=== PATIENT | male | born 1950 | race Two or more races ===

== ENCOUNTER → 2021-07-14 13:46 | Outpatient (BNVA) | payer OTHER, SELFPAY | PROVIDERS: PCP Internal Medicine; Visit Provider Nurse Practitioner Family | DX: R25.1 Tremor, unspecified (principal); R26.9 Unspecified abnormalities of gait and mobility | CPT/HCPCS: 99212 ==

== ENCOUNTER 2021-08-17 10:01 | Outpatient (REF) | payer OTHER, SELFPAY ==
--- NOTE | ~2021-08-17 | MR_ITS ---
EXAMINATION: MR HEAD/BRAIN WITHOUT CONTRAST CLINICAL INFORMATION: 71-year-old with abnormality of gait and mobility. COMPARISON: None TECHNIQUE: Multiplanar multisequence MR imaging of the brain was done without IV contrast. FINDINGS: BRAIN VOLUME: Mild generalized diffuse brain parenchymal volume loss. STRUCTURAL: No malformations. BRAIN AND MENINGES: Numerous scattered subcentimeter foci of FLAIR/T2 signal hyperintensity within the subcortical and deeper white matter of both cerebral hemispheres are noted which are nonspecific findings but likely reflect chronic ischemic microangiopathy. These are associated with periventricular leukoaraiosis. Gradient refocused imaging demonstrates no pathologic susceptibility-weighted signal loss. Specifically, there is no evidence for hemorrhage, hemosiderin staining or abnormal mineral deposition. No extra-axial fluid collections, space-occupying process or mass effect is identified. The ganglionic structures and brainstem appear within normal limits. VENTRICLES AND SUBARACHNOID SPACES: The ventricular system and subarachnoid spaces are consistent with mild volume loss. There is no hydrocephalus. ORBITAL STRUCTURES: The visualized orbital structures are grossly unremarkable within the limitations of the study. VASCULAR: Signal voids are noted in the visualized major intracranial vessels. SINUSES AND OSSEOUS STRUCTURES: There is mild mucosal thickening in the ethmoid complex with nasal septal deviation to the left with some mucosal thickening in the maxillary sinuses and a small retention cyst in the left maxillary sinus. Osseous marrow signal intensity appears grossly unremarkable. MR/MR head/brain wo con IMPRESSION: 1. 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 2. No acute intracranial process. No evidence for hemorrhage, extra-axial fluid collection, space-occupying process, mass effect or hydrocephalus. 3. Paranasal sinus mucosal inflammatory changes.
== END 2021-08-17 10:02 | disposition home or self-care (01) ==
LOC: HO.MRI 10:01
PROVIDERS: Visit Provider Nurse Practitioner Family
DX: R26.9 Unspecified abnormalities of gait and mobility (principal); R25.1 Tremor, unspecified
CPT/HCPCS: 70551

== ENCOUNTER → 2021-09-15 11:04 | Outpatient (BNVA) | payer OTHER, SELFPAY | PROVIDERS: PCP Internal Medicine; Visit Provider Nurse Practitioner Family | DX: G20 Parkinson's disease (principal); R06.81 Apnea, not elsewhere classified; R06.83 Snoring | CPT/HCPCS: 99212 ==

== ENCOUNTER → 2022-01-19 19:23 | Outpatient (REF) | payer OTHER, SELFPAY | LOC: HO.SL 19:23 | PROVIDERS: Visit Provider Nurse Practitioner Family | DX: R06.83 Snoring (principal) | CPT/HCPCS: 95810 ==

== ENCOUNTER → 2022-04-21 08:30 | Outpatient (BNVA) | payer OTHER, SELFPAY | PROVIDERS: PCP Internal Medicine; Visit Provider Nurse Practitioner Family | DX: G20 Parkinson's disease (principal); R06.83 Snoring; K59.00 Constipation, unspecified | CPT/HCPCS: 99212 ==

== ENCOUNTER → 2022-10-06 09:25 | Outpatient (BNVA) | payer OTHER, SELFPAY | PROVIDERS: Visit Provider Nurse Practitioner Family | DX: G20 Parkinson's disease (principal); K59.00 Constipation, unspecified | CPT/HCPCS: 99212 ==

== ENCOUNTER 2023-02-07 11:01 | Outpatient (AMB) | payer OTHER, SELFPAY ==
[2023-02-07 11:06] VITALS: BP 140/80; PULSE 66; O2SAT 97; BMI 28.5
--- NOTE | 2023-02-07 11:06 | MHC.OFFVIS ---
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 pts renewable energy engineer states pt is getting worse with the shaking. Pt states he is still drooling all the time. Excellence Consultant Required: No Allergies No Known Allergies Allergy (Verified 02/07/23 11:10) Medication List - Last Reconciled 02/10/23 by YURI Dos Santos atorvastatin 20 mg PO DAILY carbidopa-levodopa 25-100 mg (Sinemet) 1.5 tabs PO TID 30 days escitalopram oxalate 20 mg PO DAILY gabapentin 300 mg PO DAILY lisinopril 5 mg PO DAILY metformin ER 500 mg PO DAILY ld-eos-fasrf-S1-dwerjgw-ujrkct 816-01-891-300 mcg (Centrum Silver Men) 1 tab PO DAILY polyethylene glycol 3350 (Miralax) 17 grams PO DAILY PRN 30 days risperidone PO DAILY HPI HPI Comments History of Present Illness Details 72-yr-old male presents for f/u visit, accomapnied by family. Pt denies any significant interval medical history changes. Pt's current PD medication regimen: 1.5 tabs qam, 1 tab q afternoon, 1.5 tabs q evening. ADL's: Ind Swallowing: none Drooling: He is having more drooling Orthostatic lightheadedness: May briefly feel unbalanced Constipation: Some- but not great at taking the miralax Freezing: at times when he stands Stiffness: in the hands Tremor: increased some Falls: none Hallucinations: none Memory: he may lose his train of thought or forget why he is going into a room Sleep: sleeps well Exercise: none- he states he walks from the couch to the kitchen. [facility] Surgical History History of back surgery Family History Mother Cancer Social History (Updated 02/07/23 @ 11:11 by Ania Dupree CMA) Household Members: Spouse Alcohol intake: current Alcohol intake frequency: holidays/special occasions only Patient Tobacco Use Status: Never used Tobacco Current occupational status: retired Review of Systems Const All systems reviewed & are unremarkable except as noted in HPI and below Physical Exam Vital Signs: Last Vital Signs Pulse 66 02/07/23 11:06 BP 140/80 H 02/07/23 11:06 Pulse Ox 97 02/07/23 11:06 Oxygen Delivery Method Room Air 02/07/23 11:06 BMI result Body Mass Index 28.5 Const General: cooperative and no acute distress HEENT Head: Yes normocephalic Resp Effort & Inspection: normal respiratory effort and able to speak in complete sentences Neuro Other: Expression: Mild decreased expression Voice: Soft voice Tremor: Mild RUE postural tremor Tone: Mild BUE tone Dyskinesia: None FFM: Mild bradykinesia Foot taps: Mild bradykinesia Gait: Slow to stand, short steps, steady gait Psych: pleasant affect Cognition (Neuro): normal cognition Psych Appearance: grossly normal Mental Status: mental status grossly normal Attitude: cooperative Assessment & Plan Assessment & Plan (1) Parkinson disease: Code(s): G20 - Parkinson's disease (2) Tremor: Comment: Chin and RUE rest/action tremor, BUE rigidity, bradykinesia, hallucinations, drooling. Code(s): R25.1 - Tremor, unspecified (3) Constipation: Code(s): K59.00 - Constipation, unspecified Plan Increase Sinemet 25/100 mg to 1.5 tabs qam, 1.5 tabs q afternoon, 1.5 tabs q evening. Resume fiber tabs and Miralax prn constipation. Increase physical activity. f/u in 4-5 months or sooner prn. Medications: Changed From carbidopa-levodopa 25-100 mg (Sinemet) 1.5 tab qam, 1 tab q afternoon, 1.5 tabs q evening orally 3 times a day; 30 days 120 tabs 6RF To carbidopa-levodopa 25-100 mg (Sinemet) 1.5 tabs PO TID 30 days 135 tabs 6RF Coding Level of Care Code Est Pt Level 4 (40001) Diagnoses Parkinson disease G20 Tremor R25.1 Constipation K59.00
== END 2023-02-07 11:52 | disposition home or self-care (01) ==
PROVIDERS: Visit Provider Nurse Practitioner Family
DX: G20 Parkinson's disease (principal); K59.00 Constipation, unspecified
CPT/HCPCS: 99214

== ENCOUNTER → 2023-02-07 11:01 | Outpatient (BNVA) | payer OTHER, SELFPAY | PROVIDERS: Visit Provider Nurse Practitioner Family | DX: G20 Parkinson's disease (principal); K59.00 Constipation, unspecified | CPT/HCPCS: 99212 ==

== ENCOUNTER 2023-06-15 09:24 | Outpatient (AMB) | payer OTHER, SELFPAY ==
--- NOTE | 2023-06-15 09:29 | MHC.OFFVIS ---
Intake Vital Signs 06/15/23 09:32 Height 5 ft 9 in Weight 197 lb BMI 29.1 BP 138/70 Blood Pressure Location Rt brachial Position Sitting Pulse 72 Pulse Source Pulse Oximeter Pulse Oximetry (%) 96 Oxygen Delivery Method Room Air Intake Visit Reasons: 4 mo f/u -Snoring - LVM Intake Note: Patient presents for 4 month follow up snoring and tremors. 'his shakes are getting worst. Allergies No Known Allergies Allergy (Verified 06/15/23 09:33) Medication List - Last Reconciled 06/15/23 by YURI Dos Santos atorvastatin 20 mg PO DAILY carbidopa-levodopa 25-100 mg (Sinemet) 1.5 tabs PO TID 30 days escitalopram oxalate 20 mg PO DAILY gabapentin 300 mg PO DAILY lisinopril 5 mg PO DAILY metformin ER 500 mg PO DAILY cp-yne-xqleg-H6-moifizj-cwsjoh 251-37-757-300 mcg (Centrum Silver Men) 1 tab PO DAILY polyethylene glycol 3350 (Miralax) 17 grams PO DAILY PRN 30 days risperidone PO DAILY HPI HPI Comments History of Present Illness Details 73-yr-old male presents for f/u visit, accomapnied by his dtr. Pt denies any significant interval medical history changes. Pt's current PD medication regimen: 1.5 tabs qam, 1.5 tab q afternoon, 1.5 tabs q evening. ADL's: Ind Swallowing: none Drooling: Some mild drooling Orthostatic lightheadedness: May briefly feel unbalanced Constipation: Some- using the miralax prn which helps Freezing: at times when he stands, his right hip has been bothering him- seeing his PCP next week Stiffness: in the muscles- generalized Tremor: increased Falls: none Hallucinations: none Memory: some more forgetfulness Mood- more stress- his masakm-ao-ljb is now on hospice Sleep: sleeps well Exercise: none Other- numbness and tingling in bilateral hands- wakes him up at night [facility] Surgical History History of back surgery Family History Mother Cancer Social History Household Members: Spouse Alcohol intake: current Alcohol intake frequency: holidays/special occasions only Patient Tobacco Use Status: Never used Tobacco Current occupational status: retired Review of Systems Const All systems reviewed & are unremarkable except as noted in HPI and below Physical Exam Vital Signs: Last Vital Signs Pulse 72 06/15/23 09:32 BP 138/70 06/15/23 09:32 Pulse Ox 96 06/15/23 09:32 Oxygen Delivery Method Room Air 06/15/23 09:32 BMI result Body Mass Index 29.1 Const General: cooperative and no acute distress Resp Effort & Inspection: normal respiratory effort and able to speak in complete sentences Neuro Other: General: A&O Expression: Mild decreased expression Voice: Soft voice Tremor: Mild intermittent chin tremor. Mild RUE postural tremor Tone: Mild BUE tone Dyskinesia: None FFM: Mild bradykinesia Foot taps: Mild bradykinesia Gait: Slow to stand, short steps, steady gait Psych: pleasant affect BUE- negative Tinnel, Phalen, Medial compression test Assessment & Plan Assessment & Plan (1) Parkinson's disease without dyskinesia: Code(s): G20.A1 - Parkinson's disease without dyskinesia, without mention of fluctuations (2) Tremor: Comment: Chin and RUE rest/action tremor, BUE rigidity, bradykinesia, hallucinations, drooling. Code(s): R25.1 - Tremor, unspecified (3) Constipation: Code(s): K59.00 - Constipation, unspecified (4) Numbness and tingling in both hands: Code(s): R20.0 - Anesthesia of skin; R20.2 - Paresthesia of skin Plan Increase Sinemet 25/100 mg from 1.5 tabs TID to 2 tabs TID. Continue fiber tabs and Miralax prn constipation. Advised to increase physical activity. Trial OTC fang carpal tunnel splints qhs ? f/u in 4 months or sooner prn. Medications: Changed From carbidopa-levodopa 25-100 mg (Sinemet) 1.5 tabs PO TID 30 days 135 tabs 6RF To carbidopa-levodopa 25-100 mg (Sinemet) 2 tabs PO TID 30 days 180 tabs 6RF Coding Level of Care Code Est Pt Level 4 (63169) Diagnoses Parkinson's disease without dyskinesia G20.A1 Tremor R25.1 Constipation K59.00 Numbness and tingling in both hands R20.0; R20.2
[2023-06-15 09:32] VITALS: BP 138/70; PULSE 72; O2SAT 96; BMI 29.1
== END 2023-06-15 10:18 | disposition home or self-care (01) ==
PROVIDERS: Visit Provider Nurse Practitioner Family
DX: G20.A1 Parkinson's disease without dyskinesia, without mention of fluctuations (principal); K59.00 Constipation, unspecified; R20.0 Anesthesia of skin; R20.2 Paresthesia of skin
CPT/HCPCS: 99214

== ENCOUNTER → 2023-06-15 09:24 | Outpatient (BNVA) | payer OTHER, SELFPAY | PROVIDERS: Visit Provider Nurse Practitioner Family | DX: G20.A1 Parkinson's disease without dyskinesia, without mention of fluctuations (principal); K59.00 Constipation, unspecified; R20.0 Anesthesia of skin; R20.2 Paresthesia of skin | CPT/HCPCS: 99212 ==

== ENCOUNTER 2023-09-20 09:25 | Outpatient (AMB) | payer OTHER, SELFPAY ==
[2023-09-20 09:40] VITALS: BP 124/84; PULSE 87; O2SAT 98; BMI 28.6
--- NOTE | 2023-09-20 09:40 | MHC.OFFVIS ---
Intake Vital Signs 09/20/23 09:40 Height 5 ft 9 in Weight 194 lb BMI 28.6 BP 124/84 Blood Pressure Location Rt brachial Position Sitting Pulse 87 Pulse Source Pulse Oximeter Pulse Oximetry (%) 98 Oxygen Delivery Method Room Air Intake Visit Reasons: 3 mo f/u - Snoring-CONF Intake Note: Patient here for follow up. parkinson's is progressing Allergies No Known Allergies Allergy (Verified 09/20/23 09:42) Medication List - Last Reconciled 09/20/23 by YURI Dos Santos atorvastatin 20 mg PO DAILY [Bilateral carpal tunnel neoprene wrist plint As directed] bupropion HCl takes 300mg carbidopa-levodopa 25-100 mg (Sinemet) 2 tabs PO TID 30 days escitalopram oxalate 20 mg PO DAILY gabapentin 300 mg PO DAILY lisinopril 5 mg PO DAILY metformin ER 500 mg PO DAILY on-lrq-tumtk-Z3-ysjucue-pmrohd 173-78-088-300 mcg (Centrum Silver Men) 1 tab PO DAILY polyethylene glycol 3350 (Miralax) 17 grams PO DAILY PRN 30 days risperidone PO DAILY HPI HPI Comments History of Present Illness Details 73-yr-old right-hand male presents for f/u visit, accompanied by his dtr. Pt denies any significant interval medical history changes. Pt is noticing some PD s/s progression. Pt's current PD medication regimen: CD-LD 25-100mg 2 tabs TID (9am, 3pm, 10pm). ADL's: Ind Swallowing: none Drooling: Some mild drooling Orthostatic lightheadedness: May briefly feel unbalanced Constipation: Denies- as he is using the miralax prn which helps Freezing: Denies. Stiffness: Yes- in the muscles- generalized. The right hip pain comes nad goes. Tremor: increased. Now more noticable in his chin- he states does not bother him- notices when he sees himself in the mirror. Notices more as his next dose is due, and more so in the afternoon. Falls: Once- tripped over one of his small dogs. Hallucinations: May see something move beside him but nothing there. Memory: Can be forgetful- some days better than others Mood- has depression and anxiety- feels controlled on his medications- and sees his therapist every 2 weeks. His ruavnl-uh-cxe is now on hospice. Sleep: Sleeps well Exercise: Yesterday walked- 30 minutes to and from [employer]. Other- numbness and tingling in bilateral hands- more left /- happens al day, but at night the whole left hand goes numb. He forgot about trying the wrist splints. REPLACED BY [facility] Medical History (Updated 09/20/23 @ 10:25 by YURI Dos Santos) Parkinson disease Surgical History History of back surgery Family History Mother Cancer Social History Household Members: Spouse Alcohol intake: current Alcohol intake frequency: holidays/special occasions only Patient Tobacco Use Status: Never used Tobacco Current occupational status: retired Review of Systems Const All systems reviewed & are unremarkable except as noted in HPI and below Physical Exam Vital Signs: Last Vital Signs Pulse 87 09/20/23 09:40 BP 124/84 09/20/23 09:40 Pulse Ox 98 09/20/23 09:40 Oxygen Delivery Method Room Air 09/20/23 09:40 BMI result Body Mass Index 28.6 Const General: cooperative and no acute distress Resp Effort & Inspection: normal respiratory effort and able to speak in complete sentences Neuro Other: General: A&O Expression: Mild decreased expression Voice: Soft voice Tremor: Mild intermittent chin tremor. Mild RUE postural tremor Tone: Mild BUE tone Dyskinesia: None FFM: Mild bradykinesia Foot taps: Mild bradykinesia Gait: Slow to stand, short steps, steady gait Psych: pleasant affect Assessment & Plan Assessment & Plan (1) Parkinson's disease without dyskinesia: Code(s): G20.A1 - Parkinson's disease without dyskinesia, without mention of fluctuations (2) Numbness and tingling in both hands: Code(s): R20.0 - Anesthesia of skin; R20.2 - Paresthesia of skin (3) Gait difficulty: Code(s): R26.9 - Unspecified abnormalities of gait and mobility Plan Increase Sinemet 25/100 mg 2 tabs TID to 2 tabs QID (at least 30 minutes before B-L-D and at bedtime)- in hopes this reduses rigidity. Reviewed s/e's to monitor for- OH, hallucinations, GI s/s, dyskinesias. Continue fiber tabs and Miralax prn constipation. Advised again to increase physical activity. May try watching PD exercise videos in Marshallese- many options on youtibe. Again trial fang carpal tunnel splints qhs- order written, will fax to [employer] [facility]. ? f/u in 4-5 months or sooner prn. Medications: New [Bilateral carpal tunnel neoprene wrist plint] As directed 2 ea 0RF R20.0 - Anesthesia of skin, R20.2 - Paresthesia of skin Changed From carbidopa-levodopa 25-100 mg (Sinemet) 2 tabs PO TID 30 days 180 tabs 6RF To carbidopa-levodopa 25-100 mg (Sinemet) 2 tabs PO QID 720 tabs 1RF 90 days Coding Level of Care Code Est Pt Level 4 (94067) Diagnoses Parkinson's disease without dyskinesia G20.A1 Numbness and tingling in both hands R20.0; R20.2 Gait difficulty R26.9
== END 2023-09-20 10:33 | disposition home or self-care (01) ==
PROVIDERS: Visit Provider Nurse Practitioner Family
DX: G20.A1 Parkinson's disease without dyskinesia, without mention of fluctuations (principal); R20.0 Anesthesia of skin; R20.2 Paresthesia of skin; R26.9 Unspecified abnormalities of gait and mobility
CPT/HCPCS: 99214

== ENCOUNTER → 2023-09-20 09:25 | Outpatient (BNVA) | payer OTHER, SELFPAY | PROVIDERS: Visit Provider Nurse Practitioner Family | DX: G20.A1 Parkinson's disease without dyskinesia, without mention of fluctuations (principal); R20.0 Anesthesia of skin; R20.2 Paresthesia of skin; R26.9 Unspecified abnormalities of gait and mobility; Z79.899 Other long term (current) drug therapy | CPT/HCPCS: 99212 ==

== ENCOUNTER 2024-02-15 09:00 | Outpatient (AMB) | payer OTHER, SELFPAY ==
--- NOTE | 2024-02-15 09:05 | A.OFFVIS_ITS ---
Vital Signs 02/15/24 09:06 Height 5 ft 9 in Weight 199 lb BMI 29.4 BP 124/70 Blood Pressure Location Rt brachial Position Sitting Pulse 78 Pulse Source Pulse Oximeter Pulse Oximetry (%) 98 Oxygen Delivery Method Room Air Intake Visit Reasons: follow up Snoring-LVM Intake Note: Patient presents for follow up snoring. Allergies No Known Allergies Allergy (Verified 02/15/24 09:08) Medication List - Last Reconciled 02/15/24 by YURI Dos Santos atorvastatin 20 mg PO DAILY [Bilateral carpal tunnel neoprene wrist plint As directed] bupropion HCl takes 300mg carbidopa-levodopa 25-100 mg (Sinemet) 2 tabs PO QID 90 days escitalopram oxalate 20 mg PO DAILY gabapentin 300 mg PO DAILY lisinopril 5 mg PO DAILY metformin ER 500 mg PO DAILY om-qnp-jrfer-X6-wczmxxl-jodbvq 302-41-024-300 mcg (Centrum Silver Men) 1 tab PO DAILY polyethylene glycol 3350 (Miralax) 17 grams PO DAILY PRN 30 days risperidone PO DAILY HPI Comments Details: 73-yr-old male presents for f/u visit for Parkinson's. Pt denies any significant interval medical history changes. Pt's current PD medication regimen: CD-LD 25-100mg 2 tabs TID (9am, 3pm, 10pm). He did not increase to QID. ADL's: Ind Swallowing: none Drooling: Some mild drooling Orthostatic lightheadedness: May briefly feel unbalanced/dizzy Constipation: Denies- as he is using the miralax prn which helps Freezing: At times, his legs may be stuck, say while getting up form an airplane seat. Stiffness: States he is ok. Rashid shave right hip arthritis. Tremor: States stable- not overly bothersome. Falls: Has lost his balance after standing up. Hallucinations: May see something move beside him but nothing there or something moving on the ground. Not bothersome Memory: Can be forgetful- some days better than others Mood- Has depression and anxiety- feels controlled on his medications- and sees his therapist every 2 weeks. His lgcate-qu-zco is now on hospice. Sleep: Sleeps well Exercise: Yesterday walked- 30 minutes to and from [employer]. Other- The [place] hand numbness and tingling is better w/ trying fang wrist splints. [facility] Medical History (Updated 09/20/23 @ 10:25 by YURI Dos Santos) Parkinson disease Surgical History History of back surgery Family History Mother Cancer Social History Household Members: Spouse Alcohol intake: current Alcohol intake frequency: holidays/special occasions only Patient Tobacco Use Status: Never used Tobacco Current occupational status: retired Review of Systems Const All systems reviewed & are unremarkable except as noted in HPI and below Physical Exam Vital Signs: Last Vital Signs Pulse 78 02/15/24 09:06 BP 124/70 02/15/24 09:06 Pulse Ox 98 02/15/24 09:06 Oxygen Delivery Method Room Air 02/15/24 09:06 BMI result Body Mass Index 29.4 Const General: cooperative and no acute distress Resp Effort & Inspection: normal respiratory effort and able to speak in complete sentences Neuro Other: General: A&O Expression: Mild decreased expression Voice: Soft voice Tremor: Mild intermittent chin tremor. Mild RUE postural tremor Tone: Mild BUE R > L tone Dyskinesia: None FFM: Mild bradykinesia Foot taps: Mild bradykinesia Gait: Slow to stand, decreased arm swing, short steps, steady gait Psych: pleasant affect Assessment & Plan Assessment & Plan (1) Parkinson's disease without dyskinesia: Code(s): G20.A1 - Parkinson's disease without dyskinesia, without mention of fluctuations Category: Medical (2) Numbness and tingling in both hands: Code(s): R20.0 - Anesthesia of skin; R20.2 - Paresthesia of skin Category: Medical (3) Gait difficulty: Code(s): R26.9 - Unspecified abnormalities of gait and mobility Category: Medical (4) Tremor: Comment: Chin and RUE rest/action tremor, BUE rigidity, bradykinesia, hallucinations, drooling. Code(s): R25.1 - Tremor, unspecified Category: Medical Plan Again increase Sinemet 25/100 mg 2 tabs TID to 2 tabs QID (at least 30 minutes before B-L-D and at bedtime)- in hopes this reduces rigidity and freezing episodes. Reviewed s/e's to monitor for- OH, hallucinations, GI s/s, dysk inesias. Also reviewed techniques to break freezing episodes- pause, take a breathe, step in place or tap leg with hand. Continue fiber tabs and Miralax prn constipation. Continue increased physical activity. Continue fang carpal tunnel splints qhs prn, as this has been helpful. ? f/u in 4-5 months or sooner prn. Medications: Refilled carbidopa-levodopa 25-100 mg (Sinemet) 2 tabs PO QID 720 tabs 1RF 90 days Coding Level of Care Code Est Pt Level 4 (24479) Diagnoses Parkinson's disease without dyskinesia G20.A1 Numbness and tingling in both hands R20.0; R20.2 Gait difficulty R26.9 Tremor R25.1
[2024-02-15 09:06] VITALS: BP 124/70; PULSE 78; O2SAT 98; BMI 29.4
== END 2024-02-15 10:11 | disposition home or self-care (01) ==
PROVIDERS: Visit Provider Nurse Practitioner Family
DX: G20.A1 Parkinson's disease without dyskinesia, without mention of fluctuations (principal); R20.0 Anesthesia of skin; R20.2 Paresthesia of skin; R26.9 Unspecified abnormalities of gait and mobility
CPT/HCPCS: 99214

== ENCOUNTER → 2024-02-15 09:00 | Outpatient (BNVA) | payer OTHER, SELFPAY | PROVIDERS: Visit Provider Nurse Practitioner Family | DX: G20.A1 Parkinson's disease without dyskinesia, without mention of fluctuations (principal); R20.0 Anesthesia of skin; R20.2 Paresthesia of skin; R26.9 Unspecified abnormalities of gait and mobility; R25.1 Tremor, unspecified | CPT/HCPCS: 99212 ==

== ENCOUNTER 2024-08-29 10:13 | Outpatient (AMB) | payer OTHER, SELFPAY ==
--- NOTE | 2024-08-29 10:44 | MHC.OFFVIS ---
Vital Signs 08/29/24 10:45 Height 5 ft 9 in Weight 194 lb BMI 28.6 BP 140/70 H Blood Pressure Location Rt brachial Position Sitting Pulse 85 Pulse Source Pulse Oximeter Pulse Oximetry (%) 97 Oxygen Delivery Method Room Air Intake Visit Reasons: 6mo f/u Feather Duster Winder Required: No Allergies No Known Allergies Allergy (Verified 08/29/24 10:53) Medication List - Last Reconciled 08/29/24 by YURI Dos Santos atorvastatin 20 mg PO DAILY [Bilateral carpal tunnel neoprene wrist plint As directed] bupropion HCl takes 300mg carbidopa-levodopa 25-100 mg (Sinemet) 2 tabs PO QID 90 days escitalopram oxalate 20 mg PO DAILY gabapentin 300 mg PO DAILY lisinopril 5 mg PO DAILY metformin ER 500 mg PO DAILY [id number] mcg (Centrum Silver Men) 1 tab PO DAILY polyethylene glycol 3350 (Miralax) 17 grams PO DAILY PRN 30 days risperidone PO DAILY HPI Comments Details: 74-yr-old male presents for f/u visit for Parkinson's. Patient is accompanied by family/CHEF'S ASSISTANT. Pt denies any significant interval medical history changes. Patient states request previous he had a routine colonoscopy, were 5 polyps were removed. Plans for follow-up colonoscopy in 3 years. Patient's primary concern today is an increase in falls. He finds that he falls forward after standing up-sometimes to his knees. He identifies triggers of freezing gait, festinating gait and bilateral feet paresthesia. He notes that when he stands up, his feet sometimes start to move quickly and he can not break this on his own. Also on and off throughout the day he can have symmetric bilateral foot numbness and tingling- like they have fallen asleep, and when he stands up it is difficult to feel the ground underneath his feet. 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 His last hemoglobin A1c in July was 7%. July labs were also notable for anemia. Pt's current PD medication regimen: CD-LD 25-100mg 2 tabs TID (9am, 3pm, 10pm). He again did not increase to QID. ADL's: Overall independent, but needing a bit more assist. Does have a shower chair Swallowing: Denies any issues Drooling: Some mild drooling from the side of mouth Orthostatic lightheadedness: Denies Constipation: Denies- as he is using the miralax prn which helps some Freezing: At times, his legs may be stuck, say while getting up after sitting for awhile. We then Stiffness: Endorses some generalized stiffness. Rashid shave right hip arthritis. Tremor: Mildly increased, used to be able to hold his coffee cup with 1 hand now needs to use 2 hands to hold it. His coffee cup is covered. Falls: As above Hallucinations: May see something move beside him but nothing there or something moving on the ground. Not bothersome Memory: Can be forgetful, may lose his train of thought- some days better than others. He does play games on his phone. Mood- Has h/o depression and anxiety- feels controlled on his medications- and sees his therapist every 2 weeks. Sleep: Sleeps well Exercise: States not much exercise at this time, as the weather is not conducive to walking outside. Other- The Tony hand numbness and tingling is stable. Uses tony wrist splints p.r.n. with good effect. [facility] Medical History (Updated 08/29/24 @ 11:39 by YURI Dos Santos) Parkinson disease Surgical History History of back surgery Family History Mother Cancer Social History Household Members: Spouse Alcohol intake: current Alcohol intake frequency: holidays/special occasions only Patient Tobacco Use Status: Never used Tobacco Current occupational status: retired Physical Exam Vital Signs: Last Vital Signs Pulse 85 08/29/24 10:45 BP 140/70 H 08/29/24 10:45 Pulse Ox 97 08/29/24 10:45 Oxygen Delivery Method Room Air 08/29/24 10:45 BMI result Body Mass Index 28.6 Const General: cooperative and no acute distress Resp Effort & Inspection: normal respiratory effort and able to speak in complete sentences Neuro Other: General: A&O Expression: Mild decreased expression Voice: Soft voice Tremor: Mild intermittent chin tremor. No visible RUE postural tremor Tone: Slight increased BUE rigidity Dyskinesia: None FFM: Mild bradykinesia Foot taps: Mild bradykinesia Gait: Slow to stand, decreased arm swing, short steps, steady gait Psych: pleasant affect Assessment & Plan Assessment & Plan (1) Parkinson's disease without dyskinesia: Code(s): G20.A1 - Parkinson's disease without dyskinesia, without mention of fluctuations Category: Medical (2) Numbness and tingling of both feet: Code(s): R20.0 - Anesthesia of skin; R20.2 - Paresthesia of skin Category: Medical (3) Anemia: Code(s): D64.9 - Anemia, unspecified Category: Medical (4) Numbness and tingling in both hands: Code(s): R20.0 - Anesthesia of skin; R20.2 - Paresthesia of skin Category: Medical (5) Gait difficulty: Code(s): R26.9 - Unspecified abnormalities of gait and mobility Category: Medical (6) Tremor: Comment: Chin and RUE rest/action tremor, BUE rigidity, bradykinesia, hallucinations, drooling. Code(s): R25.1 - Tremor, unspecified Category: Medical Plan Discussion Notes I discussed the likelihood of tremor management improvement with increased medication frequency for Parkinson's Disease. Physical therapy was suggested to support gait improvement if needed. Risks and benefits of medication adjustment were addressed, stressing the importance of adherence. I recommended laboratory testing to check for vitamin deficits and anemia causes that might affect neuropathy. The patient was informed we would request previous nerve testing for updates. We reviewed importance for patient to work with PCP on diabetes control. The patient voiced understanding and agreed to return for review in six months, with immediate contact advised if substantial symptom fluctuates. Again increase Sinemet 25/100 mg from 2 tabs TID to 2 tabs QID (at least 30 minutes before B-L-D and at bedtime)- in hopes this reduces rigidity and freezing episodes. Reviewed s/e's to monitor for- [place], hallucinations, GI s/s, dyskinesias. Patient encouraged to do foot movements/exercises prior to standing up to reduce risk for freezing episodes and minimize BLE paresthesia symptoms. Explained that his risk for falls will be increased if he is experiencing freezing episodes and paresthesia at the same time. Reviewed techniques to break freezing episodes- pause, take a breathe, step in place or tap leg with hand. Encouraged patient to use his cane, if symptoms worsen his walker- both of which he has at home. Offered PT, however patient declines at this time. Continue fiber tabs and Miralax prn constipation. Stress importance of maintaining increased physical activity. Continue tony carpal tunnel splints qhs prn, as this has been helpful. We will check fasting labs for common etiologies of paresthesias in setting of anemia- patient will come back next week to do labs. We will request recent podiatry notes and EMG/NCS studies. Patient was informed and verbally consented to the use of an ambient scribe for clinic note documentation during this visit. ? f/u in 6 months or sooner prn. Orders: Orders Ferritin 09/03/24 R20.0 - Anesthesia of skin, R20.2 - Paresthesia of skin, D64.9 - Anemia, unspecified, E11.9 - Type 2 diabetes mellitus without complications Vitamin B6 09/03/24 R20.0 - Anesthesia of skin, R20.2 - Paresthesia of skin, D64.9 - Anemia, unspecified, E11.9 - Type 2 diabetes mellitus without complications Erythrocyte Sedimentation Rate 09/03/24 R20.0 - Anesthesia of skin, R20.2 - Paresthesia of skin, D64.9 - Anemia, unspecified, E11.9 - Type 2 diabetes mellitus without complications Methylmalonic Acid 09/03/24 R20.0 - Anesthesia of skin, R20.2 - Paresthesia of skin, D64.9 - Anemia, unspecified, E11.9 - Type 2 diabetes mellitus without complications Complete Blood Count Auto Diff 09/03/24 R20.0 - Anesthesia of skin, R20.2 - Paresthesia of skin, D64.9 - Anemia, unspecified, E11.9 - Type 2 diabetes mellitus without complications Comprehensive Met. Panel 09/03/24 R20.0 - Anesthesia of skin, R20.2 - Paresthesia of skin, D64.9 - Anemia, unspecified, E11.9 - Type 2 diabetes mellitus without complications Homocysteine 08/29/24 R20.0 - Anesthesia of skin, R20.2 - Paresthesia of skin, D64.9 - Anemia, unspecified, E11.9 - Type 2 diabetes mellitus without complications Lyme IgG/IgM w/reflex to WB 09/03/24 R20.0 - Anesthesia of skin, R20.2 - Paresthesia of skin, D64.9 - Anemia, unspecified, E11.9 - Type 2 diabetes mellitus without complications Vitamin B12 and Folate 09/03/24 R20.0 - Anesthesia of skin, R20.2 - Paresthesia of skin, D64.9 - Anemia, unspecified, E11.9 - Type 2 diabetes mellitus without complications Vitamin B1 09/03/24 R20.0 - Anesthesia of skin, R20.2 - Paresthesia of skin, D64.9 - Anemia, unspecified, E11.9 - Type 2 diabetes mellitus without complications IRON PROFILE 09/03/24 R20.0 - Anesthesia of skin, R20.2 - Paresthesia of skin, D64.9 - Anemia, unspecified, E11.9 - Type 2 diabetes mellitus without complications Medications: Changed From carbidopa-levodopa 25-100 mg 2 tabs PO QID 90 days 720 tabs 1RF To carbidopa-levodopa 25-100 mg (Sinemet) 2 tabs PO QID 720 tabs 1RF 90 days Coding Level of Care Code Est Pt Level 4 (46202) Complex EM visit Add On G2211 Diagnoses Parkinson's disease without dyskinesia G20.A1 Numbness and tingling of both feet R20.0; R20.2 Anemia D64.9 Numbness and tingling in both hands R20.0; R20.2 Gait difficulty R26.9 Tremor R25.1
[2024-08-29 10:45] VITALS: BP 140/70; PULSE 85; O2SAT 97; BMI 28.6
--- OUTSIDE RECORDS SUMMARY | 2024-08-29 11:26 | XMS_ITS ---
Author Organization [facility] Address [address] [place] [address] Care Team Providers Care Pattern Filer Name Role Phone ALETHA RUFFIN Unavailable [phone] ALLERGIES No Known Allergies REASON FOR VISIT Pt seen in office for f/u visit MEDICATIONS Medication SIG (Take, Route, Frequency, Duration) Notes Start Date End Date Status Alcohol Wipes 70 % as directed External ly DAILY for 90 days 04/24/2024 Active Lisinopril 10 MG 1 tablet Orally Once a day for 90 days Active Lisinopril 10 MG Take 1 tablet by andreas th once daily for 90 days for 90 Active Cialis 20 MG 1 tablet Orally 1 hr before sex for 30 day(s) Active Lisinopril 5 MG Take 1 tablet by andreas th once daily for 90 days for 90 Not-Taking FreeStyle Lite Test Strips as directed as directed in vitro dxe11.8 once daily for 30 days 07/28/2019 Active FreeStyle Lite - as directed in vitro dxe11.8 once daily for 30 days 07/28/2019 Active Atorvastatin Calcium 20 MG TAKE 1 TABLET BY MOUTH EVERY DAY for 90 Active hydrOXYzine HCl 25 MG TAKE 1 TABLET BY M OUTH EVERY 8 HOURS NEEDED FOR 90 DAYS for 90 Active FreeStyle Lancets - as directed in vitro dx e11.8 once daily for 30 days 07/28/2019 Active Diclofenac Sodium 75 MG 1 tablet Orally Twice a day for 30 day(s) 12/05/2019 Active Gabapentin 300 MG 1 capsule Orally Onc e a day for 30 day(s) 12/05/2019 Active metFORMIN HCl ER 500 MG TAKE 1 TABLET BY MOUTH TWICE DAILY WITH EVENING MEAL FOR 90 DAYS Orally Once a day for 90 days Active Carbidopa-Levodopa 25-100 MG Oral for 30 Days Active buPROPion HCl 75 MG Oral for 90 Days Active Escitalopram Oxalate 20 MG 1 tablet Orally Once a day for 30 day(s) Active SOCIAL HISTORY Tobacco Use: Social History Observation Description Date Details (start date - stop date) Never Smoker NA - NA Sex Assigned At : Social History Observation Description Sex Assigned At Unknown Tobacco Use/Smoking Question Answer Notes Are you a nonsmoker Section Notes: does not smoke or abuse alco hol VITAL SIGNS Blood pressure systolic 128 mm Hg 07/23/19 25 Blood pressure diastolic 70 mm Hg 025 Heart Rate 82 /min 07/23/2024 Height 66 in 07/23/2024 Weight 194 lbs 07/23/2024 BMI 31.31 kg/m2 07/23/2024 Oximetry 97 % 07/23/2024 Encounters Encounter Location Date Provider Diagnosis [place] [address] [address] 07/23/2024 ALETHA LALY Type 2 diabetes danish itus with unspecified complications E11.8 ; Essential (primary) hypertension I10 ; Hyperlipidemia, unspecified E78.5 ; Other chronic pain G89.29 ; Parkinson disease, symptomatic G20.A1 and Acute pain of left knee M25.562 ASSESSMENTS Encounter Date Diagnosis Assessment Notes Treatment Notes Treatment Clinical Notes Section Notes 07/23/2024 Type 2 diabetes mellitus with unspecified complications (ICD-10 - E11.8) Acute Concerns/Problem List: 07/23/2024 Glycemic index is stable and age-appropriate at 7.0 His chronic conditions are stable and he is doing well from a functional standpoint Discussed seeing orthopedics for possible injections on left knee Of note, some information is being carried forward from prior records for informational purposes only and is being cited so that efficiency, safety and quality of the patient's care is not compromised This note was prepared using voice recognition software and direct typing Please excuse inadvertent linecasting machine keyboard operator or typing errors, or uncorrected word substitutions Although every attempt has been made by the provider to proofread this document, occasional misspellings and typographical errors may still be present Due to the previous pandemic, and the use of personal protective equipment (PPE) This may decrease voice recognition accuracy Inadvertent linecasting machine keyboard operator errors may occur 07/23/2024 Essential (primary) hypertension (ICD-10 - I10) Acute Concerns/Problem List: 07/23/2024 Glycemic index is stable and age-appropriate at 7.0 His chronic conditions are stable and he is doing well from a functional standpoint Discussed seeing orthopedics for possible injections on left knee Of note, some information is being carried forward from prior records for informational purposes only and is being cited so that efficiency, safety and quality of the patient's care is not compromised This note was prepared using voice recognition software and direct typing Please excuse inadvertent linecasting machine keyboard operator or typing errors, or uncorrected word substitutions Although every attempt has been made by the provider to proofread this document, occasional misspellings and typographical errors may still be present Due to the previous pandemic, and the use of personal protective equipment (PPE) This may decrease voice recognition accuracy Inadvertent linecasting machine keyboard operator errors may occur 07/23/2024 Hyperlipidemia, unspecified (ICD-10 - E78.5) Acute Concerns/Problem List: 07/23/2024 Glycemic index is stable and age-appropriate at 7.0 His chronic conditions are stable and he is doing well from a functional standpoint Discussed seeing orthopedics for possible injections on left knee Of note, some information is being carried forward from prior records for informational purposes only and is being cited so that efficiency, safety and quality of the patient's care is not compromised This note was prepared using voice recognition software and direct typing Please excuse inadvertent linecasting machine keyboard operator or typing errors, or uncorrected word substitutions Although every attempt has been made by the provider to proofread this document, occasional misspellings and typographical errors may still be present Due to the previous pandemic, and the use of personal protective equipment (PPE) This may decrease voice recognition accuracy Inadvertent linecasting machine keyboard operator errors may occur 07/23/2024 Other chronic pain (ICD-10 - G89.29) Acute Concerns/Problem List: 07/23/2024 Glycemic index is stable and age-appropriate at 7.0 His chronic conditions are stable and he is doing well from a functional standpoint Discussed seeing orthopedics for possible injections on left knee Of note, some information is being carried forward from prior records for informational purposes only and is being cited so that efficiency, safety and quality of the patient's care is not compromised This note was prepared using voice recognition software and direct typing Please excuse inadvertent linecasting machine keyboard operator or typing errors, or uncorrected word substitutions Although every attempt has been made by the provider to proofread this document, occasional misspellings and typographical errors may still be present Due to the previous pandemic, and the use of personal protective equipment (PPE) This may decrease voice recognition accuracy Inadvertent linecasting machine keyboard operator errors may occur 07/23/2024 Parkinson disease, symptomatic (ICD-10 - G20.A1) Acute Concerns/Problem List: 07/23/2024 Glycemic index is stable and age-appropriate at 7.0 His chronic conditions are stable and he is doing well from a functional standpoint Discussed seeing orthopedics for possible injections on left knee Of note, some information is being carried forward from prior records for informational purposes only and is being cited so that efficiency, safety and quality of the patient's care is not compromised This note was prepared using voice recognition software and direct typing Please excuse inadvertent linecasting machine keyboard operator or typing errors, or uncorrected word substitutions Although every attempt has been made by the provider to proofread this document, occasional misspellings and typographical errors may still be present Due to the previous pandemic, and the use of personal protective equipment (PPE) This may decrease voice recognition accuracy Inadvertent linecasting machine keyboard operator errors may occur 07/23/2024 Acute pain of left knee (ICD-10 - M25.562) Acute Concerns/Problem List: 07/23/2024 Glycemic index is stable and age-appropriate at 7.0 His chronic conditions are stable and he is doing well from a functional standpoint Discussed seeing orthopedics for possible injections on left knee Of note, some information is being carried forward from prior records for informational purposes only and is being cited so that efficiency, safety and quality of the patient's care is not compromised This note was prepared using voice recognition software and direct typing Please excuse inadvertent linecasting machine keyboard operator or typing errors, or uncorrected word substitutions Although every attempt has been made by the provider to proofread this document, occasional misspellings and typographical errors may still be present Due to the previous pandemic, and the use of personal protective equipment (PPE) This may decrease voice recognition accuracy Inadvertent linecasting machine keyboard operator errors may occur PLAN OF TREATMENT Medication Medication Name Sig Start Date Stop Date Notes Lisinopril 10 MG 1 tablet Orally Once a day for 90 days Cialis 20 MG 1 tablet Orally 1 hr before sex for 30 day(s) Next Appt Details Provider Name:ALETHA RUFFIN, 10/16/2024 10:00:00 AM, [address] [facility], [facility] [address], [place], [address], Progress Notes * ARIELLE MELGAROB:1950 (74 yo M)Acc No.[id number]:07/23/2024 Progress Notes Patient:??LICHA MELGAR Provider:??ALETHA RUFFIN NP :1950?Age:74 Y?Sex:Ma le Date:07/23/2024 Address:[address], [place], [id number] Subjective: * Chief Complaints: * ?1. Pt seen in office f or f/u visit. * HPI: ?Constitutional:? Patient is here for Chronic Disease Management follow-up visit ?Patient seen and examined. ? Full past medical history, social history, family history, ?allergies and current medications were reviewed and updated. 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 Viviana is a healthcare proxy on file ?He is overall doing well, Overwhelming concern is ?complains of chronic pain mostly in his hands in his knees ?disc Xray of left knee, He is against getting intra-articular cortisone injections ?I discussed this may give him significant relief in pain and that he should consider it ?ortho @ [facility] ?Has chronic degenerative and osteoarthritic changes ?underwent sleep study in November 2022 for [facility] and was negative ?Parkinsons disease, on carv/levo, sees Heather/J Lius, will request office notes ?uses cane, no falls ?Patient asking for erectile dysfunction medication-Using as needed tadalafil ?Patient is not taking any nitrates ?Blood pressure stable on lisinopril., Does check at home ?Currently on for 500 Metformin ER BID, A1c has Holding steady and age-appropriate ?Wants diabetic supplies prescribed ?bilateral hearing loss, sensineural, now has bilat hearing aids ?A1c is 7 today on labs ?Comprehensive labs July 2024 ?CBC mostly stable ?Hemoglobin 12.4, hematocrit 38.1 ?Total cholesterol 158, LDL 87, HDL 46, triglycerides 123 ?Vitamin D 46 ?TSH 2.17 ?Renal function electrolytes LFTs are stable ?Hemoglobin A1c of 7 which is age-appropriate ?UA was unremarkable ?Health maintenance ?Hearing eval- ENT 03/13/2022, now has right hearing aids ?Colonoscopy screening, rescheduled to [facility] 2024 ?COVID MRNA Vax x4 ?Diabetic eye exam on 01/2024 ?Fire Prevention Chief Appointment- 02/27/2022 ?Flu 04/2024 ?COVID 04/2024 ?RSV 06/2023 ?[facility]/HCP is proxy. * ROS:?All Other Systems:?Review of Systems (ROS)??All others negative except those mentioned in HPI.? * Medical History:??Hyperlipid emia, Hypertension, vitamin D deficiency, Diabetes mellitus. * Surgical History:??low back . * Hospitalization/Major Diagno stic Procedure:??Denies Past Hospitalization. * Family History:??Mother: jere gnosed with Other malignant neoplasm of unspecified site.??1 brother(s) , 2 sister(s) . 1 son(s) , 3 daughter(s) . .?? mother liver cancer. * Social History:?Tobacco Use:??Tobacco Use/Smoking??Are you a??nonsmoker.?does not smoke or abuse alcohol. * Medications:??Taking Cialis 20 MG Tablet 1 tablet Orally 1 hr before sex , Taking Escitalopram Oxalate 20 MG Tablet 1 tablet Orally Once a day , Taking Diclofenac Sodium 75 MG Tablet Delayed Release 1 tablet Orally Twice a day , Taking Gabapentin 300 MG Capsule 1 capsule Orally Once a day , Taking metFORMIN HCl ER 500 MG Tablet Extended Release 24 Hour TAKE 1 TABLET BY MOUTH TWICE DAILY WITH EVENING MEAL FOR 90 DAYS Orally Once a day , Taking Carbidopa-Levodopa 25-100 MG Tablet Oral , Taking buPROPion HCl 75 MG Tablet Oral , Taking Atorvastatin Calcium 20 MG Tablet TAKE 1 TABLET BY MOUTH EVERY DAY , Taking hydrOXYzine HCl 25 MG Tablet TAKE 1 TABLET BY MOUTH EVERY 8 HOURS NEEDED FOR 90 DAYS , Taking FreeStyle Lancets - Miscellaneous as directed in vitro dx e11.8 once daily , Taking FreeStyle Lite Test Strips as directed as directed in vitro dxe11.8 once daily , Taking FreeStyle Lite - Device as directed in vitro dxe11.8 once daily , Taking Alcohol Wipes 70 % Miscellaneous as directed Externally DAILY , Taking Lisinopril 10 MG Tablet Take 1 tablet by mouth once daily for 90 days , Not-Taking Lisinopril 5 MG Tablet Take 1 tablet by mouth once daily for 90 days , Medication List reviewed and reconciled with the patient * Allergies:??N.K.D.A. Objective: * Vitals:??HR: 82 /min, BP: 12 8/70 mm Hg, Wt: 194 lbs, BMI: 31.31 Index, Ht: 66 in, Oxygen sat %: 97 %. * Examination: ?General Examination: ?GENERAL APPEARANCE:??in no acute distress, well developed, well nourished.??HEAD:??normocephalic, atraumatic.??EYES:??pupils equal, round, reactive to light and accommodation.??EARS:??normal.??ORAL CAVITY:??mucosa moist.??THROAT:??clear.??NECK/THYROID:??neck supple, full range of motion, no cervical lymphadenopathy.??SKIN:??no suspicious lesions, warm and dry.??HEART:??no murmurs, regular rate and rhythm, S1, S2 normal.??LUNGS:??clear to auscultation bilaterally.??ABDOMEN:??normal, bowel sounds present, soft, nontender, nondistended.??MUSCULOSKELETAL:??Left knee swollen compared to right knee ?Painful during knee extension at patellar region.??EXTREMITIES:??no clubbing, cyanosis, or edema.??NEUROLOGIC:??nonfocal, motor strength normal upper and lower extremities, sensory exam intact.? Assessment: * Assessment: 1.??Type 2 diabetes mellitus with unspecified complications - E11.8??2.??Essential (primary) hypertension - I10??3.??Hyperlipidemia, unspecified - E78.5??4.??Other chronic pain - G89.29??5.??Parkinson disease, symptomatic - G20.A1??6.??Acute pain of left knee - M25.562?? Acute Concerns/Problem List: 07/23/2024 Glycemic index is stable and age-appropriate at 7.0 His chronic conditions are stable and he is doing well from a functional standpoint Discussed seeing orthopedics for possible injections on left knee Of note, some information is being carried forward from prior records for informational purposes only and is being cited so that efficiency, safety and quality of the patient's care is not compromised This note was prepared using voice recognition software and direct typing Please excuse inadvertent linecasting machine keyboard operator or typing errors, or uncorrected word substitutions Although every attempt has been made by the provider to proofread this document, occasional misspellings and typographical errors may still be present Due to the previous pandemic, and the use of personal protective equipment (PPE) This may decrease voice recognition accuracy Inadvertent linecasting machine keyboard operator errors may occur. Plan: * Treatment: * Images: Billing Information: * Visit Code:?? 35399 Office Visit, Est Pt., Level 4. * Procedure Codes:?? Care Plan Details* * Sign off status: Completed true * Provider:??ALETHA RUFFIN NP Date:??07/03 History and Physical Notes * HPI (History of Present Illness) Category Sub-Category Detail Notes Category Not es Constitutional Patient is here for Chronic Disease Management follow-up visit Patient seen and examined. Full past medical history, social history, family history, allergies and current medications were reviewed and updated. 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 Ada is a healthcare proxy on file He is overall doing well, Overwhelming concern is complains of chronic pain mostly in his hands in his knees disc Xray of left knee, He is against getting intra-articular cortisone injections I discussed this may give him significant relief in pain and that he should consider it ortho @ [facility] Has chronic degenerative and osteoarthritic changes underwent sleep study in November 2022 for [facility] and was negative Parkinsons disease, on carv/levo, sees Heather/J Luis, will request office notes uses cane, no falls Patient asking for erectile dysfunction medication-Using as needed tadalafil Patient is not taking any nitrates Blood pressure stable on lisinopril., Does check at home Currently on for 500 Metformin ER BID, A1c has Holding steady and age-appropriate Wants diabetic supplies prescribed bilateral hearing loss, sensineural, now has bilat hearing aids A1c is 7 today on labs Comprehensive labs July 2024 CBC mostly stable Hemoglobin 12.4, hematocrit 38.1 Total cholesterol 158, LDL 87, HDL 46, triglycerides 123 Vitamin D 46 TSH 2.17 Renal function electrolytes LFTs are stable Hemoglobin A1c of 7 which is age-appropriate UA was unremarkable Health maintenance Hearing eval- ENT 03/13/2022, now has right hearing aids Colonoscopy screening, rescheduled to Feburary 2024 COVID MRNA Vax x4 Diabetic eye exam on 01/2024 Fire Prevention Chief Appointment- 02/27/2022 Flu 04/2024 COVID 04/2024 RSV 06/2023 [facility]/HCP is proxy Examination Category Sub-Category Detail Notes Category Not es General Examination GENERAL APPEARANCE: in no ac [place] and [place] distress, well developed, well nourished HEAD: normocephalic, atrau matic EYES: pupils equal, round, reactive to light and accommodation EARS: normal THROAT: clear NECK/THYROID: neck supple, full ra nge of motion, no cervical lymphadenopathy HEART: no murmurs, regular rate and rhythm, S1, S2 normal LUNGS: clear to auscultatio n bilaterally ABDOMEN: normal, bowel sounds present, soft, nontender, nondistended NEUROLOGIC: nonfocal, motor stre ngth normal upper and lower extremities, sensory exam intact SKIN: no suspicious lesion s, warm and dry EXTREMITIES: no clubbing, cyanosi s, or edema MUSCULOSKELETAL: Left knee swollen co mpared to right knee Painful during knee extension at patellar region ORAL CAVITY: mucosa moist
--- OUTSIDE RECORDS SUMMARY | 2024-08-29 11:26 | XMS_ITS ---
Author Organization [facility] Address [address] [place] [address] Care Team Providers Care Watch Band Assembler Name Role Phone CARLOSALETHA PHOENIX Unavailable [phone] REASON FOR REFERRAL Reason [facility] Diagnosis 1 Acute pain of left k nee (M25.562) Referral Organization [place] [address] Referring Provider First Name ALETHA Referring Provider Last Name LALY Referring Provider Speciality Internal M edicine Referred Provider Specialty Orthopedic S urgery General Notes Rubi Carrillo 04/24/2024 04:03:44 PM > Referral with form and attachment faxed, pt given info to call and schedule visit. [facility] p: [phone] f: [phone] Clinical Notes Sarah Ragland 02:18:04 PM > Scheduled for 06/03 at 10:30. Pt aware Referral Priority Routine REASON FOR VISIT labs and referral Encounters Encounter Location Date Provider Diagnosis [place] [address] [address] 04/24/2024 ALETHA RUFFIN Encounter for annual health examination Z00.00 ; Vitamin D deficiency, unspecified E55.9 ; Encounter for screening for depression Z13.31 ; Encounter for screening for lipoid disorders Z13.220 ; Abnormal metabolic state due to diabetes mellitus E11.9 and Encounter for screening for endocrine disorder Z13.29 ASSESSMENTS Encounter Date Diagnosis Assessment Notes Treatment Notes Treatment Clinical Notes Section Notes 04/24/2024 Encounter for annual health examination (ICD-10 - Z00.00) 04/24/2024 Vitamin D deficiency, unspecified (ICD-10 - E55.9) 04/24/2024 Encounter for screening for depression (ICD-10 - Z13.31) 04/24/2024 Encounter for screening for lipoid disorders (ICD-10 - Z13.220) 04/24/2024 Abnormal metabolic state due to diabetes mellitus (ICD-10 - E11.9) 04/24/2024 Encounter for screening for endocrine disorder (ICD-10 - Z13.29) PLAN OF TREATMENT Pending Test Test Name Order Date LIPID PANEL, STANDARD 04/24/2024 COMPREHENSIVE METABOLIC PANEL 04/24/2024 CBC (INCLUDES DIFF/PLT) 04/24/2024 URINALYSIS, COMPLETE 04/24/2024 HEMOGLOBIN A1c 04/24/2024 TSH 04/24/2024 VITAMIN D,25-OH,TOTAL,IA 04/24/2024 Referrals Referral Date Details [facility] Next Appt Details Provider Name:ALETHA RUFFIN, 10/16/2024 10:00:00 AM, [address] [place] [address], [facility] [address], [place], [address], Progress Notes * LIZ MELGARINDOB:1950 (74 yo M)Acc No.[id number]:04/24/2024 Patient:??LICHA MELGAR :1950?Age:74 Y?Sex:Jose casiano Address: [address], [place] [address] Subjective: * Chief Complaints: * ?Labs and referral * Medical History:?? * Surgical History:?? * Hospitalization/Major Diagno stic Procedure:?? * Medications:?? Objective: Assessment: * Assessment: 1.??Encounter for annual [facility] examination - Z00.00??2.??Vitamin D deficiency, unspecified - E55.9??3.??Encounter for screening for depression - Z13.31??4.??Encounter for screening for lipoid disorders - Z13.220??5.??Abnormal metabolic state due to diabetes mellitus - E11.9??6.??Encounter for screening for endocrine disorder - Z13.29?? Plan: * Treatment: 2.??Vitamin D deficiency, un specified?LAB: VITAMIN D,25-OH,TOTAL,IA 3.??Encounter for screening for lipoid disorders?LAB: LIPID PANEL, STANDARD 4.??Abnormal metabolic state due to diabetes mellitus?LAB: HEMOGLOBIN A1c 5.??Encounter for screening for endocrine disorder?LAB: TSH 6.??Others? Referral To:Orthopedic Surgery ?Reason:[facility] * Procedure Codes:?? * true * Date:?? Consultation Request Notes Referral Date Referring Provider Referred Provider Not agnes 04/24/2024 ALETHA RUFFIN [facility]
--- OUTSIDE RECORDS SUMMARY | 2024-08-29 11:26 | XMS_ITS | Clinical Summary ---
Author Organization [facility] [place] [address] Phone Care Team Providers Care Business Development Recruiter Name Role Phone Juliano Pelletier MD Primary Care Provider [phone] Allergies No known active allergies Medications atorvastatin (LIPITOR) 20 mg tablet Take 1 tablet (20 mg total) by mouth 1 (one) time each day. Active buPROPion (WELLBUTRIN) 100 mg tablet 07/30/19 25 Active carbidopa-levo dopa (SINEMET) 25-100 mg per tablet Take 2 tablets by mouth 4 (four) times a day. 03/16/20 24 Active DULoxetine (CYMBALTA) [address] capsule 07/30/19 25 Active gabapentin (NEURONTIN) 300 mg capsule Take 1 capsule (300 mg total) by mouth. at bedtime 02/27/20 24 Active hydrOXYzine HCL (ATARAX) 25 mg tablet Take 1 tablet (25 mg total) by mouth every 8 (eight) hours if needed. 03/26/20 24 Active lisinopriL (PRINIVIL,ZEST RIL) 10 mg tablet Take 1 tablet (10 mg total) by mouth 1 (one) time each day. 06/23/20 24 Active metFORMIN (GLUCOPHAGE) 500 mg tablet Take 1 tablet (500 mg total) by mouth. Active risperiDONE (RisperDAL) 0.25 mg tablet Take 1 tablet (0.25 mg total) by mouth. Active polyethylene glycol (Golytely) 236-22.74-6.74 -5.86 gram solution Take 4L by mouth once for one dose. May substitue any PEG. Starting at 6PM the night before your procedure drink 1 8oz glasses at your own pace until you complete half of the gallon. Finish 2nd half of the gallon 5 hours before your procedure. 4000 mL 07/18/19 25 025 Discontinued bisacodyL (DULCOLAX) 5 mg EC tablet Take 2 tablets by mouth right before beginning bowel prep. See instructions provided by the office 2 tablet 07/18/19 025 Discontinued gabapentin (NEURONTIN) 100 mg capsule Take 1 capsule (100 mg total) by mouth. 025 Discontinued Encounters Date Type Department Care Team Description 07/31/2024 10:38 AM EST Anesthesia Event [facility] [address] [place] [address] Paul Whipple MD Millay, Julia, CRNA 07/31/2024 9:53 AM EST - 07/31/2024 11:59 PM EST Hospital Encounter [facility] [address] [place] [address] Lucien Villa MD Millay, Julia, CRNA Spencer, Mark A, MD History of colon polyps Discharge Disposition: Home or Self Care 07/16/2024 Telephone Gastroenterology - [place] [address] [facility] [address] [facility] [address] [place] [address] Jun Hardy MD special procedure from Last 3 Months Surgical History Surgery Date Site/Laterality Comments LUMBAR DISC SURGERY COLONOSCOPY Medical History Medical History Date Comments Hyperlipidemia Hypertension Neuropathy of both feet Diabetes mellitus ([facility]/HCC) Parkinson's disease ([facility]) Forgetfulness Anxiety Depression Social History Tobacco Use Types Packs/Day Years Used Date Smoking Tobacco: Former Cigarettes Tobacco Cessation:Counseling Given: Not Answered Alcohol Use Standard Drinks/Week Comments Yes 0 [...] Orientation Straight 07/22/2024 9: 34 AM EST Obstetrics History Last Filed Vital Signs Vital Sign Reading Time Taken Comments Blood Pressure 131/69 07/31/2024 11:22 AM EST Pulse 67 07/31/2024 11:22 AM EST Temperature 36.2 ??C (97.1 ??F) 07/31/2024 10:[address] Respiratory Rate 16 07/31/2024 11:22 AM EST Oxygen Saturation 99% 07/31/2024 10:34 AM EST Inhaled Oxygen Concentration - - Weight 83.9 kg (185 lb) 07/31/2024 10:34 AM EST Height 175.3 cm (5' 9 ) 07/31/2024 10:34 AM EST Body Mass Index 27.32 07/31/2024 10:34 AM EST Plan of Treatment Health Maintenance Due Date Last Done Comments Diabetes: Annual Foot Exam 1960 Diabetes: Annual Retina Eye Exam 1960 Pneumococcal Vaccine: 50+ Years (2 of 2 - PPSV23) 01/16/2019 11/21/2018 Zoster Vaccines (2 of 2) 05/22/2019 03/27/2019 Depression Screening 06/15/2022 Hepatitis C Screening 06/15/2022 Social Influencers of Health Screening 06/15/2022 RSV Immunization Patients 60+ Years Old (1 - 1-dose 75+ series) 2023 Diabetes: Annual Urine Albumin-Creatinine Ratio (uACR) 07/16/2024 Diabetes: Blood Sugar Control Test (HGBA1C) 01/13/2025 07/16/2024 Diabetes: Annual GFR (Glomerular Filtration Rate) 07/16/2025 07/16/2024 Falls Risk Assessment 07/31/2025 07/31/2024 Colorectal Cancer Screening: Colonoscopy 07/31/2027 07/31/2024 Cholesterol Screening (Lipid Panel) 07/16/2029 07/16/2024 DTaP,Tdap,and Td Vaccines (2 - Td or Tdap) 02/14/2032 02/13/2022 COVID-19 Vaccine Completed 04/22/2024, , 04/19/2022, Additional history exists Influenza Vaccine Completed 04/22/2024, , 03/22/2022, Additional history exists HIB Vaccines Aged Out No longer eligi ble based on patient's age to complete this topic HPV Vaccines Aged Out No longer eligi ble based on patient's age to complete this topic Hepatitis A Vaccines Aged Out No long er eligible based on patient's age to complete this topic Hepatitis B Vaccines Aged Out No long er eligible based on patient's age to complete this topic IPV Vaccines Aged Out No longer eligi ble based on patient's age to complete this topic MMR Vaccines Aged Out No longer eligi ble based on patient's age to complete this topic Meningococcal ACWY Vaccine Aged Out N o longer eligible based on patient's age to complete this topic Meningococcal B Vacine Aged Out No lo nger eligible based on patient's age to complete this topic RSV Immunization Patients Under 20 months Aged Out No longer eligible based on patient's age to complete this topic Varicella Vaccines Aged Out No longer eligible based on patient's age to complete this topic Procedures Procedure Name Priority Date/Time Associated Diagnosis Comments COLONOSCOPY Routine 07/31/2024 11:01 AM EST History of colon polyps TISSUE EXAM Routine 07/31/2024 10:46 AM EST History of colon polyps URINALYSIS WITH REFLEX MICROSCOPIC Routine 07/16/2024 10:08 AM EST Routine general medical examination at a health care facility Screening for lipoid disorders Diabetes mellitus (CMS/HCC) Avitaminosis D Screening for thyroid disorder CBC WITH AUTO DIFFERENTIAL Routine 07/16/2024 10:08 AM EST Routine general medical examination at a health care facility Screening for lipoid disorders Diabetes mellitus (CMS/HCC) Avitaminosis D Screening for thyroid disorder THYROID STIMULATING HORMONE Routine 07/16/2024 10:08 AM EST Routine general medical examination at a health care facility Screening for lipoid disorders Diabetes mellitus (CMS/HCC) Avitaminosis D Screening for thyroid disorder VITAMIN D 25 HYDROXY Routine 07/16/2024 10:08 AM EST Routine general medical examination at a health care facility Screening for lipoid disorders Diabetes mellitus (CMS/HCC) Avitaminosis D Screening for thyroid disorder HEMOGLOBIN A1C Routine 07/16/2024 10:08 AM EST Routine general medical examination at a health care facility Screening for lipoid disorders Diabetes mellitus (CMS/HCC) Avitaminosis D Screening for thyroid disorder LIPID PANEL WITH REFLEX TO DIRECT LDL Routine 07/16/2024 10:08 AM EST Routine general medical examination at a [facility] facility Screening for lipoid disorders Diabetes mellitus (CMS/HCC) Avitaminosis D Screening for thyroid disorder URINALYSIS WITH REFLEX MICROSCOPIC Routine 07/16/2024 10:08 AM EST Routine general medical examination at a [facility] care facility Screening for lipoid disorders Diabetes mellitus (CMS/HCC) Avitaminosis D Screening for thyroid disorder COMPREHENSIVE METABOLIC PANEL Routine 07/16/2024 10:08 AM EST Routine general medical examination at a [facility] facility Screening for lipoid disorders Diabetes mellitus (CMS/HCC) Avitaminosis D Screening for thyroid disorder CBC AND DIFFERENTIAL Routine 07/16/2024 10:08 AM EST Routine general medical examination at a [facility] Screening for lipoid disorders Diabetes mellitus (CMS/HCC) Avitaminosis D Screening for thyroid disorder from Last 3 Months Results * COLONOSCOPY Anesthesia - MAC; [facility] ENDOSCOPY (07/31/2024 11:01 AM EST) Anatomical Region Laterality Modality Other 07/31/2024 10:4 0 AM EST Impressions 07/31/2024 11:02 AM EST - Five 3 to 7 mm polyps in the transverse colon and in ? the ascending colon, removed with a cold snare. ? Resected and retrieved. ? - Diverticulosis in the left colon. ? - The examination was otherwise normal on direct and ? retroflexion views. Recommendation: ?- Patient has a contact number available for ? emergencies. The signs and symptoms of potential ? delayed complications were discussed with the patient. ? Return to normal activities tomorrow. Written ? discharge instructions were provided to the patient. ? - Resume previous diet. ? - Continue present medications. ? - Await pathology results. ? - Repeat colonoscopy in 3 years for surveillance. Narrative 07/31/2024 11:02 AM EST [facility] GI Patient Name: Giorgio Garcia Procedure Date: 07/31/2024 10:40 AM Date of : 1950 Age: 74 Gender: Male Note Status: Finalized Attending MD: Lucien Villa MD, Procedure Date No Time: 07/31/2024 Procedure: ? Colonoscopy Indications: ? High risk colon cancer surveillance: Personal history ? of colonic polyps Providers: ? Lucien Villa MD Referring MD: ?Lucien Villa MD Medicines: ? Monitored Anesthesia Care Complications: ? No immediate complications. Estimated Blood Loss: ? Estimated blood loss was minimal. Procedure: ? After I obtained informed consent, the scope was ? passed under direct vision. Throughout the procedure, ? the patient's blood pressure, pulse, and oxygen ? saturations were monitored continuously. The ? Colonoscope was introduced through the anus and ? advanced to the cecum, identified by appendiceal ? orifice and ileocecal valve. The colonoscopy was ? performed without difficulty. The patient tolerated ? the procedure well. The quality of the bowel ? preparation was adequate. Findings: ?Five sessile polyps were found in the transverse colon ? and ascending colon. The polyps were 3 to 7 mm in ? size. These polyps were removed with a cold snare. ? Resection and retrieval were complete. ? Many small and large-mouthed diverticula were found in ? the left colon. ? The exam was otherwise without abnormality on direct ? and retroflexion views. Procedure Code(s): ? --- Professional --- ? 43362, Colonoscopy, flexible; with removal of ? tumor(s), polyp(s), or other lesion(s) by snare ? technique Diagnosis Code(s): ? --- Professional --- ? Z86.010, Personal history of colonic polyps ? D12.3, Benign neoplasm of transverse colon (hepatic ? flexure or splenic flexure) ? D12.2, Benign neoplasm of ascending colon ? K57.30, Diverticulosis of large intestine without ? perforation or abscess without bleeding CPT copyright 2020 [employer]. All rights reserved. The codes documented in this report are preliminary and upon pipe fitter review may be revised to meet current compliance requirements. MD Lucien Davidson MD 07/31/2024 11:02:38 AM This report has been signed electronically.Lucien Villa MD Number of Addenda: 0 Note Initiated On: 07/31/2024 10:40 AM Scope In: Scope Out: ? Endoscopy Department at [facility] - [address] [place] [address], ? [place] [address] Procedure Note Lucien Villa MD - 07/31/2024 [facility] GI Patient Name: Giorgio Garcia Procedure Date: 07/31/2024 10:40 AM Date of : 1950 Age: 74 Gender: Male Note Status: Finalized Attending MD: Lucien Villa MD, Procedure Date No Time: 07/31/2024 Procedure: Colonoscopy Indications: High risk colon cancer surveillance: Personalhistory of colonic polyps Providers: Lucien Villa MD Referring MD: Lucien Villa MD Medicines: Monitored Anesthesia Care Complications: No immediate complications. Estimated Blood Loss: Estimated blood loss was minimal. Procedure: After I obtained informed consent, the scope was passed under direct vision. Throughout theprocedure, the patient's blood pressure, pulse, and oxygen saturations were monitored continuously. The Colonoscope was introduced through the anus and advanced to the cecum, identified by appendiceal orifice and ileocecal valve. The colonoscopy was performed without difficulty. The patient tolerated the procedure well. The quality of the bowel preparation was adequate. Findings: Five sessile polyps were found in the transversecolon and ascending colon. The polyps were 3 to 7 mm in size. These polyps were removed with a cold snare. Resection and retrieval were complete. Many small and large-mouthed diverticula were foundin the left colon. The exam was otherwise without abnormality ondirect and retroflexion views. Procedure Code(s): --- Professional --- 97005, Colonoscopy, flexible; with removal of tumor(s), polyp(s), or other lesion(s) by snare technique Diagnosis Code(s): --- Professional --- Z86.010, Personal history of colonic polyps D12.3, Benign neoplasm of transverse colon (hepatic flexure or splenic flexure) D12.2, Benign neoplasm of ascending colon K57.30, Diverticulosis of large intestine without perforation or abscess without bleeding CPT copyright 2020 [employer]. All rights reserved. The codes documented in this report are preliminary and upon pipe fitter reviewmay be revised to meet current compliance requirements. MD Lucien Davidson MD 07/31/2024 11:02:38 AM This report has been signed electronically.Lucien Villa MD Number of Addenda: 0 Note Initiated On: 07/31/2024 10:40 AM Scope In: Scope Out: Endoscopy Department at [facility] - [address] [place] [phone] IMPRESSION: - Five 3 to 7 mm polyps in the transverse colon and in the ascending colon, removed with a cold snare. Resected and retrieved. - Diverticulosis in the left colon. - The examination was otherwise normal on directand retroflexion views. Recommendation: - Patient has a contact number available for emergencies. The signs and symptoms of potential delayed complications were discussed with thepatient. Return to normal activities tomorrow. Written discharge instructions were provided to thepatient. - Resume previous diet. - Continue present medications. - Await pathology results. - Repeat colonoscopy in 3 years for surveillance. us Lucien Villa MD GI~PROCEDURE ORDERABLES Final R esult * Tissue exam (07/31/2024 10:46 AM EST) Final Diagnosis A. Transverse Colon, polyp: Tubular adenoma. B. Ascending Colon, polyp x 4: Tubular adenomas, fragmented. 08/01/2024 10:41 AM EST [facility] ([facility] HOSPITAL LAB Gross Description A. Large Intestine, Transverse Colon, polyp: Labeled polyp transverse colon . Received in formalin a soft, pink to red, 0.5 cm in greatest diameter polypoid tissue with minimal attached fecal/food debris, which is inked black at the base, bisected, wrapped in paper and submitted in entirety in two cassettes, multiple pieces, multiple levels. B. Large Intestine, Right/Ascendi ng Colon, polyp x 4: Labeled polyp x 4 ascend colon . Received in formalin is a soft, ward-pink, 0.6 cm in greatest diameter polypoid tissue and a 1.1 x 0.8 x 0.1 cm aggregate of soft, ward-pink fragmented portions of slightly polypoid tissue. The largest tissue is inked black. The specimen is wrapped in paper and submitted in toto in one cassette, multiple pieces, multiple levels. TS 08/01/2024 10:[address] [facility] Disclaimer Unless otherwise specified, all tissue is 10% NB formalin fixed and paraffin embedded. 08/01/2024 10:[address] [facility] Tissue Transverse colon structure / Unknown 07/31/2024 10:46 AM EST 07/31/2024 11:40 AM EST Tissue specimen (specimen) Ascending colon structure / Unknown 07/31/2024 10:52 AM EST 07/31/2024 11:40 AM EST Lucien Villa MD LAB PATHOLOGY ORDERABLES Final Result [facility] [address] [place] [address], * Urinalysis with reflex microscopic (07/16/2024 10:08 AM EST) Specific [place] Urine 1.015 1.003 - 1.030 LAB URINALYSIS - AUTOMATED METHOD 07/16/2024 11:[address] [facility] pH, Urine 7.5 5.0 - 8.0 pH LAB URINALYSIS - AUTOMATED METHOD 07/16/2024 11:[address] [facility] Leukocytes, Urine Negative Negative LAB URINALYSIS - AUTOMATED METHOD 07/16/2024 11:[address] [facility] Nitrite, Urine Negative Negative LAB URINALYSIS - AUTOMATED METHOD 07/16/2024 11:[address] [facility] Protein, Urine Negative <=Trace mg/dL LAB URINALYSIS - AUTOMATED METHOD 07/16/2024 11:[address] [facility] Glucose, Urine Negative Negative mg/dL LAB URINALYSIS - AUTOMATED METHOD 07/16/2024 11:[address] [facility] Ketones, Urine Negative Negative mg/dL LAB URINALYSIS - AUTOMATED METHOD 07/16/2024 11:[address] [facility] Urobilinogen, Urine 1.0 0.2 - 1.0 mg/dL LAB URINALYSIS - AUTOMATED METHOD 07/16/2024 11:[address] [facility] Bilirubin, Urine Negative Negative LAB URINALYSIS - AUTOMATED METHOD 07/16/2024 11:[address] [facility] Blood, Urine Negative Negative LAB URINALYSIS - AUTOMATED METHOD 07/16/2024 11:[address] [facility] Urine Urine specimen obtained by clean catch procedure / Unknown Non-blood Collection / Unknown 07/16/2024 10:08 AM EST 07/16/2024 11:18 AM EST us Mamadou Lopez TAPPER SHANK LAB URINE ORDERABLES Final Re sult [facility] [address] [place] [address], [place] [phone] * Lipid panel with reflex to direct LDL (07/16/2024 10:08 AM EST) Cholesterol 158 0 - 200 mg/dL LAB CHEMISTRY METHOD 07/16/2024 12:[address] [facility] Triglycerides 123 0 - 150 mg/dL LAB CHEMISTRY METHOD 07/16/2024 12:[address] [facility] HDL 46 >=40 mg/dL LAB CHEMISTRY METHOD 07/16/2024 12:[address] [facility] LDL Calculated 87 0 - 100 mg/dL LAB CHEMISTRY METHOD 07/16/2024 12:[address] [facility] VLDL Cholesterol Bob 24.6 mg/dL LAB CHEMISTRY METHOD 07/16/2024 12:[address] [facility] Non HDL Chol. (LDL+VLDL) 112 <145 mg/dL LAB CHEMISTRY METHOD 07/16/2024 12:[address] [facility] Chol/HDL Ratio 3.4 0.0 - 4.4 LAB CHEMISTRY METHOD 07/16/2024 12:[address] [facility] Blood Venous blood specimen / Unknown Venipuncture / Unknown 07/16/2024 10:08 AM EST 07/16/2024 11:17 AM EST us Mamadou Lopez NP LAB BLOOD ORDERABLES Final Re sult [facility] [address] [place] [address], * (ABNORMAL) CBC auto differential (07/16/2024 10:08 AM EST) WBC 6.9 4.8 - 10.8 K/mcL LAB HEMETOLOGY METHOD 07/16/2024 11:[address] [facility] RBC 4.20(L) 4.50 - 5.50 M/mcL LAB HEMETOLOGY METHOD 07/16/2024 11:[address] [facility] Hemoglobin 12.4(L) 13.5 - 17.5 g/dL LAB HEMETOLOGY METHOD 07/16/2024 11:[address] [facility] Hematocrit 38.1(L) 42.0 - 54.0 % LAB HEMETOLOGY METHOD 07/16/2024 11:[address] [facility] MCV 91.4 79.0 - 98.0 FL LAB HEMETOLOGY METHOD 07/16/2024 11:[address] [facility] MCH 29.7 27.0 - 32.0 pcg LAB HEMETOLOGY METHOD 07/16/2024 11:[address] [facility] MCHC 32.5 32.0 - 37.0 g/dL LAB HEMETOLOGY METHOD 07/16/2024 11:[address] [facility] RDW 13.9 11.0 - 15.0 % LAB HEMETOLOGY METHOD 07/16/2024 11:[address] [facility] Platelets 227 130 - 400 K/mcL LAB HEMETOLOGY METHOD 07/16/2024 11:[address] [facility] MPV 10.9 7.0 - 11.0 FL LAB HEMETOLOGY METHOD 07/16/2024 11:[address] [facility] NRBC 0.0 <1.0 % LAB HEMETOLOGY METHOD 07/16/2024 11:[address] [facility] NRBC Absolute 0.00 <0.10 K/mcL LAB HEMETOLOGY METHOD 07/16/2024 11:[address] [facility] Neutrophils Relative 65.8 % LAB HEMETOLOGY METHOD 07/16/2024 11:[address] [facility] Lymphocytes Relative 22.1 % LAB HEMETOLOGY METHOD 07/16/2024 11:[address] [facility] Monocytes Relative 10.0 % LAB HEMETOLOGY METHOD 07/16/2024 11:[address] [facility] Eosinophils Relative 1.5 % LAB HEMETOLOGY METHOD 07/16/2024 11:[address] [facility] Basophils Relative 0.3 % LAB HEMETOLOGY METHOD 07/16/2024 11:[address] [facility] Immature Granulocytes Relative 0.3 % LAB HEMETOLOGY METHOD 07/16/2024 11:[address] [facility] Neutrophils Absolute 4.52 1.50 - 7.00 K/mcL LAB HEMETOLOGY METHOD 07/16/2024 11:[address] [facility] Lymphocytes Absolute 1.52 1.00 - 5.00 K/mcL LAB HEMETOLOGY METHOD 07/16/2024 11:[address] [facility] Monocytes Absolute 0.69 0.20 - 1.00 K/mcL LAB HEMETOLOGY METHOD 07/16/2024 11:[address] [facility] Eosinophils Absolute 0.10 0.00 - 0.50 K/mcL LAB HEMETOLOGY METHOD 07/16/2024 11:39 AM EST [facility] Basophils Absolute 0.02 0.00 - 0.20 K/[facility] LAB HEMETOLOGY METHOD 07/16/2024 11:39 AM EST [facility] Immature Granulocytes Absolute 0.02 0.00 - 0.03 K/[facility] LAB HEMETOLOGY METHOD 07/16/2024 11:39 AM EST [facility] Blood Venous blood specimen / Unknown Venipuncture / Unknown 07/16/2024 10:08 AM EST 07/16/2024 11:12 AM EST Mamadou Lopez [employer] LAB BLOOD ORDERABLES Final Re sult Performing Organization Address City/[facility]/ZIP Co de Phone Number [facility] [address] [place] [address], * Vitamin D 25 hydroxy (07/16/2024 10:08 AM EST) Vit D, 25-Hydroxy 46.4 30.0 - 80.0 ng/mL LAB CHEMISTRY METHOD 07/16/2024 12:[address] [facility] Blood Venous blood specimen / Unknown Venipuncture / Unknown 07/16/2024 10:08 AM EST 07/16/2024 11:17 AM EST Mamadou Lopez [employer] LAB BLOOD ORDERABLES Final Re sult [facility] [address] [place] [address], [place] [phone] * Thyroid stimulating hormone (07/16/2024 10:08 AM EST) TSH 2.17 0.40 - 4.00 mcIU/mL LAB CHEMISTRY METHOD 07/16/2024 12:[address] [facility] Blood Venous blood specimen / Unknown Venipuncture / Unknown 07/16/2024 10:08 AM EST 07/16/2024 11:17 AM EST Mamadou Lopez [employer] LAB BLOOD ORDERABLES Final Re sult Performing Organization Address [facility]/ZIP Co de Phone Number [facility] [address] [place] [address], [place] [phone] * (ABNORMAL) Hemoglobin A1c (07/16/2024 10:08 AM EST) Pathologist [facility] Hemoglobin A1C 7.0(H) <6.5 % LAB CHEMISTRY METHOD 07/16/2024 8:51 PM EST [facility] Mean Bld Glu Estim. 154 mg/dL LAB CHEMISTRY METHOD 07/16/2024 8:[address] [facility] Blood Venous blood specimen / Unknown Venipuncture / Unknown 07/16/2024 10:08 AM EST 07/16/2024 11:12 AM EST us Mamadou Lopez [employer] LAB BLOOD ORDERABLES Final Re sult Performing Organization Address City/[facility]/ZIP Co de Phone Number [facility] [address] [place] [address], [place] [phone] * (ABNORMAL) Comprehensive metabolic panel (07/16/2024 10:08 AM EST) [facility] Sodium 138 133 - 145 mmol/L LAB CHEMISTRY METHOD 07/16/2024 12:[address] [facility] Potassium 4.3 3.5 - 5.5 mmol/L LAB CHEMISTRY METHOD 07/16/2024 12:[address] [facility] Chloride 103 96 - 110 mmol/L LAB CHEMISTRY METHOD 07/16/2024 12:[address] [facility] CO2 31 21 - 32 mmol/L LAB CHEMISTRY METHOD 07/16/2024 12:[address] [facility] Anion Gap 4 3 - 11 LAB CHEMISTRY METHOD 07/16/2024 12:[address] [facility] Glucose 131(H) 70 - 100 mg/dL LAB CHEMISTRY METHOD 07/16/2024 12:[address] [facility] BUN 12 5 - 25 mg/dL LAB CHEMISTRY METHOD 07/16/2024 12:[address] [facility] Creatinine 0.83 0.70 - 1.30 mg/dL LAB CHEMISTRY METHOD 07/16/2024 12:[address] [facility] eGFR 91 >=60 mL/min/1. 73m2 LAB CHEMISTRY METHOD 07/16/2024 12:[address] [facility] Comment:Calculation based on the??Chronic Kidney Disease Epidemiology Collaboration (CKD-EPI) equation refit??without adjustment for race. BUN/Creatinine Ratio 14.5 LAB CHEMISTRY METHOD 07/16/2024 12:[address] [facility] Calcium 9.1 8.5 - 10.5 mg/dL LAB CHEMISTRY METHOD 07/16/2024 12:[address] [facility] AST (SGOT) 18 10 - 42 unit/L LAB CHEMISTRY METHOD 07/16/2024 12:[address] [facility] ALT (SGPT) 24 10 - 60 unit/L LAB CHEMISTRY METHOD 07/16/2024 12:[address] [facility] Alkaline Phosphatase 180(H) 42 - 121 unit/L LAB CHEMISTRY METHOD 07/16/2024 12:[address] [facility] [facility] Total Protein 6.7 6.0 - 8.0 g/dL LAB CHEMISTRY METHOD 07/16/2024 12:[address] [facility] Albumin 3.3 3.2 - 5.0 g/dL LAB CHEMISTRY METHOD 07/16/2024 12:[address] [facility] [facility] Total Bilirubin 0.5 0.0 - 1.4 mg/dL LAB CHEMISTRY METHOD 07/16/2024 12:[address] [facility] Blood Venous blood specimen / Unknown Venipuncture / Unknown 07/16/2024 10:08 AM EST 07/16/2024 11:17 AM EST us Mamadou Lopez TAPPER SHANK LAB BLOOD ORDERABLES Final Re sult [facility] ([facility]) [facility] [address] [place] [address], from Last 3 Months Insurance [facility] Member Subscriber Plan / Payer ( fective 2015-Present) Name:Giorgio Garcia Relation to Subscriber:Self Name:Giorgio Garcia Payer ID:[id number] Group ID:[id number] Type:Not on file Address: [address] [place] [address] MEDICA[place] - [place] Advance Directives Documents on File Type Date Recorded Patient Caregiver Assisted Living Expl anation Health Care Decision (hx) 11/08/2018 AD KING DIRECTIVE Health Care Decision (hx) 11/08/2018 AD KING DIRECTIVE Health Care Decision (hx) 11/08/2018 AD KING DIRECTIVE Health Care Decision (hx) 11/08/2018 AD KING DIRECTIVE Care Teams Business Development Recruiter Relationship Specialty Start Date End Date Juliano Pelletier MD [address] [place] [address] PCP - General Internal Medicine 09/13/18
--- OUTSIDE RECORDS SUMMARY | 2024-08-29 11:27 | XMS_ITS | Encounter Summary ---
Author Organization [facility] Address [address] [place] [address] Care Team Providers Care Wellness Consultant Name Role Phone Juliano Pelletier MD Primary Care Provider [phone] Reason for Referral * Hospital - Outpatient (Routine) - Closed Specialty Diagnoses / Procedures Referred By Lucila davila Referred To Contact Gastroenterology Diagnoses History of colon polyps Procedures COLONOSCOPY Anesthesia - MAC; [facility] ENDOSCOPY Lucien Villa MD [address] [address] Phone: tel: fax: [facility] Endoscopy [address] [place] [address] Phone: tel: Referral ID Status Reason Start Date Expiration Date Visits Re quested Visits Authorized [id number] Closed 07/18/2024 07/18/2025 1 1 Reason for Visit * Auth/Cert (Routine) Specialty Diagnoses / Procedures Referred By Lucila davila Referred To Contact Diagnoses Personal history of colon polyps, unspecified Procedures COLONOSCOPY Lucien Villa MD [address] [address] Phone: tel: fax: [facility] Endoscopy [address] [place] [address] Phone: tel: Referral ID Status Reason Start Date Expiration Date Visits Re quested Visits Authorized [id number] 1 1 Encounter Details Date Type Department Care Team (Latest Contact Info) Description 07/31/2024 9:53 AM EST - 07/31/2024 11:59 PM EST Hospital Encounter [facility] Endoscopy [address] [place] [phone] Lucien Villa MD [address] [address] Celi Ellis CRNA [address] [place] [address] Paul Whipple MD [address] [place] [address] History of colon polyps Discharge Disposition: Home or Self Care Social History Tobacco Use Types Packs/Day Years [...] AM EST documented as of this encounter Last Filed Vital Signs Vital Sign Reading [...] Mass Index 27.32 07/31/2024 10:34 AM EST documented in this encounter Discharge Instructions * Attachments The following attachments cannot be sent through Care Everywhere. * Colon Polyps ([place]) * Diverticulosis ([place]) documented in this encounter Medications at Time of Discharge atorvastatin (LIPITOR) 20 mg tablet Take 1 tablet (20 mg total) by mouth 1 (one) time each day. buPROPion (WELLBUTRIN) 100 mg tablet 07/30/2024 carbidopa-levodop a (SINEMET) 25-100 mg per tablet Take 2 tablets by mouth 4 (four) times a day. 03/16/2024 DULoxetine (CYMBALTA) [address] capsule 07/30/2024 gabapentin (NEURONTIN) 300 mg capsule Take 1 capsule (300 mg total) by mouth. at bedtime 02/27/2024 hydrOXYzine HCL (ATARAX) 25 mg tablet Take 1 tablet (25 mg total) by mouth every 8 (eight) hours if needed. 03/26/2024 lisinopriL (PRINIVIL,ZESTRIL ) 10 mg tablet Take 1 tablet (10 mg total) by mouth 1 (one) time each day. 06/23/2024 metFORMIN (GLUCOPHAGE) 500 mg tablet Take 1 tablet (500 mg total) by mouth. risperiDONE (RisperDAL) 0.25 mg tablet Take 1 tablet (0.25 mg total) by mouth. documented as of this encounter Discharge Disposition Disposition Code Departure Means Destination Home or Self Care documented in this encounter Progress Notes * China Costa RN - 07/31/2024 11:00 AM EST Problem: Cognitive:Periop Procedure - Minor Goal: Knowledge of disease or condition will improve Outcome: Progressing Problem: Sensory:Periop Procedure - Minor Goal: Demonstrates/reports adequate pain control Outcome: Progressing PT VERBALIZES UNDERSTANDING OF D/C INSTRUCTIONS CALL CASTILLO @ BEDSIDE FALL RISK REVIEWED * Jemma Guzmán RN - 07/31/2024 10:50 AM EST Abdominal pressure applied. documented in this encounter H&P Notes * Lucien Villa MD - 07/31/2024 11:00 AM EST Pre-Op Diagnosis: Anemia, History of Polyps Proposed Procedure: Colonoscopy Performing Surgeon/MD/Endoscopist: Lucien Villa MD Medical/History: No past medical history on file.No past surgical history on file. Medications/Allergies: Prior to Admission medications Medication Sig Start Date End Date Taking? Authorizing Provider bisacodyL (DULCOLAX) 5 mg EC tablet Take 2 tablets by mouth right before beginning bowel prep. See instructions provided by the office 07/18/24 TFIFANY Villasenor polyethylene glycol (Golytely) 236-22.74-6.74 -5.86 gram solution Take 4L by mouth once for one dose. May substitue any PEG. Starting at 6PM the night before your procedure drink 1 8oz glasses at your own pace until you complete half of the gallon. Finish 2nd half of the gallon 5 hours before your procedure. 07/18/24 TIFFANY Villasenor Patient Age:74 y.o. Vitals: There were no vitals filed for this visit. Physical Exam: Mental Status: Clear HEENT: WNL Heart: WNL Lungs: WNL Abdomen: WNL Extremities: WNL Neuro: WNL Labs: Imaging: Diagnosis/Plan: Colonoscopy documented in this encounter Procedure Notes * Ching Deleon RN - 07/31/2024 11:00 AM EST Assumed care of pt, Pt placed on monitor assessed continually. Pt tima po fluids, DR spoke to pt about findings. Discharge inst reviewed. Clothes given to pt to dress * Ching Deleon RN - 07/31/2024 11:00 AM EST Heel Layer here to interp results documented in this encounter Plan of Treatment Not on file documented as of this encounter Procedures Procedure Name Priority Date/Time Associated Diagnosis Comments COLONOSCOPY Routine 07/31/2024 11:01 AM EST History of colon polyps TISSUE EXAM Routine 07/31/2024 10:46 AM EST History of colon polyps documented in this encounter Results * COLONOSCOPY Anesthesia - MAC; [facility] ENDOSCOPY (07/31/2024 11:01 AM EST) Anatomical Region [...] for surveillance. Narrative 07/31/2024 11:02 AM EST [facility] Patient Name: Giorgio Gacria Procedure Date: 07/31/2024 10:40 AM Date of [...] Procedure Code(s): ? --- Professional --- ? 66183, Colonoscopy, flexible; with removal of ? tumor(s), [...] or abscess without bleeding CPT copyright 2020 [employer]. All rights reserved. The codes documented in this report are preliminary and upon medical biller coder review may be revised to meet current compliance requirements. MD Lucien Davidson MD 07/31/2024 11:02:38 AM This report has been signed electronically.Lucien Villa MD Number of Addenda: 0 Note Initiated On: 07/31/2024 10:40 AM Scope In: Scope Out: ? Endoscopy Department at [facility] - [address] [place] [address], ? [place] [address] Procedure Note Lucien Villa MD - 07/31/2024 [facility] Patient Name: Giorgio Garcia Procedure [...] retroflexion views. Procedure Code(s): --- Professional --- 75710, Colonoscopy, flexible; with removal of tumor(s), polyp(s), or other lesion(s) by snare technique Diagnosis Code(s): --- Professional --- Z86.010, Personal history of colonic polyps D12.3, Benign neoplasm of transverse colon (hepatic flexure or splenic flexure) D12.2, Benign neoplasm of ascending colon K57.30, Diverticulosis of large intestine without perforation or abscess without bleeding CPT copyright 2020 [employer]. All rights reserved. The codes documented in this report are preliminary and upon medical biller coder reviewmay be revised to meet current compliance requirements. MD Lucien Davidson MD 07/31/2024 11:02:38 AM This report has been signed electronically.Lucien Villa MD Number of Addenda: 0 Note Initiated On: 07/31/2024 10:40 AM Scope In: Scope Out: Endoscopy Department at [facility] - [address] [place] [id number] IMPRESSION: - Five 3 to 7 mm [...] Tubular adenomas, fragmented. 08/01/2024 10:41 AM EST [facility] Gross Description A. Large Intestine, [...] pieces, multiple levels. TS 08/01/2024 10:41 AM EST [facility] Disclaimer Unless otherwise specified, all tissue is 10% NB formalin fixed and paraffin embedded. 08/01/2024 10:41 AM EST [facility] Tissue Transverse colon structure / Unknown 07/31/2024 10:46 AM EST 07/31/2024 11:40 AM EST Tissue specimen (specimen) Ascending colon structure / Unknown 07/31/2024 10:52 AM EST 07/31/2024 11:40 AM EST Lucien Villa MD LAB PATHOLOGY ORDERABLES Final Result [facility] [address] [place] [address], documented in this encounter Visit Diagnoses Diagnosis History of colon polyps documented in this encounter Discontinued Medications Medication Sig Discontinue Reason Start Date End Da te bisacodyL (DULCOLAX) 5 mg EC tablet Take 2 tablets by mouth right before beginning bowel prep. See instructions provided by the office 07/18/2024 07/31/2024 gabapentin (NEURONTIN) 100 mg capsule Take 1 capsule (100 mg total) by mouth. 07/31/2024 polyethylene glycol (Golytely) 236-22.74-6.74 -5.86 gram solution Take 4L by mouth once for one dose. May substitue any PEG. Starting at 6PM the night before your procedure drink 1 8oz glasses at your own pace until you complete half of the gallon. Finish 2nd half of the gallon 5 hours before your procedure. 07/18/2024 07/31/2024 documented as of this encounter Historical Medications * This list may reflect changes made after this encounter. risperiDONE (RisperDAL) 0.25 mg tablet Take 1 tablet (0.25 mg total) by mouth. metFORMIN (GLUCOPHAGE) 500 mg tablet Take 1 tablet (500 mg total) by mouth. lisinopriL (PRINIVIL,ZESTRIL ) 10 mg tablet Take 1 tablet (10 mg total) by mouth 1 (one) time each day. 06/23/2024 hydrOXYzine HCL (ATARAX) 25 mg tablet Take 1 tablet (25 mg total) by mouth every 8 (eight) hours if needed. 03/26/2024 gabapentin (NEURONTIN) 300 mg capsule Take 1 capsule (300 mg total) by mouth. at bedtime 02/27/2024 DULoxetine (CYMBALTA) [address] capsule 07/30/2024 carbidopa-levodop a (SINEMET) 25-100 mg per tablet Take 2 tablets by mouth 4 (four) times a day. 03/16/2024 buPROPion (WELLBUTRIN) 100 mg tablet 07/30/2024 atorvastatin (LIPITOR) 20 mg tablet Take 1 tablet (20 mg total) by mouth 1 (one) time each day. gabapentin (NEURONTIN) 100 mg capsule Take 1 capsule (100 mg total) by mouth. 07/31/2024 added in this encounter Orders Discharge Count Last Ordered Date First Orde red Date DISCHARGE PATIENT 1 07/31/2024 documented in this encounter Care Teams Wellness Consultant Relationship Specialty Start Date End Date Juliano Pelletier MD [address] [place] [address] PCP - General Internal Medicine 09/13/18 documented as of this encounter
--- OUTSIDE RECORDS SUMMARY | 2024-08-29 11:27 | XMS_ITS | Encounter Summary ---
Author Organization [facility] Address [address] [place] [address] Care Team Providers Care Reworker Name Role Phone Juliano Pelletier MD Primary Care Provider Encounter Details Date Type Department Care Team (Latest Contact Info) Description 04/24/2024 11:10 AM EDT Hospital Encounter TH HISTORIC ENCOUNTERS EASTERN CONVERSION ONLY Mamadou Lopez, FERMENTER [address] [facility] [address] [place] [address] Pain in left knee Social History Tobacco [...] AM EDT Narrative 04/24/2024 3:25 PM EDT [facility] Diagnostic Imaging Department [address] [place] [id number] Patient: ??GIORGIO GARCIA ?/Age/Sex: 1950 - 74 - M Unit#: ??[id number] ? Location/Status: ??SPDIGEN/REG CLI ? Mnemonic/Ordering Site: ??[facility] Ordering Physician: ??MAMADOU LOPEZ FERMENTER CR Knee LT 4 or more View - 04/24/24 - [id number] Report Status:Signed INDICATION: Acute left knee pain [...] with infrapatellar soft tissue swelling. Dictating Physician: ??ALEX LYMAN MD Electronically Signed by: ??ALEX LYMAN MD Dic Date/Time: ??04/24/24 1524 Sign date/Time: ??04/24/24 1527 Procedure Note Alex Lyman MD - 05/03/2024 [facility] Diagnostic Imaging Department [address] [place] [address] Patient: TALIAGIORGIO /Age/Sex: 1950 - 74 - M Unit#: [id number] Location/Status: SPDIGEN/REG CLI [facility] Ordering Physician: MAMADOU LOPEZ NP CR Knee LT 4 or more View - 04/24/24 - 1142 Report Status:Signed INDICATION: Acute left knee pain [...] 04/24/24 1524 Sign date/Time: 04/24/24 1525 us Mamadou Lopez FERMENTER IMG XR PROCEDURES Final Resul t documented in this encounter Visit Diagnoses Diagnosis Pain in left knee documented in this encounter Care Teams Reworker Relationship Specialty Start Date End Date Juliano Pelletier MD [address] [place] [address] PCP - General Internal Medicine 09/13/18 documented as of this encounter
--- OUTSIDE RECORDS SUMMARY | 2024-08-29 11:27 | XMS_ITS | Encounter Summary ---
Author Organization [facility] Address [address] [place] [address] Care Team Providers Care Boat Outboard Engine Mechanic Name Role Phone Juliano Pelletier MD Primary Care Provider [phone] Reason for Visit * Auth/Cert (Routine) Specialty Diagnoses / Procedures Referred By Contmike t Referred To Contact Diagnoses Personal history of colon polyps, unspecified Procedures COLONOSCOPY Lucien Villa MD [address] [address] Phone: tel: fax: [facility] Endoscopy [address] [place] [address] Phone: tel: Referral ID Status Reason Start Date Expiration Date Visits Re quested Visits Authorized [id number] 1 1 Encounter Details Date Type Department Care Team (Late st Contact Info) Description 07/31/2024 10:38 AM EST Anesthesia Event [facility] Endoscopy [address] [place] [address] Paul Whipple MD [address] [place] [address] Celi Ellis CRNA [address] [place] [address] Anesthesia Record Procedure Summary Procedure Name Responsible Anesthesiologist Anesthesia Start Time Anesthesia Stop Time COLONOSCOPY Paul Whipple MD 07/31/24 1038 07/31/24 1106 Events Date Time Event Comment 07/31/2024 1038 1038 An Start 1038 An Start Data The patient wa s reevaluated immediately before moderate or deep sedation use and before anesthesia induction. 1039 In Room 1042 Anesthesia Ready 1101 Out of Room 1102 an stop data 1102 Transport to PACU/ICU Patien t reassessed and ready for transfer, airway stable. Patient transport to designated recovery area. {Transport to PACU/ICU:[id number]} 1106 Handoff to RN I completed my handoff to the receiving nurse during which we: 1. Identified the patient 2. Identified the responsible provider 3. Reviewed the pertinent medical history 4. Discussed the surgical course 5. Reviewed intra-op anesthesia management and issues during anesthesia 6. Set expectations for post-procedure period 7. Allowed opportunity for questions and acknowledgement of understanding. 1106 An Stop Meds Name Total propofol (DIPRIVAN) injection 10 mg/mL 6 0 mg propofol (DIPRIVAN) infusion 10 mg/mL 17 6.19 mg lidocaine PF (XYLOCAINE-MPF) local injec tion 2% 100 mg lactated Ringer's infusion 500 mL * Agents No agents on file. * Blood No blood administrations on file. Lines, Drains, and Airways Type Details Placement Removal Peripheral IV Placement Date: 07/04 ; Placement Time: 1022; Catheter Size: 20 G; Orientation: Right; Location: Hand; Site Prep: Chlorhexidine; Inserted by: IESHA NIEVES; Insertion Attempts: 1; Patient Tolerance: Tolerated well; Removal Date: 07/31/24; Removal Time: 1126 07/31/24 1022 by China Costa RN 07/31/24 1126 by Ching Deleon RN documented in this encounter Social History Tobacco Use Types Packs/Day Years [...] AM EST documented as of this encounter Progress Notes * Paul Whipple MD - 07/31/2024 1:37 PM EST Patient: Giorgio Garcia Procedure Summary Date: 07/31/24 Room / Location: [facility] Endoscopy Anesthesia Start: 1038 Anesthesia Stop: 1106 Procedure: COLONOSCOPY Diagnosis: History of colon polyps (High risk colon cancer surveillance: Personal history of colonic polyps) Scheduled Providers: Lucien Villa MD; Celi Ellis CRNA; Paul Whipple MD Responsible Provider: Paul Whipple MD Anesthesia Type: MAC ASA Status: 3 Anesthesia Plan: MAC Last Vitals: Visit Vitals BP 131/69 Pulse 67 Temp 36.2 ??C (97.1 ??F) (Tympanic) Resp 16 Ht 1.753 m (69 ) Wt 83.9 kg (185 lb) SpO2 99% BMI 27.32 kg/m?? Smoking Status Former BSA 2 m?? No data recorded Anesthesia Post Evaluation There were no known notable events for this encounter. * Paul Whipple MD - 07/31/2024 10:35 AM EST 74 y.o. male scheduled for [COLONOSCOPY [GI6]] Ht Readings from Last 1 Encounters: No data found for Ht Wt Readings from Last 1 Encounters: No data found for Wt There is no height or weight on file to calculate BMI. Past Medical History: Diagnosis Date Anxiety Depression Diabetes mellitus (CMS/HCC) Forgetfulness Hyperlipidemia Hypertension Neuropathy of both feet Parkinson's disease (CMS/HCC) Past Surgical History: Procedure Laterality Date COLONOSCOPY LUMBAR DISC SURGERY Denies anesthesia complications No Known Allergies Current Outpatient Medications on File Prior to Encounter Medication Sig Dispense Refill atorvastatin (LIPITOR) 20 mg tablet Take 1 tablet (20 mg total) by mouth 1 (one) time each day. buPROPion (WELLBUTRIN) 100 mg tablet carbidopa-levodopa (SINEMET) 25-100 mg per tablet Take 2 tablets by mouth 4 (four) times a day. DULoxetine (CYMBALTA) [address] capsule gabapentin (NEURONTIN) 300 mg capsule Take 1 capsule (300 mg total) by mouth. at bedtime hydrOXYzine HCL (ATARAX) 25 mg tablet Take 1 tablet (25 mg total) by mouth every 8 (eight) hours ifneeded. lisinopriL (PRINIVIL,ZESTRIL) 10 mg tablet Take 1 tablet (10 mg total) by mouth 1 (one) time each day. metFORMIN (GLUCOPHAGE) 500 mg tablet Take 1 tablet (500 mg total) by mouth. risperiDONE (RisperDAL) 0.25 mg tablet Take 1 tablet (0.25 mg total) by mouth. [DISCONTINUED] gabapentin (NEURONTIN) 100 mg capsule Take 1 capsule (100 mg total) by mouth. [DISCONTINUED] bisacodyL (DULCOLAX) 5 mg EC tablet Take 2 tablets by mouth right before beginning bowel prep. See instructions provided by the office 2 tablet 0 [DISCONTINUED] polyethylene glycol (Golytely) 236-22.74-6.74 -5.86 gram solution Take 4L by mouth once for one dose. May substitue any PEG. Starting at 6PM the night before your procedure drink 1 8ozglasses at your own pace until you complete half of the gallon. Finish 2nd half of the gallon 5 hours before your procedure. 4000 mL 0 No current facility-administered medications on file prior to encounter. Current In-hospital Medications Social History Tobacco Use Smoking status: Former Types: Cigarettes Substance Use Topics Alcohol use: Yes Comment: ONCE A MONTH Is the patient a current smoker (e.g. cigarette, cigar, pip, e-cigarette, or mariajuana)? Yes [] No[x] Patient previously instructed to abstain from smoking on the day of procedure? Yes [] No[] Patient smoked on the day of procedure? Yes [] No[] ASPIRE smoking VBR: [] Not interested in quitting [] Interested in quitting- referred to treatment [] Interested in quitting - treatment provided Visit Vitals Smoking Status Former Available cardiac studies reviewed: No results found. EKG No results found for this or any previous visit (from the past 4464 hour(s)). ECHO No results found for this or any previous visit. CATH No results found for this or any previous visit. LABS: Lab Results Component Value Date WBC 6.9 07/16/2024 HGB 12.4 (L) 07/16/2024 HCT 38.1 (L) 07/16/2024 MCV 91.4 07/16/2024 PLT 227 07/16/2024 Lab Results Component Value Date GLUCOSE 131 (H) 07/16/2024 CALCIUM 9.1 07/16/2024 NA 138 07/16/2024 K 4.3 07/16/2024 CO2 31 07/16/2024 CL 103 07/16/2024 BUN 12 07/16/2024 CREATININE 0.83 07/16/2024 No results found for: INR , PROTIME No results found for: PTT Denies cardiac, pulm, neuro, hepatic or renal s/sx. Patient meets ASA guidelines for NPO status. > 4 mets without anginal symptoms. Relevant labs, vitals, imaging, cardiac and pulmonary studies as well as HPI, Meds, Allergies, ROS,PMH, PSH, SH, and FH reviewed. Relevant Problems No relevant active problems Clinical information reviewed: Tobacco Allergies Meds Med Hx Surg Hx Fam Hx Soc Hx Anesthesia Plan ASA 3 Anesthesia Plan: MAC Anesthesia Considerations MAC Anesthesia Risks Discussed allergic reaction, dental injury, serious complications, pain and corneal abrasion Plan Factors Patient is not a current smoker Smoking cessation education has not been provided Induction method: intravenous Anesthetic plan and risks discussed with patient and healthcare power of traffic law attorney. Anesthesia Plan discussed with AGRICULTURAL EQUIPMENT OPERATOR. Anesthesia Evaluation Patient summary reviewed and Nursing notes reviewed Airway Mallampati: III Thyromental distance: >3 FB Neck ROM: fullnot intubatedno noted risk Dental (+) upper dentures and lower dentures Pulmonary breath sounds clear to auscultation Cardiovascular (+) hypertension Rhythm: regular Rate: normal Neuro/Psych (+) psychiatric history Mental Status: alert and oriented GI/Hepatic/Renal Endo/Other (+) diabetes mellitus Abdominal Abdomen: soft. Bowel sounds: normal. PONV RISK SCORE: 1 There were no vitals filed for this visit. SpO2 Readings from Last 1 Encounters: No data found for SpO2 WBC Date Value Ref Range Status 07/16/2024 6.9 4.8 - 10.8 K/mcL Final RBC Date Value Ref Range Status 07/16/2024 4.20 (L) 4.50 - 5.50 M/mcL Final Hemoglobin Date Value Ref Range Status 07/16/2024 12.4 (L) 13.5 - 17.5 g/dL Final Hematocrit Date Value Ref Range Status 07/16/2024 38.1 (L) 42.0 - 54.0 % Final Platelets Date Value Ref Range Status 07/16/2024 227 130 - 400 K/mcL Final MCV Date Value Ref Range Status 07/16/2024 91.4 79.0 - 98.0 FL Final No Known Allergies STOP BANG: No data recorded NPO Status: Time of Last Liquid: 2230 Time of Last Solid: 0900 documented in this encounter Plan of Treatment Not on file documented as of this encounter Visit Diagnoses Not on filedocumented in this encounter Administered Medications Inactive Administered Medications - up to 3 most recent administrations Medication Order MAR Action Action Date Dose Rate Site lactated Ringer's infusion intravenous, Continuous PRN, Starting on Yolanda 07/31/24 at 1038, Anesthesia Intraprocedure New Bag 07/31/2024 10:38 AM EST lidocaine (PF) (XYLOCAINE-MPF) 2 % injection injection, As needed, Starting on Yolanda 07/31/24 at 1042, Anesthesia Intraprocedure Given 07/31/2024 10:42 AM EST 100 mg propofoL (DIPRIVAN) infusion 10 mg/mL intravenous, Continuous PRN, Starting on Yolanda 07/31/24 at 1042, Anesthesia Intraprocedure Rate/Dose Change 07/31/2024 10:57 AM EST 100 mcg/kg/min 50.34 mL/hr New Bag 07/31/2024 10:42 AM EST 120 mcg/kg/min 60.408 m L/hr propofoL (DIPRIVAN) injection intravenous, As needed, Starting on Yolanda 07/31/24 at 1042, Anesthesia Intraprocedure Given 07/31/2024 10:42 AM EST 60 mg documented in this encounter Care Teams Boat Outboard Engine Mechanic Relationship Specialty Start Date End Date Juliano Pelletier MD [address] [place] [address] PCP - General Internal Medicine 09/13/18 documented as of this encounter
--- OUTSIDE RECORDS SUMMARY | 2024-08-29 11:27 | XMS_ITS ---
Author Organization [facility] Address [address] [place] [address] Care Team Providers Care Vp Legal Affairs Name Role Phone CARLOSALETHA PHOENIX Unavailable [phone] MEDICATIONS Medication SIG (Take, Route, Frequency, Duration) Notes Start Date End Date Status FreeStyle Lancets - as directed in vitro dx e11.8 once daily for 30 days 07/28/2019 Active FreeStyle Lite Test Strips as directed as directed in vitro dxe11.8 once daily for 30 days 07/28/2019 Active FreeStyle Lite - as directed in vitro dxe11.8 once daily for 30 days 07/28/2019 Active Alcohol Wipes 70 % as directed External ly DAILY for 90 days 04/24/2024 Active Encounters Encounter Location Date Provider Diagnosis [facility] [address] [facility] [address] [place] [address] 04/24/2024 ALETHA RUFFIN PLAN OF TREATMENT Medication Medication Name Sig Start Date Stop Date Notes FreeStyle Lancets - as directed in vitro dx e11.8 once daily for 30 days 07/28/2019 FreeStyle Lite Test Strips a s directed as directed in vitro dxe11.8 once daily for 30 days 07/28/2019 FreeStyle Lite - as directed in vitro dxe11.8 once daily for 30 days 07/28/2019 Alcohol Wipes 70 % as directed External ly DAILY for 90 days 04/24/2024 Next Appt Details Provider Name:ALETHA RUFFIN, 10/16/2024 10:00:00 AM, [address], [address], [place], [address], Progress Notes * ARIELLE MELGAROB:1950 (74 yo M)Acc No.[id number]:04/24/2024 Patient:??LICHA MELGAR :1950?Age:74 Y?Sex:Jose casiano Address: [address] [place] [facility] [place] [address] * Refills?? Refill FreeStyle Lancets Miscellaneous, -, in vitro dx e11.8, 50, as directed, once daily, 30 days, Refills=6 Refill FreeStyle Lite Test Strips, as directed, in vitro dxe11.8, 50, as directed, once daily, 30 days, Refills=6 Refill FreeStyle Lite Device, -, in vitro dxe11.8, 1, as directed, once daily, 30 days, Refills=0 Start Alcohol Wipes Miscellaneous, 70 %, Externally, 100 Unspecified, as directed, DAILY, 90 days, Refills=11 * true * Date:??
== END 2024-08-29 11:44 | disposition home or self-care (01) ==
PROVIDERS: Visit Provider Nurse Practitioner Family
DX: G20.A2 Parkinson's disease without dyskinesia, with fluctuations (principal); R29.6 Repeated falls; D64.9 Anemia, unspecified; R20.0 Anesthesia of skin; R20.2 Paresthesia of skin
CPT/HCPCS: 99214; G2211

== ENCOUNTER → 2024-08-29 10:13 | Outpatient (BNVA) | payer OTHER, SELFPAY | PROVIDERS: Visit Provider Nurse Practitioner Family | DX: G20.A1 Parkinson's disease without dyskinesia, without mention of fluctuations (principal); R20.0 Anesthesia of skin; R20.2 Paresthesia of skin; R26.9 Unspecified abnormalities of gait and mobility; D64.9 Anemia, unspecified | CPT/HCPCS: 99212 ==

== ENCOUNTER 2024-09-03 09:56 | Outpatient (REF) | payer OTHER, SELFPAY ==
--- OUTSIDE RECORDS SUMMARY | 2024-09-03 11:42 | XMS_ITS ---
Author Organization [facility] Address [address] [place] [address] Care Team Providers Care Latin Dance Instructor Name Role Phone CARLOSALETHA PHOENIX Unavailable [phone] REASON FOR REFERRAL Reason [facility] Diagnosis 1 Acute pain of left k nee (M25.562) Referral Organization [place] [address] Referring Provider First Name ALETHA Referring Provider Last Name LALY Referring Provider Speciality Internal M edicine Referred Provider Specialty Orthopedic S urgery General Notes Rubi Carrillo 04/24/2024 04:03:44 PM > Referral with form and attachment faxed, pt given info to call and schedule visit. [facility] p: [phone] f: [phone] Clinical Notes Sarah Ragland 02:18:04 PM > Scheduled for 06/03 at 10:30. Pt aware Referral Priority Routine REASON FOR VISIT labs and referral Encounters Encounter Location Date Provider Diagnosis [place] [address] [address] 04/24/2024 ALETHA RUFFIN Encounter for annual health [...] Details Provider Name:ALETHA RUFFIN, 10/16/2024 10:00:00 AM, [address] [place] [address], [facility] [address], [place], [address], Progress Notes * LIZ MELGARINDOB:1950 (74 yo M)Acc No.[id number]:04/24/2024 Patient:??LICHA MELGAR :1950?Age:74 Y?Sex:Jose casiano Address: [address], [place] [address] Subjective: * Chief Complaints: * ?Labs and referral * Medical History:?? * Surgical History:?? * Hospitalization/Major Diagno stic Procedure:?? * Medications:?? Objective: Assessment: * Assessment: 1.??Encounter for annual [facility] examination - Z00.00??2.??Vitamin D deficiency, unspecified - [...]
--- OUTSIDE RECORDS SUMMARY | 2024-09-03 11:42 | XMS_ITS ---
Author Organization [email or web address] Address [address] [place] [address] Care Team Providers Care Garment Mender Name Role Phone ALETHA RUFFIN Unavailable [phone] ALLERGIES No Known Allergies REASON FOR VISIT [...] 07/23/2024 Encounters Encounter Location Date Provider Diagnosis [place] [address] [address] 07/23/2024 ALETHA LALY Type 2 diabetes danish [...] software and direct typing Please excuse inadvertent customer service analyst or typing errors, or uncorrected word substitutions Although every attempt has been made by the provider to proofread this document, occasional misspellings and typographical errors may still be present Due to the previous pandemic, and the use of personal protective equipment (PPE) This may decrease voice recognition accuracy Inadvertent customer service analyst errors may occur 07/23/2024 Essential (primary) hypertension [...] software and direct typing Please excuse inadvertent customer service analyst or typing errors, or uncorrected word substitutions Although every attempt has been made by the provider to proofread this document, occasional misspellings and typographical errors may still be present Due to the previous pandemic, and the use of personal protective equipment (PPE) This may decrease voice recognition accuracy Inadvertent customer service analyst errors may occur 07/23/2024 Hyperlipidemia, unspecified (ICD-10 [...] software and direct typing Please excuse inadvertent customer service analyst or typing errors, or uncorrected word substitutions Although every attempt has been made by the provider to proofread this document, occasional misspellings and typographical errors may still be present Due to the previous pandemic, and the use of personal protective equipment (PPE) This may decrease voice recognition accuracy Inadvertent customer service analyst errors may occur 07/23/2024 Other chronic pain [...] software and direct typing Please excuse inadvertent customer service analyst or typing errors, or uncorrected word substitutions Although every attempt has been made by the provider to proofread this document, occasional misspellings and typographical errors may still be present Due to the previous pandemic, and the use of personal protective equipment (PPE) This may decrease voice recognition accuracy Inadvertent customer service analyst errors may occur 07/23/2024 Parkinson disease, symptomatic [...] software and direct typing Please excuse inadvertent customer service analyst or typing errors, or uncorrected word substitutions Although every attempt has been made by the provider to proofread this document, occasional misspellings and typographical errors may still be present Due to the previous pandemic, and the use of personal protective equipment (PPE) This may decrease voice recognition accuracy Inadvertent customer service analyst errors may occur 07/23/2024 Acute pain of [...] software and direct typing Please excuse inadvertent customer service analyst or typing errors, or uncorrected word substitutions Although every attempt has been made by the provider to proofread this document, occasional misspellings and typographical errors may still be present Due to the previous pandemic, and the use of personal protective equipment (PPE) This may decrease voice recognition accuracy Inadvertent customer service analyst errors may occur PLAN OF TREATMENT Medication Medication Name Sig Start Date Stop Date Notes Lisinopril 10 MG 1 tablet Orally Once a day for 90 days Cialis 20 MG 1 tablet Orally 1 hr before sex for 30 day(s) Next Appt Details Provider Name:ALETHA RUFFIN, 10/16/2024 10:00:00 AM, [address] [facility], [facility] [address], [place], [address], Progress Notes * ARIELLE MELGAROB:1950 (74 yo M)Acc No.[id number]:07/23/2024 Progress Notes Patient:??LICHA MELGAR Provider:??ALETHA RUFFIN NP :1950?Age:74 Y?Sex:Ma le Date:07/23/2024 Address:[address], [place], [id number] Subjective: * Chief Complaints: * ?1. Pt seen in office f or f/u visit. * HPI: ?Constitutional:? Patient is here for Chronic Disease Management follow-up visit ?Patient seen and examined. ? Full past medical history, social history, family history, ?allergies and current medications were reviewed and updated. ?Acute Concerns/Problem List: ?07/23/2024 ?Labs are reviewed today ?Here today with Alida his CNA INSTRUCTOR ? Viviana is a healthcare proxy on [...] negative ?Parkinsons disease, on carv/levo, sees Heather/J Luis, will request office notes ?uses cane, no [...] right hearing aids ?Colonoscopy screening, rescheduled to [facility] 2024 ?COVID MRNA Vax x4 ?Diabetic eye exam on 01/2024 ?[facility] Appointment- 02/27/2022 ?Flu 04/2024 ?COVID 04/2024 ?RSV [...] software and direct typing Please excuse inadvertent customer service analyst or typing errors, or uncorrected word substitutions Although every attempt has been made by the provider to proofread this document, occasional misspellings and typographical errors may still be present Due to the previous pandemic, and the use of personal protective equipment (PPE) This may decrease voice recognition accuracy Inadvertent customer service analyst errors may occur. Plan: * Treatment: * Images: Billing Information: * Visit Code:?? 58067 Office Visit, Est Pt., Level 4. * [...] reviewed today Here today with Alida his CNA INSTRUCTOR Ada is a healthcare proxy on file [...] Vax x4 Diabetic eye exam on 01/[address] [facility] Appointment- 02/27/2022 Flu 04/2024 COVID 04/2024 RSV 06/2023 [facility]/HCP is proxy Examination Category Sub-Category Detail Notes Category Not es General Examination GENERAL APPEARANCE: in no ac vicky distress, well developed, well nourished HEAD: normocephalic, [...]
--- OUTSIDE RECORDS SUMMARY | 2024-09-03 11:42 | XMS_ITS | Clinical Summary ---
Author Organization [facility] [place] [address] Phone Care Team Providers Care Flag Maker Name Role Phone Juliano Pelletier MD Primary Care Provider [phone] Allergies No known active allergies Medications atorvastatin (LIPITOR) 20 mg tablet Take 1 tablet (20 mg total) by mouth 1 (one) time each day. Active buPROPion (WELLBUTRIN) 100 mg tablet 07/30/2024 Activ e carbidopa-levod opa (SINEMET) 25-100 mg per tablet Take 2 tablets by mouth 4 (four) times a day. 03/16/2024 Active DULoxetine (CYMBALTA) [address] capsule 07/30/2024 Activ e gabapentin (NEURONTIN) 300 mg capsule Take 1 capsule (300 mg total) by mouth. at bedtime 02/27/2024 Active hydrOXYzine HCL (ATARAX) 25 mg tablet Take 1 tablet (25 mg total) by mouth every 8 (eight) hours if needed. 03/26/2024 Active lisinopriL (PRINIVIL,ZESTR IL) 10 mg tablet Take 1 tablet (10 mg total) by mouth 1 (one) time each day. 06/23/2024 Active metFORMIN (GLUCOPHAGE) 500 mg tablet Take 1 tablet (500 mg total) by mouth. Active risperiDONE (RisperDAL) 0.25 mg tablet Take 1 tablet (0.25 mg total) by mouth. Active Encounters Date Type Department Care Team Description 07/31/2024 10:38 AM EST Anesthesia Event [facility] Endoscopy [address] [place] [address] Paul Whipple MD Millay, Julia, CRNA 07/31/2024 9:53 AM EST - 07/31/2024 11:59 PM EST Hospital Encounter [facility]oscopy [address] [place] [address] Lucien Villa MD Millay, Julia, CRNA Spencer, Mark A, MD History of colon polyps Discharge Disposition: Home or Self Care 07/16/2024 Telephone Gastroenterology - [place] [address] [facility] [address] [facility] [address] [place] [address] Jun Hardy MD special procedure from Last 3 Months Surgical History Surgery Date Site/Laterality Comments LUMBAR DISC SURGERY COLONOSCOPY Medical History Medical History Date Comments Hyperlipidemia Hypertension Neuropathy of both feet Diabetes mellitus (CMS/HCC) Parkinson's disease (CMS/HCC) Forgetfulness Anxiety Depression Social History Tobacco Use [...] Annual GFR (Glomerular Filtration Rate) 07/16/2025 07/16/2024 Hypertension/CHF/CAD Annual BMP Blood Test 07/16/2025 07/16/2024 Falls Risk Assessment 07/31/2025 07/31/2024 [...] EST Routine general medical examination at a [facility] care facility Screening for lipoid disorders Diabetes mellitus (CMS/HCC) Avitaminosis D Screening for thyroid disorder THYROID STIMULATING HORMONE Routine 07/16/2024 10:08 AM EST Routine general medical examination at a health care facility Screening for lipoid disorders Diabetes mellitus (CMS/HCC) Avitaminosis D Screening for thyroid disorder VITAMIN D 25 HYDROXY Routine 07/16/2024 10:08 AM EST Routine general medical examination at a [facility] care facility Screening for lipoid disorders [...] Routine general medical examination at a [facility] facility Screening for lipoid disorders Diabetes mellitus (CMS/HCC) Avitaminosis D Screening for thyroid disorder from Last 3 Months Results * COLONOSCOPY Anesthesia - MAC; [facility] ENDOSCOPY (07/31/2024 11:01 AM EST) Anatomical [...] for surveillance. Narrative 07/31/2024 11:02 AM EST [facility] Patient Name: Giorgio Garcia Procedure [...] Procedure Code(s): ? --- Professional --- ? 60821, Colonoscopy, flexible; with removal of ? tumor(s), [...] or abscess without bleeding CPT copyright 2020 [employer]. All rights reserved. The codes documented in this report are preliminary and upon feed mixer helper review may be revised to meet current compliance requirements. MD Lucien Davidson MD 07/31/2024 11:02:38 AM This report has been signed electronically.Lucien Villa MD Number of Addenda: 0 Note Initiated On: 07/31/2024 10:40 AM Scope In: Scope Out: ? Endoscopy Department at [facility] - [address] [place] [address], ? [place] [address] Procedure Note Lucien Villa MD - 07/31/2024 [facility] GI Patient Name: Giorgio Garcia Procedure [...] retroflexion views. Procedure Code(s): --- Professional --- 75115, Colonoscopy, flexible; with removal of tumor(s), polyp(s), or other lesion(s) by snare technique Diagnosis Code(s): --- Professional --- Z86.010, Personal history of colonic polyps D12.3, Benign neoplasm of transverse colon (hepatic flexure or splenic flexure) D12.2, Benign neoplasm of ascending colon K57.30, Diverticulosis of large intestine without perforation or abscess without bleeding CPT copyright 202 [employer]. All rights reserved. The codes documented in this report are preliminary and upon feed mixer helper reviewmay be revised to meet current compliance requirements. MD Lucien Davidson MD 07/31/2024 11:02:38 AM This report has been signed electronically.Lucien Villa MD Number of Addenda: 0 Note Initiated On: 07/31/2024 10:40 AM Scope In: Scope Out: Endoscopy Department at [facility] - [address] [place] [id number] IMPRESSION: - Five 3 to 7 mm [...] 4: Tubular adenomas, fragmented. 08/01/2024 10:41 AM [facility] Gross Description A. Large Intestine, Transverse [...] pieces, multiple levels. TS 08/01/2024 10:41 AM [facility] Disclaimer Unless otherwise specified, all tissue is 10% NB formalin fixed and paraffin embedded. 08/01/2024 10:41 AM [facility] Tissue Transverse colon structure / Unknown 07/31/2024 10:46 AM EST 07/31/2024 11:40 AM EST Tissue specimen (specimen) Ascending colon structure / Unknown 07/31/2024 10:52 AM EST 07/31/2024 11:40 AM EST Lucien Villa MD LAB PATHOLOGY ORDERABLES Final Result [facility] [address] [place] [address], * Urinalysis with reflex microscopic (07/16/2024 10:08 AM EST) Specific [place] Urine 1.015 1.003 - 1.030 LAB URINALYSIS - AUTOMATED METHOD 07/16/2024 11:27 AM [facility] pH, Urine 7.5 5.0 - 8.0 pH LAB URINALYSIS - AUTOMATED METHOD 07/16/2024 11:27 AM [facility] Leukocytes, Urine Negative Negative LAB URINALYSIS - AUTOMATED METHOD 07/16/2024 11:27 AM [facility] Nitrite, Urine Negative Negative LAB URINALYSIS - AUTOMATED METHOD 07/16/2024 11:27 AM [facility] Protein, Urine Negative <=Trace mg/dL LAB URINALYSIS - AUTOMATED METHOD 07/16/2024 11:27 AM [facility] Glucose, Urine Negative Negative mg/dL LAB URINALYSIS - AUTOMATED METHOD 07/16/2024 11:27 AM [facility] Ketones, Urine Negative Negative mg/dL LAB URINALYSIS - AUTOMATED METHOD 07/16/2024 11:27 AM [facility] Urobilinogen, Urine 1.0 0.2 - 1.0 mg/dL LAB URINALYSIS - AUTOMATED METHOD 07/16/2024 11:27 AM [facility] Bilirubin, Urine Negative Negative LAB URINALYSIS - AUTOMATED METHOD 07/16/2024 11:27 AM [facility] Blood, Urine Negative Negative LAB URINALYSIS - AUTOMATED METHOD 07/16/2024 11:27 AM [facility] Urine Urine specimen obtained by clean catch procedure / Unknown Non-blood Collection / Unknown 07/16/2024 10:08 AM EST 07/16/2024 11:18 AM EST us Mamadou Lopez CARGO OPERATIONS AGENT LAB URINE ORDERABLES Final Re sult [facility] [address] [place] [address], [place] [phone] * Lipid panel with reflex to direct LDL (07/16/2024 10:08 AM EST) Cholesterol 158 0 - 200 mg/dL LAB CHEMISTRY METHOD 07/16/2024 12:02 PM [facility] Triglycerides 123 0 - 150 mg/dL LAB CHEMISTRY METHOD 07/16/2024 12:02 PM [facility] HDL 46 >=40 mg/dL LAB CHEMISTRY METHOD 07/16/2024 12:02 PM [facility] LDL Calculated 87 0 - 100 mg/dL LAB CHEMISTRY METHOD 07/16/2024 12:02 PM [facility] VLDL Cholesterol Bob 24.6 mg/dL LAB CHEMISTRY METHOD 07/16/2024 12:02 PM [facility] Non HDL Chol. (LDL+VLDL) 112 <145 mg/dL LAB CHEMISTRY METHOD 07/16/2024 12:02 PM [facility] Chol/HDL Ratio 3.4 0.0 - 4.4 LAB CHEMISTRY METHOD 07/16/2024 12:02 PM [facility] Blood Venous blood specimen / Unknown Venipuncture / Unknown 07/16/2024 10:08 AM EST 07/16/2024 11:17 AM EST us Mamadou Lopez CARGO OPERATIONS AGENT LAB BLOOD ORDERABLES Final Re sult Performing Organization Address City/[facility]/ZIP Co de Phone Number [facility] [address] [place] [address], [place] [phone] * (ABNORMAL) CBC auto differential (07/16/2024 10:08 AM EST) [facility] WBC 6.9 4.8 - 10.8 K/mcL LAB HEMETOLOGY METHOD 07/16/2024 11:39 AM [facility] RBC 4.20(L) 4.50 - 5.50 M/mcL LAB HEMETOLOGY METHOD 07/16/2024 11:39 AM [facility] Hemoglobin 12.4(L) 13.5 - 17.5 g/dL LAB HEMETOLOGY METHOD 07/16/2024 11:39 AM [facility] Hematocrit 38.1(L) 42.0 - 54.0 % LAB HEMETOLOGY METHOD 07/16/2024 11:39 AM [facility] MCV 91.4 79.0 - 98.0 FL LAB HEMETOLOGY METHOD 07/16/2024 11:39 AM [facility] MCH 29.7 27.0 - 32.0 pcg LAB HEMETOLOGY METHOD 07/16/2024 11:39 AM [facility] MCHC 32.5 32.0 - 37.0 g/dL LAB HEMETOLOGY METHOD 07/16/2024 11:39 AM [facility] RDW 13.9 11.0 - 15.0 % LAB HEMETOLOGY METHOD 07/16/2024 11:39 AM [facility] Platelets 227 130 - 400 K/mcL LAB HEMETOLOGY METHOD 07/16/2024 11:39 AM [facility] MPV 10.9 7.0 - 11.0 FL LAB HEMETOLOGY METHOD 07/16/2024 11:39 AM [facility] NRBC 0.0 <1.0 % LAB HEMETOLOGY METHOD 07/16/2024 11:39 AM [facility] NRBC Absolute 0.00 <0.10 K/mcL LAB HEMETOLOGY METHOD 07/16/2024 11:39 AM [facility] Neutrophils Relative 65.8 % LAB HEMETOLOGY METHOD 07/16/2024 11:39 AM [facility] Lymphocytes Relative 22.1 % LAB HEMETOLOGY METHOD 07/16/2024 11:39 AM [facility] Monocytes Relative 10.0 % LAB HEMETOLOGY METHOD 07/16/2024 11:39 AM [facility] Eosinophils Relative 1.5 % LAB HEMETOLOGY METHOD 07/16/2024 11:39 AM [facility] Basophils Relative 0.3 % LAB HEMETOLOGY METHOD 07/16/2024 11:39 AM [facility] Immature Granulocytes Relative 0.3 % LAB HEMETOLOGY METHOD 07/16/2024 11:39 AM [facility] Neutrophils Absolute 4.52 1.50 - 7.00 K/mcL LAB HEMETOLOGY METHOD 07/16/2024 11:39 AM [facility] Lymphocytes Absolute 1.52 1.00 - 5.00 K/mcL LAB HEMETOLOGY METHOD 07/16/2024 11:39 AM [facility] Monocytes Absolute 0.69 0.20 - 1.00 K/mcL LAB HEMETOLOGY METHOD 07/16/2024 11:39 AM [facility] Eosinophils Absolute 0.10 0.00 - 0.50 K/mcL LAB HEMETOLOGY METHOD 07/16/2024 11:39 AM [facility] Basophils Absolute 0.02 0.00 - 0.20 K/mcL LAB HEMETOLOGY METHOD 07/16/2024 11:39 AM [facility] Immature Granulocytes Absolute 0.02 0.00 - 0.03 K/mcL LAB HEMETOLOGY METHOD 07/16/2024 11:39 AM [facility] Blood Venous blood specimen / Unknown Venipuncture / Unknown 07/16/2024 10:08 AM EST 07/16/2024 11:12 AM EST us Mamadou Lopez CARGO OPERATIONS AGENT LAB BLOOD ORDERABLES Final Re sult Performing Organization Address City/[facility]/ZIP Co de Phone Number [facility] [address] [place] [address], [place] [phone] * Vitamin D 25 hydroxy (07/16/2024 10:08 AM EST) [facility] Vit D, 25-Hydroxy 46.4 30.0 - 80.0 ng/mL LAB CHEMISTRY METHOD 07/16/2024 12:09 PM EST [facility] Blood Venous blood specimen / Unknown Venipuncture / Unknown 07/16/2024 10:08 AM EST 07/16/2024 11:17 AM EST us Mamadou Lopez NP LAB BLOOD ORDERABLES Final Re sult Performing Organization Address City/[facility] Co de Phone Number [facility] [address] [place] [address], [place] [phone] * Thyroid stimulating hormone (07/16/2024 10:08 AM EST) [facility] TSH 2.17 0.40 - 4.00 mcIU/mL LAB CHEMISTRY METHOD 07/16/2024 12:09 PM EST [facility] Blood Venous blood specimen / Unknown Venipuncture / Unknown 07/16/2024 10:08 AM EST 07/16/2024 11:17 AM EST us Mamadou Lopez CARGO OPERATIONS AGENT LAB BLOOD ORDERABLES Final Re sult Performing Organization Address City/[facility]/ZIP Co de Phone Number [facility] [address] [place] [address], [place] [phone] * (ABNORMAL) Hemoglobin A1c (07/16/2024 10:08 AM EST) [facility] Hemoglobin A1C 7.0(H) <6.5 % LAB CHEMISTRY METHOD 07/16/2024 8:51 PM [facility] Mean Bld Glu Estim. 154 mg/dL LAB CHEMISTRY METHOD 07/16/2024 8:51 PM [facility] Blood Venous blood specimen / Unknown Venipuncture / Unknown 07/16/2024 10:08 AM EST 07/16/2024 11:12 AM EST us Mamadou Lopez NP LAB BLOOD ORDERABLES Final Re sult [facility] [address] [place] [address], [place] [phone] * (ABNORMAL) Comprehensive metabolic panel (07/16/2024 10:08 AM EST) Pathologist [facility] Sodium 138 133 - 145 mmol/L LAB CHEMISTRY METHOD 07/16/2024 12:02 PM [facility] Potassium 4.3 3.5 - 5.5 mmol/L LAB CHEMISTRY METHOD 07/16/2024 12:02 PM [facility] Chloride 103 96 - 110 mmol/L LAB CHEMISTRY METHOD 07/16/2024 12:02 PM [facility] CO2 31 21 - 32 mmol/L LAB CHEMISTRY METHOD 07/16/2024 12:02 PM [facility] Anion Gap 4 3 - 11 LAB CHEMISTRY METHOD 07/16/2024 12:02 PM [facility] Glucose 131(H) 70 - 100 mg/dL LAB CHEMISTRY METHOD 07/16/2024 12:02 PM [facility] BUN 12 5 - 25 mg/dL LAB CHEMISTRY METHOD 07/16/2024 12:02 PM [facility] Creatinine 0.83 0.70 - 1.30 mg/dL LAB CHEMISTRY METHOD 07/16/2024 12:02 PM [facility] eGFR 91 >=60 mL/min/1. 73m2 LAB CHEMISTRY METHOD 07/16/2024 12:02 PM [facility] Comment:Calculation based on the??Chronic Kidney Disease Epidemiology Collaboration (CKD-EPI) equation refit??without adjustment for race. BUN/Creatinine Ratio 14.5 LAB CHEMISTRY METHOD 07/16/2024 12:02 PM [facility] Calcium 9.1 8.5 - 10.5 mg/dL LAB CHEMISTRY METHOD 07/16/2024 12:02 PM [facility] AST (SGOT) 18 10 - 42 unit/L LAB CHEMISTRY METHOD 07/16/2024 12:02 PM [facility] ALT (SGPT) 24 10 - 60 unit/L LAB CHEMISTRY METHOD 07/16/2024 12:02 PM [facility] Alkaline Phosphatase 180(H) 42 - 121 unit/L LAB CHEMISTRY METHOD 07/16/2024 12:02 PM [facility] Total Protein 6.7 6.0 - 8.0 g/dL LAB CHEMISTRY METHOD 07/16/2024 12:02 PM [facility] Albumin 3.3 3.2 - 5.0 g/dL LAB CHEMISTRY METHOD 07/16/2024 12:02 PM [facility] Total Bilirubin 0.5 0.0 - 1.4 mg/dL LAB CHEMISTRY METHOD 07/16/2024 12:02 PM [facility] Blood Venous blood specimen / Unknown Venipuncture / Unknown 07/16/2024 10:08 AM EST 07/16/2024 11:17 AM EST us Mamadou Lopez NP LAB BLOOD ORDERABLES Final Re sult [facility] [address] [place] [address], [place] [phone] from Last 3 Months Insurance [facility] Member Subscriber Plan / Payer (Ef fective 2015-Present) Name:Giorgio Garcia Relation to Subscriber:Self Name:Giorgio Garcia Payer ID:[id number] Group ID:[id number] Type:Not on file Address: [address] [place] [address] MEDICAID - [place] Advance Directives Documents on File Type Date Recorded Patient 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
--- OUTSIDE RECORDS SUMMARY | 2024-09-03 11:43 | XMS_ITS ---
Author Organization [facility] Address [address] [place] [address] Care Team Providers Care Epoxy Fabrication Supervisor Name Role Phone CARLOSALETHA PHOENIX Unavailable [phone] REASON FOR VISIT medical advice Encounters Encounter Location Date Provider Diagnosis [facility] [address] [facility] [address] [place] [address] 09/01/2024 ALETHA RUFFIN PLAN OF TREATMENT Next Appt Details Provider Name:ALETHA RUFFIN, 10/16/2024 10:00:00 AM, [address] [facility] [address], [place], [address], Progress Notes * LIZ MELGARINDOB:1950 (74 yo M)Acc No.[id number]:09/01/2024 Patient:??LICHA MELGAR :1950?Age:74 Y?Sex:Jose oh Address:[address] [place] [address] * true * Date:??
--- OUTSIDE RECORDS SUMMARY | 2024-09-03 11:43 | XMS_ITS | Encounter Summary ---
Author Organization [facility] Address [address] [place] [address] Care Team Providers Care Technology Director Name Role Phone Juliano Pelletier MD Primary Care Provider [phone] Encounter Details Date Type Department Care Team (Latest Contact Info) Description 04/24/2024 11:10 AM EDT Hospital Encounter TH HISTORIC ENCOUNTERS EASTERN CONVERSION ONLY Mamadou Lopez, BASE FILLER [address] [facility] [address] [place] [address] Pain in left knee Social History Tobacco [...] AM EDT Narrative 04/24/2024 3:25 PM EDT [facility] Diagnostic Imaging Department [address] [place] [address] Patient: ??GIORGIO GARCIA ?/Age/Sex: 1950 - 74 - M Unit#: ??[id number] ? Location/Status: ??SPDIGEN/REG CLI ? Mnemonic/Ordering Site: ??[facility] Ordering Physician: ??MAMADOU LOPEZ BASE FILLER CR Knee LT 4 or more View - 04/24/24 - 0650 Report Status:Signed INDICATION: Acute left knee pain [...] Dic Date/Time: ??04/24/24 1524 Sign date/Time: ??04/24/24 1523 Procedure Note Alex Lyman MD - 05/03/2024 [facility] Diagnostic Imaging Department [address] [place] [address] Patient: TALIAGIORGIO /Age/Sex: 1950 - 74 - M Unit#: [id number] Location/Status: SPDIGEN/REG CLI Mnemonic[facility]ician: MAMADOU LOPEZ NP CR Knee LT 4 or more View - 04/24/24 - 1147 Report Status:Signed INDICATION: Acute left knee pain [...] Sign date/Time: 04/24/24 1525 us Mamadou Lopez BASE FILLER IMG XR PROCEDURES Final Resul t documented in this encounter Visit Diagnoses Diagnosis Pain in left knee documented in this encounter Care Teams Technology Director Relationship Specialty Start Date End Date Juliano Pelletier MD [address] [place] [address] PCP - General Internal Medicine 09/13/18 documented as of this encounter
[2024-09-03 17:55] LABS: MANUAL DIFF FLAG NO
[2024-09-03 18:23] LABS: Alanine Aminotransferase 15 U/L (0-40); Alkaline Phosphatase 124 U/L (39-117); Anion Gap 10 (12-20); Aspartate Amino Transferase 27 U/L (5-37); Bilirubin Total 0.4 mg/dL (0.0-1.0); Blood Urea Nitrogen 15 mg/dL (9-16); Carbon Dioxide 28 mmol/L (22-29); Chloride 107 mmol/L (96-108); Estimated Glomerular Filt Rate > 60; Glucose Random 119 mg/dL (60-115); Iron 62 mcg/dL (45-160); Percent Iron Saturation 25 % (15-50); Sodium 140 mmol/L (135-145); Total Iron Binding Capacity 249 mcg/dL (228-428); Total Protein 7.1 g/dL (6.5-8.0); Unsaturated Iron Binding 187 ug/dL
[2024-09-03 18:36] LABS: Ferritin 160 ng/mL (20-250)
[2024-09-03 18:42] LABS: Vitamin B12 510 pg/mL (200-900)
[2024-09-03 18:44] LABS: Basophils Percent Auto 0.4 % (0-2); Eosinophils Absolute Auto 0.1 X10*3/uL (0.0-0.4); Eosinophils Percent Auto 1.2 % (0-4); Hematocrit 37.8 % (42.0-52.0); Hemoglobin 12.4 g/dl (14.0-18.0); Imm Gran Abs Auto 0.02 X10*3/uL (0.00-0.03); Imm Gran Pct Auto 0.4 % (0.0-0.4); Lymphocytes Absolute Auto 1.4 X10*3/uL (1.2-4.9); Lymphocytes Percent Auto 27.6 % (20-40); Mean Corpuscular HGB Conc 32.8 g/dl (31.0-36.0); Mean Corpuscular Hemoglobin 29.2 pg (27.0-33.0); Mean Corpuscular Volume 88.9 fL (80.0-98.0); Mean Platelet Volume 11.3 fL (9.4-12.4); Monocytes Absolute Auto 0.4 X10*3/uL (0.1-1.2); Monocytes Percent Auto 8.5 % (2-11); Neutrophils Absolute Auto 3.1 x10*3/uL (2.0-8.3); Neutrophils Percent Auto 61.9 % (45-73); Platelet Count 198 X10*3/uL (160-400); Red Blood Count 4.25 X10*6/uL (4.60-5.80); Red Cell Distribution Width 14.6 % (11.0-16.0)
[2024-09-03 18:50] LABS: Erythrocyte Sedimentation Rate 10 MM/HR (0-15)
[2024-09-04 17:27] LABS: Lyme Abs Screen <0.90 index
[2024-09-06 16:59] LABS: Methylmalonic Acid 117 nmol/L (69-390)
[2024-09-08 16:22] LABS: Vitamin B6 14.5 ng/mL (2.1-21.7)
[2024-09-09 14:54] LABS: Vitamin B1 14 nmol/L (8-30)
== END 2024-09-03 09:57 | disposition home or self-care (01) ==
LOC: HO.HKASLDS 09:56
PROVIDERS: Visit Provider Nurse Practitioner Family
DX: R20.0 Anesthesia of skin (principal); R20.2 Paresthesia of skin; D64.9 Anemia, unspecified; E11.9 Type 2 diabetes mellitus without complications
CPT/HCPCS: 36415; 80053; 82607; 82728; 82746; 83540; 83921; 84207; 84425; 85025; 85652; 86617; 86618

== ENCOUNTER 2025-03-05 10:26 | Outpatient (AMB) | payer OTHER, SELFPAY ==
--- OUTSIDE RECORDS SUMMARY | 2024-04-24 11:10 | XMS_ITS | Encounter Summary ---
Author Organization [facility] Address [address] [place] [address] Care Team Providers Care Care Transition Coordinator Name Role Phone Juliano Pelletier MD Primary Care Provider [phone] Encounter Details Date Type Department Care Team (Latest Contact Info) Description 04/24/2024 11:10 AM EDT Hospital Encounter TH HISTORIC ENCOUNTERS EASTERN CONVERSION ONLY Mamadou Lopez, REGISTERED PHYSICAL THERAPIST [address] [address] Pain in left knee Social History Tobacco [...] as of this encounter Plan of Treatment Not on file documented as of this encounter Procedures Procedure Name Priority Date/Time Associated Diagnosis Comments CR KNEE LT 4 OR MORE VIEW Routine 04/24/2024 3:25 PM EDT Pain in left knee documented in this encounter Results * CR KNEE LT 4 OR MORE VIEW (04/24/2024 3:25 PM EDT) Anatomical Region Laterality Modality Radiographic Gianna ging 04/24/2024 11:1 5 AM EDT Narrative 04/24/2024 3:25 PM EDT [facility] Diagnostic Imaging Department [address] [place] [address] Patient: TALIAGIORGIO /Age/Sex: 1950 - 74 - M Unit#: [id number] Location/Status: [facility]/REG CLI Mnemonic[facility] Ordering Physician: MAMADOU LOPEZ REGISTERED PHYSICAL THERAPIST CR Knee LT 4 or more View - 04/24/24 - 114 Report Status:Signed INDICATION: Acute left knee pain [...] Dic Date/Time: 04/24/24 152 Sign date/Time: 04/24/24 152 Procedure Note Alex Lyman MD - 05/03/2024 [facility] Diagnostic Imaging Department [address] [place] [address] Patient: GIORGIO GARCIA /Age/Sex: 1950 - 74 - M Unit#: [id number] Location/Status: SPDIGEN/REG CLI Mnemonic[facility] Ordering Physician: MAMADOU LOPEZ REGISTERED PHYSICAL THERAPIST CR Knee LT 4 or more View - 04/24/24 - 1148 Report Status:Signed INDICATION: Acute left knee pain [...] MD Dic Date/Time: 04/24/241523 Sign date/Time: 04/24/241524 Mamadou Lopez REGISTERED PHYSICAL THERAPIST IMG XR PROCEDURES Final Resul t documented in this encounter Visit Diagnoses Diagnosis Pain in left knee documented in this encounter Care Teams Care Transition Coordinator Relationship Specialty Start Date End Date Juliano Pelletier MD [address] [place] [address] PCP - General Internal Medicine 09/13/18 documented as of this encounter
--- OUTSIDE RECORDS SUMMARY | 2025-03-03 06:00 | XMS_ITS ---
Author Organization [facility] Address [address] [place] [address] Care Team Providers Care Student Nurse Name Role Phone ALETHA RUFFIN Unavailable [phone] Allergies No Known Allergies REASON FOR VISIT pt is here for f/u with concerns regarding falling and dizziness from time to time Medications Medication SIG (Take, Route, Frequency, Duration) Notes Start Date End Date Status metFORMIN HCl ER 500 MG TAKE 1 TABLET BY MOUTH TWICE DAILY WITH EVENING MEAL; Duration: 90 Active Lisinopril 5 MG Take 1 tablet by andreas th once daily for 90 days; Duration: 90 Not-Taking Cialis 20 MG 1 tablet Orally 1 hr before sex; Duration: 30 day(s) Active hydrOXYzine HCl 25 MG TAKE 1 TABLET BY M OUT EVERY 8 HOURS NEEDED; Duration: 90 Active Lisinopril 10 MG 1 tablet Orally Once a day; Duration: 90 days Active Atorvastatin Calcium 20 MG Take 1 tablet by mouth once daily; Duration: 90 Active Alcohol Wipes 70 % as directed External ly DAILY; Duration: 90 days 04/24/2024 Active Lisinopril 10 MG Take 1 tablet by andreas th once daily for 90 days; Duration: 90 Active FreeStyle Lite Test Strips as directed as directed in vitro dxe11.8 once daily; Duration: 30 days 07/28/2019 Active FreeStyle Lite - as directed in vitro dxe11.8 once daily; Duration: 30 days 07/28/2019 Active Gabapentin 300 MG 1 capsule Orally Onc e a day; Duration: 30 day(s) 12/05/2019 Active Carbidopa-Levodopa 25-100 MG Oral; Duration: 30 Days Acti ve Diclofenac Sodium 75 MG 1 tablet Orally Twice a day; Duration: 30 day(s) 12/05/2019 Active buPROPion HCl 75 MG Oral; Duration: 90 Days Active FreeStyle Lancets - as directed in vitro dx e11.8 once daily; Duration: 30 days 07/28/2019 Active Escitalopram Oxalate 20 MG 1 tablet Orally Once a day; Duration: 30 day(s) Active Social History Tobacco Use: Social History Observation Description Date Details (start date - stop date) Never Smoker NA - NA Tobacco Use/Smoking Question Answer Notes Are you a nonsmoker Section Notes: does not smoke or abuse alco hol Problems Problem Type SNOMED Code ICD Code Onset Dates Problem Status W/U Status Risk Notes Problem Recurrent falls (586803731) Recurrent falls (R29.6) Active confirmed Vital Signs Blood pressure systolic 124 mm Hg 03/03/20 25 Blood pressure diastolic 76 mm Hg 025 Heart Rate 74 /min 03/03/2025 Height 66 in 03/03/2025 Weight 176.8 lbs 03/03/2025 BMI 28.53 kg/m2 03/03/2025 Oximetry 98 % 03/03/2025 Encounters Encounter Location Date Provider Diagnosis [facility] [address] [address] 03/03/2025 ALETHA LALY Type 2 diabetes danish itus with unspecified complications E11.8 ; Essential (primary) hypertension I10 ; Parkinson disease, symptomatic G20.A1 ; Cervical lymphadenopathy R59.0 ; Hyperlipidemia, unspecified E78.5 ; Other chronic pain G89.29 ; Dizziness R42 and Recurrent falls R29.6 Assessments Encounter Date Diagnosis (ICD Code) Assessment Notes Treatment Notes Treatment Clinical Notes Section Notes 03/03/2025 Type 2 diabetes mellitus with unspecified complications (ICD-10 - E11.8) Acute Concerns/Problem List: 03/03/2025 [facility] in 3 months Lets get a CT scan of the neck with contrast to look at this oropharyngeal abnormality and cervical adenopathy Glycemic index is stable and age-appropriate Continue Metformin monotherapy His chronic conditions are stable and he is doing well from a functional standpoint Elected to defer orthopedic treatment of knees Of note, some information is being carried forward from prior records for informational purposes only and is being cited so that efficiency, safety and quality of the patient's care is not compromised This note was prepared using voice recognition software and direct typing Please excuse inadvertent matrix inspector or typing errors, or uncorrected word substitutions Although every attempt has been made by the provider to proofread this document, occasional misspellings and typographical errors may still be present Due to the previous pandemic, and the use of personal protective equipment (PPE) This may decrease voice recognition accuracy Inadvertent matrix inspector errors may occur 03/03/2025 Essential (primary) hypertension (ICD-10 - I10) Acute Concerns/Problem List: 03/03/2025 [facility] in [address] get a [address] scan of the neck with contrast to look at this oropharyngeal abnormality and cervical adenopathy Glycemic index is stable and age-appropriate Continue Metformin monotherapy His chronic conditions are stable and he is doing well from a functional standpoint Elected to defer orthopedic treatment of knees Of note, some information is being carried forward from prior records for informational purposes only and is being cited so that efficiency, safety and quality of the patient's care is not compromised This note was prepared using voice recognition software and direct typing Please excuse inadvertent matrix inspector or typing errors, or uncorrected word substitutions Although every attempt has been made by the provider to proofread this document, occasional misspellings and typographical errors may still be present Due to the previous pandemic, and the use of personal protective equipment (PPE) This may decrease voice recognition accuracy Inadvertent matrix inspector errors may occur 03/03/2025 Parkinson disease, symptomatic (ICD-10 - G20.A1) Acute Concerns/Problem List: 03/03/2025 [facility] in 3 months Lets get a [address] scan of the neck with contrast to look at this oropharyngeal abnormality and cervical adenopathy Glycemic index is stable and age-appropriate Continue Metformin monotherapy His chronic conditions are stable and he is doing well from a functional standpoint Elected to defer orthopedic treatment of knees Of note, some information is being carried forward from prior records for informational purposes only and is being cited so that efficiency, safety and quality of the patient's care is not compromised This note was prepared using voice recognition software and direct typing Please excuse inadvertent matrix inspector or typing errors, or uncorrected word substitutions Although every attempt has been made by the provider to proofread this document, occasional misspellings and typographical errors may still be present Due to the previous pandemic, and the use of personal protective equipment (PPE) This may decrease voice recognition accuracy Inadvertent matrix inspector errors may occur 03/03/2025 Cervical lymphadenopathy (ICD-10 - R59.0) Acute Concerns/Problem List: 03/03/2025 [facility] in 3 months Lets get a CT scan of the neck with contrast to look at this oropharyngeal abnormality and cervical adenopathy Glycemic index is stable and age-appropriate Continue Metformin monotherapy His chronic conditions are stable and he is doing well from a functional standpoint Elected to defer orthopedic treatment of knees Of note, some information is being carried forward from prior records for informational purposes only and is being cited so that efficiency, safety and quality of the patient's care is not compromised This note was prepared using voice recognition software and direct typing Please excuse inadvertent matrix inspector or typing errors, or uncorrected word substitutions Although every attempt has been made by the provider to proofread this document, occasional misspellings and typographical errors may still be present Due to the previous pandemic, and the use of personal protective equipment (PPE) This may decrease voice recognition accuracy Inadvertent matrix inspector errors may occur 03/03/2025 Hyperlipidemia, unspecified (ICD-10 - E78.5) Acute Concerns/Problem List: 03/03/2025 [facility] in 3 months Lets get a CT scan of the neck with contrast to look at this oropharyngeal abnormality and cervical adenopathy Glycemic index is stable and age-appropriate Continue Metformin monotherapy His chronic conditions are stable and he is doing well from a functional standpoint Elected to defer orthopedic treatment of knees Of note, some information is being carried forward from prior records for informational purposes only and is being cited so that efficiency, safety and quality of the patient's care is not compromised This note was prepared using voice recognition software and direct typing Please excuse inadvertent matrix inspector or typing errors, or uncorrected word substitutions Although every attempt has been made by the provider to proofread this document, occasional misspellings and typographical errors may still be present Due to the previous pandemic, and the use of personal protective equipment (PPE) This may decrease voice recognition accuracy Inadvertent matrix inspector errors may occur 03/03/2025 Other chronic pain (ICD-10 - G89.29) Acute Concerns/Problem List: 03/03/2025 [facility] in 3 months Lets get a CT scan of the neck with contrast to look at this oropharyngeal abnormality and cervical adenopathy Glycemic index is stable and age-appropriate Continue Metformin monotherapy His chronic conditions are stable and he is doing well from a functional standpoint Elected to defer orthopedic treatment of knees Of note, some information is being carried forward from prior records for informational purposes only and is being cited so that efficiency, safety and quality of the patient's care is not compromised This note was prepared using voice recognition software and direct typing Please excuse inadvertent matrix inspector or typing errors, or uncorrected word substitutions Although every attempt has been made by the provider to proofread this document, occasional misspellings and typographical errors may still be present Due to the previous pandemic, and the use of personal protective equipment (PPE) This may decrease voice recognition accuracy Inadvertent matrix inspector errors may occur 03/03/2025 Dizziness (ICD-10 - R42) Acute Concerns/Problem List: 03/03/2025 [facility] in 3 months Lets get a CT scan of the neck with contrast to look at this oropharyngeal abnormality and cervical adenopathy Glycemic index is stable and age-appropriate Continue Metformin monotherapy His chronic conditions are stable and he is doing well from a functional standpoint Elected to defer orthopedic treatment of knees Of note, some information is being carried forward from prior records for informational purposes only and is being cited so that efficiency, safety and quality of the patient's care is not compromised This note was prepared using voice recognition software and direct typing Please excuse inadvertent matrix inspector or typing errors, or uncorrected word substitutions Although every attempt has been made by the provider to proofread this document, occasional misspellings and typographical errors may still be present Due to the previous pandemic, and the use of personal protective equipment (PPE) This may decrease voice recognition accuracy Inadvertent matrix inspector errors may occur 03/03/2025 Recurrent falls (ICD-10 - R29.6) Acute Concerns/Problem List: 03/03/2025 [facility] in 3 months [address]s get a CT scan of the neck with contrast to look at this oropharyngeal abnormality and cervical adenopathy Glycemic index is stable and age-appropriate Continue Metformin monotherapy His chronic conditions are stable and he is doing well from a functional standpoint Elected to defer orthopedic treatment of knees Of note, some information is being carried forward from prior records for informational purposes only and is being cited so that efficiency, safety and quality of the patient's care is not compromised This note was prepared using voice recognition software and direct typing Please excuse inadvertent matrix inspector or typing errors, or uncorrected word substitutions Although every attempt has been made by the provider to proofread this document, occasional misspellings and typographical errors may still be present Due to the previous pandemic, and the use of personal protective equipment (PPE) This may decrease voice recognition accuracy Inadvertent matrix inspector errors may occur Plan Of Treatment Medication Medication Name Sig Start Date Stop Date Notes Cialis 20 MG 1 tablet Orally 1 hr before sex; Duration: 30 day(s) Lisinopril 10 MG 1 tablet Orally Once a day; Duration: 90 days Pending Test Test Name Order Date CT Neck Soft Tissue w and w/o Contrast 0 03/03/2025 Next Appt Details Provider Name:ALETHA RUFFIN, 04/27/2025 10:30:00 AM, [address], [address], [place], [address], Progress Notes * ARIELLE MELGAROB:1950 (74 yo M)Acc No.[id number]:03/03/2025 Progress Notes Patient: BRANDON LORENZOUSTIN Provider: Harrison RUFFIN NP :1950 A ge:74 Y S ex:Male Date:03/03/2025 [id number] Subjective: * Chief Complaints: * 1 . Pt is here for f/u with concerns regarding falling and dizziness from time to time. * HPI: C onstitutional: Patient seen and examined. F ull past medical history, social history, family history, allergies and current medications were reviewed and updated. Acute Concerns/Problem List: 03/03/2025 Here today with Viviana, the healthcare proxy on file We suspected polypharmacy and we discontinued hydroxyzine and gabapentin due to dizziness a nd recurrent falls and sedation especially in the elderly CT imaging of the brain and cervical spine was fairly unremarkable However there was a abnormality found in the oropharynx on the right side with some cervical adenopathy He also had an MRI of the brain in December 2024 without contrast that was fairly unremarkable This will be explored further with CT of the neck with contrast* He was seen at [facility], they recommended cortisone injections, but he declined and will not be going back He reports he has tried injections in the past and they did not work disc Xray of left knee, He is against getting intra-articular cortisone injections I discussed this may give him significant relief in pain and that he should consider it Has chronic degenerative and osteoarthritic changes underwent sleep study in November 2022 for NESS and was negative Parkinsons disease, on carv/levo, sees NeurologynArthreyhaylee/J Luis, uses cane They are recommending him to walk more to help with his symptoms Patient asking for erectile dysfunction medication-Using as needed tadalafil Patient is not taking any nitrates Blood pressure stable on lisinopril., Does check at home Currently on for 500 Metformin ER BID, A1c has Holding steady and age- appropriate At home readings ranging around 133 - 150s at home, they brought a log with him Currently supplied with enough glucometer supplies at home bilateral hearing loss, sensineural, now has bilat hearing aids A1c age appropriate Comprehensive labs December 2024 CBC mostly stable TSH 1.31 Renal function electrolytes and LFTs are stable Hemoglobin A1c of 6.9 Vitamin B12 534 UA unremarkable Total cholesterol 158, LDL 87, HDL 46, triglycerides 123 Health maintenance Hearing eval- ENT 03/13/2022, now has right hearing aids Colonoscopy screening, completed in Fe2024 - [facility], 3 year follow up recommended due to multiple polyps COVID MRNA Vax x4 Diabetic eye exam 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 * ROS: A ll Other Systems: Review of Systems (ROS) A ll others negative except those mentioned in HPI. * Medical History: H yperlipidemia, Hypertension, vitamin D deficiency, Diabetes mellitus. * Surgical History: l ow back . * Hospitalization/Major Diagno stic Procedure: D enies Past Hospitalization. * Family History: M other: diagnosed with Cancer. 1 brother(s) , 2 sister(s) . 1 son(s) , 3 daughter(s) . .? mother liver cancer. * Social History: T obacco Use: T obacco Use/Smoking A re you a n onsmoker. d oes not smoke or abuse alcohol. * Medications: T aking Cialis 20 MG Tablet 1 tablet Orally 1 hr before sex , Taking Escitalopram Oxalate 20 MG Tablet 1 tablet Orally Once a day , Taking Diclofenac Sodium 75 MG Tablet Delayed Release 1 tablet Orally Twice a day , Taking Gabapentin 300 MG Capsule 1 capsule Orally Once a day , Taking Carbidopa-Levodopa 25-100 MG Tablet Oral , Taking buPROPion HCl 75 MG Tablet Oral , Taking FreeStyle Lancets - Miscellaneous as [...] mouth once daily for 90 days , Taking Atorvastatin Calcium 20 MG Tablet Take 1 tablet by mouth once daily , Taking hydrOXYzine HCl 25 MG Tablet TAKE 1 TABLET BY MOUTH EVERY 8 HOURS NEEDED , Taking Lisinopril 10 MG Tablet 1 tablet Orally Once a day , Taking metFORMIN HCl ER 500 MG Tablet Extended Release 24 Hour TAKE 1 TABLET BY MOUTH TWICE DAILY WITH EVENING MEAL , Not-Taking Lisinopril 5 MG Tablet Take 1 tablet by mouth once daily for 90 days , Medication List reviewed and reconciled with the patient * Allergies: N .K.D.A. Objective: * Vitals: H R: 74 /min, BP: 124/76 mm Hg, Wt: 176.8 lbs, BMI: 28.53 Index, Ht: 66 in, Oxygen sat %: 98 %. * Examination: G eneral Examination: GENERAL APPEARANCE: i n no acute distress, well developed, well nourished. H EAD: n ormocephalic, atraumatic. E YES: p upils equal, round, reactive to light and accommodation. E ARS: n ormal. O RAL CAVITY: m ucosa moist. T HROAT: c lear. N CECY/THYROID: n cecy supple, full range of motion, no cervical lymphadenopathy. S KIN: n o suspicious lesions, warm and dry. H EART: n o murmurs, regular rate and rhythm, S1, S2 normal. L UNGS: c lear to auscultation bilaterally. A BDOMEN: n ormal, bowel sounds present, soft, nontender, nondistended. E XTREMITIES: n o clubbing, cyanosis, or edema. N EUROLOGIC: n onfocal, motor strength normal upper and lower extremities, sensory exam intact. Assessment: * Assessment: 1. T ype 2 diabetes mellitus with unspecified complications - E11.8 (Primary) 2 . E ssential (primary) hypertension - I10 3 . P arkinson disease, symptomatic - G20.A1 4 . C ervical lymphadenopathy - R59.0 5 . H yperlipidemia, unspecified - E78.5 6 . O ther chronic pain - G89.29 7 . D izziness - R42 8 . R ecurrent falls - R29.6 Acute Concerns/Problem List: 03/03/2025 [facility] in 3 [address] Lets get a CT scan of the neck with contrast to look at this oropharyngeal abnormality and cervical adenopathy Glycemic index is stable and age-appropriate Continue Metformin monotherapy His chronic conditions are stable and he is doing well from a functional standpoint Elected to defer orthopedic treatment of knees Of note, some information is being carried forward from prior records for informational purposes only and is being cited so that efficiency, safety and quality of the patient's care is not compromised This note was prepared using voice recognition software and direct typing Please excuse inadvertent matrix inspector or typing errors, or uncorrected word substitutions Although every attempt has been made by the provider to proofread this document, occasional misspellings and typographical errors may still be present Due to the previous pandemic, and the use of personal protective equipment (PPE) This may decrease voice recognition accuracy Inadvertent matrix inspector errors may occur Plan: * Treatment: 2. C ervical lymphadenopathy I maging: CT Neck Soft Tissue w and w/o Contrast * Procedure Codes: 3 078F DIAST BP < 80 MM HG, 3074F SYST BP LT 130 MM HG * Images: Billing Information: * Visit Code: 41276 Office Visit, Est Pt., Level 4. Modifiers: SA * Procedure Codes: 3078F DIAST BP < 80 MM HG. 3074F SYST BP LT 130 MM HG. Care Plan Details* * Sign off status: Completed true * Provider: Harrison RUFFIN NP Date: 03/03/2025 Generated for Tracy bennett/Richie/Veronicaitting on: 03/05/2025 11:46 AM EDT History and Physical Notes * HPI (History of Present Illness) Category Sub-Category Detail Notes Category Not es Constitutional Patient seen and examined. Full past medical history, social history, family history, allergies and current medications were reviewed and updated. Acute Concerns/Problem List: 03/03/2025 Here today with Viviana, the healthcare proxy on file We suspected polypharmacy and we discontinued hydroxyzine and gabapentin due to dizziness and recurrent falls and sedation especially in the elderly CT imaging of the brain and cervical spine was fairly unremarkable However there was a abnormality found in the oropharynx on the right side with some cervical adenopathy He also had an MRI of the brain in December 2024 without contrast that was fairly unremarkable This will be explored further with CT of the neck with contrast* He was seen at [facility], they recommended cortisone injections, but he declined and will not be going back He reports he has tried injections in the past and they did not work disc Xray of left knee, He is against getting intra-articular cortisone injections I discussed this may give him significant relief in pain and that he should consider it Has chronic degenerative and osteoarthritic changes underwent sleep study in November 2022 for NESS and was negative Parkinsons disease, on carv/levo, sees NeurologynArthreya/J Luis, uses cane They are recommending him to walk more to help with his symptoms Patient asking for erectile dysfunction medication-Using as needed tadalafil Patient is not taking any nitrates Blood pressure stable on lisinopril., Does check at home Currently on for 500 Metformin ER BID, A1c has Holding steady and age-appropriate At home readings ranging around 133 - 150s at home, they brought a log with him Currently supplied with enough glucometer supplies at home bilateral hearing loss, sensineural, now has bilat hearing aids A1c age appropriate Comprehensive labs December 2024 CBC mostly stable TSH 1.31 Renal function electrolytes and LFTs are stable Hemoglobin A1c of 6.9 Vitamin B12 534 UA unremarkable Total cholesterol 158, LDL 87, HDL 46, triglycerides 123 Health maintenance Hearing eval- ENT 03/13/2022, now has right hearing aids Colonoscopy screening, completed in Febur2024 - [facility], 3 year follow up recommended due to multiple polyps COVID MRNA Vax x4 Diabetic eye exam 11/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
[2025-03-05 10:33] VITALS: BP 130/70; PULSE 77; O2SAT 97; BMI 28.1
--- NOTE | 2025-03-05 10:33 | A.OFFVIS_ITS ---
Vital Signs 03/05/25 10:33 Height 5 ft 9 in Weight 190 lb BMI 28.1 BP 130/70 Blood Pressure Location Rt brachial Position Sitting Pulse 77 Pulse Source Pulse Oximeter Pulse Oximetry (%) 97 Oxygen Delivery Method Room Air Intake Visit Reasons: 6 mo follow up Color Finisher Required: No Accompanied by: Self / Same As Patient Allergies No Known Allergies Allergy (Verified 03/05/25 10:33) Medication List - Last Reconciled 03/05/25 by YURI Dos Santos atorvastatin 20 mg PO DAILY [Bilateral carpal tunnel neoprene wrist plint As directed] bupropion HCl takes 300mg carbidopa-levodopa 25-100 mg (Sinemet) 2 tabs PO QID 90 days carbidopa-levodopa 25-100 mg ER 2 tabs PO QID 30 days escitalopram oxalate 20 mg PO DAILY lisinopril 5 mg PO DAILY metformin ER 500 mg PO DAILY [id number] mcg (Centrum Silver Men) 1 tab PO DAILY polyethylene glycol 3350 (Miralax) 17 grams PO DAILY PRN 30 days risperidone PO DAILY HPI Comments Details: 74-yr-old male presents for f/u visit for Parkinson's. Patient is accompanied by his . He reports he has had increased falls in the past few months, and now is having orthostatic lightheadedness. He states he will become lightheaded after standing and taking a few steps, and then he will just fall. He is taking 1 cup of coffee in the am, and then drinking water throughout the day. His BP is usually normotensive on low-dose lisinopril 5mg qd. He denies any recent changes in his rispirodone dose. However, his psychiatrist has asked him to hold his gabapentin due to the lightheadedness and falls. He denies room-spinning dizziness. Interval August 2024 labs were unremarkable, showed just very mild anemia with normal iron stores. He has had a few ER evaluations following these falls. ?States he has had at least 3 head CTs recently, with 02/27/[address] pain unremarkable.? However, 02/27/2025 CT cervical without contrast was notable for multilevel degenerative disc disease, and a partially imaged right-sided oropharynx lesion consistent with cervical adenopathy, for which malignancy could not be excluded.. ?Patient endorses right mastoid region discomfort; however, they deny throat pain or swallowing difficulties. ?His PCP?s office called during this visit today, with recommendations to have the patient undergo a follow-up CT of this lesion. Pt's current PD medication regimen: CD-LD 25-100mg 2 tabs QID ADL's: Overall independent, but needing a bit more assist. Does have a shower chair IADLs: geovanna spill his food or drink Swallowing: Denies any issues Drooling: Some mild drooling from the left side of mouth Orthostatic lightheadedness: as above Constipation: Denies- as he is using the miralax prn which helps some Freezing: At times, may have festinating gait Stiffness: Endorses some generalized stiffness, more so in the BUE. Rashid shave right hip arthritis. Tremor: Mildly increased. His coffee cup is covered. Falls: As above Hallucinations: Denies Memory: Is a bit more forgetful. He does play games on his phone. Mood- Increased depression and anxiety, feels worried about recent results- spending more time on the couch. Sees his therapist every 2 weeks. Sleep: Not sleeping as well, waking up more often Exercise: States not much exercise at this time, as the weather is not conducive to walking outside. Other- The Fang hand numbness and tingling is a bit more. Uses fang wrist splints p.r.n. with good effect. [facility] Medical History (Updated 03/05/25 @ 13:17 by YURI Dos Santos) Parkinson disease Surgical History History of back surgery Family History Mother Cancer Social History Household Members: Spouse Alcohol intake: current Alcohol intake frequency: holidays/special occasions only Patient Tobacco Use Status: Never used Tobacco Current occupational status: retired Physical Exam Vital Signs: Last Vital Signs Pulse 77 03/05/25 10:33 BP 130/70 03/05/25 10:33 Pulse Ox 97 03/05/25 10:33 Oxygen Delivery Method Room Air 03/05/25 10:33 BMI result Body Mass Index 28.1 Const General: cooperative and no acute distress Resp Effort & Inspection: normal respiratory effort and able to speak in complete sentences Neuro Other: Orthostatic blood pressure BP HR associated symptoms Lying down after 5 minutes 124/60 77 none Standing after 1 minute 140/62 81 none Standing after 3 minutes 150/70 81 none General: A&O Expression: Mild decreased expression Voice: Soft voice Tremor: Mild intermittent chin tremor. Mild RUE postural tremor Tone: Mild BUE rigidity Dyskinesia: None FFM: Mild bradykinesia JOVANA: RUE slow, poorly fluid. LUE decreased fluidity, worse when performing on his own, and improved when performing with the examiner Foot taps: Mild bradykinesia Gait: Stood easily, decreased arm swing, short steps, steady gait Psych: pleasant affect Assessment & Plan Assessment & Plan (1) Parkinson's disease without dyskinesia: Code(s): G20.A1 - Parkinson's disease without dyskinesia, without mention of fluctuations Category: Medical Qualifiers: Fluctuating manifestations: with fluctuating manifestations Qualified Code(s): G20.A2 - Parkinson's disease without dyskinesia, with fluctuations (2) Numbness and tingling of both feet: Code(s): R20.0 - Anesthesia of skin; R20.2 - Paresthesia of skin Category: Medical (3) Numbness and tingling in both hands: Code(s): R20.0 - Anesthesia of skin; R20.2 - Paresthesia of skin Category: Medical (4) Tremor: Comment: Chin and RUE rest/action tremor, BUE rigidity, bradykinesia, hallucinations, drooling. Code(s): R25.1 - Tremor, unspecified Category: Medical (5) Orthostatic lightheadedness: Code(s): R42 - Dizziness and giddiness Category: Medical (6) Recurrent falls: Code(s): R29.6 - Repeated falls Category: Medical Plan For Parkinson's disease with increased orthostatic lightheadedness and falls: * Today's orthostatic BP did not show orthostatic hypotension, however patient is symptoms are suggestive of OH * We will request nephrology consult for consideration of 24 hour BP monitor * Discontinue carbidopa levodopa IR 25/100 mg, 2 tabs QID order, as patient has had onset of orthostatic lightheadedness since we increased the CD-LD frequency. * Start carbidopa levodopa ER 25-100 mg, 2 tabs 4 times a day-in hopes this lessens risk for orthostatic hypotension * Patient encouraged to do foot movements/exercises prior to standing up to reduce risk for orthostatic lightheadedness. * Previously reviewed techniques to break freezing episodes- pause, take a breathe, step in place or tap leg with hand. * Encouraged patient to use his cane, if symptoms worsen his walker- both of which he has at home. * Stressed importance of maintaining increased physical activity as tolerated. * Continue fiber tabs and Miralax prn constipation. For paresthesia: * Continue fang carpal tunnel splints qhs prn, as this has been helpful. * It is likely that his hand and foot paresthesias or more noticeable due to holding gabapentin. * We were unable to access any previous EMG/NCS results * If these worsen, consider EMG/NCS For general health: * Follow-up cervical imaging for possible right-sided cervical adenopathy-per PCP ?Will follow-up upon review of above and patient to follow-up in clinic in 6 mo nths or sooner prn. Orders: Referrals Nephrology Referral E11.9 - Type 2 diabetes mellitus without complications, G20.A2 - Parkinson's disease without dyskinesia, with fluctuations, R29.6 - Repeated falls, R42 - Dizziness and giddiness Medications: New carbidopa-levodopa 25-100 mg ER 2 tabs PO QID 240 tabs 3RF 30 days Coding Level of Care Code Est Pt Level 4 (67753) Complex EM visit Add On G2211 Diagnoses Parkinson's disease without dyskinesia, with fluctuating manifestations G20.A2 Fluctuating manifestations: with fluctuating manifestations Numbness and tingling of both feet R20.0; R20.2 Numbness and tingling in both hands R20.0; R20.2 Tremor R25.1 Orthostatic lightheadedness R42 Recurrent falls R29.6
--- OUTSIDE RECORDS SUMMARY | 2025-03-05 11:46 | XMS_ITS | Patient Health Record ---
Author Organization [facility] [address] Address [address] [place] [address] Care Team Providers Care Asthma Educator Name Role Phone ALETHA RUFFIN Unavailable [phone] Allergies No Known Allergies Results Component Value Reference Range Notes TISSUE EXAM Reviewed date:09/01/2024 09:46:59 AM Interpretation: Performing Lab: Notes/Report: Final Diagnosis A. Transverse Colon, polyp: Tubular adenoma. B. Ascending Colon, polyp x 4: Tubular adenomas, fragmented. Gross Description A. Large Intestine, Transverse Colon, polyp: Labeled polyp transverse colon . Received in formalin a soft, pink to red, 0.5 cm in greatest diameter polypoid tissue with minimal attached fecal/food debris, which is inked black at the base, bisected, wrapped in paper and submitted in entirety in two cassettes, multiple pieces, multiple levels. B. Large Intestine, Right/Ascending Colon, polyp x 4: Labeled polyp x [...] one cassette, multiple pieces, multiple levels. TS Disclaimer Unless otherwise specified, all tissue is 10% NB formalin fixed and paraffin embedded. CT CERVICAL SPINE WO NADIRA [place] Reviewed date:03/03/2025 03:27:17 PM Interpretation: Performing Lab: Notes/Report: Note See Note [facility], a member of [employer] Patient Name: LICHA MELGAR Date of : 1950 Reason for Exam: CERVICAL PAIN Exam Date: 02/23/2025 [id number] EST Report Status: Final Ordering Provider: ALETHA RUFFIN PCP: REID MONROY EXAMINATION: CT HEAD and CT CERVI LINNEA SPINE WITHOUT CONTRAST CLINICAL INFORMATION: Closed head injury. Cervical pain COMPARISON: The report of brain MRI 01/05/25 includes no acute findings TECHNIQUE: Multidetector CT. Examination of the head and cervical spine. Examination of the h ead and cervical spine without IV contrast. Reformatting in the coronal and sagittal planes. DLP: 1602 mGy-cm Dose optimization wa s performed including the use of low-dose iterative reconstruction technique with automatic exposure control based on patient size. Type of contrast: None Volume of IV contras t: None Volume of contrast discarded: 0 mL FINDINGS: HEAD CT: Intracranial hemorrh age: No evidence of recent intracranial hemorrhage. Ventricles, cisterns and sulci: Within normal limits. The basilar cisterns are well visualized. Extra-axial mass or collections: No extra-axial mass or collection Intra-axial mass: No mass demonstrated Acute infarct: No ac minto territorial infarct demonstrated. White matter disease : No significant white matter disease demonstrated. Fenton-white interface : No disruption of the fenton-white interface. Paranasal sinuses: T he visualized paranasal sinuses are well pneumatized and aerated Osseous/Scalp[: No f ocal bony lesion. Deformity consistent with chronic injury involving the lamina papyracea on the left. CERVICAL CT: There is no acute fracture or subluxation. There is reversal of the expected cervical lordosis. There is disc narrowing endplate sclerosis and marginal osteophyte. There are proliferative changes with narrowing involving the facets with foraminal narrowing bilaterally. No large abnormality within the spinal canal. There is an abnormal ity on the right at the level of the oropharynx and I suspect some cervical adenopathy. This requires further evaluation. IMPRESSION: No intracranial hemorrhage or intracranial mass. No acute fracture or subluxation of the cervical spine. There is degenerativ e disc and degenerative joint disease in the cervical spine. Incompletely include d abnormality in the right side of the oropharynx with cervical adenopathy. Malignancy not excluded. Recommend physical exam and direct inspection. Departmental staff w ill fax the report and confirm receipt -------- FINAL REPOR T -------- Dictated By: Silverio Busby Dictated Date: 02/27/2025 06:43 ET Assigned Physician: Silverio Lezama Reviewed and Electronically Signed By: Silverio Lezama Signed Date: 11:56 ET Workstation ID: [id number] Transcribed By: Self Edit Transcribed Date: 02/27/2025 06:56 ET XR HIP 2-3 VIEWS LEFT Reviewed date:01/21/2025 11:23:20 AM Interpretation: Performing Lab: Notes/Report: Note See Note [facility], a member of [facility] Patient Name: LICHA MELGAR Date of : 1950 Reason for Exam: pain Exam Date: 01/21/2025 [id number] EST Report Status: Final Ordering Provider: ALETHA RUFFIN PCP: REID MONROY HISTORY: The patient is a 74-year-old male with left hip pain. No history of trauma is provided. FINDINGS: AP radiogr aph of the pelvis, along with coned-down AP and external rotation-abduction views of the left hip, are obtained. The study demonstrates no fracture, dislocation, or osteolytic or osteoblastic lesion. No arthritic change is seen in the hips. There are degenerative changes of the included portion of the lower lumbar spine. Soft tissue calcifications are present adjacent to the greater trochanters of the femurs bilaterally consistent with calcific tendinitis. Atherosclerotic arterial calcification are present. IMPRESSION: No acute findings. T here is evidence of calcific tendinitis of the hips bilaterally. Code 03168 -------- FINAL REPOR T -------- Dictated By: Presley Huggins Dictated Date: 01/21/2025 10:58 ET Assigned Physician: Presley Huggins Reviewed and Electronically Signed By: Presley Huggins Signed Date: 10:59 ET Workstation ID: [id number] Transcribed By: Self Edit Transcribed Date: 01/21/2025 10:[address] HEAD WO CONTRAST Reviewed date:02/27/2025 03:09:18 PM Interpretation: Performing Lab: Notes/Report: Note See Note [facility], a member of [facility] Patient Name: LICHA MELGAR Date of : 1950 Reason for Exam: CLOSED HEAD INJURY Exam Date: 02/23/2025 [id number] EST Report Status: Final Ordering Provider: ALETHA RUFFIN PCP: REID MONROY EXAMINATION: CT HEAD and CT CERVI LINNEA SPINE WITHOUT CONTRAST CLINICAL INFORMATION: Closed head injury. Cervical pain COMPARISON: The report of brain MRI 01/05/25 includes no acute findings TECHNIQUE: Multidetector CT. Examination of the head and cervical spine. Examination of the h ead and cervical spine without IV contrast. Reformatting in the coronal and sagittal planes. DLP: 1602 mGy-cm Dose optimization wa s performed including the use of low-dose iterative reconstruction technique with automatic exposure control based on patient size. Type of contrast: None Volume of IV contras t: None Volume of contrast discarded: 0 mL FINDINGS: HEAD CT: Intracranial hemorrh age: No evidence of recent intracranial hemorrhage. Ventricles, cisterns and sulci: Within normal limits. The basilar cisterns are well visualized. Extra-axial mass or collections: No extra-axial mass or collection Intra-axial mass: No mass demonstrated Acute infarct: No ac minto territorial infarct demonstrated. White matter disease : No significant white matter disease demonstrated. Fenton-white interface : No disruption of the fenton-white interface. Paranasal sinuses: T he visualized paranasal sinuses are well pneumatized and aerated Osseous/Scalp[: No f ocal bony lesion. Deformity consistent with chronic injury involving the lamina papyracea on the left. CERVICAL CT: There is no acute fracture or subluxation. There is reversal of the expected cervical lordosis. There is disc narrowing endplate sclerosis and marginal osteophyte. There are proliferative changes with narrowing involving the facets with foraminal narrowing bilaterally. No large abnormality within the spinal canal. There is an abnormal ity on the right at the level of the oropharynx and I suspect some cervical adenopathy. This requires further evaluation. IMPRESSION: No intracranial hemorrhage or intracranial mass. No acute fracture or subluxation of the cervical spine. There is degenerativ e disc and degenerative joint disease in the cervical spine. Incompletely include d abnormality in the right side of the oropharynx with cervical adenopathy. Malignancy not excluded. Recommend physical exam and direct inspection. Departmental staff w ill fax the report and confirm receipt -------- FINAL REPOR T -------- Dictated By: Silverio Busby Dictated Date: 02/27/2025 06:43 ET Assigned Physician: Silverio Lezama Reviewed and Electronically Signed By: Silverio Lezama Signed Date: 11:56 ET Workstation ID: [id number] Transcribed By: Self Edit Transcribed Date: 02/27/2025 06:56 ET URINALYSIS WITH REFLEX MICRO SCOPIC Reviewed date:07/16/2024 12:02:27 PM Interpretation: Performing Lab: Notes/Report: Specific [place] Urine 1.015 1.003-1.030 pH, Urine 7.5 5.0-8.0 pH Leukocytes, Urine Negative Negative Nitrite, Urine Negative Negative Protein, Urine Negative <=Trace mg/dL Glucose, Urine Negative Negative mg/dL Ketones, Urine Negative Negative mg/dL Urobilinogen, Urine 1.0 0.2-1.0 mg/dL Bilirubin, Urine Negative Negative Blood, Urine Negative Negative URINALYSIS WITH REFLEX MICRO SCOPIC Reviewed date:01/21/2025 01:11:41 PM Interpretation: Performing Lab: Notes/Report: Specific [place] Urine 1.020 1.003-1.030 pH, Urine 7.0 5.0-8.0 pH Leukocytes, Urine Negative Negative Nitrite, Urine Negative Negative Protein, Urine Negative <=Trace mg/dL Glucose, Urine Negative Negative mg/dL Ketones, Urine Trace Negative mg/dL Urobilinogen, Urine 1.0 0.2-1.0 mg/dL Bilirubin, Urine Negative Negative Blood, Urine Negative Negative VITAMIN B12 Reviewed date:01/21/2025 01:40:08 PM Interpretation: Performing Lab: Notes/Report: Vitamin B-12 534 250-900 pcg/mL HEMOGLOBIN A1C Reviewed date:01/21/2025 02:55:36 PM Interpretation: Performing Lab: Notes/Report: Hemoglobin A1C 6.9 <6.5 % Mean Bld Glu Estim. 151 HEMOGLOBIN A1C Reviewed date:07/17/2024 08:00:29 AM Interpretation: Performing Lab: Notes/Report: Hemoglobin A1C 7.0 <6.5 % Mean Bld Glu Estim. 154 COMPREHENSIVE METABOLIC PANE L Reviewed date:07/16/2024 05:01:43 PM Interpretation: Performing Lab: Notes/Report: Sodium 138 133-145 mmol/L Potassium 4.3 3.5-5.5 mmol/L Chloride 103 96-110 mmol/L CO2 31 21-32 mmol/L Anion Gap 4 3-11 Glucose 131 70-100 mg/dL BUN 12 5-25 mg/dL Creatinine 0.83 0.70-1.30 mg/dL eGFR 91 >=60 mL/min/1.73m2 Calculati on based on the?Chronic Kidney Disease Epidemiology Collaboration (CKD-EPI) equation refit?without adjustment for race. BUN/Creatinine Ratio 14.5 Calcium 9.1 8.5-10.5 mg/dL AST (SGOT) 18 10-42 unit/L ALT (SGPT) 24 10-60 unit/L Alkaline Phosphatase 180 42-121 unit/L Total Protein 6.7 6.0-8.0 g/dL Albumin 3.3 3.2-5.0 g/dL Total Bilirubin 0.5 0.0-1.4 mg/dL COMPREHENSIVE METABOLIC PANE L Reviewed date:01/21/2025 01:40:08 PM Interpretation: Performing Lab: Notes/Report: Sodium 138 133-145 mmol/L Potassium 4.6 3.5-5.5 mmol/L Chloride 102 96-110 mmol/L CO2 30 21-32 mmol/L Anion Gap 6 3-11 Glucose 81 70-100 mg/dL BUN 15 5-25 mg/dL Creatinine 0.89 0.70-1.30 mg/dL eGFR 89 >=60 mL/min/1.73m2 Calculati on based on the Chronic Kidney Disease Epidemiology Collaboration (CKD-EPI) equation refit without adjustment for race. BUN/Creatinine Ratio 16.9 Calcium 10.1 8.5-10.5 mg/dL AST (SGOT) 15 10-42 unit/L ALT (SGPT) 9 10-60 unit/L Alkaline Phosphatase 147 42-121 unit/L Total Protein 7.1 6.0-8.0 g/dL Albumin 4.1 3.2-5.0 g/dL Total Bilirubin 0.7 0.0-1.4 mg/dL THYROID STIMULATING HORMONE Reviewed date:01/21/2025 02:26:54 PM Interpretation: Performing Lab: Notes/Report: TSH 1.31 0.40-4.00 mcIU/mL THYROID STIMULATING HORMONE Reviewed date:07/16/2024 05:01:43 PM Interpretation: Performing Lab: Notes/Report: TSH 2.17 0.40-4.00 mcIU/mL VITAMIN D 25 HYDROXY Reviewed date:07/16/2024 05:01:43 PM Interpretation: Performing Lab: Notes/Report: Vit D, 25-Hydroxy 46.4 30.0-80.0 ng/mL LIPID PANEL WITH REFLEX TO D IRECT LDL Reviewed date:07/16/2024 05:01:43 PM Interpretation: Performing Lab: Notes/Report: Cholesterol 158 0-200 mg/dL Triglycerides 123 0-150 mg/dL HDL 46 >=40 mg/dL LDL Calculated 87 0-100 mg/dL VLDL Cholesterol Linnea 24.6 Non HDL Chol. (LDL+VLDL) 112 <145 mg/dL Chol/HDL Ratio 3.4 0.0-4.4 MR BRAIN WO CONTRAST Reviewed date:01/05/2025 09:30:12 AM Interpretation: Performing Lab: Notes/Report: Note See Note [facility], a member of [employer] Patient Name: LICHA MELGAR Date of : 1950 Reason for Exam: dz Exam Date: 01/05/2025 [id number] EST Report Status: Final Ordering Provider: ALETHA RUFFIN PCP: REID MONROY PROCEDURE: Noncontra st MRI of the brain. HISTORY: dz. COMPARISON: None. TECHNIQUE: Multiplan ar multisequence MRI of the brain without intravenous contrast administration. FINDINGS: BRAIN: No diffusion abnormality. No mass or extra-axial fluid collection. No hydrocephalus. The major intracranial flow voids are preserved. Age commensurate ventricles and sulci. Foci of T2 prolongation in the supratentorial white matter are nonspecific but likely sequela of mild chronic microvascular ischemic disease. ORBITS: Lens implants. SINUSES/MASTOIDS: Sm all amount of fluid in the mastoid air cells. Mild mucosal thickening in the frontal sinuses, ethmoid air cells, sphenoid, and maxillary antra. Small mucous retention cyst in the inferior left maxillary antrum. CALVARIUM: Normal. OTHER: The visualize d skull base soft tissues are normal. Partially visible degenerative changes of the cervical spine. IMPRESSION: Age commensurate MRI appearance of the brain. No acute findings. -------- FINAL REPOR T -------- Dictated By: Wilmer Miles Dictated Date: 01/05/2025 08:08 ET Assigned Physician: Wilmer Brewer Reviewed and Electronically Signed By: Wilmer Brewer Signed Date: 09:13 ET Workstation ID: [id number] Transcribed By: Self Edit Transcribed Date: 01/05/2025 09:11 ET XR LUMBAR SPINE 4+ VIEWS Reviewed date:01/21/2025 11:23:11 AM Interpretation: Performing Lab: Notes/Report: Note See Note [facility], a member of [facility] Patient Name: LICHA MELGAR Date of : 1950 Reason for Exam: pain Exam Date: 01/21/2025 [id number] EST Report Status: Final Ordering Provider: ALETHA RUFFIN PCP: REID MONROY HISTORY: The patient is a 74-year-old male with low back pain. No history of trauma is provided. FINDINGS: AP, latera l, and coned-down spot lateral views of the lumbosacral spine are obtained. The study demonstrates normal alignment of the bony structures. No fracture is seen and no osteolytic or osteoblastic lesion is demonstrated. There is narrowing of the T12-L1 and L4-5 disc spaces with adjacent osteophyte formation consistent with degenerative disc disease. The remaining disc spaces are well-maintained. Atherosclerotic kiya rial calcification is noted. IMPRESSION: No acute findings. T here is degenerative disc disease at the T12-L1 and L4-5 levels. Code 78679 -------- FINAL REPOR T -------- Dictated By: Presley Huggins Dictated Date: 01/21/2025 10:59 ET Assigned Physician: Presley Huggins Reviewed and Electronically Signed By: Presley Huggins Signed Date: 025 11:01 ET Workstation ID: [id number] Transcribed By: Self Edit Transcribed Date: 01/21/2025 10:59 ET CBC WITH AUTO DIFFERENTIAL Reviewed date:01/21/2025 01:11:29 PM Interpretation: Performing Lab: Notes/Report: WBC 6.0 4.8-10.8 K/mcL RBC 4.60 4.50-5.50 M/mcL Hemoglobin 13.6 13.5-17.5 g/dL Hematocrit 41.4 42.0-54.0 % MCV 91.0 79.0-98.0 FL MCH 29.9 27.0-32.0 pcg MCHC 32.9 32.0-37.0 g/dL RDW 14.6 11.0-15.0 % Platelets 217 130-400 K/mcL MPV 10.7 7.0-11.0 FL NRBC 0.0 <1.0 % NRBC Absolute 0.00 <0.10 K/mcL Neutrophils Relative 66.0 Lymphocytes Relative 20.9 Monocytes Relative 11.4 Eosinophils Relative 1.2 Basophils Relative 0.3 Immature Granulocytes Relative 0.2 Neutrophils Absolute 3.98 1.50-7.00 K/mcL Lymphocytes Absolute 1.26 1.00-5.00 K/mcL Monocytes Absolute 0.69 0.20-1.00 K/mcL Eosinophils Absolute 0.07 0.00-0.50 K/mcL Basophils Absolute 0.02 0.00-0.20 K/mcL Immature Granulocytes Absolute 0.01 0.00-0.03 K/mcL CBC WITH AUTO DIFFERENTIAL Reviewed date:07/16/2024 12:02:27 PM Interpretation: Performing Lab: Notes/Report: WBC 6.9 4.8-10.8 K/mcL RBC 4.20 4.50-5.50 M/mcL Hemoglobin 12.4 13.5-17.5 g/dL Hematocrit 38.1 42.0-54.0 % MCV 91.4 79.0-98.0 FL MCH 29.7 27.0-32.0 pcg MCHC 32.5 32.0-37.0 g/dL RDW 13.9 11.0-15.0 % Platelets 227 130-400 K/mcL MPV 10.9 7.0-11.0 FL NRBC 0.0 <1.0 % NRBC Absolute 0.00 <0.10 K/mcL Neutrophils Relative 65.8 Lymphocytes Relative 22.1 Monocytes Relative 10.0 Eosinophils Relative 1.5 Basophils Relative 0.3 Immature Granulocytes Relative 0.3 Neutrophils Absolute 4.52 1.50-7.00 K/mcL Lymphocytes Absolute 1.52 1.00-5.00 K/mcL Monocytes Absolute 0.69 0.20-1.00 K/mcL Eosinophils Absolute 0.10 0.00-0.50 K/mcL Basophils Absolute 0.02 0.00-0.20 K/mcL Immature Granulocytes Absolute 0.02 0.00-0.03 K/mcL CR Knee LT 4 or more View Reviewed date:04/24/2024 03:43:56 PM Interpretation: Performing Lab: Notes/Report: Original Ordering Provider: ALETHA RUFFIN DENTAL COORDINATOR [facility] Reason For Referral Reason [facility] Diagnosis 1 Acute pain of left k nee (M25.562) Referral Organization [facility] [address] Referring Provider First Name ALETHA Referring Provider Last Name LALY Referring Provider Speciality Internal M edicine Referred Provider Specialty Orthopedic S urgery General Notes Rubi Carrillo 04/24/2024 04:03:44 PM > Referral with form and attachment faxed, pt given info to call and schedule visit. [facility] p: [phone] f: [phone] Clinical Notes Sarah Ragland 02:18:04 PM > Scheduled for 06/03 at 10:30. Pt aware Referral Priority Routine Medications Medication SIG (Take, Route, Frequency, Duration) Notes Start Date End Date Status Atorvastatin Calcium 20 MG Take 1 tablet by mouth once daily; Duration: 90 Active Escitalopram Oxalate 20 MG 1 tablet Orally Once a day; Duration: 30 day(s) Active Alcohol Wipes 70 % as directed External ly DAILY; Duration: 90 days 04/24/2024 Active Lisinopril 10 MG Take 1 tablet by andreas th once daily for 90 days; Duration: 90 Active Gabapentin 300 MG 1 capsule Orally Onc e a day; Duration: 30 day(s) 12/05/2019 Active metFORMIN HCl ER 500 MG TAKE 1 TABLET BY MOUTH TWICE DAILY WITH EVENING MEAL; Duration: 90 Active Carbidopa-Levodopa 25-100 MG Oral; Duration: 30 Days Acti ve Lisinopril 5 MG Take 1 tablet by andreas th once daily for 90 days; Duration: 90 Not-Taking Cialis 20 MG 1 tablet Orally 1 hr before sex; Duration: 30 day(s) Active hydrOXYzine HCl 25 MG TAKE 1 TABLET BY M OUTH EVERY 8 HOURS NEEDED; Duration: 90 Active Lisinopril 10 MG 1 tablet Orally Once a day; Duration: 90 days Active Diclofenac Sodium 75 MG 1 tablet Orally Twice a day; Duration: 30 day(s) 12/05/2019 Active FreeStyle Lite Test Strips as directed as directed in vitro dxe11.8 once daily; Duration: 30 days 07/28/2019 Active FreeStyle Lite - as directed in vitro dxe11.8 once daily; Duration: 30 days 07/28/2019 Active buPROPion HCl 75 MG Oral; Duration: 90 Days Active FreeStyle Lancets - as directed in vitro dx e11.8 once daily; Duration: 30 days 07/28/2019 Active Immunizations Vaccine Route Administration Date Status Comme nts influenza IM Intramuscular 03/17/2021 Administered Pneumococcal polysaccharide PPV23 Unknown 07/16/2008 Administered Pneumococcal polysaccharide PPV23 Unknown 05/02/2016 Administered RSV-IGIV IM Intramuscular 06/18/2023 Administered Tdap IM Intramuscular 02/13/2022 Administered LOT# [id number] Social History Tobacco Use: Social History Observation Description Date Details (start date - stop date) Never Smoker NA - NA Tobacco Use/Smoking Question Answer Notes Are you a nonsmoker Section Notes: does not smoke or abuse alco hol does not smoke or abuse alco hol does not smoke or abuse alco hol does not smoke or abuse alco hol does not smoke or abuse alco hol does not smoke or abuse alco hol does not smoke or abuse alco hol does not smoke or abuse alco hol does not smoke or abuse alco hol does not smoke or abuse alco hol does not smoke or abuse alco hol does not smoke or abuse alco hol does not smoke or abuse alco hol does not smoke or abuse alco hol does not smoke or abuse alco hol does not smoke or abuse alco hol does not smoke or abuse alco hol does not smoke or abuse alco hol does not smoke or abuse alco hol does not smoke or abuse alco hol does not smoke or abuse alco hol Problems Problem Type SNOMED Code ICD Code Onset Dates Problem Status W/U Status Risk Notes Problem 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) Type 2 diabetes mellitus with unspecified complications (E11.8) Active confirmed Problem Vitamin D deficiency (05547414) Vitamin D deficiency, unspecified (E55.9) Active confirmed Problem Mixed hyperlipidemia (901198076) Mixed hyperlipidemia (E78.2) Active confirmed Problem Hyperlipidemia (96660463) Hyperlipidemia, unspecified (E78.5) Active confirmed Problem Major depression, single episode (25352735) Major depressive disorder, single episode, unspecified (F32.9) Active confirmed Problem Chronic pain (87397590) Other chronic pain (G89.29) Active confirmed Problem Essential hypertension (55657832) Essential (primary) hypertension (I10) Active confirmed Problem Adult health examination (684174283) Encounter for general adult medical examination without abnormal findings (Z00.00) Active confirmed Problem Lipid screening (098591233) Encounter for screening for lipoid disorders (Z13.220) Active confirmed Problem Acute pain of left knee (M25.562) Active confirmed Problem Hypothyroidism (18782386) Hypothyroidism, unspecified type (E03.9) Active confirmed Problem Depression Screening (125727026) Encounter for screening for depression (Z13.31) Active confirmed Problem Prediabetes (259397487) Pre-diabetes (R73.03) Active confirmed Problem Annual health maintenance examination (80574921) Encounter for annual health examination (Z00.00) Active confirmed Problem Ataxia (23410656) Ataxia (R27.0) Active confirm ed Problem Parkinsons disease (29107513) Parkinsons disease (G20) Active confirmed Problem Cervical pain (92882480) Cervical pain (M54.2) Active confirmed Problem Recurrent falls (997374740) Recurrent falls (R29.6) Active confirmed Problem Vitamin B>12< deficiency anaemia (69023499) Anemia due to vitamin B12 deficiency, unspecified B12 deficiency type (D51.9) Active confirmed Problem Endocrine/metabol ic screening (415590039) Encounter for screening for endocrine disorder (Z13.29) Active confirmed Problem Abnormal metabolic state due to diabetes mellitus (864469669) Abnormal metabolic state due to diabetes mellitus (E11.9) Active confirmed Problem Calcific tendinitis (46456646) Calcific tendinitis (M65.20) Active confirmed Problem Parkinson's disease (disorder) (35888162) Parkinson disease, symptomatic (G20.A1) Active confirmed Vital Signs Heart Rate 74 /min 03/03/2025 Oximetry 98 % 03/03/2025 Blood pressure diastolic 76 mm Hg 03/03/2025 Height 66 in 03/03/2025 Blood pressure systolic 124 mm Hg 03/03/2025 Weight 176.8 lbs 03/03/2025 BMI 28.53 kg/m2 03/03/2025 Encounters Encounter Location Date Provider Diagnosis [facility] [address] [place] [id number] 04/24/2024 ALETHA RUFFIN Annual physical exam Z00.00 ; Encounter for screening for other disorder Z13.89 ; Encounter for screening for depression Z13.31 ; Type 2 diabetes mellitus with unspecified complications E11.8 ; Essential (primary) hypertension I10 ; Hyperlipidemia, unspecified E78.5 ; Other chronic pain G89.29 ; Parkinson disease, symptomatic G20.A1 and Acute pain of left knee M25.562 [facility] [address] [address] 07/23/2024 ALETHA RUFFIN Type 2 diabetes danish itus with unspecified complications E11.8 ; Essential (primary) hypertension I10 ; Hyperlipidemia, unspecified E78.5 ; Other chronic pain G89.29 ; Parkinson disease, symptomatic G20.A1 and Acute pain of left knee M25.562 [facility] [address] [address] 10/16/2024 ALETHA RUFFIN Type 2 diabetes danish itus with unspecified complications E11.8 ; Essential (primary) hypertension I10 ; Hyperlipidemia, unspecified E78.5 ; Other chronic pain G89.29 ; Parkinson disease, symptomatic G20.A1 and Acute pain of left knee M25.562 [facility] [address] 12/29/2024 ALETHA RUFFIN Dizziness R42 and At axia R27.0 [facility] [address] [address] 01/21/2025 ALETHA RUFFIN Closed head injury, initial encounter S09.90XA ; Cervical pain M54.2 ; Lumbar pain M54.50 ; Left hip pain M25.552 ; Anemia due to vitamin B12 deficiency, unspecified B12 deficiency type D51.9 and Encounter for examination of blood pressure without abnormal findings Z01.30 [facility] [address] 03/03/2025 ALETHA RUFFIN Type 2 diabetes danish itus with unspecified complications E11.8 ; Essential (primary) hypertension I10 ; Parkinson disease, symptomatic G20.A1 ; Cervical lymphadenopathy R59.0 ; Hyperlipidemia, unspecified E78.5 ; Other chronic pain G89.29 ; Dizziness R42 and Recurrent falls R29.6 [facility] [address] [id number] 04/24/2024 ALETHA HARTSabas [facility] [address] [address] 04/24/2024 ALETHA LALY Encounter for annual health examination Z00.00 ; Vitamin D deficiency, unspecified E55.9 ; Encounter for screening for depression Z13.31 ; Encounter for screening for lipoid disorders Z13.220 ; Abnormal metabolic state due to diabetes mellitus E11.9 and Encounter for screening for endocrine disorder Z13.29 [facility] [address] [address] 09/01/2024 ALETHA LALY [facility] [address] [address] 10/16/2024 ALETHASHON RUFFIN [facility] [address] [place] [address] 11/28/2024 ALETHA RUFFIN Type 2 diabetes danish itus with unspecified complications E11.8 [facility] [address] [address] 12/26/2024 ALETHA LALY [facility] [address] [place] [address] 01/06/2025 ALETHA LALY [facility] [address] [place] [address] 03/04/2025 ALETHA RUFFIN Assessments Encounter Date Diagnosis (ICD Code) Assessment Notes Treatment Notes Treatment Clinical Notes Section Notes 04/24/2024 Encounter for screening for other disorder (ICD-10 - Z13.89) Acute Concerns/Problem List: 04/24/2024 _update labs on next visit including A1c His chronic conditions are stable and he is doing well from a functional standpoint His A1c is age-appropriate Has colorectal screening scheduled for July 2024 as well Xrays of L knee Ortho referral for left knee Prescribe diabetic supplies Of note, some information is being carried forward from prior records for informational purposes only and is being cited so that efficiency, safety and quality of the patient's care is not compromised This note was prepared using voice recognition software and direct typing Please excuse inadvertent gullet slitter or typing errors, or uncorrected word substitutions Although every attempt has been made by the provider to proofread this document, occasional misspellings and typographical errors may still be present Due to the previous pandemic, and the use of personal protective equipment (PPE) This may decrease voice recognition accuracy Inadvertent gullet slitter errors may occur 04/24/2024 Annual physical exam (ICD-10 - Z00.00) Acute Concerns/Problem List: 04/24/2024 _update labs on next visit including A1c His chronic conditions are stable and he is doing well from a functional standpoint His A1c is age-appropriate Has colorectal screening scheduled for July 2024 as well Xrays of L knee Ortho referral for left knee Prescribe diabetic supplies Of note, some information is being carried forward from prior records for informational purposes only and is being cited so that efficiency, safety and quality of the patient's care is not compromised This note was prepared using voice recognition software and direct typing Please excuse inadvertent gullet slitter or typing errors, or uncorrected word substitutions Although every attempt has been made by the provider to proofread this document, occasional misspellings and typographical errors may still be present Due to the previous pandemic, and the use of personal protective equipment (PPE) This may decrease voice recognition accuracy Inadvertent gullet slitter errors may occur 04/24/2024 Encounter for annual health examination (ICD-10 - Z00.00) 07/23/2024 Type 2 diabetes mellitus with unspecified [...] software and direct typing Please excuse inadvertent gullet slitter or typing errors, or uncorrected word substitutions Although every attempt has been made by the provider to proofread this document, occasional misspellings and typographical errors may still be present Due to the previous pandemic, and the use of personal protective equipment (PPE) This may decrease voice recognition accuracy Inadvertent gullet slitter errors may occur 10/16/2024 Type 2 diabetes mellitus with unspecified complications (ICD-10 - E11.8) Acute Concerns/Problem List: 10/16/2024 Glycemic index is stable and age-appropriate Continue Metformin monotherapy His chronic conditions are stable and he is doing well from a functional standpoint Follow-up in fall for [facility] Elected to defer orthopedic treatment of knees Of note, some information is being carried forward from prior records for informational purposes only and is being cited so that efficiency, safety and quality of the patient's care is not compromised This note was prepared using voice recognition software and direct typing Please excuse inadvertent gullet slitter or typing errors, or uncorrected word substitutions Although every attempt has been made by the provider to proofread this document, occasional misspellings and typographical errors may still be present Due to the previous pandemic, and the use of personal protective equipment (PPE) This may decrease voice recognition accuracy Inadvertent gullet slitter errors may occur 11/28/2024 Type 2 diabetes mellitus with unspecified complications (ICD-10 - E11.8) 12/29/2024 Dizziness (ICD-10 - R42) Will rule out central etiology and posterior CVA cerebellar stroke Will get an MRI of the brain without Other differentials include hypoglycemia which is unlikely given his A1c and his recent blood sugar readings Arrhythmia also however he is regular rate and rhythm on exam today and does not endorse any palpitations or chest discomfort Unlikely orthostasis because his dizziness is constant in nature Do not believe it is peripheral etiology like his BPV Other consideration could be polypharmacy seeing that he is on gabapentin as well as hydroxyzine Of note, some information is being carried forward from prior records for informational purposes only and is being cited so that efficiency, safety and quality of the patient's care is not compromised This note was prepared using voice recognition software and direct typing Please excuse inadvertent gullet slitter or typing errors, or uncorrected word substitutions Although every attempt has been made by the provider to proofread this document, occasional misspellings and typographical errors may still be present Due to the previous pandemic, and the use of personal protective equipment (PPE) This may decrease voice recognition accuracy Inadvertent gullet slitter errors may occur 03/03/2025 Type 2 diabetes mellitus with unspecified [...] software and direct typing Please excuse inadvertent gullet slitter or typing errors, or uncorrected word substitutions Although every attempt has been made by the provider to proofread this document, occasional misspellings and typographical errors may still be present Due to the previous pandemic, and the use of personal protective equipment (PPE) This may decrease voice recognition accuracy Inadvertent gullet slitter errors may occur 03/03/2025 Essential (primary) hypertension [...] software and direct typing Please excuse inadvertent gullet slitter or typing errors, or uncorrected word substitutions Although every attempt has been made by the provider to proofread this document, occasional misspellings and typographical errors may still be present Due to the previous pandemic, and the use of personal protective equipment (PPE) This may decrease voice recognition accuracy Inadvertent gullet slitter errors may occur 01/21/2025 Cervical pain (ICD-10 - M54.2) 01/21/2205 Patient recently fell down a flight of stairs due to continuous dizziness. Plan to do CT without contrast of brain and cervical spine. Ordered Xray of lumbar spine and L-hip. Ordered labs including CBC with diff, CMP, A1C, TSH, UA, and B12. We suspect polypharmacy Plan to d/c hydrozyzine and gabapentin due to effects of dizziness and sedation, especially in the elderly. Patient is following-up with neurology in March. Of note, some information is being carried forward from prior records for informational purposes only and is being cited so that efficiency, safety and quality of the patient's care is not compromised This note was prepared using voice recognition software and direct typing Please excuse inadvertent gullet slitter or typing errors, or uncorrected word substitutions Although every attempt has been made by the provider to proofread this document, occasional misspellings and typographical errors may still be present Due to the previous pandemic, and the use of personal protective equipment (PPE) This may decrease voice recognition accuracy Inadvertent gullet slitter errors may occur 01/21/2025 Closed head injury, initial encounter (ICD-10 - S09.90XA) 01/21/2205 Patient recently fell down a flight of stairs due to continuous dizziness. Plan to do CT without contrast of brain and cervical spine. Ordered Xray of lumbar spine and L-hip. Ordered labs including CBC with diff, CMP, A1C, TSH, UA, and B12. We suspect polypharmacy Plan to d/c hydrozyzine and gabapentin due to effects of dizziness and sedation, especially in the elderly. Patient is following-up with neurology in March. Of note, some information is being carried forward from prior records for informational purposes only and is being cited so that efficiency, safety and quality of the patient's care is not compromised This note was prepared using voice recognition software and direct typing Please excuse inadvertent gullet slitter or typing errors, or uncorrected word substitutions Although every attempt has been made by the provider to proofread this document, occasional misspellings and typographical errors may still be present Due to the previous pandemic, and the use of personal protective equipment (PPE) This may decrease voice recognition accuracy Inadvertent gullet slitter errors may occur 01/21/2025 Lumbar pain (ICD-10 - M54.50) 01/21/2205 Patient recently fell down a flight of stairs due to continuous dizziness. Plan to do CT without contrast of brain and cervical spine. Ordered Xray of lumbar spine and L-hip. Ordered labs including CBC with diff, CMP, A1C, TSH, UA, and B12. We suspect polypharmacy Plan to d/c hydrozyzine and gabapentin due to effects of dizziness and sedation, especially in the elderly. Patient is following-up with neurology in March. Of note, some information is being carried forward from prior records for informational purposes only and is being cited so that efficiency, safety and quality of the patient's care is not compromised This note was prepared using voice recognition software and direct typing Please excuse inadvertent gullet slitter or typing errors, or uncorrected word substitutions Although every attempt has been made by the provider to proofread this document, occasional misspellings and typographical errors may still be present Due to the previous pandemic, and the use of personal protective equipment (PPE) This may decrease voice recognition accuracy Inadvertent gullet slitter errors may occur 03/03/2025 Parkinson disease, symptomatic [...] software and direct typing Please excuse inadvertent gullet slitter or typing errors, or uncorrected word substitutions Although every attempt has been made by the provider to proofread this document, occasional misspellings and typographical errors may still be present Due to the previous pandemic, and the use of personal protective equipment (PPE) This may decrease voice recognition accuracy Inadvertent gullet slitter errors may occur 12/29/2024 Ataxia (ICD-10 - R27.0) Will rule out central etiology and posterior CVA cerebellar stroke Will get an MRI of the brain without Other differentials include hypoglycemia which is unlikely given his A1c and his recent blood sugar readings Arrhythmia also however he is regular rate and rhythm on exam today and does not endorse any palpitations or chest discomfort Unlikely orthostasis because his dizziness is constant in nature Do not believe it is peripheral etiology like his BPV Other consideration could be polypharmacy seeing that he is on gabapentin as well as hydroxyzine Of note, some information is being carried forward from prior records for informational purposes only and is being cited so that efficiency, safety and quality of the patient's care is not compromised This note was prepared using voice recognition software and direct typing Please excuse inadvertent gullet slitter or typing errors, or uncorrected word substitutions Although every attempt has been made by the provider to proofread this document, occasional misspellings and typographical errors may still be present Due to the previous pandemic, and the use of personal protective equipment (PPE) This may decrease voice recognition accuracy Inadvertent gullet slitter errors may occur 10/16/2024 Essential (primary) hypertension (ICD-10 - I10) Acute Concerns/Problem List: 10/16/2024 Glycemic index is stable and age-appropriate Continue Metformin monotherapy His chronic conditions are stable and he is doing well from a functional standpoint Follow-up in fall for [facility] Elected to defer orthopedic treatment of knees Of note, some information is being carried forward from prior records for informational purposes only and is being cited so that efficiency, safety and quality of the patient's care is not compromised This note was prepared using voice recognition software and direct typing Please excuse inadvertent gullet slitter or typing errors, or uncorrected word substitutions Although every attempt has been made by the provider to proofread this document, occasional misspellings and typographical errors may still be present Due to the previous pandemic, and the use of personal protective equipment (PPE) This may decrease voice recognition accuracy Inadvertent gullet slitter errors may occur 07/23/2024 Essential (primary) hypertension [...] software and direct typing Please excuse inadvertent gullet slitter or typing errors, or uncorrected word substitutions Although every attempt has been made by the provider to proofread this document, occasional misspellings and typographical errors may still be present Due to the previous pandemic, and the use of personal protective equipment (PPE) This may decrease voice recognition accuracy Inadvertent gullet slitter errors may occur 04/24/2024 Vitamin D deficiency, unspecified (ICD-10 - E55.9) 04/24/2024 Encounter for screening for depression (ICD-10 - Z13.31) Acute Concerns/Problem List: 04/24/2024 _update labs on next visit including A1c His chronic conditions are stable and he is doing well from a functional standpoint His A1c is age-appropriate Has colorectal screening scheduled for July 2024 as well Xrays of L knee Ortho referral for left knee Prescribe diabetic supplies Of note, some information is being carried forward from prior records for informational purposes only and is being cited so that efficiency, safety and quality of the patient's care is not compromised This note was prepared using voice recognition software and direct typing Please excuse inadvertent gullet slitter or typing errors, or uncorrected word substitutions Although every attempt has been made by the provider to proofread this document, occasional misspellings and typographical errors may still be present Due to the previous pandemic, and the use of personal protective equipment (PPE) This may decrease voice recognition accuracy Inadvertent gullet slitter errors may occur 04/24/2024 Type 2 diabetes mellitus with unspecified complications (ICD-10 - E11.8) Acute Concerns/Problem List: 04/24/2024 _update labs on next visit including A1c His chronic conditions are stable and he is doing well from a functional standpoint His A1c is age-appropriate Has colorectal screening scheduled for July 2024 as well Xrays of L knee Ortho referral for left knee Prescribe diabetic supplies Of note, some information is being carried forward from prior records for informational purposes only and is being cited so that efficiency, safety and quality of the patient's care is not compromised This note was prepared using voice recognition software and direct typing Please excuse inadvertent gullet slitter or typing errors, or uncorrected word substitutions Although every attempt has been made by the provider to proofread this document, occasional misspellings and typographical errors may still be present Due to the previous pandemic, and the use of personal protective equipment (PPE) This may decrease voice recognition accuracy Inadvertent gullet slitter errors may occur 07/23/2024 Hyperlipidemia, unspecified (ICD-10 [...] software and direct typing Please excuse inadvertent gullet slitter or typing errors, or uncorrected word substitutions Although every attempt has been made by the provider to proofread this document, occasional misspellings and typographical errors may still be present Due to the previous pandemic, and the use of personal protective equipment (PPE) This may decrease voice recognition accuracy Inadvertent gullet slitter errors may occur 04/24/2024 Encounter for screening for depression (ICD-10 - Z13.31) 10/16/2024 Hyperlipidemia, unspecified (ICD-10 - E78.5) Acute Concerns/Problem List: 10/16/2024 Glycemic index is stable and age-appropriate Continue Metformin monotherapy His chronic conditions are stable and he is doing well from a functional standpoint Follow-up in fall for [facility] Elected to defer orthopedic treatment of knees Of note, some information is being carried forward from prior records for informational purposes only and is being cited so that efficiency, safety and quality of the patient's care is not compromised This note was prepared using voice recognition software and direct typing Please excuse inadvertent gullet slitter or typing errors, or uncorrected word substitutions Although every attempt has been made by the provider to proofread this document, occasional misspellings and typographical errors may still be present Due to the previous pandemic, and the use of personal protective equipment (PPE) This may decrease voice recognition accuracy Inadvertent gullet slitter errors may occur 03/03/2025 Cervical lymphadenopathy (ICD-10 [...] software and direct typing Please excuse inadvertent gullet slitter or typing errors, or uncorrected word substitutions Although every attempt has been made by the provider to proofread this document, occasional misspellings and typographical errors may still be present Due to the previous pandemic, and the use of personal protective equipment (PPE) This may decrease voice recognition accuracy Inadvertent gullet slitter errors may occur 01/21/2025 Left hip pain (ICD-10 - M25.552) 01/21/2205 Patient recently fell down a flight of stairs due to continuous dizziness. Plan to do CT without contrast of brain and cervical spine. Ordered Xray of lumbar spine and L-hip. Ordered labs including CBC with diff, CMP, A1C, TSH, UA, and B12. We suspect polypharmacy Plan to d/c hydrozyzine and gabapentin due to effects of dizziness and sedation, especially in the elderly. Patient is following-up with neurology in March. Of note, some information is being carried forward from prior records for informational purposes only and is being cited so that efficiency, safety and quality of the patient's care is not compromised This note was prepared using voice recognition software and direct typing Please excuse inadvertent gullet slitter or typing errors, or uncorrected word substitutions Although every attempt has been made by the provider to proofread this document, occasional misspellings and typographical errors may still be present Due to the previous pandemic, and the use of personal protective equipment (PPE) This may decrease voice recognition accuracy Inadvertent gullet slitter errors may occur 01/21/2025 Anemia due to vitamin B12 deficiency, unspecified B12 deficiency type (ICD-10 - D51.9) 01/21/2205 Patient recently fell down a flight of stairs due to continuous dizziness. Plan to do CT without contrast of brain and cervical spine. Ordered Xray of lumbar spine and L-hip. Ordered labs including CBC with diff, CMP, A1C, TSH, UA, and B12. We suspect polypharmacy Plan to d/c hydrozyzine and gabapentin due to effects of dizziness and sedation, especially in the elderly. Patient is following-up with neurology in March. Of note, some information is being carried forward from prior records for informational purposes only and is being cited so that efficiency, safety and quality of the patient's care is not compromised This note was prepared using voice recognition software and direct typing Please excuse inadvertent gullet slitter or typing errors, or uncorrected word substitutions Although every attempt has been made by the provider to proofread this document, occasional misspellings and typographical errors may still be present Due to the previous pandemic, and the use of personal protective equipment (PPE) This may decrease voice recognition accuracy Inadvertent gullet slitter errors may occur 03/03/2025 Hyperlipidemia, unspecified (ICD-10 [...] software and direct typing Please excuse inadvertent gullet slitter or typing errors, or uncorrected word substitutions Although every attempt has been made by the provider to proofread this document, occasional misspellings and typographical errors may still be present Due to the previous pandemic, and the use of personal protective equipment (PPE) This may decrease voice recognition accuracy Inadvertent gullet slitter errors may occur 10/16/2024 Other chronic pain (ICD-10 - G89.29) Acute Concerns/Problem List: 10/16/2024 Glycemic index is stable and age-appropriate Continue Metformin monotherapy His chronic conditions are stable and he is doing well from a functional standpoint Follow-up in fall for [facility] Elected to defer orthopedic treatment of knees Of note, some information is being carried forward from prior records for informational purposes only and is being cited so that efficiency, safety and quality of the patient's care is not compromised This note was prepared using voice recognition software and direct typing Please excuse inadvertent gullet slitter or typing errors, or uncorrected word substitutions Although every attempt has been made by the provider to proofread this document, occasional misspellings and typographical errors may still be present Due to the previous pandemic, and the use of personal protective equipment (PPE) This may decrease voice recognition accuracy Inadvertent gullet slitter errors may occur 07/23/2024 Other chronic pain [...] software and direct typing Please excuse inadvertent gullet slitter or typing errors, or uncorrected word substitutions Although every attempt has been made by the provider to proofread this document, occasional misspellings and typographical errors may still be present Due to the previous pandemic, and the use of personal protective equipment (PPE) This may decrease voice recognition accuracy Inadvertent gullet slitter errors may occur 04/24/2024 Essential (primary) hypertension (ICD-10 - I10) Acute Concerns/Problem List: 04/24/2024 _update labs on next visit including A1c His chronic conditions are stable and he is doing well from a functional standpoint His A1c is age-appropriate Has colorectal screening scheduled for July 2024 as well Xrays of L knee Ortho referral for left knee Prescribe diabetic supplies Of note, some information is being carried forward from prior records for informational purposes only and is being cited so that efficiency, safety and quality of the patient's care is not compromised This note was prepared using voice recognition software and direct typing Please excuse inadvertent gullet slitter or typing errors, or uncorrected word substitutions Although every attempt has been made by the provider to proofread this document, occasional misspellings and typographical errors may still be present Due to the previous pandemic, and the use of personal protective equipment (PPE) This may decrease voice recognition accuracy Inadvertent gullet slitter errors may occur 04/24/2024 Encounter for screening for lipoid disorders (ICD-10 - Z13.220) 04/24/2024 Hyperlipidemia, unspecified (ICD-10 - E78.5) Acute Concerns/Problem List: 04/24/2024 _update labs on next visit including A1c His chronic conditions are stable and he is doing well from a functional standpoint His A1c is age-appropriate Has colorectal screening scheduled for July 2024 as well Xrays of L knee Ortho referral for left knee Prescribe diabetic supplies Of note, some information is being carried forward from prior records for informational purposes only and is being cited so that efficiency, safety and quality of the patient's care is not compromised This note was prepared using voice recognition software and direct typing Please excuse inadvertent gullet slitter or typing errors, or uncorrected word substitutions Although every attempt has been made by the provider to proofread this document, occasional misspellings and typographical errors may still be present Due to the previous pandemic, and the use of personal protective equipment (PPE) This may decrease voice recognition accuracy Inadvertent gullet slitter errors may occur 04/24/2024 Abnormal metabolic state due to diabetes mellitus (ICD-10 - E11.9) 07/23/2024 Parkinson disease, symptomatic (ICD-10 - G20.A1) [...] software and direct typing Please excuse inadvertent gullet slitter or typing errors, or uncorrected word substitutions Although every attempt has been made by the provider to proofread this document, occasional misspellings and typographical errors may still be present Due to the previous pandemic, and the use of personal protective equipment (PPE) This may decrease voice recognition accuracy Inadvertent gullet slitter errors may occur 10/16/2024 Parkinson disease, symptomatic (ICD-10 - G20.A1) Acute Concerns/Problem List: 10/16/2024 Glycemic index is stable and age-appropriate Continue Metformin monotherapy His chronic conditions are stable and he is doing well from a functional standpoint Follow-up in fall for [facility] Elected to defer orthopedic treatment of knees Of note, some information is being carried forward from prior records for informational purposes only and is being cited so that efficiency, safety and quality of the patient's care is not compromised This note was prepared using voice recognition software and direct typing Please excuse inadvertent gullet slitter or typing errors, or uncorrected word substitutions Although every attempt has been made by the provider to proofread this document, occasional misspellings and typographical errors may still be present Due to the previous pandemic, and the use of personal protective equipment (PPE) This may decrease voice recognition accuracy Inadvertent gullet slitter errors may occur 03/03/2025 Other chronic pain [...] software and direct typing Please excuse inadvertent gullet slitter or typing errors, or uncorrected word substitutions Although every attempt has been made by the provider to proofread this document, occasional misspellings and typographical errors may still be present Due to the previous pandemic, and the use of personal protective equipment (PPE) This may decrease voice recognition accuracy Inadvertent gullet slitter errors may occur 01/21/2025 Encounter for examination of blood pressure without abnormal findings (ICD-10 - Z01.30) 01/21/2205 Patient recently fell down a flight of stairs due to continuous dizziness. Plan to do CT without contrast of brain and cervical spine. Ordered Xray of lumbar spine and L-hip. Ordered labs including CBC with diff, CMP, A1C, TSH, UA, and B12. We suspect polypharmacy Plan to d/c hydrozyzine and gabapentin due to effects of dizziness and sedation, especially in the elderly. Patient is following-up with neurology in March. Of note, some information is being carried forward from prior records for informational purposes only and is being cited so that efficiency, safety and quality of the patient's care is not compromised This note was prepared using voice recognition software and direct typing Please excuse inadvertent gullet slitter or typing errors, or uncorrected word substitutions Although every attempt has been made by the provider to proofread this document, occasional misspellings and typographical errors may still be present Due to the previous pandemic, and the use of personal protective equipment (PPE) This may decrease voice recognition accuracy Inadvertent gullet slitter errors may occur 03/03/2025 Dizziness (ICD-10 - [...] software and direct typing Please excuse inadvertent gullet slitter or typing errors, or uncorrected word substitutions Although every attempt has been made by the provider to proofread this document, occasional misspellings and typographical errors may still be present Due to the previous pandemic, and the use of personal protective equipment (PPE) This may decrease voice recognition accuracy Inadvertent gullet slitter errors may occur 10/16/2024 Acute pain of left knee (ICD-10 - M25.562) Acute Concerns/Problem List: 10/16/2024 Glycemic index is stable and age-appropriate Continue Metformin monotherapy His chronic conditions are stable and he is doing well from a functional standpoint Follow-up in fall for [facility] Elected to defer orthopedic treatment of knees Of note, some information is being carried forward from prior records for informational purposes only and is being cited so that efficiency, safety and quality of the patient's care is not compromised This note was prepared using voice recognition software and direct typing Please excuse inadvertent gullet slitter or typing errors, or uncorrected word substitutions Although every attempt has been made by the provider to proofread this document, occasional misspellings and typographical errors may still be present Due to the previous pandemic, and the use of personal protective equipment (PPE) This may decrease voice recognition accuracy Inadvertent gullet slitter errors may occur 04/24/2024 Encounter for screening for endocrine disorder (ICD-10 - Z13.29) 07/23/2024 Acute pain of left knee (ICD-10 [...] software and direct typing Please excuse inadvertent gullet slitter or typing errors, or uncorrected word substitutions Although every attempt has been made by the provider to proofread this document, occasional misspellings and typographical errors may still be present Due to the previous pandemic, and the use of personal protective equipment (PPE) This may decrease voice recognition accuracy Inadvertent gullet slitter errors may occur 04/24/2024 Other chronic pain (ICD-10 - G89.29) Acute Concerns/Problem List: 04/24/2024 _update labs on next visit including A1c His chronic conditions are stable and he is doing well from a functional standpoint His A1c is age-appropriate Has colorectal screening scheduled for July 2024 as well Xrays of L knee Ortho referral for left knee Prescribe diabetic supplies Of note, some information is being carried forward from prior records for informational purposes only and is being cited so that efficiency, safety and quality of the patient's care is not compromised This note was prepared using voice recognition software and direct typing Please excuse inadvertent gullet slitter or typing errors, or uncorrected word substitutions Although every attempt has been made by the provider to proofread this document, occasional misspellings and typographical errors may still be present Due to the previous pandemic, and the use of personal protective equipment (PPE) This may decrease voice recognition accuracy Inadvertent gullet slitter errors may occur 04/24/2024 Parkinson disease, symptomatic (ICD-10 - G20.A1) Acute Concerns/Problem List: 04/24/2024 _update labs on next visit including A1c His chronic conditions are stable and he is doing well from a functional standpoint His A1c is age-appropriate Has colorectal screening scheduled for July 2024 as well Xrays of L knee Ortho referral for left knee Prescribe diabetic supplies Of note, some information is being carried forward from prior records for informational purposes only and is being cited so that efficiency, safety and quality of the patient's care is not compromised This note was prepared using voice recognition software and direct typing Please excuse inadvertent gullet slitter or typing errors, or uncorrected word substitutions Although every attempt has been made by the provider to proofread this document, occasional misspellings and typographical errors may still be present Due to the previous pandemic, and the use of personal protective equipment (PPE) This may decrease voice recognition accuracy Inadvertent gullet slitter errors may occur 03/03/2025 Recurrent falls (ICD-10 [...] software and direct typing Please excuse inadvertent gullet slitter or typing errors, or uncorrected word substitutions Although every attempt has been made by the provider to proofread this document, occasional misspellings and typographical errors may still be present Due to the previous pandemic, and the use of personal protective equipment (PPE) This may decrease voice recognition accuracy Inadvertent gullet slitter errors may occur 04/24/2024 Acute pain of left knee (ICD-10 - M25.562) Acute Concerns/Problem List: 04/24/2024 _update labs on next visit including A1c His chronic conditions are stable and he is doing well from a functional standpoint His A1c is age-appropriate Has colorectal screening scheduled for July 2024 as well Xrays of L knee Ortho referral for left knee Prescribe diabetic supplies Of note, some information is being carried forward from prior records for informational purposes only and is being cited so that efficiency, safety and quality of the patient's care is not compromised This note was prepared using voice recognition software and direct typing Please excuse inadvertent gullet slitter or typing errors, or uncorrected word substitutions Although every attempt has been made by the provider to proofread this document, occasional misspellings and typographical errors may still be present Due to the previous pandemic, and the use of personal protective equipment (PPE) This may decrease voice recognition accuracy Inadvertent gullet slitter errors may occur Plan Of Treatment Pending Test Test Name Order Date X ray : Knee, left 04/24/2024 X ray : Hip, left 01/21/2025 X ray : Spines, lumbar 2 views 5 Hemoglobin A1c 05/19/2019 Hemoglobin A1c 03/12/2020 Hemoglobin A1c 01/15/2019 Lipid Panel 01/15/2019 Lipid Panel 03/12/2020 Lipid Panel 05/19/2019 Comp. Metabolic Panel (14) 05/19/2019 Comp. Metabolic Panel (14) 01/15/2019 Comp. Metabolic Panel (14) 03/12/2020 CBC 03/12/2020 CBC 01/15/2019 CBC 05/19/2019 Urinalysis 03/12/2020 MRI : Brain without Contrast 12/29/2024 25OH VITAMIN D 10/12/2022 CBC (COMPLETE BLOOD COUNT) 10/12/2022 CBC (COMPLETE BLOOD COUNT) 05/13/2018 COMPREHENSIVE METABOLIC PANEL 05/13/2018 COMPREHENSIVE METABOLIC PANEL 10/12/2022 HEMOGLOBIN A1C 10/12/2022 HEMOGLOBIN A1C 02/13/2022 HEMOGLOBIN A1C 05/13/2018 HEMOGLOBIN A1C 10/17/2021 HEMOGLOBIN A1C 06/14/2022 HEMOGLOBIN A1C 01/09/2018 LIPID PANEL 01/09/2018 LIPID PANEL 05/13/2018 LIPID PANEL 09/11/2018 LIPID PANEL 10/12/2022 MICROALBUMIN, URINE 10/12/2022 TB CELLULAR BLOOD TEST (TSPOT) 9 TSH 10/12/2022 URINALYSIS, COMPLETE 05/13/2018 CT Neck Soft Tissue w and w/o Contrast 0 03/03/2025 UC XR L-Spine 2-3 Views 11/01/2020 XR Hip 2+ Views RT 06/18/2023 VITAMIN B12 01/21/2025 LIPID PANEL, STANDARD 04/24/2024 COMPREHENSIVE METABOLIC PANEL 04/24/2024 COMPREHENSIVE METABOLIC PANEL 01/21/2025 CBC (INCLUDES DIFF/PLT) 01/21/2025 CBC (INCLUDES DIFF/PLT) 04/24/2024 URINALYSIS, COMPLETE 04/24/2024 URINALYSIS, COMPLETE 01/21/2025 HEMOGLOBIN A1c 04/24/2024 HEMOGLOBIN A1c 01/21/2025 TSH 01/21/2025 TSH 04/24/2024 VITAMIN D,25-OH,TOTAL,IA 04/24/2024 COMPLETE URINALYSIS 10/12/2022 CT Brain WO 01/21/2025 CT Cervical Spine WO 01/21/2025 Future Test Test Name Order Date CBC (COMPLETE BLOOD COUNT) 10/30/2020 COMPREHENSIVE METABOLIC PANEL 10/30/2020 HEMOGLOBIN A1C 10/30/2020 LIPID PANEL 10/30/2020 COMPLETE URINALYSIS 10/30/2020 25OH VITAMIN D 10/17/2021 CBC (COMPLETE BLOOD COUNT) 10/17/2021 COMPREHENSIVE METABOLIC PANEL 10/17/2021 HEMOGLOBIN A1C 10/17/2021 LIPID PANEL 10/17/2021 PSA, SCREEN 10/17/2021 TSH 10/17/2021 COMPLETE URINALYSIS 10/17/2021 Next Appt Details Provider Name:ALETHA RUFFIN, 04/27/2025 10:30:00 AM, [address] [facility], [facility] [address], [place], [address], Insurance Providers Payer Name Payer Address Payer Phone Subscriber Number Group Number Insured Name Patient Relationship to Insured Coverage Start Date Coverage End Date [employer] or Options [address] [place] [address] [id number] LICHA MELGAR Self - patient is the insured Medical (General) History Medical History History ICD Code hyperlipidemia hypertension vitamin D deficiency diabetes mellitus Surgical History Surgery Date(Month/Year) low back
--- OUTSIDE RECORDS SUMMARY | 2025-03-05 11:46 | XMS_ITS | Clinical Summary ---
Author Organization [facility] [place] [address] Phone Care Team Providers [employer] Name Role Phone Juliano Pelletier MD Primary Care Provider [phone] Allergies No known active allergies Medications atorvastatin [...] Encounters Date Type Department Care Team Description 02/23/2025 7:48 AM EDT - 02/23/2025 11:59 PM EDT Hospital Encounter [facility] CT Scan [address] [place] [address] Unspecified injury of head, initial encounter Discharge Disposition: Home or Self Care 02/23/2025 7:45 AM EDT - 02/23/2025 11:59 PM EDT Hospital Encounter [facility] CT Scan [address] [place] [address] Cervicalgia Discharge Disposition: Home or Self Care 01/21/2025 10:39 AM EDT - 01/21/2025 11:59 PM EDT Hospital Encounter [facility] Xray [address] [place] [address] Low back pain, unspecified; Pain in left hip Discharge Disposition: Home or Self Care 01/05/2025 7:15 AM EDT - 01/05/2025 11:59 PM EDT Hospital Encounter [facility] MRI [address] [place] [address] Dizziness and giddiness; Ataxia, unspecified Discharge Disposition: Home or Self Care from Last 3 Months Surgical History Surgery Date Site/Laterality Comments LUMBAR DISC SURGERY COLONOSCOPY Medical History Medical History Date Comments Hyperlipidemia Hypertension Neuropathy of both feet Diabetes mellitus ([facility] V24, [facility] V28) Parkinson's disease ([facility] V24, [facility] V28) Forgetfulness Anxiety Depression Social History Tobacco Use [...] 67 07/31/2024 11:22 AM EST Temperature 36.2 C (97.1 F) 07/31/2024 10:34 AM EST Respiratory Rate 16 07/31/2024 11:22 AM EST [...] 1960 Diabetes: Annual Retina Eye Exam 1960 Zoster Vaccines (2 of 2) 05/22/2019 03/27/2019 Hepatitis C Screening 06/15/2022 Medicare Annual Wellness Visit 06/15/2022 Social Influencers of Health Screening 06/15/2022 RSV Immunization Adult Patients (1 - 1-dose 75+ series) 2023 Depression Screening 07/02/2024 Diabetes: Annual Urine Albumin-Creatinine Ratio (uACR) 07/16/2024 COVID-19 Vaccine ( season) 2025 04/22/2024, 04/30/2023, 04/19/2022, Additional history exists Influenza Vaccine (#1) 2025 , 03/15/2023, 03/22/2022, Additional history exists Diabetes: Blood Sugar Control Test (HGBA1C) 07/24/2025 01/21/2025, 07/16/2024 Falls Risk Assessment 07/31/2025 07/31/2024 Diabetes: Annual GFR (Glomerular Filtration Rate) 01/21/2026 01/21/2025, 07/16/2024 Hypertension/CHF/CAD Annual BMP Blood Test 01/21/2026 01/21/2025, 07/16/2024 Colorectal Cancer Screening: Colonoscopy 07/31/2027 07/31/2024 Cholesterol Screening (Lipid Panel) 07/16/2029 07/16/2024 DTaP,Tdap,and Td Vaccines (2 - Td or Tdap) 02/14/2032 02/13/2022 Pneumococcal Vaccine: 50+ Years Completed 11/21/2018, 05/02/2016, 07/16/2008 HIB Vaccines Aged Out No longer eligi [...] age to complete this topic Meningococcal B Vaccine Aged Out No l onger eligible based on patient's age to complete this topic RSV Immunization Patients Under 20 months Aged Out No longer eligible based on patient's age to complete this topic Varicella Vaccines Aged Out No longer eligible based on patient's age to complete this topic Procedures Procedure Name Priority Date/Time Associated Diagnosis Comments CT HEAD WO CONTRAST Routine 02/23/2025 7 :56 AM EDT Unspecified injury of head, initial encounter CT CERVICAL SPINE WO CONTRAST Routine 02/23/2025 7:55 AM EDT Cervicalgia URINALYSIS WITH REFLEX MICROSCOPIC Routine 01/21/2025 11:15 AM EDT Routine general medical examination at a health care facility Screening for diabetes mellitus Screening for thyroid disorder Vitamin B12 deficiency anemia URINALYSIS WITH REFLEX MICROSCOPIC Routine 01/21/2025 11:15 AM EDT Routine general medical examination at a health care facility Screening for diabetes mellitus Screening for thyroid disorder Vitamin B12 deficiency anemia CBC WITH AUTO DIFFERENTIAL Routine 01/21/2025 11:07 AM EDT Routine general medical examination at a health care facility Screening for diabetes mellitus Screening for thyroid disorder Vitamin B12 deficiency anemia VITAMIN B12 Routine 01/21/2025 11:07 AM EDT Routine general medical examination at a health care facility Screening for diabetes mellitus Screening for thyroid disorder Vitamin B12 deficiency anemia THYROID STIMULATING HORMONE Routine 01/21/2025 11:07 AM EDT Routine general medical examination at a health care facility Screening for diabetes mellitus Screening for thyroid disorder Vitamin B12 deficiency anemia HEMOGLOBIN A1C Routine 01/21/2025 11:07 AM EDT Routine general medical examination at a health care facility Screening for diabetes mellitus Screening for thyroid disorder Vitamin B12 deficiency anemia COMPREHENSIVE METABOLIC PANEL Routine 01/21/2025 11:07 AM EDT Routine general medical examination at a health care facility Screening for diabetes mellitus Screening for thyroid disorder Vitamin B12 deficiency anemia CBC AND DIFFERENTIAL Routine 01/21/2025 11:07 AM EDT Routine general medical examination at a health care facility Screening for diabetes mellitus Screening for thyroid disorder Vitamin B12 deficiency anemia XR LUMBAR SPINE 4+ VIEWS Routine 01/21/2025 10:53 AM EDT Low back pain, unspecified Pain in left hip XR HIP 2-3 VIEWS LEFT Routine 01/21/2025 10:53 AM EDT Low back pain, unspecified Pain in left hip MR BRAIN WO CONTRAST Routine 01/05/2025 8:03 AM EDT Dizziness and giddiness Ataxia, unspecified COLONOSCOPY Routine 07/31/2024 11:01 AM EST History of colon polyps LIPID PANEL WITH REFLEX TO DIRECT LDL Routine 07/16/2024 10:08 AM EST Routine general medical examination at a health care facility Screening for lipoid disorders Diabetes mellitus (CMS/HCC V24, CMS/HCC V28) Avitaminosis D Screening for thyroid disorder from Last 3 Months or Most Recently Relevant to Health Maintenance Results * CT Head wo Contrast (02/23/2025 7:56 AM EDT) Anatomical Region Laterality Modality Head and Neck Computed Tomogra phy 02/27/2025 6:43 AM EDT Impressions 02/27/2025 11:56 AM EDT No intracranial hemorrhage or intracranial mass. No acute fracture or subluxation of the cervical spine. There is degenerative disc and degenerative joint disease in the cervical spine. Incompletely included abnormality in the right side of the oropharynx with cervical adenopathy. Malignancy not excluded. Recommend physical exam and direct inspection. Departmental staff will fax the report and confirm receipt -------- FINAL REPORT -------- Dictated By: Silverio Lezama Dictated Date: 02/27/2025 06:43 ET Assigned Physician: Silverio Lezama Reviewed and Electronically Signed By: Silverio Lezama Signed Date: 02/27/2025 11:56 ET Workstation ID: [id number] Transcribed By: Self Edit Transcribed Date: 02/27/2025 06:56 ET Narrative 02/27/2025 11:56 AM EDT EXAMINATION: CT HEAD and CT CERVICAL SPINE WITHOUT CONTRAST CLINICAL INFORMATION: Closed head injury. Cervical pain COMPARISON: The report of brain MRI 01/05/25 includes no acute findings TECHNIQUE: Multidetector CT. Examination of the head and cervical spine. Examination of the head and cervical spine without IV contrast. Reformatting in the coronal and sagittal planes. DLP: 1602 mGy-cm Dose optimization was performed including the use of low-dose iterative reconstruction technique with automatic exposure control based on patient size. Type of contrast: None Volume of IV contrast: None Volume of contrast discarded: 0 mL FINDINGS: HEAD CT: Intracranial hemorrhage: No evidence of recent intracranial hemorrhage. Ventricles, cisterns and sulci: Within normal limits. The basilar cisterns are well visualized. Extra-axial mass or collections: No extra-axial mass or collection Intra-axial mass: No mass demonstrated Acute infarct: No acute territorial infarct demonstrated. White matter disease: No significant white matter disease demonstrated. Fenton-white interface: No disruption of the fenton-white interface. Paranasal sinuses: The visualized paranasal sinuses are well pneumatized and aerated Osseous/Scalp[: No focal bony lesion. Deformity consistent with chronic injury involving the lamina papyracea on the left. CERVICAL CT: There is no acute fracture or subluxation. There is reversal of the expected cervical lordosis. There is disc narrowing endplate sclerosis and marginal osteophyte. There are proliferative changes with narrowing involving the facets with foraminal narrowing bilaterally. No large abnormality within the spinal canal. There is an abnormality on the right at the level of the oropharynx and I suspect some cervical adenopathy. This requires further evaluation. Procedure Note Silverio Lezama MD - 02/27/2025 EXAMINATION: CT HEAD and CT CERVICAL SPINE WITHOUT CONTRAST CLINICAL INFORMATION: Closed head injury. Cervical pain COMPARISON: The report of brain MRI 01/05/25 includes no acute findings TECHNIQUE: Multidetector CT. Examination of the head and cervical spine. Examination of the head and cervical spine without IV contrast. Reformatting in the coronal and sagittal planes. DLP: 1602 mGy-cm Dose optimization was performed including the use of low-dose iterativereconstruction technique with automatic exposure control based on patientsize. Type of contrast: None Volume of IV contrast: None Volume of contrast discarded: 0 mL FINDINGS: HEAD CT: Intracranial hemorrhage: No evidence of recent intracranial hemorrhage. Ventricles, cisterns and sulci: Within normal limits. The basilarcisterns are well visualized. Extra-axial mass or collections: No extra-axial mass or collection Intra-axial mass: No mass demonstrated Acute infarct: No acute territorial infarct demonstrated. White matter disease: No significant white matter disease demonstrated. Fenton-white interface: No disruption of the fenton-white interface. Paranasal sinuses: The visualized paranasal sinuses are well pneumatizedand aerated Osseous/Scalp[: No focal bony lesion. Deformity consistent with chronicinjury involving the lamina papyracea on the left. CERVICAL CT: There is no acute fracture or subluxation. There is reversal of the expected cervical lordosis. There is discnarrowing endplate sclerosis and marginal osteophyte. There areproliferative changes with narrowing involving the facets with foraminalnarrowing bilaterally. No large abnormality within the spinal canal. There is an abnormality on the right at the level of the oropharynx and Isuspect some cervical adenopathy. This requires further evaluation. IMPRESSION: No intracranial hemorrhage or intracranial mass. No acute fracture or subluxation of the cervical spine. There is degenerative disc and degenerative joint disease in the cervicalspine. Incompletely included abnormality in the right side of the oropharynx withcervical adenopathy. Malignancy not excluded. Recommend physical exam anddirect inspection. Departmental staff will fax the report and confirm receipt -------- FINAL REPORT -------- Dictated By: Silverio Lezama Dictated Date: 02/27/2025 06:43 ET Assigned Physician: Silverio Lezama Reviewed and Electronically Signed By: Silverio Lezama Signed Date: 02/27/2025 11:56 ET Workstation ID: [id number] Transcribed By: Self Edit Transcribed Date: 02/27/2025 06:56 ET us Mamadou Lopez NP IMG CT PROCEDURES Final Resul t * CT Cervical Spine wo Contrast (02/23/2025 7:55 AM EDT) Anatomical Region Laterality Modality Spine, C-spine Computed Tomogra phy 02/27/2025 6:43 AM EDT Impressions 02/27/2025 11:56 AM EDT No intracranial hemorrhage or intracranial mass. No acute fracture or subluxation of the cervical spine. There is degenerative disc and degenerative joint disease in the cervical spine. Incompletely included abnormality in the right side of the oropharynx with cervical adenopathy. Malignancy not excluded. Recommend physical exam and direct inspection. Departmental staff will fax the report and confirm receipt -------- FINAL REPORT -------- Dictated By: Silverio Lezama Dictated Date: 02/27/2025 06:43 ET Assigned Physician: Silverio Lezama Reviewed and Electronically Signed By: Silverio Lezama Signed Date: 02/27/2025 11:56 ET Workstation ID: [id number] Transcribed By: Self Edit Transcribed Date: 02/27/2025 06:56 ET Narrative 02/27/2025 11:56 AM EDT EXAMINATION: CT HEAD and CT CERVICAL SPINE WITHOUT CONTRAST CLINICAL INFORMATION: Closed head injury. Cervical pain COMPARISON: The report of brain MRI 01/05/25 includes no acute findings TECHNIQUE: Multidetector CT. Examination of the head and cervical spine. Examination of the head and cervical spine without IV contrast. Reformatting in the coronal and sagittal planes. DLP: 1602 mGy-cm Dose optimization was performed including the use of low-dose iterative reconstruction technique with automatic exposure control based on patient size. Type of contrast: None Volume of IV contrast: None Volume of contrast discarded: 0 mL FINDINGS: HEAD CT: Intracranial hemorrhage: No evidence of recent intracranial hemorrhage. Ventricles, cisterns and sulci: Within normal limits. The basilar cisterns are well visualized. Extra-axial mass or collections: No extra-axial mass or collection Intra-axial mass: No mass demonstrated Acute infarct: No acute territorial infarct demonstrated. White matter disease: No significant white matter disease demonstrated. Fenton-white interface: No disruption of the fenton-white interface. Paranasal sinuses: The visualized paranasal sinuses are well pneumatized and aerated Osseous/Scalp[: No focal bony lesion. Deformity consistent with chronic injury involving the lamina papyracea on the left. CERVICAL CT: There is no acute fracture or subluxation. There is reversal of the expected cervical lordosis. There is disc narrowing endplate sclerosis and marginal osteophyte. There are proliferative changes with narrowing involving the facets with foraminal narrowing bilaterally. No large abnormality within the spinal canal. There is an abnormality on the right at the level of the oropharynx and I suspect some cervical adenopathy. This requires further evaluation. Procedure Note Silverio Lezama MD - 02/27/2025 EXAMINATION: CT HEAD and CT CERVICAL SPINE WITHOUT CONTRAST CLINICAL INFORMATION: Closed head injury. Cervical pain COMPARISON: The report of brain MRI 01/05/25 includes no acute findings TECHNIQUE: Multidetector CT. Examination of the head and cervical spine. Examination of the head and cervical spine without IV contrast. Reformatting in the coronal and sagittal planes. DLP: 1602 mGy-cm Dose optimization was performed including the use of low-dose iterativereconstruction technique with automatic exposure control based on patientsize. Type of contrast: None Volume of IV contrast: None Volume of contrast discarded: 0 mL FINDINGS: HEAD CT: Intracranial hemorrhage: No evidence of recent intracranial hemorrhage. Ventricles, cisterns and sulci: Within normal limits. The basilarcisterns are well visualized. Extra-axial mass or collections: No extra-axial mass or collection Intra-axial mass: No mass demonstrated Acute infarct: No acute territorial infarct demonstrated. White matter disease: No significant white matter disease demonstrated. Fenton-white interface: No disruption of the fenton-white interface. Paranasal sinuses: The visualized paranasal sinuses are well pneumatizedand aerated Osseous/Scalp[: No focal bony lesion. Deformity consistent with chronicinjury involving the lamina papyracea on the left. CERVICAL CT: There is no acute fracture or subluxation. There is reversal of the expected cervical lordosis. There is discnarrowing endplate sclerosis and marginal osteophyte. There areproliferative changes with narrowing involving the facets with foraminalnarrowing bilaterally. No large abnormality within the spinal canal. There is an abnormality on the right at the level of the oropharynx and Isuspect some cervical adenopathy. This requires further evaluation. IMPRESSION: No intracranial hemorrhage or intracranial mass. No acute fracture or subluxation of the cervical spine. There is degenerative disc and degenerative joint disease in the cervicalspine. Incompletely included abnormality in the right side of the oropharynx withcervical adenopathy. Malignancy not excluded. Recommend physical exam anddirect inspection. Departmental staff will fax the report and confirm receipt -------- FINAL REPORT -------- Dictated By: Silverio Lezama Dictated Date: 02/27/2025 06:43 ET Assigned Physician: Silverio Lezama Reviewed and Electronically Signed By: Silverio Lezama Signed Date: 02/27/2025 11:56 ET Workstation ID: [id number] Transcribed By: Self Edit Transcribed Date: 02/27/2025 06:56 ET us Mamadou Lopez NP IMG CT PROCEDURES Final Resul t * (ABNORMAL) Urinalysis with reflex microscopic (01/21/2025 11:15 AM EDT) Specific [place] Urine 1.020 1.003 - 1.030 LAB URINALYSIS - AUTOMATED METHOD 01/21/2025 11:53 AM [facility] pH, Urine 7.0 5.0 - 8.0 pH LAB URINALYSIS - AUTOMATED METHOD 01/21/2025 11:53 AM [facility] Leukocytes, Urine Negative Negative LAB URINALYSIS - AUTOMATED METHOD 01/21/2025 11:53 AM [facility] Nitrite, Urine Negative Negative LAB URINALYSIS - AUTOMATED METHOD 01/21/2025 11:53 AM [facility] Protein, Urine Negative <=Trace mg/dL LAB URINALYSIS - AUTOMATED METHOD 01/21/2025 11:53 AM EDT [facility] Glucose, Urine Negative Negative mg/dL LAB URINALYSIS - AUTOMATED METHOD 01/21/2025 11:53 AM EDT [facility] Ketones, Urine Trace(A) Negative mg/dL LAB URINALYSIS - AUTOMATED METHOD 01/21/2025 11:53 AM EDT [facility] Urobilinogen, Urine 1.0 0.2 - 1.0 mg/dL LAB URINALYSIS - AUTOMATED METHOD 01/21/2025 11:53 AM EDT [facility] Bilirubin, Urine Negative Negative LAB URINALYSIS - AUTOMATED METHOD 01/21/2025 11:53 AM EDT [facility] Blood, Urine Negative Negative LAB URINALYSIS - AUTOMATED METHOD 01/21/2025 11:53 AM T [facility] Urine Urine specimen obtained by clean catch procedure / Unknown Non-blood Collection / Unknown 01/21/2025 11:15 AM EDT 01/21/2025 11:44 AM EDT us Mamadou Lopez [employer] LAB URINE ORDERABLES Final Re sult [facility] [address] [place] [address], * (ABNORMAL) CBC auto differential (01/21/2025 11:07 AM EDT) WBC 6.0 4.8 - 10.8 K/[facility] LAB HEMETOLOGY METHOD 01/21/2025 12:10 PM EDT [facility] RBC 4.60 4.50 - 5.50 M/[facility] LAB HEMETOLOGY METHOD 01/21/2025 12:10 PM EDT [facility] Hemoglobin 13.6 13.5 - 17.5 g/dL LAB HEMETOLOGY METHOD 01/21/2025 12:10 PM [facility] Hematocrit 41.4(L) 42.0 - 54.0 % LAB [facility] MCV 91.0 79.0 - 98.0 FL LAB HEMETOLOGY METHOD 01/21/2025 12:10 PM [facility] MCH 29.9 27.0 - 32.0 pcg LAB HEMETOLOGY METHOD 01/21/2025 12:10 PM EDT [facility] MCHC 32.9 32.0 - 37.0 g/dL LAB HEMETOLOGY METHOD 01/21/2025 12:10 PM [facility] RDW 14.6 11.0 - 15.0 % LAB HEMETOLOGY METHOD 01/21/2025 12:10 PM [facility] Platelets 217 130 - 400 K/mcL LAB HEMETOLOGY METHOD 01/21/2025 12:10 PM [facility] MPV 10.7 7.0 - 11.0 FL LAB HEMETOLOGY METHOD 01/21/2025 12:10 PM [facility] NRBC 0.0 <1.0 % LAB HEMETOLOGY METHOD 01/21/2025 12:10 PM [facility] NRBC Absolute 0.00 <0.10 K/mcL LAB HEMETOLOGY METHOD 01/21/2025 12:10 PM [facility] Neutrophils Relative 66.0 % LAB [facility]EMETOLOGY METHOD [facility] Lymphocytes Relative 20.9 % LAB HEMETOLOGY METHOD 01/21/2025 12:10 PM [facility] Monocytes Relative 11.4 % LAB HEMETOLOGY METHOD 01/21/2025 12:10 PM [facility] Eosinophils Relative 1.2 % LAB HEMETOLOGY METHOD 01/21/2025 12:10 PM EDT [facility] Basophils Relative 0.3 % LAB HEMETOLOGY METHOD 01/21/2025 12:10 PM EDT [facility] Immature Granulocytes Relative 0.2 % LAB HEMETOLOGY METHOD 01/21/2025 12:10 PM EDT [facility] Neutrophils Absolute 3.98 1.50 - 7.00 K/mcL LAB HEMETOLOGY METHOD 01/21/2025 12:10 PM EDT [facility] Lymphocytes Absolute 1.26 1.00 - 5.00 K/mcL LAB HEMETOLOGY METHOD 01/21/2025 12:10 PM EDT [facility] Monocytes Absolute 0.69 0.20 - 1.00 K/mcL LAB HEMETOLOGY METHOD 01/21/2025 12:10 PM EDT [facility] Eosinophils Absolute 0.07 0.00 - 0.50 K/mcL LAB HEMETOLOGY METHOD 01/21/2025 12:10 PM EDT [facility] Basophils Absolute 0.02 0.00 - 0.20 K/mcL LAB HEMETOLOGY METHOD 01/21/2025 12:10 PM EDT [facility] Immature Granulocytes Absolute 0.01 0.00 - 0.03 K/mcL LAB HEMETOLOGY METHOD 01/21/2025 12:10 PM EDT [facility] Blood Venous blood specimen / Unknown Venipuncture / Unknown 01/21/2025 11:07 AM EDT 01/21/2025 11:38 AM EDT us Mamadou Lopez NP LAB BLOOD ORDERABLES Final Re sult [facility] [address] [place] [address], * Thyroid stimulating hormone (01/21/2025 11:07 AM EDT) Pathologist [facility] TSH 1.31 0.40 - 4.00 mcIU/mL LAB CHEMISTRY METHOD 01/21/2025 2:21 PM EDT [facility] Blood Venous blood specimen / Unknown Venipuncture / Unknown 01/21/2025 11:07 AM EDT 01/21/2025 11:43 AM EDT Mamadou Lopez [employer] LAB BLOOD ORDERABLES Final Re sult Performing Organization Address [facility] de Phone Number [facility] [address] [place] [address], [place] [phone] * (ABNORMAL) Hemoglobin A1c (01/21/2025 11:07 AM EDT) [facility] Hemoglobin A1C 6.9(H) <6.5 % LAB CHEMISTRY METHOD 01/21/2025 2:25 PM EDT [facility] Mean Bld Glu Estim. 151 mg/dL LAB CHEMISTRY METHOD 01/21/2025 2:25 PM EDT [facility] Blood Venous blood specimen / Unknown Venipuncture / Unknown 01/21/2025 11:07 AM EDT 01/21/2025 11:38 AM EDT Mamadou Lopez [employer] LAB BLOOD ORDERABLES Final Re sult [facility] [address] [place] [address], [place] [phone] * Vitamin B12 (01/21/2025 11:07 AM EDT) [facility] Vitamin B-12 534 250 - 900 pcg/mL LAB CHEMISTRY METHOD 01/21/2025 1:28 PM EDT [facility] Blood Venous blood specimen / Unknown Venipuncture / Unknown 01/21/2025 11:07 AM EDT 01/21/2025 11:43 AM EDT us Mamadou Lopez [employer] LAB BLOOD ORDERABLES Final Re sult [facility] [address] [place] [address], [place] [phone] * (ABNORMAL) Comprehensive metabolic panel (01/21/2025 11:07 AM EDT) Sodium 138 133 - 145 mmol/L LAB CHEMISTRY METHOD 01/21/2025 1:28 PM [facility] Potassium 4.6 3.5 - 5.5 mmol/L LAB CHEMISTRY METHOD 01/21/2025 1:28 PM [facility] Chloride 102 96 - 110 mmol/L LAB CHEMISTRY METHOD 01/21/2025 1:28 PM [facility] CO2 30 21 - 32 mmol/L LAB CHEMISTRY METHOD 01/21/2025 1:28 PM [facility] Anion Gap 6 3 - 11 LAB CHEMISTRY METHOD 01/21/2025 1:28 PM [facility] Glucose 81 70 - 100 mg/dL LAB CHEMISTRY METHOD 01/21/2025 1:28 PM [facility] BUN 15 5 - 25 mg/dL LAB CHEMISTRY METHOD 01/21/2025 1:28 PM [facility] Creatinine 0.89 0.70 - 1.30 mg/dL LAB CHEMISTRY METHOD 01/21/2025 1:28 PM [facility] eGFR 89 >=60 mL/min/1. 73m2 LAB CHEMISTRY METHOD 01/21/2025 1:28 PM [facility] Comment:Calculation based on the Chronic Kidney Disease Epidemiology Collaboration (CKD-EPI) equation refit without adjustment for race. BUN/Creatinine Ratio 16.9 LAB CHEMISTRY METHOD 01/21/2025 1:28 PM [facility] Calcium 10.1 8.5 - 10.5 mg/dL LAB CHEMISTRY METHOD 01/21/2025 1:28 PM EDT [facility] AST (SGOT) 15 10 - 42 unit/L LAB CHEMISTRY METHOD 01/21/2025 1:28 PM EDT [facility] ALT (SGPT) 9(L) 10 - 60 unit/L LAB CHEMISTRY METHOD 01/21/2025 1:28 PM EDT [facility] Alkaline Phosphatase 147(H) 42 - 121 unit/L LAB CHEMISTRY METHOD 01/21/2025 1:28 PM EDT [facility] Total Protein 7.1 6.0 - 8.0 g/dL LAB CHEMISTRY METHOD 01/21/2025 1:28 PM EDT [facility] Albumin 4.1 3.2 - 5.0 g/dL LAB CHEMISTRY METHOD 01/21/2025 1:28 PM EDT [facility] Total Bilirubin 0.7 0.0 - 1.4 mg/dL LAB CHEMISTRY METHOD 01/21/2025 1:28 PM EDT [facility] Blood Venous blood specimen / Unknown Venipuncture / Unknown 01/21/2025 11:07 AM EDT 01/21/2025 11:43 AM EDT us Mamadou Lopez PATTERN RULER LAB BLOOD ORDERABLES Final Re sult [facility] [address] [place] [address], * XR Hip 2-3 Views Left (01/21/2025 10:53 AM EDT) Anatomical Region Laterality Modality Lower Extremities, Hip Left Radiograp hic Imaging 01/21/2025 10:5 8 AM EDT Impressions 01/21/2025 10:59 AM EDT No acute findings. There is evidence of calcific tendinitis of the hips bilaterally. Code 30358 -------- FINAL REPORT -------- Dictated By: Presley Huggins Dictated Date: 01/21/2025 10:58 ET Assigned Physician: Presley Huggins Reviewed and Electronically Signed By: Presley Huggins Signed Date: 01/21/2025 10:59 ET Workstation ID: [id number] Transcribed By: Self Edit Transcribed Date: 01/21/2025 10:58 ET Narrative 01/21/2025 10:59 AM EDT HISTORY: The patient is a 74-year-old male with left hip pain. No history of trauma is provided. FINDINGS: AP radiograph of the pelvis, along with coned-down AP [...] calcific tendinitis. Atherosclerotic arterial calcification are present. Procedure Note Presley Huggins MD - 01/21/2025 HISTORY: The patient is a 74-year-old male with left hip pain. No historyof trauma is provided. FINDINGS: AP radiograph of the pelvis, along with coned-down AP andexternal rotation-abduction views of the left hip, are obtained. The studydemonstrates no fracture, dislocation, or osteolytic or osteoblasticlesion. No arthritic change is seen in the hips. There are degenerativechanges of the included portion of the lower lumbar spine. Soft tissuecalcifications are present adjacent to the greater trochanters of thefemurs bilaterally consistent with calcific tendinitis. Atheroscleroticarterial calcification are present. IMPRESSION: No acute findings. There is evidence of calcific tendinitis of the hipsbilaterally. Code 03723 -------- FINAL REPORT -------- Dictated By: Presley Huggins Dictated Date: 01/21/2025 10:58 ET Assigned Physician: Presley Huggins Reviewed and Electronically Signed By: Presley Huggins Signed Date: 01/21/2025 10:59 ET Workstation ID: [id number] Transcribed By: Self Edit Transcribed Date: 01/21/2025 10:58 ET us Mamadou Sandra Jessica PATTERN RULER IMG XR PROCEDURES Final Resul t * XR Lumbar Spine 4+ Views (01/21/2025 10:53 AM EDT) Anatomical Region Laterality Modality Spine, L-spine Radiographic Gianna ging 01/21/2025 10:5 9 AM EDT Impressions 01/21/2025 11:01 AM EDT No acute findings. There is degenerative disc disease at the T12-L1 and L4-5 levels. Code 77828 -------- FINAL REPORT -------- Dictated By: Presley Huggins Dictated Date: 01/21/2025 10:59 ET Assigned Physician: Presley Huggins Reviewed and Electronically Signed By: Presley Huggins Signed Date: 01/21/2025 11:01 ET Workstation ID: [id number] Transcribed By: Self Edit Transcribed Date: 01/21/2025 10:59 ET Narrative 01/21/2025 11:01 AM EDT HISTORY: The patient is a 74-year-old male with low back pain. No history of trauma is provided. FINDINGS: AP, lateral, and coned-down spot lateral views of the lumbosacral spine are obtained. The study demonstrates normal alignment of the bony structures. No fracture is seen and no osteolytic or osteoblastic lesion is demonstrated. There is narrowing of the T12-L1 and L4-5 disc spaces with adjacent osteophyte formation consistent with degenerative disc disease. The remaining disc spaces are well-maintained. Atherosclerotic arterial calcification is noted. Procedure Note Presley Huggins MD - 01/21/2025 HISTORY: The patient is a 74-year-old male with low back pain. No historyof trauma is provided. FINDINGS: AP, lateral, and coned-down spot lateral views of thelumbosacral spine are obtained. The study demonstrates normal alignment ofthe bony structures. No fracture is seen and no osteolytic or osteoblasticlesion is demonstrated. There is narrowing of the T12-L1 and L4-5 discspaces with adjacent osteophyte formation consistent with degenerativedisc disease. The remaining disc spaces are well-maintained. Atherosclerotic arterial calcification is noted. IMPRESSION: No acute findings. There is degenerative disc disease at the T12-L1 andL4-5 levels. Code 83911 -------- FINAL REPORT -------- Dictated By: Presley Huggins Dictated Date: 01/21/2025 10:59 ET Assigned Physician: Presley Huggins Reviewed and Electronically Signed By: Presley Huggins Signed Date: 01/21/2025 11:01 ET Workstation ID: [id number] Transcribed By: Self Edit Transcribed Date: 01/21/2025 10:59 ET us Mamadou Lopez PATTERN RULER IMG XR PROCEDURES Final Resul t * MR Brain wo Contrast (01/05/2025 8:03 AM EDT) Anatomical Region Laterality Modality Head and Neck Magnetic Resonan ce 01/05/2025 8:08 AM EDT Impressions 01/05/2025 9:13 AM EDT Age commensurate MRI appearance of the brain. No acute findings. -------- FINAL REPORT -------- Dictated By: Wilmer Brewer Dictated Date: 01/05/2025 08:08 ET Assigned Physician: Wilmer Brewer Reviewed and Electronically Signed By: Wilmer Brewer Signed Date: 01/05/2025 09:13 ET Workstation ID: [id number] Transcribed By: Self Edit Transcribed Date: 01/05/2025 09:11 ET Narrative 01/05/2025 9:13 AM EDT PROCEDURE: Noncontrast MRI of the brain. HISTORY: dz. COMPARISON: None. TECHNIQUE: Multiplanar multisequence MRI of the brain without intravenous contrast administration. FINDINGS: BRAIN: No diffusion abnormality. No mass or extra-axial fluid collection. No hydrocephalus. The major intracranial flow voids are preserved. Age commensurate ventricles and sulci. Foci of T2 prolongation in the supratentorial white matter are nonspecific but likely sequela of mild chronic microvascular ischemic disease. ORBITS: Lens implants. SINUSES/MASTOIDS: Small amount of fluid in the mastoid air cells. Mild mucosal thickening in the frontal sinuses, ethmoid air cells, sphenoid, and maxillary antra. Small mucous retention cyst in the inferior left maxillary antrum. CALVARIUM: Normal. OTHER: The visualized skull base soft tissues are normal. Partially visible degenerative changes of the cervical spine. Procedure Note Wilmer Brewer MD - 01/05/2025 PROCEDURE: Noncontrast MRI of the brain. HISTORY: dz. COMPARISON: None. TECHNIQUE: Multiplanar multisequence MRI of the brain without intravenouscontrast administration. FINDINGS: BRAIN: No diffusion abnormality. No mass or extra-axial fluid collection.No hydrocephalus. The major intracranial flow voids are preserved. Agecommensurate ventricles and sulci. Foci of T2 prolongation in thesupratentorial white matter are nonspecific but likely sequela of mildchronic microvascular ischemic disease. ORBITS: Lens implants. SINUSES/MASTOIDS: Small amount of fluid in the mastoid air cells. Mildmucosal thickening in the frontal sinuses, ethmoid air cells, sphenoid,and maxillary antra. Small mucous retention cyst in the inferior leftmaxillary antrum. CALVARIUM: Normal. OTHER: The visualized skull base soft tissues are normal. Partiallyvisible degenerative changes of the cervical spine. IMPRESSION: Age commensurate MRI appearance of the brain. No acute findings. -------- FINAL REPORT -------- Dictated By: Wilmer Brewer Dictated Date: 01/05/2025 08:08 ET Assigned Physician: Wilmer Brewer Reviewed and Electronically Signed By: Wilmer Brewer Signed Date: 01/05/2025 09:13 ET Workstation ID: [id number] Transcribed By: Self Edit Transcribed Date: 01/05/2025 09:11 ET us Mamadou Lopez NP IMG MRI PROCEDURES Final Resu lt * COLONOSCOPY Anesthesia - MAC; [facility]COPY (07/31/2024 11:01 AM EST) Anatomical Region Laterality Modality Other 07/31/2024 10:4 0 AM EST Impressions 07/31/2024 11:02 AM EST - Five 3 to 7 mm polyps in the transverse colon and in the ascending colon, removed with a cold snare. Resected and retrieved. - Diverticulosis in the left colon. - The examination was otherwise normal on direct and retroflexion views. Recommendation: - Patient has a contact number available for emergencies. The signs and symptoms of potential delayed complications were discussed with the patient. Return to normal activities tomorrow. Written discharge instructions were provided to the patient. - Resume previous diet. - Continue present medications. - Await pathology results. - Repeat colonoscopy in 3 years for surveillance. Narrative 07/31/2024 11:[address] [facility] Patient Name: Giorgio Garcia Procedure Date: 07/31/2024 10:40 AM Date of : 1950 Age: 74 Gender: Male Note Status: Finalized Attending MD: Lucien Villa MD, Procedure Date No Time: 07/31/2024 Procedure: Colonoscopy Indications: High risk colon cancer surveillance: Personal history of colonic polyps Providers: Lucien Villa MD Referring MD: Lucien Villa MD Medicines: Monitored Anesthesia Care Complications: No immediate complications. Estimated Blood Loss: Estimated blood loss was minimal. Procedure: After I obtained informed consent, the scope was passed under direct vision. Throughout the procedure, the patient's blood pressure, pulse, and oxygen saturations were monitored continuously. The Colonoscope was introduced through the anus and advanced to the cecum, identified by appendiceal orifice and ileocecal valve. The colonoscopy was performed without difficulty. The patient tolerated the procedure well. The quality of the bowel preparation was adequate. Findings: Five sessile polyps were found in the transverse colon and ascending colon. The polyps were 3 to 7 mm in size. These polyps were removed with a cold snare. Resection and retrieval were complete. Many small and large-mouthed diverticula were found in the left colon. The exam was otherwise without abnormality on direct and retroflexion views. Procedure Code(s): --- Professional --- 16282, Colonoscopy, flexible; with removal of tumor(s), polyp(s), or other lesion(s) by snare technique Diagnosis Code(s): --- Professional --- Z86.010, Personal history of colonic polyps D12.3, Benign neoplasm of transverse colon (hepatic flexure or splenic flexure) D12.2, Benign neoplasm of ascending colon K57.30, Diverticulosis of large intestine without perforation or abscess without bleeding CPT copyright 2020 [employer]. All rights reserved. The codes documented in this report are preliminary and upon auditing coder review may be revised to meet current compliance requirements. MD Lucine Davidson MD 07/31/2024 11:02:38 AM This report has been signed electronically.Lucien Villa MD Number of Addenda: 0 Note Initiated On: 07/31/2024 10:40 AM Scope In: Scope Out: Endoscopy Department at [facility] - [address] [place] [id number] Procedure Note Lucien Villa MD - 07/31/2024 [facility] Patient Name: Giorgio Garcia Procedure Date: [...] retroflexion views. Procedure Code(s): --- Professional --- 34157, Colonoscopy, flexible; with removal of tumor(s), polyp(s), or other lesion(s) by snare technique Diagnosis Code(s): --- Professional --- Z86.010, Personal history of colonic polyps D12.3, Benign neoplasm of transverse colon (hepatic flexure or splenic flexure) D12.2, Benign neoplasm of ascending colon K57.30, Diverticulosis of large intestine without perforation or abscess without bleeding CPT copyright 2020 [employer]. All rights reserved. The codes documented in this report are preliminary and upon auditing coder reviewmay be revised to meet current compliance requirements. MD Lucien Davidson MD 07/31/2024 11:02:38 AM This report has been signed electronically.Lucien Villa MD Number of Addenda: 0 Note Initiated On: 07/31/2024 10:40 AM Scope In: Scope Out: Endoscopy Department at [facility] - [address] [place] [phone] IMPRESSION: - Five 3 to 7 mm [...] Repeat colonoscopy in 3 years for surveillance. Lucien Villa MD GI~PROCEDURE ORDERABLES Final R esult * Lipid panel with reflex to direct LDL (07/16/2024 10:08 AM EST) Cholesterol 158 0 - 200 mg/dL LAB CHEMISTRY METHOD 07/16/2024 12:02 PM EST [facility] Triglycerides 123 0 - 150 mg/dL LAB CHEMISTRY METHOD 07/16/2024 12:02 PM EST [facility] HDL 46 >=40 mg/dL LAB CHEMISTRY METHOD 07/16/2024 12:02 PM EST [facility] LDL Calculated 87 0 - 100 mg/dL LAB CHEMISTRY METHOD 07/16/2024 12:02 PM EST [facility] VLDL Cholesterol Bob 24.6 mg/dL LAB CHEMISTRY METHOD 07/16/2024 12:02 PM EST [facility] Non HDL Chol. (LDL+VLDL) 112 <145 mg/dL LAB CHEMISTRY METHOD 07/16/2024 12:02 PM [facility] Chol/HDL Ratio 3.4 0.0 - 4.4 LAB CHEMISTRY METHOD 07/16/2024 12:02 PM EST [facility] Blood Venous blood specimen / Unknown Venipuncture / Unknown 07/16/2024 10:08 AM EST 07/16/2024 11:17 AM EST us Mamadou Lopez PATTERN RULER LAB BLOOD ORDERABLES Final Re sult [facility] [address] [place] [address], from Last 3 Months or Most Recently Relevant to Health Maintenance Insurance [facility]IC[facility] Member Subscriber Plan / Payer (Ef fective 2015-Present) Name:Giorgio Ennis Relation to Subscriber:Self Name:Giorgio Garcia Payer ID:[id number] Group ID:[id number] Type:Not on file Address: [address] [facility] [place] [id number] Advance Directives Documents on File Type Date Recorded 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
== END 2025-03-05 12:06 | disposition home or self-care (01) ==
LOC: HO.HSMS 10:27
PROVIDERS: Visit Provider Nurse Practitioner Family
DX: G20.A2 Parkinson's disease without dyskinesia, with fluctuations (principal); R20.0 Anesthesia of skin; R20.2 Paresthesia of skin; R25.1 Tremor, unspecified; R42 Dizziness and giddiness; R29.6 Repeated falls
CPT/HCPCS: 99214; G2211

== ENCOUNTER → 2025-03-05 10:26 | Outpatient (BNVA) | payer OTHER, SELFPAY | PROVIDERS: Visit Provider Nurse Practitioner Family | DX: G20.A2 Parkinson's disease without dyskinesia, with fluctuations (principal); R42 Dizziness and giddiness; R29.6 Repeated falls; R20.0 Anesthesia of skin; R20.2 Paresthesia of skin; E11.9 Type 2 diabetes mellitus without complications | CPT/HCPCS: 99212 ==

== ENCOUNTER 2025-03-25 08:35 | Outpatient (AMB) | payer OTHER, SELFPAY ==
--- OUTSIDE RECORDS SUMMARY | 2024-04-24 11:10 | XMS_ITS | Encounter Summary ---
Author Organization [facility] Address [address] [place] [address] Care Team Providers Care Design Maintenance Engineer Name Role Phone Juliano Pelletier MD Primary Care Provider [phone] Encounter Details Date Type Department Care Team (Latest Contact Info) Description 04/24/2024 11:10 AM EDT Hospital Encounter TH HISTORIC ENCOUNTERS EASTERN CONVERSION ONLY Mamadou Lopez, SSDS MK 2 ADVANCED OPERATOR [address] [address] Pain in left knee Social History Tobacco Use Types Packs/Day Years Used Date Smoking Tobacco: Former Cigarettes Alcohol Use Standard Drinks/Week Comments Yes 0 (1 standard drink = 0.6 oz pur e alcohol) ONCE A MONTH Interpersonal Safety Answer Date Record ed Physical Abuse 07/31/2024 Verbal Abuse 07/31/2024 Sex and Gender Information Value Date Recorded Sex Assigned at Male 07/22/2024 9:34 AM EST Legal Sex Male 9:07 AM EST Gender Identity Male 07/22/2024 9:34 AM EST Sexual Orientation Straight 07/22/2024 9: 34 AM EST documented as of this encounter Plan of Treatment Upcoming Encounters Date Type Department Care Team (Late st Contact Info) Description 04/07/2025 8:30 AM EDT Appointment [facility] CT Scan [address] [place] [phone] documented as of this encounter Procedures Procedure Name Priority Date/Time Associated Diagnosis Comments CR KNEE LT 4 OR MORE VIEW Routine 04/24/2024 3:25 PM EDT Pain in left knee documented in this encounter Results * CR KNEE LT 4 OR MORE VIEW (04/24/2024 3:25 PM EDT) Anatomical Region Laterality Modality Radiographic Gianna ging 04/24/2024 11:1 5 AM EDT Narrative 04/24/2024 3:25 PM EDT [facility] Diagnostic Imaging Department [address] [place] [address] Patient: GIORGIO GARCIA /Age/Sex: 1950 - 74 - M Unit#: [id number] Location/Status: [facility]/REG CLI Mnemonic[facility] Ordering Physician: MAMADOU LOPEZ SSDS MK 2 ADVANCED OPERATOR CR Knee LT 4 or more View - 04/24/24 - 1582 Report Status:Signed INDICATION: Acute left knee pain [...] Signed by: ALEX LYMAN MD Dic Date/Time: 04/24/241523 Sign date/Time: 04/24/241524 Procedure Note Alex Lyman MD - 05/03/2024 [facility] Diagnostic Imaging Department [address] [place] [address] Patient: GARCIAGIORGIO /Age/Sex: 1950 - 74 - M Unit#: [id number] Location/Status: SPDIGEN/REG CLI [facility] Ordering Physician: MAMADOU LOPEZ NP CR Knee LT 4 or more View - 04/24/24 1146 Report Status:Signed INDICATION: Acute left knee pain [...] Dic Date/Time: 04/24/24 1524 Sign date/Time: 04/24/24 152 us Mamadou Lopez SSDS MK 2 ADVANCED OPERATOR IMG XR PROCEDURES Final Resul t documented in this encounter Visit Diagnoses Diagnosis Pain in left knee documented in this encounter Care Teams Design Maintenance Engineer Relationship Specialty Start Date End Date Juliano Pelletier MD [address] [place] [address] [phone] (Work) PCP - General Internal Medicine 09/13/18 documented as of this encounter
[2025-03-25 09:13] VITALS: BP 130/62; PULSE 77; O2SAT 96; BMI 26.3
--- NOTE | 2025-03-25 09:13 | HO.NEPHOV_ITS ---
Vital Signs 03/25/25 09:13 Height 5 ft 9 in Weight 178 lb BMI 26.3 BP 130/62 Blood Pressure Location Lt brachial Position Sitting Pulse 77 Pulse Source Pulse Oximeter Pulse Oximetry (%) 96 Oxygen Delivery Method Room Air Intake Visit Reasons: INP: Hypotension-Conf Registered Nurse Behavioral Health Required: No Accompanied by: Spouse Allergies No Known Allergies Allergy (Verified 03/25/25 09:16) Medication List - Last Reconciled 03/25/25 by Heladio Carlos MD atorvastatin 20 mg PO DAILY [Bilateral carpal tunnel neoprene wrist plint As directed] bupropion HCl SR 200 mg PO QAM carbidopa-levodopa 25-100 mg ER 2 tabs PO QID 30 days duloxetine 60 mg PO DAILY gabapentin mg PO DAILY lisinopril 10 mg PO DAILY metformin ER (Glucophage XR) 500 mg PO DAILY [id number] mcg (Centrum Silver Men) 1 tab PO DAILY polyethylene glycol 3350 (Miralax) 17 grams PO DAILY PRN 30 days risperidone PO DAILY HPI Comments Details: History of Present Illness - The patient is a 75-year-old male referred for hypotension. History of longstanding diabetes mellitus. - Parkinson's disease is controlled with medication adjustments. - Experiences dizziness when standing. He is currently on lisinopril 10 mg in the morning. And No history of syncopal episodes. He has a history of falling. No sweating. No palpitations. No urinary symptoms. No leg edema. [facility] Medical History (Updated 03/25/25 @ 09:35 by Heladio Carlos MD) Parkinson disease Surgical History History of back surgery Family History Mother Cancer Social History Household Members: Spouse Alcohol intake: current Alcohol intake frequency: holidays/special occasions only Patient Tobacco Use Status: Never used Tobacco Current occupational status: retired Review of Systems Const Denies fever(s) and Denies weight loss Card Denies chest pain Resp Denies cough and Denies hemoptysis GI Denies abdominal pain, Denies diarrhea and Denies nausea Musc Denies back pain Neuro Denies focal weakness Physical Exam Vital Signs: Last Vital Signs Pulse 77 03/25/25 09:13 BP 130/62 03/25/25 09:13 Pulse Ox 96 03/25/25 09:13 Oxygen Delivery Method Room Air 03/25/25 09:13 BMI result Body Mass Index 26.3 Blood pressure 130/70 mm Hg supine Sitting blood pressure 120/60. Asymptomatic Standing blood pressure 120/60. Asymptomatic. Blood pressure is symmetric on both upper extremities. Comfortable Neck supple no JVD. Lungs entry equal no rales. Heart S1-S2 heard no gallop or rub. Abdomen soft nontender. Neuro alert awake oriented. No asterixis. Extremities no edema. Results Reviewed Nephrology Results: Hgb, (14.0-18.0) 12.4 g/dl L 09/03/24 WBC, (4.8-10.8) 5.0 X10*3/uL 09/03/24 Plt Count, (160-400) 198 X10*3/uL 09/03/24 Sodium, (135-145) 140 mmol/L 09/03/24 Potassium, (3.3-5.1) 5.0 mmol/L 09/03/24 Chloride, (96-108) 107 mmol/L 09/03/24 Carbon Dioxide, (22-29) 28 mmol/L 09/03/24 BUN, (9-16) 15 mg/dL 09/03/24 Creatinine, (0.5-1.4) 0.79 mg/dL 09/03/24 Calcium, (8.4-10.2) 9.0 mg/dL 09/03/24 Assessment & Plan Assessment & Plan (1) HTN (hypertension): Code(s): I10 - Essential (primary) hypertension Category: Medical Plan Elderly man with Parkinson disease and longstanding diabetes mellitus with history of hypertension. In the office today blood pressure was well-controlled. No significant orthostatic changes. However by history has had episodes of falling which could be secondary to orthostatic blood pressure change. Workup ordered including serum cortisol levels. For now I will keep lisinopril 10 mg. I have asked him to take it in the evening rather than in the morning. Continue to monitor blood pressure closely and if needed we can cut down on lisinopril from 10 mg down to 5 mg. Discussed all orthostatic precautions including had an elevation is 30 degrees and KRISTEN stockings. Gradual change in position 2. Parkinson's Disease - Continue current medication regimen. Renal function is normal at baseline. Orders: Orders Cortisol, Free 4 Months E11.9 - Type 2 diabetes mellitus without complications, R42 - Dizziness and giddiness Blood Urea Nitrogen 4 Months E11.9 - Type 2 diabetes mellitus without complications, N18.4 - Chronic kidney disease, stage 4 (severe), R42 - Dizziness and giddiness Coding Level of Care Code New Pt Level 4 (99040) Diagnoses HTN (hypertension) I10
--- OUTSIDE RECORDS SUMMARY | 2025-03-25 09:38 | XMS_ITS | Clinical Summary ---
Author Organization [facility] [place] [address] Phone Care Team Providers Care Parachute Rigger Name Role Phone Juliano Pelletier MD Primary Care Provider [phone] Allergies No known active allergies Medications atorvastatin [...] - 02/23/2025 11:59 PM EDT Hospital Encounter [facility] CT Scan [address] [place] [address] Unspecified injury of head, initial encounter Discharge Disposition: Home or Self Care 02/23/2025 7:45 AM EDT - 02/23/2025 11:59 PM EDT Hospital Encounter [facility] CT Scan [address] [place] [address] Cervicalgia Discharge Disposition: Home or Self Care 01/21/2025 10:39 AM EDT - 01/21/2025 11:59 PM EDT Hospital Encounter [facility] Xray [address] [place] [address] Low back pain, unspecified; Pain in left hip Discharge Disposition: Home or Self Care 01/05/2025 7:15 AM EDT - 01/05/2025 11:59 PM EDT Hospital Encounter [facility] MRI [address] [place] [address] Dizziness and giddiness; Ataxia, unspecified Discharge Disposition: Home or Self Care from Last 3 Months Surgical History Surgery Date Site/Laterality Comments LUMBAR DISC SURGERY COLONOSCOPY Medical History Medical History Date Comments Hyperlipidemia Hypertension Neuropathy of both feet Diabetes mellitus ([facility] V24, [facility] V28) Parkinson's disease ([facility] V24, [facility] V28) Forgetfulness Anxiety Depression Social History Tobacco [...] 07/31/2024 10:34 AM EST Plan of Treatment Upcoming Encounters Date Type Department Care Team (Late st Contact Info) Description 04/07/2025 8:30 AM EDT Appointment [facility] CT Scan [address] [place] [address] Health Maintenance Due Date Last Done Comments [...] EDT Routine general medical examination at a [facility] facility Screening for diabetes mellitus Screening for [...] Signed Date: 02/27/2025 11:56 ET Workstation ID: [id number] Transcribed By: Self Edit Transcribed Date: 02/27/2025 [...] Signed Date: 02/27/2025 11:56 ET Workstation ID: [id number] Transcribed By: Self Edit Transcribed Date: 02/27/2025 [...] Signed Date: 02/27/2025 11:56 ET Workstation ID: [id number] Transcribed By: Self Edit Transcribed Date: 02/27/2025 [...] -------- FINAL REPORT -------- Dictated By: Silverio Lezaam Dictated Date: 02/27/2025 06:43 ET Assigned Physician: Silverio Lezama Reviewed and Electronically Signed By: Silverio Lezama Signed Date: 02/27/2025 11:56 ET Workstation ID: [id number] Transcribed By: Self Edit Transcribed Date: 02/27/2025 06:56 ET us Mamadou Lopez FPGA DESIGN ENGINEER IMG CT PROCEDURES Final Resul t * (ABNORMAL) Urinalysis with reflex microscopic (01/21/2025 11:15 AM EDT) Specific [place] Urine 1.020 1.003 - 1.030 LAB URINALYSIS - AUTOMATED METHOD 01/21/2025 11:53 AM EDT [facility] pH, Urine 7.0 5.0 - 8.0 pH LAB URINALYSIS - AUTOMATED METHOD 01/21/2025 11:53 AM EDT [facility] Leukocytes, Urine Negative Negative LAB URINALYSIS - AUTOMATED METHOD 01/21/2025 11:53 AM EDT [facility] Nitrite, Urine Negative Negative LAB URINALYSIS - AUTOMATED METHOD 01/21/2025 11:53 AM EDT [facility] Protein, Urine Negative <=Trace mg/dL LAB URINALYSIS - AUTOMATED METHOD 01/21/2025 11:53 AM EDT [facility] Glucose, Urine Negative Negative mg/dL LAB URINALYSIS - AUTOMATED METHOD 01/21/2025 11:53 AM EDT [facility] Ketones, Urine Trace(A) Negative mg/dL LAB URINALYSIS - AUTOMATED METHOD 01/21/2025 11:53 AM EDT [facility] Urobilinogen, Urine 1.0 0.2 - 1.0 mg/dL LAB URINALYSIS - AUTOMATED METHOD 01/21/2025 11:53 AM [facility] Bilirubin, Urine Negative Negative LAB URINALYSIS - AUTOMATED METHOD [facility] Blood, Urine Negative Negative LAB URINALYSIS - AUTOMATED METHOD 01/21/2025 11:53 AM [facility] Urine Urine specimen obtained by clean catch procedure / Unknown Non-blood Collection / Unknown 01/21/2025 11:15 AM EDT 01/21/2025 11:44 AM EDT us Mamadou Lopez FPGA DESIGN ENGINEER LAB URINE ORDERABLES Final Re sult [facility] [address] [place] [address], * (ABNORMAL) CBC auto differential (01/21/2025 11:07 AM EDT) WBC 6.0 4.8 - 10.8 K/[facility] LAB HEMETOLOGY METHOD 01/21/2025 12:10 PM EDT [facility] RBC 4.60 4.50 - 5.50 M/[facility] LAB HEMETOLOGY METHOD 01/21/2025 12:10 PM EDT [facility] Hemoglobin 13.6 13.5 - 17.5 g/dL LAB HEMETOLOGY METHOD 01/21/2025 12:[facility] Hematocrit 41.4(L) 42.0 - 54.0 % LAB HEMETOLOGY METHOD 01/21/2025 12:[facility] MCV 91.0 79.0 - 98.0 FL LAB HEMETOLOGY METHOD 01/21/2025 12:10 PM EDT [facility] MCH 29.9 27.0 - 32.0 pcg LAB HEMETOLOGY METHOD 01/21/2025 12:10 PM [facility] MCHC 32.9 32.0 - 37.0 g/dL LAB HEMETOLOGY METHOD 01/21/2025 12:10 PM [facility] RDW 14.6 11.0 - 15.0 % LAB HEMETOLOGY METHOD 01/21/2025 12:10 PM [facility] Platelets 217 130 - 400 K/mcL LAB HEMETOLOGY METHOD 01/21/2025 12:10 PM [facility] MPV 10.7 7.0 - 11.0 FL LAB HEMETOLOGY METHOD 01/21/2025 12:10 PM [facility] NRBC 0.0 <1.0 % LAB HEMETOLOGY METHOD 01/21/2025 12:10 PM [facility] NRBC Absolute 0.00 <0.10 K/mcL LAB HEMETOLOGY METHOD 01/21/2025 12:10 PM [facility] Neutrophils Relative 66.0 % LAB HEMETOLOGY METHOD 01/21/2025 12:10 PM [facility] Lymphocytes Relative 20.9 % LAB HEMETOLOGY METHOD 01/21/2025 12:10 PM EDT [facility] Monocytes Relative 11.4 % LAB HEMETOLOGY METHOD 01/21/2025 12:10 PM EDT [facility] Eosinophils Relative 1.2 % LAB HEMETOLOGY METHOD 01/21/2025 12:10 PM EDT [facility] Basophils Relative 0.3 % LAB HEMETOLOGY METHOD 01/21/2025 12:10 PM EDT [facility] Immature Granulocytes Relative 0.2 % LAB HEMETOLOGY METHOD 01/21/2025 12:10 PM EDT [facility] Neutrophils Absolute 3.98 1.50 - 7.00 K/mcL LAB HEMETOLOGY METHOD 01/21/2025 12:10 PM EDT [facility] Lymphocytes Absolute 1.26 1.00 - 5.00 K/mcL LAB HEMETOLOGY METHOD 01/21/2025 12:10 PM EDT [facility] Monocytes Absolute 0.69 0.20 - 1.00 K/mcL LAB HEMETOLOGY METHOD 01/21/2025 12:10 PM EDT [facility] Eosinophils Absolute 0.07 0.00 - 0.50 K/mcL LAB HEMETOLOGY METHOD 01/21/2025 12:10 PM EDT [facility] Basophils Absolute 0.02 0.00 - 0.20 K/mcL LAB HEMETOLOGY METHOD 01/21/2025 12:10 PM EDT [facility] Immature Granulocytes Absolute 0.01 0.00 - 0.03 K/mcL LAB HEMETOLOGY METHOD 01/21/2025 12:10 PM EDT [facility] Blood Venous blood specimen / Unknown Venipuncture / Unknown 01/21/2025 11:07 AM EDT 01/21/2025 11:38 AM EDT us Mamadou Lopez NP LAB BLOOD ORDERABLES Final Re sult [facility] [address] [place] [address], [place] [phone] * Thyroid stimulating hormone (01/21/2025 11:07 AM EDT) [facility] TSH 1.31 0.40 - 4.00 mcIU/mL LAB CHEMISTRY METHOD 01/21/2025 2:21 PM EDT [facility] Blood Venous blood specimen / Unknown Venipuncture / Unknown 01/21/2025 11:07 AM EDT 01/21/2025 11:43 AM EDT us Mamadou Lopez NP LAB BLOOD ORDERABLES Final Re sult Performing Organization Address [facility]/ZIP Co de Phone Number [facility] [address] [place] [address], [place] [phone] * (ABNORMAL) Hemoglobin A1c (01/21/2025 11:07 AM EDT) [facility] Hemoglobin A1C 6.9(H) <6.5 % LAB CHEMISTRY METHOD 01/21/2025 2:25 PM EDT [facility] Mean Bld Glu Estim. 151 mg/dL LAB CHEMISTRY METHOD 01/21/2025 2:25 PM EDT [facility] Blood Venous blood specimen / Unknown Venipuncture / Unknown 01/21/2025 11:07 AM EDT 01/21/2025 11:38 AM EDT us Mamadou Lopez FPGA DESIGN ENGINEER LAB BLOOD ORDERABLES Final Re sult [facility] [address] [place] [address], [place] [phone] * Vitamin B12 (01/21/2025 11:07 AM EDT) [facility] Vitamin B-12 534 250 - 900 pcg/mL LAB CHEMISTRY METHOD 01/21/2025 1:28 PM EDT [facility] Blood Venous blood specimen / Unknown Venipuncture / Unknown 01/21/2025 11:07 AM EDT 01/21/2025 11:43 AM EDT us Mamadou Lopez FPGA DESIGN ENGINEER LAB BLOOD ORDERABLES Final Re sult [facility] [address] [place] [address], [place] [phone] * (ABNORMAL) Comprehensive metabolic panel (01/21/2025 11:07 AM EDT) Sodium 138 133 - 145 mmol/L LAB CHEMISTRY METHOD 01/21/2025 1:28 PM [facility] Potassium 4.6 3.5 - 5.5 mmol/L LAB CHEMISTRY METHOD 01/21/2025 1:28 PM [facility] Chloride 102 96 - 110 mmol/L LAB CHEMISTRY METHOD 01/21/2025 1:28 PM [facility] CO2 30 21 - 32 mmol/L LAB CHEMISTRY METHOD 01/21/2025 1:28 PM [facility] Anion Gap 6 3 - 11 LAB CHEMISTRY METHOD 01/21/2025 1:28 PM [facility] Glucose 81 70 - 100 mg/dL LAB CHEMISTRY METHOD 01/21/2025 1:28 PM [facility] BUN 15 5 - 25 mg/dL LAB CHEMISTRY METHOD 01/21/2025 1:28 PM [facility] Creatinine 0.89 0.70 - 1.30 mg/dL LAB CHEMISTRY METHOD 01/21/2025 1:28 PM [facility] eGFR 89 >=60 mL/min/1. 73m2 LAB CHEMISTRY METHOD 01/21/2025 1:28 PM [facility] Comment:Calculation based on the Chronic Kidney Disease Epidemiology Collaboration (CKD-EPI) equation refit without adjustment for race. BUN/Creatinine Ratio 16.9 LAB CHEMISTRY METHOD 01/21/2025 1:28 PM EDT [facility] Calcium 10.1 8.5 - 10.5 mg/dL LAB CHEMISTRY METHOD 01/21/2025 1:28 PM EDT [facility] AST (SGOT) 15 10 - 42 unit/L LAB CHEMISTRY METHOD 01/21/2025 1:28 PM EDT [facility] ALT (SGPT) 9(L) 10 - 60 unit/L LAB CHEMISTRY METHOD 01/21/2025 1:28 PM EDT [facility] Alkaline Phosphatase 147(H) 42 - 121 unit/L LAB CHEMISTRY METHOD 01/21/2025 1:28 PM EDT [facility] Total Protein 7.1 6.0 - 8.0 g/dL LAB CHEMISTRY METHOD 01/21/2025 1:28 PM EDT [facility] Albumin 4.1 3.2 - 5.0 g/dL LAB CHEMISTRY METHOD 01/21/2025 1:28 PM T [facility] Total Bilirubin 0.7 0.0 - 1.4 mg/dL LAB CHEMISTRY METHOD 01/21/2025 1:28 PM EDT [facility] Blood Venous blood specimen / Unknown Venipuncture / Unknown 01/21/2025 11:07 AM EDT 01/21/2025 11:43 AM EDT us Mamadou Lopez FPGA DESIGN ENGINEER LAB BLOOD ORDERABLES Final Re sult [facility] [address] [place] [address], * XR Hip 2-3 Views Left (01/21/2025 10:53 AM EDT) Anatomical Region Laterality Modality Lower Extremities, Hip Left Radiograp hic Imaging 01/21/2025 10:5 8 AM EDT Impressions 01/21/2025 10:59 AM EDT No acute findings. There is evidence of calcific tendinitis of the hips bilaterally. Code 92912 -------- FINAL REPORT -------- Dictated By: Presley Huggins Dictated Date: 01/21/2025 10:58 ET Assigned Physician: Presley Huggins Reviewed and Electronically Signed By: Presley Huggins Signed Date: 01/21/2025 10:59 ET Workstation ID: [id number] Transcribed By: Self Edit Transcribed Date: 01/21/2025 [...] of calcific tendinitis of the hipsbilaterally. Code 43816 -------- FINAL REPORT -------- Dictated By: Presley Huggins Dictated Date: 01/21/2025 10:58 ET Assigned Physician: Presley Huggins Reviewed and Electronically Signed By: Presley Huggins Signed Date: 01/21/2025 10:59 ET Workstation ID: [id number] Transcribed By: Self Edit Transcribed Date: 01/21/2025 10:58 ET us Mamadou Lopez FPGA DESIGN ENGINEER IMG XR PROCEDURES Final Resul t * XR Lumbar Spine 4+ Views (01/21/2025 10:53 AM EDT) Anatomical Region Laterality Modality Spine, L-spine Radiographic Gianna ging 01/21/2025 10:5 9 AM EDT Impressions 01/21/2025 11:01 AM EDT No acute findings. There is degenerative disc disease at the T12-L1 and L4-5 levels. Code 70788 -------- FINAL REPORT -------- Dictated By: Presley Huggins Dictated Date: 01/21/2025 10:59 ET Assigned Physician: Presley Huggins Reviewed and Electronically Signed By: Presley Huggins Signed Date: 01/21/2025 11:01 ET Workstation ID: [id number] Transcribed By: Self Edit Transcribed Date: 01/21/2025 [...] disease at the T12-L1 andL4-5 levels. Code 85536 -------- FINAL REPORT -------- Dictated By: Presley Huggins Dictated Date: 01/21/2025 10:59 ET Assigned Physician: Presley Huggins Reviewed and Electronically Signed By: Presley Huggins Signed Date: 01/21/2025 11:01 ET Workstation ID: [id number] Transcribed By: Self Edit Transcribed Date: 01/21/2025 10:59 ET us Mamadou Lopez FPGA DESIGN ENGINEER IMG XR PROCEDURES Final Resul t * [...] Signed Date: 01/05/2025 09:13 ET Workstation ID: [id number] Transcribed By: Self Edit Transcribed Date: 01/05/2025 [...] Signed Date: 01/05/2025 09:13 ET Workstation ID: [id number] Transcribed By: Self Edit Transcribed Date: 01/05/2025 09:11 ET Mamadou Lopez NP IMG MRI PROCEDURES Final Resu lt * COLONOSCOPY Anesthesia - MAC; SP ENDOSCOPY (07/31/2024 11:01 AM EST) Anatomical Region [...] for surveillance. Narrative 07/31/2024 11:02 AM EST [facility] GI Patient Name: Giorgio Garcia Procedure [...] retroflexion views. Procedure Code(s): --- Professional --- 33580, Colonoscopy, flexible; with removal of tumor(s), polyp(s), or other lesion(s) by snare technique Diagnosis Code(s): --- Professional --- Z86.010, Personal history of colonic polyps D12.3, Benign neoplasm of transverse colon (hepatic flexure or splenic flexure) D12.2, Benign neoplasm of ascending colon K57.30, Diverticulosis of large intestine without perforation or abscess without bleeding CPT copyright 2020 [employer]. All rights reserved. The codes documented in this report are preliminary and upon suspender cutter review may be revised to meet current compliance requirements. MD Lucien Davidson MD 07/31/2024 11:02:38 AM This report has been signed electronically.Lucien Villa MD Number of Addenda: 0 Note Initiated On: 07/31/2024 10:40 AM Scope In: Scope Out: Endoscopy Department at [facility] - [address] [place] [phone] Procedure Note Lucien Villa MD - 07/31/2024 [facility] GI Patient Name: Giorgio Garcia Procedure [...] retroflexion views. Procedure Code(s): --- Professional --- 15065, Colonoscopy, flexible; with removal of tumor(s), polyp(s), or other lesion(s) by snare technique Diagnosis Code(s): --- Professional --- Z86.010, Personal history of colonic polyps D12.3, Benign neoplasm of transverse colon (hepatic flexure or splenic flexure) D12.2, Benign neoplasm of ascending colon K57.30, Diverticulosis of large intestine without perforation or abscess without bleeding CPT copyright 2020 [employer]. All rights reserved. The codes documented in this report are preliminary and upon suspender cutter reviewmay be revised to meet current compliance requirements. MD Lucien Davidson MD 07/31/2024 11:02:38 AM This report has been signed electronically.Lucien Villa MD Number of Addenda: 0 Note Initiated On: 07/31/2024 10:40 AM Scope In: Scope Out: Endoscopy Department at [facility] - [address] [place] [phone] IMPRESSION: - Five 3 to 7 mm [...] LAB CHEMISTRY METHOD 07/16/2024 12:02 PM EST [facility] Triglycerides 123 0 - 150 mg/dL LAB CHEMISTRY METHOD 07/16/2024 12:02 PM [facility] HDL 46 >=40 mg/dL LAB CHEMISTRY METHOD 07/16/2024 12:02 PM [facility] LDL Calculated 87 0 - 100 mg/dL LAB CHEMISTRY METHOD 07/16/2024 12:02 PM [facility] VLDL Cholesterol Bob 24.6 mg/dL LAB CHEMISTRY METHOD 07/16/2024 12:02 PM [facility] Non HDL Chol. (LDL+VLDL) 112 <145 mg/dL LAB CHEMISTRY METHOD 07/16/2024 12:02 PM [facility] Chol/HDL Ratio 3.4 0.0 - 4.4 LAB CHEMISTRY METHOD 07/16/2024 12:02 PM [facility] Blood Venous blood specimen / Unknown Venipuncture / Unknown 07/16/2024 10:08 AM EST 07/16/2024 11:17 AM EST us Mamadou Lopez FPGA DESIGN ENGINEER LAB BLOOD ORDERABLES Final Re sult [facility] [address] [place] [address], from Last 3 Months or Most Recently Relevant to Health Maintenance Insurance [facility] MEDICARE Member Subscriber Plan / Payer (Ef fective 2015-Present) Name:Giorgio Ennis Relation to Subscriber:Self Name:Giorgio Garcia Payer ID:[id number] Group ID:[id number] Type:Not on file Address: [address] [facility] [place] [id number] Advance Directives Documents on File Type Date Recorded Patient Accounts Receivable Specialist Expl anation Health Care Decision (hx) 11/08/2018 AD KING DIRECTIVE Health Care Decision (hx) 11/08/2018 AD KING DIRECTIVE Health Care Decision (hx) 11/08/2018 AD KING DIRECTIVE Health Care Decision (hx) 11/08/2018 AD KING DIRECTIVE Care Teams Parachute Rigger Relationship Specialty Start Date End Date Juliano Pelletier MD [address] [place] [address] PCP - General Internal Medicine 09/13/18
--- OUTSIDE RECORDS SUMMARY | 2025-03-25 09:38 | XMS_ITS | Patient Health Record ---
Author Organization [facility] [address] Address [address] [place] [address] Care Team Providers Care Home Decorator Name Role Phone ALETHA RUFFIN Unavailable [phone] Allergies No Known Allergies Results Component Value Reference Range Notes XR HIP 2-3 VIEWS LEFT Reviewed date:01/21/2025 11:23:20 AM Interpretation: Performing Lab: Notes/Report: Note See Note [facility], a member of [employer] Patient Name: LICHA MELGAR Date of : 1950 Reason for Exam: pain Exam Date: 01/21/2025 [id number] EST Report Status: Final Ordering Provider: ALETHA [...] calcific tendinitis of the hips bilaterally. Code 66970 -------- FINAL REPOR T -------- Dictated By: Presley Huggins Dictated Date: 01/21/2025 10:58 ET Assigned Physician: Presley Huggins Reviewed and Electronically Signed By: Presley Huggins Signed Date: 10:59 ET Workstation ID: [id number] Transcribed By: Self Edit Transcribed Date: 01/21/2025 10:58 ET URINALYSIS WITH REFLEX MICRO SCOPIC Reviewed date:01/21/2025 01:11:41 PM Interpretation: Performing Lab: Notes/Report: Specific Bath Urine 1.020 1.003-1.030 pH, Urine 7.0 5.0-8.0 pH Leukocytes, Urine Negative Negative Nitrite, Urine Negative Negative Protein, Urine Negative <=Trace mg/dL Glucose, Urine Negative Negative mg/dL Ketones, Urine Trace Negative mg/dL Urobilinogen, Urine 1.0 0.2-1.0 mg/dL Bilirubin, Urine Negative Negative Blood, Urine Negative Negative VITAMIN B12 Reviewed date:01/21/2025 01:40:08 PM Interpretation: Performing Lab: Notes/Report: Vitamin B-12 534 250-900 pcg/mL COMPREHENSIVE METABOLIC PANE L Reviewed date:01/21/2025 01:40:08 [...] 3.2-5.0 g/dL Total Bilirubin 0.7 0.0-1.4 mg/dL XR LUMBAR SPINE 4+ VIEWS Reviewed date:01/21/2025 11:23:11 AM Interpretation: Performing Lab: Notes/Report: Note See Note [facility], a member of [employer] Patient Name: LICHA MELGAR Date of : 1950 Reason for Exam: pain Exam Date: 01/21/2025 [id number] EST Report Status: Final Ordering Provider: ALETHA [...] at the T12-L1 and L4-5 levels. Code 23587 -------- FINAL REPOR T -------- Dictated By: Presley Huggins Dictated Date: 01/21/2025 10:59 ET Assigned Physician: Presley Huggins Reviewed and Electronically Signed By: Presley Huggins Signed Date: 025 11:01 ET Workstation ID: [id number] Transcribed By: Self Edit Transcribed Date: 01/21/2025 [...] K/mcL Immature Granulocytes Absolute 0.01 0.00-0.03 K/mcL CT CERVICAL SPINE WO CONTRAS T Reviewed date:03/03/2025 03:27:17 PM Interpretation: Performing Lab: Notes/Report: Note See Note [facility], a member of [employer] Patient Name: LICHA MELGAR Date of : 1950 Reason for Exam: CERVICAL PAIN Exam Date: 02/23/2025 [id number] EST Report Status: Final Ordering Provider: ALETHA [...] No mass demonstrated Acute infarct: No ac [place] infarct demonstrated. White matter disease : [...] Electronically Signed By: Silverio Lezama Signed Date: 025 11:56 ET Workstation ID: [id number] Transcribed By: Self Edit Transcribed Date: 02/27/2025 06:[address] HEAD WO CONTRAST Reviewed date:02/27/2025 03:09:18 PM Interpretation: Performing Lab: Notes/Report: Note See Note [facility], a member of [employer] Patient Name: LICHA MELGAR Date of : 1950 Reason for Exam: CLOSED HEAD INJURY Exam Date: 02/23/2025 [id number] EST Report Status: Final Ordering Provider: ALETHA [...] No mass demonstrated Acute infarct: No ac [place] infarct demonstrated. White matter disease : [...] Silverio Lezama Reviewed and Electronically Signed By: Silveiro Lezama Signed Date: 025 11:56 ET Workstation ID: [id number] Transcribed By: Self Edit Transcribed Date: 02/27/2025 06:56 ET MR BRAIN WO CONTRAST Reviewed date:01/05/2025 09:30:12 AM Interpretation: Performing Lab: Notes/Report: Note See Note [facility], a member of [employer] Patient Name: LICHA MELGAR Date of : 1950 Reason for Exam: dz Exam Date: 01/05/2025 [id number] EST Report Status: Final Ordering Provider: ALETHA [...] Electronically Signed By: Wilmer Brewer Signed Date: 025 09:13 ET Workstation ID: [id number] Transcribed By: Self Edit Transcribed Date: 01/05/2025 09:11 ET TISSUE EXAM Reviewed date:09/01/2024 09:46:59 AM Interpretation: [...] 10% NB formalin fixed and paraffin embedded. CR Knee LT 4 or more View Reviewed date:04/24/2024 03:43:56 PM Interpretation: Performing Lab: Notes/Report: Original Ordering Provider: ALETHA RUFFIN NP [facility] HEMOGLOBIN A1C Reviewed date:01/21/2025 02:55:36 PM Interpretation: Performing Lab: Notes/Report: Hemoglobin A1C 6.9 <6.5 % Mean Bld Glu Estim. 151 THYROID STIMULATING HORMONE Reviewed date:01/21/2025 02:26:54 PM Interpretation: Performing Lab: Notes/Report: TSH 1.31 0.40-4.00 mcIU/mL URINALYSIS WITH REFLEX MICRO SCOPIC Reviewed date:07/16/2024 12:02:27 PM Interpretation: Performing Lab: Notes/Report: Specific Bath Urine 1.015 1.003-1.030 pH, Urine 7.5 5.0-8.0 pH Leukocytes, Urine Negative Negative Nitrite, Urine Negative Negative Protein, Urine Negative <=Trace mg/dL Glucose, Urine Negative Negative mg/dL Ketones, Urine Negative Negative mg/dL Urobilinogen, Urine 1.0 0.2-1.0 mg/dL Bilirubin, Urine Negative Negative Blood, Urine Negative Negative HEMOGLOBIN A1C Reviewed date:07/17/2024 08:00:29 AM Interpretation: [...] 3.2-5.0 g/dL Total Bilirubin 0.5 0.0-1.4 mg/dL THYROID STIMULATING HORMONE Reviewed date:07/16/2024 05:01:43 PM [...] 112 <145 mg/dL Chol/HDL Ratio 3.4 0.0-4.4 CBC WITH AUTO DIFFERENTIAL Reviewed date:07/16/2024 12:02:27 [...] K/mcL Immature Granulocytes Absolute 0.02 0.00-0.03 K/mcL Reason For Referral Reason [facility] Diagnosis 1 Acute pain of left k nee (M25.562) Referral Organization [facility] [address] Referring Provider First Name ALETHA Referring Provider Last Name CARLOSALBAN Referring Provider Speciality Internal M edicine Referred Provider Specialty Orthopedic S urgery General Notes Rubi Carrillo 04/24/2024 04:03:44 PM > Referral with form and attachment faxed, pt given info to call and schedule visit. 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) Type 2 diabetes mellitus with unspecified complications (E11.8) Active confirmed Problem Vitamin D deficiency (19067377) Vitamin D deficiency, unspecified (E55.9) Active confirmed Problem Mixed hyperlipidemia (922588966) Mixed hyperlipidemia (E78.2) Active confirmed Problem Hyperlipidemia (32928006) Hyperlipidemia, unspecified (E78.5) Active confirmed Problem Major depression, single episode (78525285) Major depressive disorder, single episode, unspecified (F32.9) Active confirmed Problem Chronic pain (81641843) Other chronic pain (G89.29) Active confirmed Problem Essential hypertension (87015012) Essential (primary) hypertension (I10) Active confirmed Problem Adult health examination (935761956) Encounter for general adult medical examination without abnormal findings (Z00.00) Active confirmed Problem Lipid screening (715332394) Encounter for screening for lipoid disorders (Z13.220) Active confirmed Problem Acute pain of left knee (M25.562) Active confirmed Problem Hypothyroidism (88116290) Hypothyroidism, unspecified type (E03.9) Active confirmed Problem Depression Screening (340377908) Encounter for screening for depression (Z13.31) Active confirmed Problem Prediabetes (925212394) Pre-diabetes (R73.03) Active confirmed Problem Annual health maintenance examination (91116101) Encounter for annual health examination (Z00.00) Active confirmed Problem Ataxia (61678903) Ataxia (R27.0) Active confirm ed Problem Parkinsons disease (36723349) Parkinsons disease (G20) Active confirmed Problem Cervical pain (08331758) Cervical pain (M54.2) Active confirmed Problem Recurrent falls (968252974) Recurrent falls (R29.6) Active confirmed Problem Vitamin B>12< deficiency anaemia (89697232) Anemia due to vitamin B12 deficiency, unspecified B12 deficiency type (D51.9) Active confirmed Problem Endocrine/metabol ic screening (460019259) Encounter for screening for endocrine disorder (Z13.29) Active confirmed Problem Abnormal metabolic state due to diabetes mellitus (099398712) Abnormal metabolic state due to diabetes mellitus (E11.9) Active confirmed Problem Calcific tendinitis (06023245) Calcific tendinitis (M65.20) Active confirmed Problem Parkinson's disease (disorder) (20786945) Parkinson disease, symptomatic (G20.A1) Active confirmed Vital Signs Heart Rate 74 /min 03/03/2025 Oximetry 98 % 03/03/2025 Blood pressure diastolic 76 mm Hg 03/03/2025 Height 66 in 03/03/2025 Blood pressure systolic 124 mm Hg 03/03/2025 Weight 176.8 lbs 03/03/2025 BMI 28.53 kg/m2 03/03/2025 Encounters Encounter Location Date Provider Diagnosis [facility] [address] [place] [address] 04/24/2024 ALETHA RUFFIN Annual physical exam Z00.00 ; Encounter for screening for other disorder Z13.89 ; Encounter for screening for depression Z13.31 ; Type 2 diabetes mellitus with unspecified complications E11.8 ; Essential (primary) hypertension I10 ; Hyperlipidemia, unspecified E78.5 ; Other chronic pain G89.29 ; Parkinson disease, symptomatic G20.A1 and Acute pain of left knee M25.562 [facility] [address] [address] 07/23/2024 ALETHA RUFFIN Type 2 diabetes danish itus with unspecified complications E11.8 ; Essential (primary) hypertension I10 ; Hyperlipidemia, unspecified E78.5 ; Other chronic pain G89.29 ; Parkinson disease, symptomatic G20.A1 and Acute pain of left knee M25.562 [facility] [address] [address] 10/16/2024 ALETHA RUFFIN Type 2 diabetes danish itus with unspecified complications E11.8 ; Essential (primary) hypertension I10 ; Hyperlipidemia, unspecified E78.5 ; Other chronic pain G89.29 ; Parkinson disease, symptomatic G20.A1 and Acute pain of left knee M25.562 [facility] [address] 12/29/2024 ALETHA RUFFIN Dizziness R42 and At axia R27.0 [facility] [address] [address] 01/21/2025 ALETHA RUFFIN Closed head injury, initial encounter S09.90XA ; Cervical pain M54.2 ; Lumbar pain M54.50 ; Left hip pain M25.552 ; Anemia due to vitamin B12 deficiency, unspecified B12 deficiency type D51.9 and Encounter for examination of blood pressure without abnormal findings Z01.30 [facility] [address] 03/03/2025 ALETHA RUFFIN Type 2 diabetes danish itus with unspecified complications E11.8 ; Essential (primary) hypertension I10 ; Parkinson disease, symptomatic G20.A1 ; Cervical lymphadenopathy R59.0 ; Hyperlipidemia, unspecified E78.5 ; Other chronic pain G89.29 ; Dizziness R42 and Recurrent falls R29.6 [facility] [address] [address] 04/24/2024 ALETHA RUFFIN [facility] [address] [address] 04/24/2024 ALETHA RUFFIN Encounter for annual health examination Z00.00 ; Vitamin D deficiency, unspecified E55.9 ; Encounter for screening for depression Z13.31 ; Encounter for screening for lipoid disorders Z13.220 ; Abnormal metabolic state due to diabetes mellitus E11.9 and Encounter for screening for endocrine disorder Z13.29 [facility] [address] [address] 09/01/2024 ALETHA RUFFIN [facility] [address] [address] 10/16/2024 ALETHA RUFFIN [facility] [address] [place] [address] 11/28/2024 ALETHA RUFFIN Type 2 diabetes danish itus with unspecified complications E11.8 [facility] [address] [address] 12/26/2024 ALETHA RUFFIN [facility] [address] [place] [address] 01/06/2025 ALETHA RUFFIN [facility] [address] [place] [address] 03/04/2025 ALETHA RUFFIN [facility] [address] [place] [address] 03/09/2025 ALETHA RUFFIN Assessments Encounter Date Diagnosis (ICD [...] software and direct typing Please excuse inadvertent blood bank order control clerk or typing errors, or uncorrected word substitutions Although every attempt has been made by the provider to proofread this document, occasional misspellings and typographical errors may still be present Due to the previous pandemic, and the use of personal protective equipment (PPE) This may decrease voice recognition accuracy Inadvertent blood bank order control clerk errors may occur 04/24/2024 Annual physical exam [...] software and direct typing Please excuse inadvertent blood bank order control clerk or typing errors, or uncorrected word substitutions Although every attempt has been made by the provider to proofread this document, occasional misspellings and typographical errors may still be present Due to the previous pandemic, and the use of personal protective equipment (PPE) This may decrease voice recognition accuracy Inadvertent blood bank order control clerk errors may occur 04/24/2024 Encounter for annual [...] software and direct typing Please excuse inadvertent blood bank order control clerk or typing errors, or uncorrected word substitutions Although every attempt has been made by the provider to proofread this document, occasional misspellings and typographical errors may still be present Due to the previous pandemic, and the use of personal protective equipment (PPE) This may decrease voice recognition accuracy Inadvertent blood bank order control clerk errors may occur 10/16/2024 Type 2 diabetes [...] software and direct typing Please excuse inadvertent blood bank order control clerk or typing errors, or uncorrected word substitutions Although every attempt has been made by the provider to proofread this document, occasional misspellings and typographical errors may still be present Due to the previous pandemic, and the use of personal protective equipment (PPE) This may decrease voice recognition accuracy Inadvertent blood bank order control clerk errors may occur 11/28/2024 Type 2 diabetes [...] software and direct typing Please excuse inadvertent blood bank order control clerk or typing errors, or uncorrected word substitutions Although every attempt has been made by the provider to proofread this document, occasional misspellings and typographical errors may still be present Due to the previous pandemic, and the use of personal protective equipment (PPE) This may decrease voice recognition accuracy Inadvertent blood bank order control clerk errors may occur 01/21/2025 Cervical pain (ICD-10 [...] software and direct typing Please excuse inadvertent blood bank order control clerk or typing errors, or uncorrected word substitutions Although every attempt has been made by the provider to proofread this document, occasional misspellings and typographical errors may still be present Due to the previous pandemic, and the use of personal protective equipment (PPE) This may decrease voice recognition accuracy Inadvertent blood bank order control clerk errors may occur 01/21/2025 Closed head injury, [...] software and direct typing Please excuse inadvertent blood bank order control clerk or typing errors, or uncorrected word substitutions Although every attempt has been made by the provider to proofread this document, occasional misspellings and typographical errors may still be present Due to the previous pandemic, and the use of personal protective equipment (PPE) This may decrease voice recognition accuracy Inadvertent blood bank order control clerk errors may occur 03/03/2025 Type 2 diabetes [...] software and direct typing Please excuse inadvertent blood bank order control clerk or typing errors, or uncorrected word substitutions Although every attempt has been made by the provider to proofread this document, occasional misspellings and typographical errors may still be present Due to the previous pandemic, and the use of personal protective equipment (PPE) This may decrease voice recognition accuracy Inadvertent blood bank order control clerk errors may occur 03/03/2025 Essential (primary) hypertension [...] software and direct typing Please excuse inadvertent blood bank order control clerk or typing errors, or uncorrected word substitutions Although every attempt has been made by the provider to proofread this document, occasional misspellings and typographical errors may still be present Due to the previous pandemic, and the use of personal protective equipment (PPE) This may decrease voice recognition accuracy Inadvertent blood bank order control clerk errors may occur 03/03/2025 Parkinson disease, symptomatic [...] software and direct typing Please excuse inadvertent blood bank order control clerk or typing errors, or uncorrected word substitutions Although every attempt has been made by the provider to proofread this document, occasional misspellings and typographical errors may still be present Due to the previous pandemic, and the use of personal protective equipment (PPE) This may decrease voice recognition accuracy Inadvertent blood bank order control clerk errors may occur 01/21/2025 Lumbar pain (ICD-10 [...] software and direct typing Please excuse inadvertent blood bank order control clerk or typing errors, or uncorrected word substitutions Although every attempt has been made by the provider to proofread this document, occasional misspellings and typographical errors may still be present Due to the previous pandemic, and the use of personal protective equipment (PPE) This may decrease voice recognition accuracy Inadvertent blood bank order control clerk errors may occur 12/29/2024 Ataxia (ICD-10 - [...] software and direct typing Please excuse inadvertent blood bank order control clerk or typing errors, or uncorrected word substitutions Although every attempt has been made by the provider to proofread this document, occasional misspellings and typographical errors may still be present Due to the previous pandemic, and the use of personal protective equipment (PPE) This may decrease voice recognition accuracy Inadvertent blood bank order control clerk errors may occur 10/16/2024 Essential (primary) hypertension [...] software and direct typing Please excuse inadvertent blood bank order control clerk or typing errors, or uncorrected word substitutions Although every attempt has been made by the provider to proofread this document, occasional misspellings and typographical errors may still be present Due to the previous pandemic, and the use of personal protective equipment (PPE) This may decrease voice recognition accuracy Inadvertent blood bank order control clerk errors may occur 07/23/2024 Essential (primary) hypertension [...] software and direct typing Please excuse inadvertent blood bank order control clerk or typing errors, or uncorrected word substitutions Although every attempt has been made by the provider to proofread this document, occasional misspellings and typographical errors may still be present Due to the previous pandemic, and the use of personal protective equipment (PPE) This may decrease voice recognition accuracy Inadvertent blood bank order control clerk errors may occur 04/24/2024 Vitamin D deficiency, [...] software and direct typing Please excuse inadvertent blood bank order control clerk or typing errors, or uncorrected word substitutions Although every attempt has been made by the provider to proofread this document, occasional misspellings and typographical errors may still be present Due to the previous pandemic, and the use of personal protective equipment (PPE) This may decrease voice recognition accuracy Inadvertent blood bank order control clerk errors may occur 04/24/2024 Type 2 diabetes [...] software and direct typing Please excuse inadvertent blood bank order control clerk or typing errors, or uncorrected word substitutions Although every attempt has been made by the provider to proofread this document, occasional misspellings and typographical errors may still be present Due to the previous pandemic, and the use of personal protective equipment (PPE) This may decrease voice recognition accuracy Inadvertent blood bank order control clerk errors may occur 07/23/2024 Hyperlipidemia, unspecified (ICD-10 [...] software and direct typing Please excuse inadvertent blood bank order control clerk or typing errors, or uncorrected word substitutions Although every attempt has been made by the provider to proofread this document, occasional misspellings and typographical errors may still be present Due to the previous pandemic, and the use of personal protective equipment (PPE) This may decrease voice recognition accuracy Inadvertent blood bank order control clerk errors may occur 04/24/2024 Encounter for screening [...] software and direct typing Please excuse inadvertent blood bank order control clerk or typing errors, or uncorrected word substitutions Although every attempt has been made by the provider to proofread this document, occasional misspellings and typographical errors may still be present Due to the previous pandemic, and the use of personal protective equipment (PPE) This may decrease voice recognition accuracy Inadvertent blood bank order control clerk errors may occur 03/03/2025 Cervical lymphadenopathy (ICD-10 [...] software and direct typing Please excuse inadvertent blood bank order control clerk or typing errors, or uncorrected word substitutions Although every attempt has been made by the provider to proofread this document, occasional misspellings and typographical errors may still be present Due to the previous pandemic, and the use of personal protective equipment (PPE) This may decrease voice recognition accuracy Inadvertent blood bank order control clerk errors may occur 01/21/2025 Left hip pain [...] software and direct typing Please excuse inadvertent blood bank order control clerk or typing errors, or uncorrected word substitutions Although every attempt has been made by the provider to proofread this document, occasional misspellings and typographical errors may still be present Due to the previous pandemic, and the use of personal protective equipment (PPE) This may decrease voice recognition accuracy Inadvertent blood bank order control clerk errors may occur 10/16/2024 Other chronic pain [...] software and direct typing Please excuse inadvertent blood bank order control clerk or typing errors, or uncorrected word substitutions Although every attempt has been made by the provider to proofread this document, occasional misspellings and typographical errors may still be present Due to the previous pandemic, and the use of personal protective equipment (PPE) This may decrease voice recognition accuracy Inadvertent blood bank order control clerk errors may occur 03/03/2025 Hyperlipidemia, unspecified (ICD-10 [...] software and direct typing Please excuse inadvertent blood bank order control clerk or typing errors, or uncorrected word substitutions Although every attempt has been made by the provider to proofread this document, occasional misspellings and typographical errors may still be present Due to the previous pandemic, and the use of personal protective equipment (PPE) This may decrease voice recognition accuracy Inadvertent blood bank order control clerk errors may occur 01/21/2025 Anemia due to [...] software and direct typing Please excuse inadvertent blood bank order control clerk or typing errors, or uncorrected word substitutions Although every attempt has been made by the provider to proofread this document, occasional misspellings and typographical errors may still be present Due to the previous pandemic, and the use of personal protective equipment (PPE) This may decrease voice recognition accuracy Inadvertent blood bank order control clerk errors may occur 07/23/2024 Other chronic pain [...] software and direct typing Please excuse inadvertent blood bank order control clerk or typing errors, or uncorrected word substitutions Although every attempt has been made by the provider to proofread this document, occasional misspellings and typographical errors may still be present Due to the previous pandemic, and the use of personal protective equipment (PPE) This may decrease voice recognition accuracy Inadvertent blood bank order control clerk errors may occur 04/24/2024 Essential (primary) hypertension [...] software and direct typing Please excuse inadvertent blood bank order control clerk or typing errors, or uncorrected word substitutions Although every attempt has been made by the provider to proofread this document, occasional misspellings and typographical errors may still be present Due to the previous pandemic, and the use of personal protective equipment (PPE) This may decrease voice recognition accuracy Inadvertent blood bank order control clerk errors may occur 04/24/2024 Encounter for screening [...] software and direct typing Please excuse inadvertent blood bank order control clerk or typing errors, or uncorrected word substitutions Although every attempt has been made by the provider to proofread this document, occasional misspellings and typographical errors may still be present Due to the previous pandemic, and the use of personal protective equipment (PPE) This may decrease voice recognition accuracy Inadvertent blood bank order control clerk errors may occur 04/24/2024 Abnormal metabolic state [...] software and direct typing Please excuse inadvertent blood bank order control clerk or typing errors, or uncorrected word substitutions Although every attempt has been made by the provider to proofread this document, occasional misspellings and typographical errors may still be present Due to the previous pandemic, and the use of personal protective equipment (PPE) This may decrease voice recognition accuracy Inadvertent blood bank order control clerk errors may occur 10/16/2024 Parkinson disease, symptomatic [...] software and direct typing Please excuse inadvertent blood bank order control clerk or typing errors, or uncorrected word substitutions Although every attempt has been made by the provider to proofread this document, occasional misspellings and typographical errors may still be present Due to the previous pandemic, and the use of personal protective equipment (PPE) This may decrease voice recognition accuracy Inadvertent blood bank order control clerk errors may occur 03/03/2025 Other chronic pain [...] software and direct typing Please excuse inadvertent blood bank order control clerk or typing errors, or uncorrected word substitutions Although every attempt has been made by the provider to proofread this document, occasional misspellings and typographical errors may still be present Due to the previous pandemic, and the use of personal protective equipment (PPE) This may decrease voice recognition accuracy Inadvertent blood bank order control clerk errors may occur 01/21/2025 Encounter for examination [...] software and direct typing Please excuse inadvertent blood bank order control clerk or typing errors, or uncorrected word substitutions Although every attempt has been made by the provider to proofread this document, occasional misspellings and typographical errors may still be present Due to the previous pandemic, and the use of personal protective equipment (PPE) This may decrease voice recognition accuracy Inadvertent blood bank order control clerk errors may occur 10/16/2024 Acute pain of [...] software and direct typing Please excuse inadvertent blood bank order control clerk or typing errors, or uncorrected word substitutions Although every attempt has been made by the provider to proofread this document, occasional misspellings and typographical errors may still be present Due to the previous pandemic, and the use of personal protective equipment (PPE) This may decrease voice recognition accuracy Inadvertent blood bank order control clerk errors may occur 04/24/2024 Encounter for screening [...] software and direct typing Please excuse inadvertent blood bank order control clerk or typing errors, or uncorrected word substitutions Although every attempt has been made by the provider to proofread this document, occasional misspellings and typographical errors may still be present Due to the previous pandemic, and the use of personal protective equipment (PPE) This may decrease voice recognition accuracy Inadvertent blood bank order control clerk errors may occur 04/24/2024 Other chronic pain [...] software and direct typing Please excuse inadvertent blood bank order control clerk or typing errors, or uncorrected word substitutions Although every attempt has been made by the provider to proofread this document, occasional misspellings and typographical errors may still be present Due to the previous pandemic, and the use of personal protective equipment (PPE) This may decrease voice recognition accuracy Inadvertent blood bank order control clerk errors may occur 03/03/2025 Dizziness (ICD-10 - [...] software and direct typing Please excuse inadvertent blood bank order control clerk or typing errors, or uncorrected word substitutions Although every attempt has been made by the provider to proofread this document, occasional misspellings and typographical errors may still be present Due to the previous pandemic, and the use of personal protective equipment (PPE) This may decrease voice recognition accuracy Inadvertent blood bank order control clerk errors may occur 03/03/2025 Recurrent falls (ICD-10 [...] software and direct typing Please excuse inadvertent blood bank order control clerk or typing errors, or uncorrected word substitutions Although every attempt has been made by the provider to proofread this document, occasional misspellings and typographical errors may still be present Due to the previous pandemic, and the use of personal protective equipment (PPE) This may decrease voice recognition accuracy Inadvertent blood bank order control clerk errors may occur 04/24/2024 Parkinson disease, symptomatic [...] software and direct typing Please excuse inadvertent blood bank order control clerk or typing errors, or uncorrected word substitutions Although every attempt has been made by the provider to proofread this document, occasional misspellings and typographical errors may still be present Due to the previous pandemic, and the use of personal protective equipment (PPE) This may decrease voice recognition accuracy Inadvertent blood bank order control clerk errors may occur 04/24/2024 Acute pain of [...] software and direct typing Please excuse inadvertent blood bank order control clerk or typing errors, or uncorrected word substitutions Although every attempt has been made by the provider to proofread this document, occasional misspellings and typographical errors may still be present Due to the previous pandemic, and the use of personal protective equipment (PPE) This may decrease voice recognition accuracy Inadvertent blood bank order control clerk errors may occur Plan Of Treatment Pending Test Test Name Order Date X ray : Knee, left 04/24/2024 X ray : Hip, left 01/21/2025 X ray : Spines, lumbar 2 views Hemoglobin A1c 01/15/2019 Hemoglobin A1c 05/19/2019 Hemoglobin A1c 03/12/2020 Lipid Panel 03/12/2020 Lipid Panel 05/19/2019 Lipid Panel 01/15/2019 Comp. Metabolic Panel (14) 01/15/2019 Comp. Metabolic Panel (14) 05/19/2019 Comp. Metabolic Panel (14) 03/12/2020 CBC 03/12/2020 CBC 05/19/2019 CBC 01/15/2019 Urinalysis 03/12/2020 MRI : Brain without Contrast 12/29/2024 25OH VITAMIN D 10/12/2022 CBC (COMPLETE BLOOD COUNT) 10/12/2022 CBC (COMPLETE BLOOD COUNT) 05/13/2018 COMPREHENSIVE METABOLIC PANEL 05/13/2018 COMPREHENSIVE METABOLIC PANEL 10/12/2022 HEMOGLOBIN A1C 10/17/2021 HEMOGLOBIN A1C 02/13/2022 HEMOGLOBIN A1C 06/14/2022 HEMOGLOBIN A1C 10/12/2022 HEMOGLOBIN A1C 05/13/2018 HEMOGLOBIN A1C 01/09/2018 LIPID PANEL 05/13/2018 LIPID PANEL 09/11/2018 LIPID PANEL 10/12/2022 LIPID PANEL 01/09/2018 MICROALBUMIN, URINE 10/12/2022 TB CELLULAR BLOOD TEST (TSPOT) 9 TSH 10/12/2022 URINALYSIS, COMPLETE 05/13/2018 CT Neck Soft Tissue w and w/o Contrast 0 03/03/2025 UC XR L-Spine 2-3 Views 11/01/2020 XR Hip 2+ Views RT 06/18/2023 VITAMIN B12 01/21/2025 LIPID PANEL, STANDARD 04/24/2024 COMPREHENSIVE METABOLIC PANEL 01/21/2025 COMPREHENSIVE METABOLIC PANEL 04/24/2024 CBC (INCLUDES DIFF/PLT) 04/24/2024 CBC (INCLUDES DIFF/PLT) 01/21/2025 URINALYSIS, COMPLETE 01/21/2025 URINALYSIS, COMPLETE 04/24/2024 HEMOGLOBIN A1c 04/24/2024 HEMOGLOBIN A1c 01/21/2025 TSH [...] URINALYSIS 10/17/2021 Next Appt Details Provider Name:ALETHA HARTSabas, 04/27/2025 10:30:00 AM, [address] [facility], [facility] [address], [place], [address], Insurance Providers Payer Name Payer Address Payer Phone Subscriber Number Group Number Insured Name Patient Relationship to Insured Coverage Start Date Coverage End Date [employer]rid[employer] or Options [address] TIFFANY SHETH [facility] [id number] LICHA MELGAR Self - patient is the insured Medical (General) History Medical History History ICD Code hyperlipidemia hypertension vitamin D deficiency diabetes mellitus Surgical History Surgery Date(Month/Year) low back
== END 2025-03-25 09:35 | disposition home or self-care (01) ==
LOC: HO.HKAS 08:35
PROVIDERS: Referring Provider Nurse Practitioner Family; Visit Provider Internal Medicine Hypertension Specialist
DX: I10 Essential (primary) hypertension (principal)
CPT/HCPCS: 99204

== ENCOUNTER → 2025-03-25 08:35 | Outpatient (BNVA) | payer OTHER, SELFPAY | PROVIDERS: Referring Provider Nurse Practitioner Family; Visit Provider Internal Medicine Hypertension Specialist | DX: I10 Essential (primary) hypertension (principal); E11.9 Type 2 diabetes mellitus without complications; N18.4 Chronic kidney disease, stage 4 (severe); R42 Dizziness and giddiness; G20.A1 Parkinson's disease without dyskinesia, without mention of fluctuations | CPT/HCPCS: 99202 ==

== ENCOUNTER 2025-05-12 10:41 | Outpatient (AMB) | payer OTHER, SELFPAY ==
--- OUTSIDE RECORDS SUMMARY | 2024-04-24 10:10 | XMS_ITS | Encounter Summary ---
Author Organization [facility] Address [address] [place] [address] Care Team Providers Care Solutions Executive Security Name Role Phone Juliano Pelletier MD Primary Care Provider [phone] Encounter Details Date Type Department Care Team (Latest Contact Info) Description 04/24/2024 11:10 AM EDT Hospital Encounter TH HISTORIC ENCOUNTERS EASTERN CONVERSION ONLY Aletha Lopez, PRIVATE BRANCH EXCHANGE INSTALLER [address] [address] Pain in left knee Social History Tobacco Use Types Packs/Day Years Used Date Smoking Tobacco: Former Cigarettes 1 45 1 - 2019 Passive Smoke Exposure: Past Smokeless Tobacco: Never Alcohol Use Standard Drinks/Week Comments Yes 1 (1 standard drink = 0.6 oz pur e alcohol) ONCE A MONTH Food Risk Answer Date Recorded Within the past 12 months we worried whether our food would run out before we got money to buy more. Not asked 04/24/2025 Within the past 12 months th e food we bought just didn't last and we didn't have money to get more. Not asked 04/24/2025 Interpersonal Safety Answer Date Record ed Physical Abuse Unrecognized value 04/23/2025 Verbal Abuse Unrecognized value 04/23/2025 Sex and Gender Information Value Date Recorded Sex Assigned at Male 07/22/2024 9:34 AM EST Legal Sex Male 9:07 AM EST Gender Identity Male 07/22/2024 9:34 AM EST Sexual Orientation Choose not to disclose 2024 3:35 AM EDT documented as of this encounter Functional Status * Calculated C-SSRS Risk Score (Lifetime/Recent) Answer Date of Assessment Author No Risk Indicated 04/23/2025 3:43 AM EDT Shireen Rosenberg RN * [place] Suicide Severity Rating Scale (Screener/Recent Self-Report) Question Answer Date of Assessment Author 1. Wish to be (Past 1 Month) No 025 3:43 AM EDT Shireen Rosenberg RN 2. Non-Specific Active Suici jose Thoughts (Past 1 Month) No 04/23/2025 3:43 AM EDT Hannah Rosenberg RN 6. Suicidal Behavior (Lifetime) No 3:43 AM EDT Shireen Rosenberg RN documented as of this encounter Plan of Treatment Upcoming Encounters Date Type Department Care Team (Late st Contact Info) Description 05/26/2025 1:45 PM EST Office Visit [facility] Hematology Oncology [address] [place] [phone] Jace Martini MD [address] [place] [phone] 05/26/2025 2:00 PM EST Appointment [facility] Radiation Oncology [address] [place] [phone] 05/26/2025 2:30 PM EST Appointment [facility] Radiation Oncology [address] [place] [phone] Yvan Umana MD [address] [place] [phone] documented as of this encounter Procedures Procedure Name Priority Date/Time Associated Diagnosis Comments CR KNEE LT 4 OR MORE VIEW Routine 04/24/2024 3:25 PM EDT Pain in left knee documented in this encounter Results * CR KNEE LT 4 OR MORE VIEW (04/24/2024 3:25 PM EDT) Anatomical Region Laterality Modality Radiographic Gianna ging 04/24/2024 11:1 5 AM EDT Narrative 04/24/2024 3:[address] [facility] Diagnostic Imaging Department [address] [place] [address] Patient: TALIAGIORGIO /Age/Sex: 1950 - 74 - M Unit#: [id number] Location/Status: SPDIGEN/REG CLI Mnemonic/Ordering Site: [facility] Ordering Physician: ALETHA LOPEZ PRIVATE BRANCH EXCHANGE INSTALLER CR Knee LT 4 or more View - 04/24/24 - 1144 Report Status:Signed INDICATION: Acute left knee pain FINDINGS: 4 views of the left knee were obtained. No prior studies available for comparison. Bones: No fracture or dislocation. Degenerative changes noted with chondrocalcinosis as well as mild osteophytosis. Soft tissues: Infrapatellar soft tissue swelling. Possible small joint effusion. No foreign body or soft tissue gas. IMPRESSION: Degenerative changes with infrapatellar soft tissue swelling. Dictating Physician: ALEX LYMAN MD Electronically Signed by: ALEX LYMAN MD Dic Date/Time: 04/24/24 152 Sign date/Time: 04/24/24 1523 Procedure Note Alex Lyman MD - 05/03/2024 [facility] Diagnostic Imaging Department [address] [place] [address] Patient: GIORGIO GARCIA /Age/Sex: 1950 - 74 - M Unit#: [id number] Location/Status: SPDIGEN/REG CLI Mnemonic[facility] Ordering Physician: ALETHA LOPEZ NP CR Knee LT 4 or more View - 04/24/24 - 1141 Report Status:Signed INDICATION: Acute left knee pain FINDINGS: 4 views of the left knee were obtained. No prior studiesavailable for comparison. Bones: No fracture or dislocation. Degenerative changes noted with chondrocalcinosis as well as mild osteophytosis. Soft tissues: Infrapatellar soft tissue swelling. Possible small joint effusion. No foreign body or soft tissue gas. IMPRESSION: Degenerative changes with infrapatellar soft tissue swelling. Dictating Physician: ALEX LYMAN MD Electronically Signed by: ALEX LYMAN MD Dic Date/Time: 04/24/24 1524 Sign date/Time: 04/24/24 1525 us Aletha Lopez PRIVATE BRANCH EXCHANGE INSTALLER IMG XR PROCEDURES Final Resul t documented in this encounter Visit Diagnoses Diagnosis Pain in left knee documented in this encounter Care Teams Solutions Executive Security Relationship Specialty Start Date End Date Juliano Pelletier MD [address] [place] [phone] PCP - General Internal Medicine 09/13/18 04/21/25 documented as of this encounter
[2025-05-12 11:41] VITALS: BP 120/70; PULSE 77; O2SAT 97; BMI 25.8
--- NOTE | 2025-05-12 11:41 | A.OFFVIS_ITS ---
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 Required: No Accompanied by: Spouse Allergies No Known Allergies Allergy (Verified 05/12/25 11:45) Medication List - Last Reconciled 05/12/25 by YURI Dos Santos aspirin PO atorvastatin 20 mg PO DAILY [Bilateral carpal tunnel neoprene wrist plint As directed] bupropion HCl SR 200 mg PO QAM carbidopa-levodopa 25-100 mg ER 2 tabs PO QID 30 days duloxetine 60 mg PO DAILY gabapentin mg PO DAILY lisinopril 10 mg PO DAILY metformin ER (Glucophage XR) 500 mg PO DAILY [id number]-[id number]-[id number]-[id number] [id number] mcg (Centrum Silver Men) 1 tab PO DAILY polyethylene glycol 3350 (Miralax) 17 grams PO DAILY PRN 30 days risperidone PO DAILY HPI Comments Details: 75-yr-old male presents for f/u visit for Parkinson's. Patient is accompanied by his . Pt reports that he was recently diagnosed with cancer following work-up of previously identified right darrius-pharynx lesion. 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 He reports that he is now being f/b ENT and is scheduled to establish care with [facility] oncology, Dr Martini. He reports he has continued to experience falls, however now the followings typically are triggered by intense right facial pain, which triggers lightheadedness, pallor, and just falls to the floor. He has had several recent [facility] ER evaluations. He states the right-sided lower cheek pain, is strong pain, sometimes when he stands the pain takes his whole head. 04/22/2025, brain MRI with and without contrast, which was unremarkable, including non-specific white matter changes. He did see nephrology, Dr Carlos at [facility]- who advised to check a cortisol level, and to stand slowly, fluids. Cortisol level not completed yet. He is again taking Gabapentin per psychiatry. Pt's current PD medication regimen: CD-LD ER 25-100mg 2 tabs QID ADL's: Overall independent, but needing a bit more assist. Does have a shower chair IADLs: may spill his food or drink Swallowing: Denies any issues, but now needing to eat slowly. Drooling: Some mild drooling from the left side of mouth Orthostatic lightheadedness: as above Constipation: Denies- as he is using the miralax prn which helps some Freezing: At times, may have festinating gait Stiffness: Endorses some generalized stiffness, more so in the BUE. Rashid shave right hip arthritis. Tremor: Stable. His coffee cup is covered. Falls: As above Hallucinations: Denies Memory: Is a bit forgetful. He does play games on his phone. Mood: Some depression and anxiety, florencia r/t recent [place] dx.. Sees his therapist regularly. Sleep: Not sleeping as well, prone to waking up Exercise: States not much exercise at this time. Other- The Fang hand numbness and tingling is stable. Uses fang wrist splints p.r.n. with good effect. [facility] Medical History (Updated 04/12/25 @ 21:36 by YURI Dos Santos) Parkinson disease Surgical History History of back surgery Family History Mother Cancer Social History Household Members: Spouse Alcohol intake: current Alcohol intake frequency: holidays/special occasions only Patient Tobacco Use Status: Never used Tobacco Current occupational status: retired Physical Exam Vital Signs: Last Vital Signs Pulse 77 05/12/25 11:41 BP 120/70 05/12/25 11:41 Pulse Ox 97 05/12/25 11:41 Oxygen Delivery Method Room Air 05/12/25 11:41 BMI result Body Mass Index 25.8 Const General: cooperative and no acute distress Resp Effort & Inspection: normal respiratory effort and able to speak in complete sentences Neuro Other: General: A&O Expression: Mild decreased expression Voice: Soft voice Tremor: Mild intermittent chin tremor. Mild RUE postural tremor Tone: Mild BUE rigidity Dyskinesia: None FFM: Mild bradykinesia Foot taps: Mild bradykinesia Gait: Stood easily, decreased arm swing, short steps, steady gait Psych: pleasant affect Assessment & Plan Assessment & Plan (1) Parkinson's disease without dyskinesia: Code(s): G20.A1 - Parkinson's disease without dyskinesia, without mention of fluctuations Category: Medical (2) Tremor: Comment: Chin and RUE rest/action tremor, BUE rigidity, bradykinesia, hallucinations, drooling. Code(s): R25.1 - Tremor, unspecified Category: Medical (3) Orthostatic lightheadedness: Code(s): R42 - Dizziness and giddiness Category: Medical (4) Numbness and tingling of both feet: Code(s): R20.0 - Anesthesia of skin; R20.2 - Paresthesia of skin Category: Medical (5) Numbness and tingling in both hands: Code(s): R20.0 - Anesthesia of skin; R20.2 - Paresthesia of skin Category: Medical (6) Recurrent falls: Code(s): R29.6 - Repeated falls Category: Medical Plan For Parkinson's disease with increased orthostatic lightheadedness and falls: * Reviewed nephrology consult note, patient is encouraged to complete cortisol level as ordered by nephrology. * Continue carbidopa levodopa ER 25-100 mg, 2 tabs 4 times a day * Continue to take 60 forward 80 oz of fluid per day * Patient encouraged to do foot movements/exercises prior to standing up to reduce risk for orthostatic lightheadedness. * Previously reviewed techniques to break freezing episodes- pause, take a breathe, step in place or tap leg with hand. * Encouraged patient to use his cane, if symptoms worsen his walker- both of which he has at home. * Stressed importance of maintaining increased physical activity as tolerated. * Continue fiber tabs and Miralax prn constipation. For paresthesia: * Continue fang carpal tunnel splints qhs prn, as this has been helpful. * Continue gabapentin per Psychiatry * We were previously unable to access any previous EMG/NCS results * If these worsen, consider EMG/NCS For general health: * Follow-up with Dr. Martini at [place] oncology as scheduled. * Continue as-needed Tylenol for right facial pain, at this time it is helpful. * Right facial pain worsens, could consider short course of scheduled analgesics ?Will follow-up upon review of above and patient to follow-up in clinic in 6 months or sooner prn. Coding Level of Care Code Est Pt Level 4 (90237) Diagnoses Parkinson's disease without dyskinesia G20.A1 Tremor R25.1 Orthostatic lightheadedness R42 Numbness and tingling of both feet R20.0; R20.2 Numbness and tingling in both hands R20.0; R20.2 Recurrent falls R29.6
--- OUTSIDE RECORDS SUMMARY | 2025-05-12 12:20 | XMS_ITS | Encounter Summary ---
Author Organization [facility] Address [address] [place] [address] Care Team Providers Care Data Entry Email Processor Name Role Phone Mamadou Lopez REAL ESTATE ANALYST Primary Care Provider [phone] Encounter Details Date Type Department Care Team (Late st Contact Info) Description 05/08/2025 Telephone [facility] Radiation Oncology [address] [place] [address] Sasha Sun MA Social History Tobacco Use Types Packs/Day Years [...] as of this encounter Functional Status * Are you deaf or do you have serious difficulty hearing? Answer Date of Assessment Author Yes 04/22/2025 8:05 PM EDT Aidan Soto RN * Are you blind or do you have serious difficulty seeing, even when wearing glasses? Answer Date of Assessment Author Yes 04/22/2025 8:05 PM EDT Aidan Soto RN * Do you have serious difficulty walking or climbing stairs? Answer Date of Assessment Author Yes 04/22/2025 8:05 PM EDT Aidan Soto RN * Do you have serious difficulty dressing or bathing? Answer Date of Assessment Author Yes 04/22/2025 8:05 PM EDT Aidan Soto RN * Because of a physical, mental, or emotional condition, do you have serious difficulty doing errandsalone such as visiting the doctor? Answer Date of Assessment Author Yes 04/22/2025 8:05 PM EDT Aidan Soto RN documented as of this encounter Mental Status * Because of a physical, mental, or emotional condition, do you have serious difficulty concentrating, remembering, or making decisions? (5 years old or older) Answer Entry Date Author Yes 04/22/2025 8:05 PM EDT Aidan Soto RN documented in this encounter Progress Notes * Sasha Sun MA - 05/08/2025 11:41 AM EST Incoming call from pts (belarusian speaking spoke with (Marielena) aware of date/time for consult appt. documented in this encounter Plan of Treatment Upcoming Encounters Date Type Department Care Team (Late st Contact Info) Description 05/26/2025 1:45 PM EST Office Visit [facility] Hematology Oncology [address] [place] [phone] Jace Martini MD [address] [place] [address] 05/26/2025 2:00 PM EST Appointment [facility] Radiation Oncology [address] [place] [phone] 05/26/2025 2:30 PM EST Appointment [facility] Radiation Oncology [address] [place] [address] Yvan Umana MD [address] [place] [address] documented as of this encounter Visit Diagnoses Not on filedocumented in this encounter Care Teams Data Entry Email Processor Relationship Specialty Start Date End Date Mamadou Lopez NP [address] [address] PCP - General Nurse Practitioner 04/22/25 documented as of this encounter
--- OUTSIDE RECORDS SUMMARY | 2025-05-12 12:21 | XMS_ITS | Clinical Summary ---
Author Organization [facility] [place] [address] Phone Care Team Providers Care Media Reporter Name Role Phone Mamadou Lopez [address] [employer] Primary Care Provider [phone] Allergies No known active allergies Medications atorvastatin (LIPITOR) 20 mg tablet Take 1 tablet (20 mg total) by mouth 1 (one) time each day. Active buPROPion SR (WELLBUTRIN SR) 200 mg 12 hr tablet Take 1 tablet (200 mg total) by mouth 1 (one) time each day. 5 Active carbidopa-levo dopa (SINEMET) 25-100 mg per tablet Take 2 tablets by mouth 4 (four) times a day. 4 Active DULoxetine (CYMBALTA) [address] capsule 5 Active gabapentin (NEURONTIN) 600 mg tablet Take 1 tablet (600 mg total) by mouth. at bedtime 4 Active lisinopriL (PRINIVIL,ZEST RIL) 10 mg tablet Take 1 tablet (10 mg total) by mouth 1 (one) time each day. 4 Active metFORMIN (GLUCOPHAGE) 500 mg tablet Take 1 tablet (500 mg total) by mouth. Active risperiDONE (RisperDAL) 0.5 mg tablet Take 1 tablet (0.5 mg total) by mouth at bedtime. Active gabapentin (NEURONTIN) 100 mg capsule Active aspirin 81 mg EC tablet Take 1 tablet (81 mg total) by mouth 1 (one) time each day. 90 each 5 026 Active hydrOXYzine HCL (ATARAX) 25 mg tablet Take 1 tablet (25 mg total) by mouth every 8 (eight) hours if needed. 4 025 Discontinu ed(Stop Taking at Discharge) acetaminophen (TYLENOL) 325 mg tablet Take 2 tablets (650 mg total) by mouth every 4 (four) hours if needed for mild pain, headaches or fever - temperature GREATER than 38 C (100.4 F) for up to 10 days. 30 tablet 5 025 Active Problems Problem Noted Date Diagnosed Date TIA (transient ischemic attack) 04/22/2025 Encounters Date Type Department Care Team Description 05/08/2025 Telephone [facility] Radiation Oncology [address] [place] [phone] Sasha Sun [place] 05/08/2025 Telephone [facility] Radiation Oncology [address] [place] [phone] Sasha Sun MA 05/05/2025 2:20 PM EST Lab Draw Station - [address] [place] [phone] Hypomagnesemia (Primary Dx) 05/02/2025 7:20 PM EDT - 05/02/2025 11:04 PM EDT Emergency [facility] Emergency [address] [place] [phone] Bryant Vallejo MD Weakness (Primary Dx); Hypomagnesemia Discharge Disposition: Home or Self Care 05/01/2025 2:30 PM EDT Office Visit [facility] Hematology Oncology [address] [place] [phone] Jace Martini MD Oropharyngeal cancer (CMS/HCC V24, CMS/HCC V28) (Primary Dx) 04/22/2025 6:13 PM EDT - 04/24/2025 6:31 PM EDT Hospital Encounter [facility] Intermediate Care Unit [address] [place] [phone] Devante Dumont MD Jones, Christopher, MD Santoyo-Pacheco, Omar D, MD Stroke-like symptoms (Primary Dx); TIA (transient ischemic attack); Hypomagnesemia; Pneumonia of right lung due to infectious organism, unspecified part of lung Discharge Disposition: Home-Health Care Svc 04/07/2025 8:08 AM EDT - 04/07/2025 11:59 PM EDT Hospital Encounter [facility] CT Scan [address] [place] [phone] Localized enlarged lymph nodes Discharge Disposition: Home or Self Care 04/06/2025 5:21 PM EDT - 04/06/2025 11:40 PM EDT Emergency [facility] Emergency [address] [place] [phone] Steven Ching MD Transient alteration of awareness (Primary Dx) Discharge Disposition: Home or Self Care 02/23/2025 7:48 AM EDT - 02/23/2025 11:59 PM EDT Hospital Encounter [facility] CT Scan [address] [place] [phone] Unspecified injury of head, initial encounter Discharge Disposition: Home or Self Care 02/23/2025 7:45 AM EDT - 02/23/2025 11:59 PM EDT Hospital Encounter [facility] CT Scan [address] [place] [phone] Cervicalgia Discharge Disposition: Home or Self Care from Last 3 Months Surgical History Surgery Date Site/Laterality Comments LUMBAR DISC SURGERY COLONOSCOPY Medical History Medical History Date Comments Hyperlipidemia Hypertension Neuropathy of both feet Diabetes mellitus ([facility] V24, [facility] V28) Parkinson's disease (CMS/HCC V24, [facility] V28) Forgetfulness Anxiety Depression Social History Tobacco Use Types Packs/Day Years Used Date Smoking Tobacco: Former Cigarettes 1 45 1 - 2019 Passive Smoke Exposure: Past Smokeless Tobacco: Never Tobacco Cessation:Counseling Given: Not Answered Alcohol Use Standard Drinks/Week Comments Yes 1 [...] not to disclose 2024 3:35 AM EDT Obstetrics History Last Filed Vital Signs Vital Sign Reading Time Taken Comments Blood Pressure 110/57 05/02/2025 8:29 PM EDT Pulse 72 05/02/2025 8:29 PM EDT Temperature 36.6 C (97.9 F) 05/02/2025 7:22 PM EDT Respiratory Rate 18 05/02/2025 7:22 PM EDT Oxygen Saturation 97% 05/02/2025 7:58 PM EDT Inhaled Oxygen Concentration - - Weight 81.2 kg (179 lb) 05/02/2025 8:02 PM EDT Height 175.3 cm (5' 9 ) 05/02/2025 8:02 PM EDT Body Mass Index 26.43 05/02/2025 8:02 PM EDT Plan of Treatment Upcoming Encounters Date Type Department Care Team (Late st Contact Info) Description 05/26/2025 1:45 PM EST Office Visit [facility] Hematology Oncology [address] [place] [phone] Jace Martini MD [address] [place] [phone] 05/26/2025 2:00 PM EST Appointment [facility] Radiation Oncology [address] [place] [phone] 05/26/2025 2:30 PM EST Appointment [facility] Radiation Oncology [address] [place] [phone] Yvan Umana MD [address] [place] [phone] Health Maintenance Due Date Last Done Comments Diabetes: Annual Foot Exam 1960 Diabetes: Annual Retina Eye Exam 1960 Zoster Vaccines (2 of 2) 05/22/2019 03/27/2019 Hepatitis C Screening 06/15/2022 Lung Cancer Screening (Low Dose CT) 06/15/2022 Medicare Annual Wellness Visit 06/15/2022 RSV Immunization Adult Patients (1 - 1-dose 75+ series) 2023 Depression Screening 07/02/2024 Diabetes: Annual Urine Albumin-Creatinine Ratio (uACR) 07/16/2024 COVID-19 Vaccine ( season) 2025 04/22/2024, 04/30/2023, 04/19/2022, Additional history exists Diabetes: Blood Sugar Control Test (HGBA1C) 10/22/2025 04/23/2025, 04/22/2025, 01/21/2025, Additional history exists Falls Risk Assessment 04/24/2026 04/24/2025 Social Influencers of Health Screening 04/24/2026 04/24/2025 Diabetes: Annual GFR (Glomerular Filtration Rate) 05/05/2026 05/05/2025, 05/02/2025, 04/24/2025, Additional history exists Hypertension/CHF/CAD Annual BMP Blood Test 05/05/2026 05/05/2025, 05/02/2025, 04/24/2025, Additional history exists Colorectal Cancer Screening: Colonoscopy 07/31/2027 07/31/2024 Cholesterol Screening (Lipid Panel) 04/24/2030 04/24/2025, 07/16/2024 DTaP,Tdap,and Td Vaccines (2 - Td or Tdap) 02/14/2032 02/13/2022 Pneumococcal Vaccine: 50+ Years Completed 11/21/2018, 05/02/2016, 07/16/2008 Influenza Vaccine Completed 03/10/2025, , 03/15/2023, Additional history exists HIB Vaccines Aged Out [...] Procedure Name Priority Date/Time Associated Diagnosis Comments BASIC METABOLIC PANEL Routine 05/05/2025 2:20 PM EST Hypomagnesemia MAGNESIUM Routine 05/05/2025 2:20 PM EST Hypomagnesemia ECG ANNOTATED 05/05/2025 CT CHEST WO CONTRAST STAT 05/02/2025 8:37 PM EDT ECG 12-LEAD STAT 05/02/2025 7:56 PM EDT CBC WITH AUTO DIFFERENTIAL STAT 05/02/2025 7:51 PM EDT MAGNESIUM STAT 05/02/2025 7:51 PM EDT BASIC METABOLIC PANEL STAT 05/02/2025 7:51 PM EDT CBC AND DIFFERENTIAL STAT 05/02/2025 7:51 PM EDT POCT GLUCOSE BLOOD Routine 04/24/2025 4: 16 PM EDT MR BRAIN WO AND W CONTRAST Routine 04/24/2025 3:41 PM EDT POCT GLUCOSE BLOOD Routine 04/24/2025 12 :19 PM EDT US BX NDL LYMPH NODE SUPERFICIAL RIGHT Routine 04/24/2025 11:28 AM EDT FINE NEEDLE ASPIRATION Routine 9:40 AM EDT Stroke-like symptoms TIA (transient ischemic attack) Hypomagnesemia Pneumonia of right lung due to infectious organism, unspecified part of lung TISSUE EXAM Routine 04/24/2025 9:40 AM EDT Stroke-like symptoms TIA (transient ischemic attack) Hypomagnesemia Pneumonia of right lung due to infectious organism, unspecified part of lung POCT GLUCOSE BLOOD Routine 04/24/2025 7: 26 AM EDT LIPID PANEL WITH REFLEX TO DIRECT LDL Add-On 04/24/2025 5:27 AM EDT CBC WITH AUTO DIFFERENTIAL Routine 04/24/2025 5:27 AM EDT PHOSPHORUS Routine 04/24/2025 5:27 AM EDT MAGNESIUM Routine 04/24/2025 5:27 AM EDT CBC AND DIFFERENTIAL Routine 04/24/2025 5:27 AM EDT BASIC METABOLIC PANEL Routine 04/24/2025 5:27 AM EDT POCT GLUCOSE BLOOD Routine 04/23/2025 9: 02 PM EDT POCT GLUCOSE BLOOD Routine 04/23/2025 4: 18 PM EDT POCT GLUCOSE BLOOD Routine 04/23/2025 11 :11 AM EDT POCT GLUCOSE BLOOD Routine 04/23/2025 9: 40 AM EDT ROUTINE EEG STAT 04/23/2025 8:15 AM EDT Stroke-like symptoms TIA (transient ischemic attack) OXYGEN THERAPY, ADULT Routine 04/23/2025 8:01 AM EDT CBC WITH AUTO DIFFERENTIAL Routine 04/23/2025 4:55 AM EDT HEMOGLOBIN A1C Routine 04/23/2025 4:55 AM EDT CBC AND DIFFERENTIAL Routine 04/23/2025 4:55 AM EDT BASIC METABOLIC PANEL Routine 04/23/2025 4:55 AM EDT ECG ANNOTATED 04/23/2025 POCT GLUCOSE BLOOD Routine 04/22/2025 11 :04 PM EDT OXYGEN THERAPY, ADULT Routine 04/22/2025 9:57 PM EDT OXYGEN THERAPY, ADULT Routine 04/22/2025 9:57 PM EDT OXYGEN THERAPY, ADULT Routine 04/22/2025 9:[address] ANGIO HEAD/NECK WO AND/OR W CONTRAST STAT 04/22/2025 8:50 PM EDT URINALYSIS WITH REFLEX MICROSCOPIC STAT 04/22/2025 7:50 PM EDT URINALYSIS WITH REFLEX MICROSCOPIC STAT 04/22/2025 7:50 PM EDT XR CHEST 1 VIEW STAT 04/22/2025 7:50 PM EDT HEMOGLOBIN A1C Add-On 04/22/2025 6:55 PM EDT CBC WITH AUTO DIFFERENTIAL STAT 04/22/2025 6:55 PM EDT ACTIVATED PARTIAL THROMBOPLASTIN TIME STAT 04/22/2025 6:55 PM EDT PROTHROMBIN TIME WITH INR STAT 04/22/2025 6:55 PM EDT CBC AND DIFFERENTIAL STAT 04/22/2025 6:55 PM EDT TROPONIN I HIGH SENSITIVITY STAT 04/22/2025 6:55 PM EDT MAGNESIUM STAT 04/22/2025 6:55 PM EDT B-TYPE NATRIURETIC PEPTIDE STAT 04/22/2025 6:55 PM EDT COMPREHENSIVE METABOLIC PANEL STAT 04/22/2025 6:55 PM EDT ECG 12-LEAD STAT 04/22/2025 6:53 PM EDT POCT GLUCOSE BLOOD Routine 04/22/2025 6: [address] NECK SOFT TISSUE W CONTRAST Routine 04/07/2025 8:20 AM EDT Localized enlarged lymph nodes XR SHOULDER 2+ VIEWS RIGHT STAT 04/06/2025 6:46 PM EDT XR CHEST 2 VIEWS STAT 04/06/2025 6:46 PM EDT F[place]ON URINE CULTURE TUBE STAT 04/06/2025 6:42 PM EDT URINALYSIS WITH REFLEX MICROSCOPIC AND CULTURE STAT 04/06/2025 6:42 PM EDT URINALYSIS WITH REFLEX MICROSCOPIC AND CULTURE STAT 04/06/2025 6:[address] HEAD WO CONTRAST STAT 04/06/2025 6 :[address] CERVICAL SPINE WO CONTRAST STAT 04/06/2025 6:09 PM EDT CBC WITH AUTO DIFFERENTIAL STAT 04/06/2025 5:44 PM EDT AMMONIA STAT 04/06/2025 5:44 PM EDT COMPREHENSIVE METABOLIC PANEL STAT 04/06/2025 5:44 PM EDT CBC AND DIFFERENTIAL STAT 04/06/2025 5:[address] HEAD WO CONTRAST Routine 02/23/2025 7 :56 AM EDT Unspecified injury of head, initial encounter CT CERVICAL SPINE WO CONTRAST Routine 02/23/2025 7:55 AM EDT Cervicalgia COLONOSCOPY Routine 07/31/2024 11:01 AM EST History of colon polyps from Last 3 Months or Most Recently Relevant to Health Maintenance Results * (ABNORMAL) Magnesium (05/05/2025 2:20 PM EST) Only the most recent of4 resultswithin the time period is included. Pathologist [facility] Magnesium 1.8(L) 1.9 - 2.6 mg/dL LAB CHEMISTRY METHOD 05/05/2025 3:57 PM EST [facility] Blood Venous blood specimen / Unknown Venipuncture / Unknown 05/05/2025 2:20 PM EST 05/05/2025 2:59 PM EST [address] Lopez [address] [employer] LAB BLOOD ORDERABLES Final Re sult [facility] [address] [place] [address], [place] [phone] * Basic metabolic panel (05/05/2025 2:20 PM EST) Only the most recent of4 resultswithin the time period is included. Pathologist [facility] Sodium 139 133 - 145 mmol/L LAB CHEMISTRY METHOD 05/05/2025 3:57 PM EST [facility] Potassium 4.8 3.5 - 5.5 mmol/L LAB CHEMISTRY METHOD 05/05/2025 3:57 PM EST [facility] Chloride 105 96 - 110 mmol/L LAB CHEMISTRY METHOD 05/05/2025 3:57 PM EST [facility] CO2 28 21 - 32 mmol/L LAB CHEMISTRY METHOD 05/05/2025 3:57 PM [facility] Anion Gap 6 3 - 11 LAB CHEMISTRY METHOD 05/05/2025 3:57 PM [facility] Glucose 71 70 - 100 mg/dL LAB CHEMISTRY METHOD 05/05/2025 3:57 PM [facility] BUN 17 5 - 25 mg/dL LAB CHEMISTRY METHOD 05/05/2025 3:57 PM [facility] Creatinine 0.93 0.70 - 1.30 mg/dL LAB CHEMISTRY METHOD 05/05/2025 3:57 PM [facility] eGFR 85 >=60 mL/min/1. 73m2 LAB CHEMISTRY METHOD 05/05/2025 3:57 PM [facility] Comment:Calculation based on the Chronic Kidney Disease Epidemiology Collaboration (CKD-EPI) equation refit without adjustment for race. BUN/Creatinine Ratio 18.3 LAB CHEMISTRY METHOD 05/05/2025 3:57 PM [facility] Calcium 9.6 8.5 - 10.5 mg/dL LAB CHEMISTRY METHOD 05/05/2025 3:57 PM [facility] Blood Venous blood specimen / Unknown Venipuncture / Unknown 05/05/2025 2:20 PM EST 05/05/2025 2:59 PM EST us Mamadou Lopez NP LAB BLOOD ORDERABLES Final Re sult [facility] [address] [place] [address], [place] [phone] * ECG-Annotated (05/05/2025) Only the most recent of2 resultswithin the time period is included. us Provider Onbase MD ECG ORDERABLES Final Result * CT Chest wo Contrast (05/02/2025 8:37 PM EDT) Anatomical Region Laterality Modality Body Computed Tomogra phy 05/02/2025 9:14 PM EDT Impressions 05/02/2025 9:14 PM EDT Evaluation for small pulmonary nodules limited by respiratory motion. 0.9 cm nodule in the inferior segment of the right upper lobe. No pulmonary masses. Follow-up per imaging protocol. No focal consolidation, pleural effusion, or pneumothorax. This document has been electronically signed by: Shaun Love MD on 05/02/2025 21:14:21 Narrative 05/02/2025 9:14 PM EDT INDICATION: lung mass? CT chest without contrast Comparison: CR/SR - XR CHEST 1 - 04/22/25 19:44 EDT Findings: Evaluation limited by respiratory motion. The heart is enlarged. No pericardial effusion. Thoracoabdominal aorta is atherosclerotic. Pulmonary arteries are grossly unremarkable. The visualized thyroid and mediastinum are unremarkable. No pathologically enlarged hilar or axillary lymph nodes. 0.9 cm nodule in the inferior segment of the right upper lobe (series 4, image 110). Respiratory motion limits evaluation of subtle pulmonary nodules. No pulmonary masses. No focal consolidation, pleural effusion, or pneumothorax. Diffuse subpleural tree-in-bud nodularity, nonspecific. Cholelithiasis. Small hiatal hernia. Colonic diverticulosis. No acute fractures. Degenerative change of both shoulders. Procedure Note Shaun Love MD - 05/02/2025 INDICATION: lung mass? CT chest without contrast Comparison: CR/SR - XR CHEST 1 - 04/22/25 19:44 EDT Findings: Evaluation limited by respiratory motion. The heart is enlarged. No pericardial effusion. Thoracoabdominal aorta is atherosclerotic. Pulmonary arteries are grossly unremarkable. The visualized thyroid and mediastinum are unremarkable. Nopathologically enlarged hilar or axillary lymph nodes. 0.9 cm nodule in the inferior segment of the right upper lobe (series 4, image 110). Respiratory motion limits evaluation of subtle pulmonary nodules. No pulmonary masses. No focal consolidation, pleural effusion,or pneumothorax. Diffuse subpleural tree-in-bud nodularity, nonspecific. Cholelithiasis. Small hiatal hernia. Colonic diverticulosis. No acute fractures. Degenerative change of both shoulders. IMPRESSION: Evaluation for small pulmonary nodules limited by respiratory motion. 0.9 cm nodule in the inferior segment of the right upper lobe. No pulmonary masses. Follow-up per imaging protocol. No focal consolidation, pleural effusion, or pneumothorax. This document has been electronically signed by: Shaun Love MD on 05/02/2025 21:14:21 Bryant Vallejo MD IMG CT PROCEDURES Final R esult * ECG 12 lead (05/02/2025 7:56 PM EDT) Only the most recent of2 resultswithin the time period is included. Pathologist [facility] Ventricular Rate ECG 70 BPM GEMUSE Atrial Rate 70 BPM GEMUSE P-R Interval 128 ms GEMUSE QRS Duration 86 ms GEMUSE Q-T Interval 384 ms GEMUSE QTc 414 ms GEMUSE P Wave Nichols 68 degrees GEMUSE R Nichols -28 degrees GEMUSE T Nichols 68 degrees GEMUSE ECG Interpretation Normal sinus rhythm Normal ECG When compared with ECG of 22-APR-2025 18:53, Premature atrial complexes are no longer Present Confirmed by Joaquim JEONG JOHN ([id number]) on 05/03/2025 4:36:44 PM GEMUSE 05/02/2025 7:56 PM EDT 05/03/2025 4:36 PM EST Zuri Thomas MD ECG ORDERABLES Final Result GEMUSE * (ABNORMAL) CBC auto differential (05/02/2025 7:51 PM EDT) Only the most recent of5 resultswithin the time period is included. Pathologist [facility] WBC 5.5 4.8 - 10.8 K/mcL LAB HEMETOLOGY METHOD 05/02/2025 8:26 PM EDT [facility] RBC 4.10(L) 4.50 - 5.50 M/mcL LAB HEMETOLOGY METHOD 05/02/2025 8:26 PM EDT [facility] Hemoglobin 12.1(L) 13.5 - 17.5 g/dL LAB HEMETOLOGY METHOD 05/02/2025 8:26 PM EDT [facility] Hematocrit 36.8(L) 42.0 - 54.0 % LAB HEMETOLOGY METHOD 05/02/2025 8:[facility] MCV 90.9 79.0 - 98.0 FL LAB HEMETOLOGY METHOD 05/02/2025 8:26 PM [facility] MCH 29.9 27.0 - 32.0 pcg LAB HEMETOLOGY METHOD 05/02/2025 8:26 PM [facility] MCHC 32.9 32.0 - 37.0 g/dL LAB HEMETOLOGY METHOD 05/02/2025 8:26 PM [facility] RDW 14.0 11.0 - 15.0 % LAB HEMETOLOGY METHOD 05/02/2025 8:26 PM [facility] Platelets 188 130 - 400 K/mcL LAB HEMETOLOGY METHOD 05/02/2025 8:26 PM [facility] MPV 10.6 7.0 - 11.0 FL LAB HEMETOLOGY METHOD 05/02/2025 8:26 PM [facility] NRBC 0.4 <1.0 % LAB HEMETOLOGY METHOD 05/02/2025 8:26 PM [facility] NRBC Absolute 0.02 <0.10 K/mcL LAB HEMETOLOGY METHOD 05/02/2025 8:26 PM [facility] Neutrophils Relative 63.0 % LAB HEMETOLOGY METHOD 05/02/2025 8:26 PM [facility] Lymphocytes Relative 23.3 % LAB HEMETOLOGY METHOD 05/02/2025 8:26 PM [facility] Monocytes Relative 10.6 % LAB HEMETOLOGY METHOD 05/02/2025 8:26 PM [facility] Eosinophils Relative 2.3 % LAB HEMETOLOGY METHOD 05/02/2025 8:26 PM EDT [facility] Basophils Relative 0.4 % LAB HEMETOLOGY METHOD 05/02/2025 8:26 PM EDT [facility] Immature Granulocytes Relative 0.4 % LAB HEMETOLOGY METHOD 05/02/2025 8:26 PM EDT [facility] Neutrophils Absolute 3.49 1.50 - 7.00 K/mcL LAB HEMETOLOGY METHOD 05/02/2025 8:26 PM EDT [facility] Lymphocytes Absolute 1.29 1.00 - 5.00 K/mcL LAB HEMETOLOGY METHOD 05/02/2025 8:26 PM EDT [facility] Monocytes Absolute 0.59 0.20 - 1.00 K/mcL LAB HEMETOLOGY METHOD 05/02/2025 8:26 PM EDT [facility] Eosinophils Absolute 0.13 0.00 - 0.50 K/mcL LAB HEMETOLOGY METHOD 05/02/2025 8:26 PM EDT [facility] Basophils Absolute 0.02 0.00 - 0.20 K/mcL LAB HEMETOLOGY METHOD 05/02/2025 8:26 PM EDT [facility] Immature Granulocytes Absolute 0.02 0.00 - 0.03 K/mcL LAB HEMETOLOGY METHOD 05/02/2025 8:26 PM EDT [facility] Blood Venous blood specimen / Unknown Venipuncture / Unknown 05/02/2025 7:51 PM EDT 05/02/2025 8:20 PM EDT us Zrui Thomas MD LAB BLOOD ORDERABLES Final R esult [facility] [address] [place] [address], * (ABNORMAL) POCT Glucose, blood (04/24/2025 4:16 PM EDT) Only the most recent of9 resultswithin the time period is included. Glucose POCT 112(H) 70 - 100 mg/dL 04/24/2025 4:16 PM EDT [facility] Blood Capillary blood specimen / Unknown 04/24/2025 4:16 PM EDT 04/24/2025 4:17 PM EDT us Andi Banerjee MD LAB POINT OF C ARE TEST DOCKED DEVICE UNSOLICITED RESULTS Final Result [facility] [address] [place] [address], [place] [phone] * MR Brain wo and w Contrast (04/24/2025 3:41 PM EDT) Anatomical Region Laterality Modality Head and Neck Magnetic Resonan ce 04/24/2025 5:24 PM EDT Impressions 04/24/2025 5:24 PM EDT Impression: 1. No acute intracranial abnormalities. This document has been electronically signed by: Sebas Bailey MD on 04/24/2025 17:24:52 Narrative 04/24/2025 5:24 PM EDT INDICATION: TIA Exam: MRI of the brain, including gadolinium-enhanced imaging. Comparison: CT brain 04/06/2025. Findings: There is no cerebral edema or mass effect. White matter reveals punctate foci of T2 hyperintensity, nonspecific although likely sequela of minimal chronic microangiopathic disease. Diffusion weighted imaging reveals no restricted diffusion or evidence of acute ischemia. Susceptibility weighted imaging reveals no susceptibility artifact or evidence of intracranial hemorrhage. Ventricular size and configuration are within normal limits. Cerebral cisterns are preserved. Gadolinium enhanced imaging reveals no enhancing lesions. Paranasal sinuses and mastoid air cells reveal no focal signal abnormality. Procedure Note Sebas Bailey MD - 04/24/2025 INDICATION: TIA Exam: MRI of the brain, including gadolinium-enhanced imaging. Comparison: CT brain 04/06/2025. Findings: There is no cerebral edema or mass effect. White matterreveals punctate foci of T2 hyperintensity, nonspecific although likely sequelaof minimal chronic microangiopathic disease. Diffusion weighted imaging reveals no restricted diffusion or evidence of acute ischemia. Susceptibility weighted imaging reveals no susceptibility artifact or evidence of intracranial hemorrhage. Ventricular size and configuration are within normal limits. Cerebral cisterns are preserved. Gadolinium enhanced imaging reveals no enhancing lesions. Paranasal sinuses and mastoid air cells reveal no focal signalabnormality. IMPRESSION: Impression: 1. No acute intracranial abnormalities. This document has been electronically signed by: Sebas Bailey MD on 04/24/2025 17:24:52 us Awais Arevalo MD IMG MRI PROCEDURES Final Re sult * US Bx Ndl Lymph Node Superficial Right (04/24/2025 11:28 AM EDT) Anatomical Region Laterality Modality Body Right Ultrasound 04/24/2025 2:05 PM EDT Impressions 04/24/2025 2:06 PM EDT Ultrasound-guided fine-needle and core biopsy of right-sided level 2 cervical lymphadenopathy. -------- FINAL REPORT -------- Dictated By: Alex Lyman Dictated Date: 04/24/2025 14:05 ET Assigned Physician: Alex Lyman Reviewed and Electronically Signed By: Alex Lyman Signed Date: 04/24/2025 14:06 ET Workstation ID: [id number] Transcribed By: Self Edit Transcribed Date: 04/24/2025 14:05 ET Narrative 04/24/2025 2:06 PM EDT INDICATION: Cervical lymphadenopathy PROCEDURE: Ultrasound-guided biopsy of right-sided level 2 cervical lymphadenopathy prior relevant studies: Neck CTA from April 22, 2025 MEDICATIONS: Local anesthesia: 1% buffered lidocaine administered subcutaneously and up to the biopsy target site. Sedation: none TECHNIQUE/FINDINGS: Prior imaging reviewed and procedure discussed with the patient. Written informed consent obtained. Multiple images obtained of the biopsy target site. Appropriate region of the skin was localized, draped and then prepped sterilely. Under real-time ultrasound guidance both fine-needle and core biopsy performed. Fine-needle sampling performed followed by multiple 18-gauge core biopsy samples. Bandage applied over the needle entry site. Specimens: Fine-needle samples placed in [employer]to[employer] after creation of histological slides. Core biopsy samples placed into formalin. Flow cytometry sample obtained with a heparinized needle. Preliminary findings: Malignancy Procedure Note Alex Lyman MD - 04/24/2025 INDICATION: Cervical lymphadenopathy PROCEDURE: Ultrasound-guided biopsy of right-sided level 2 cervicallymphadenopathy prior relevant studies: Neck CTA from April 22, 2025 MEDICATIONS: Local anesthesia: 1% buffered lidocaine administered subcutaneously and upto the biopsy target site. Sedation: none TECHNIQUE/FINDINGS: Prior imaging reviewed and procedure discussed withthe patient. Written informed consent obtained. Multiple images obtainedof the biopsy target site. Appropriate region of the skin was localized,draped and then prepped sterilely. Under real-time ultrasound guidance both fine-needle and core biopsyperformed. Fine-needle sampling performed followed by multiple 18-gaugecore biopsy samples. Bandage applied over the needle entry site. Specimens: Fine-needle samples placed in CytoLyt after creation ofhistological slides. Core biopsy samples placed into formalin. Flowcytometry sample obtained with a heparinized needle. Preliminary findings: Malignancy IMPRESSION: Ultrasound-guided fine-needle and core biopsy of right-sided level 2cervical lymphadenopathy. -------- FINAL REPORT -------- Dictated By: Alex Lyman Dictated Date: 04/24/2025 14:05 ET Assigned Physician: Alex Lyman Reviewed and Electronically Signed By: Alex Lyman Signed Date: 04/24/2025 14:06 ET Workstation ID: [id number] Transcribed By: Self Edit Transcribed Date: 04/24/2025 14:05 ET us Andi Banerjee MD IMG US PROCEDURES Nancy l Result * Fine needle aspiration (04/24/2025 9:40 AM EDT) Final Diagnosis Lymph Node, Right cervical, fine-needle aspiration (ThinPrep, direct smears, and cell block): Positive for malignant cells. Squamous cell carcinoma. 04/28/2025 10:31 AM EDT [facility] at 1031 EDT Comment ThinPrep and direct smears contain diagnostic material; cellblock is noncontributory . Please also see concurrent core biopsy, [id number]. 04/28/2025 10:31 AM EDT [facility] Specimen A Adequacy Satisfactory for evaluation 04/28/2025 10:31 AM EDT [facility] Comment:This is an appended report. These results have been appended to a previously preliminary verified report. Gross Description A. Lymph Node, Right cervical lymph node: Received in saline is 30 ml of clear fluid. One thinPrep, and one cell block are made. Combined with flow tube. Also received are two air dried and two alcohol fixed direct smears. hs 04/28/2025 10:31 AM EDT [facility] Intraoperative Consultation A. Lymph Node, Right cervical lymph node: Adequate. Malignant. Carcinoma, pending IHC to characterize. Dr. Gonzalez communicated with Dr. Lyman 04/24/25 11:23 AM EDT by Gil 04/28/2025 10:31 AM EDT [facility] Disclaimer Unless otherwise specified, all tissue is 10% NB formalin fixed and paraffin embedded. Technical cytopathology services provided by [facility], at [address] [place] [id number] (CLIA # [id number]/Ladarius Rosenthal MD, Director Of Retail Merchandising.) 04/28/2025 10:31 AM EDT [facility] Fine Needle Aspirate Lymph node specimen / Unknown 04/24/2025 9:40 AM EDT 04/24/2025 11:09 AM EDT us Alex Lyman MD LAB PATHOLOGY ORDERABLES Final Result [facility] [address] [place] [address], * Tissue exam (04/24/2025 9:40 AM EDT) Final Diagnosis Lymph Node, Right cervical, core biopsy: Squamous cell carcinoma. 9:57 AM EDT [facility] at 0957 EDT Comment Routine sections show high-grade carcinoma in solid sheets in a background of fibrosis. Background lymph node tissue is not appreciated. While focal keratinization is present, much of the tumor has a higher nuclear to cytoplasm ratio with areas of molding, raising the possibility of a mixed phenotype tumor. Immunohistochemical stains are performed for characterization and are interpreted as follows: -P40: Strongly and diffusely positive throughout the entire tumor. -INSM1, TTF-1: Negative. This pattern indicates pure squamous cell carcinoma; varying from poorly differentiated to keratinized. Controls stain appropriately. Secondary review for new malignancy performed by Dr. Bearden with agreement. Lucy Gonzalez MD notified Dr. Lyman 04/28/25 at 9:56 AM EDT 9:57 AM EDT [facility] Gross Description A. Lymph Node, Right cervical lymph node: Labeled right cer lymph node . Received in formalin are three white tissue cores ranging from 0.55 x 0.1 cm to 0.7 x 0.1 cm, which are wrapped in paper and submitted in toto in two cassettes, one and two pieces respectively (one H&E, +10 unstained slides for potential immunohistochemical stains and one H&E), on each block, conserving tissue. A touch preparation is made. TS 9:57 AM EDT [facility] Intraoperative Consultation A. Lymph Node, Right cervical lymph node: Adequate. Malignant. Carcinoma, pending IHC to characterize. Dr. Gonzalez communicated with Dr. Lyman via Gil 04/24/25 11:24 AM EDT 5 9:57 AM EDT [facility] Disclaimer NOTE: The immunohistochemical tests and in situ hybridization tests were developed and their performance characteristics were determined by [facility]. They have not been cleared or approved by the U.S. Food and Drug Administration. The FDA has determined that such clearance or approval is not necessary. These tests are used for clinical purposes. They should not be regarded as investigational or for research. This laboratory is certified under the Clinical Laboratory Improvement Amendments of 1988 (CLIA) as qualified to perform high complexity clinical laboratory testing. (controls appropriate) Unless otherwise specified, all tissue is 10% NB formalin fixed and paraffin embedded. 9:57 AM EDT [facility] Tissue Lymph node specimen / Unknown 04/24/2025 9:40 AM EDT 04/24/2025 11:09 AM EDT us Alex Lyman MD LAB PATHOLOGY ORDERABLES Final Result [facility] [address] [place] [address], [place] [phone] * Lipid panel with reflex to direct LDL (04/24/2025 5:27 AM EDT) Cholesterol 160 0 - 200 mg/dL LAB CHEMISTRY METHOD 04/24/2025 6:21 PM [facility] Triglycerides 127 0 - 150 mg/dL LAB CHEMISTRY METHOD 04/24/2025 6:21 PM [facility] HDL 46 >=40 mg/dL LAB CHEMISTRY METHOD 04/24/2025 6:21 PM [facility] LDL Calculated 89 0 - 100 mg/dL LAB CHEMISTRY METHOD 04/24/2025 6:21 PM [facility] Comment:Estimated LDL Calcul ated using equation: Total cholesterol - HDL cholesterol - (Triglycerides/5) VLDL Cholesterol Bob 25.4 mg/dL LAB CHEMISTRY METHOD 04/24/2025 6:21 PM [facility] Non HDL Chol. (LDL+VLDL) 114 <145 mg/dL LAB CHEMISTRY METHOD 04/24/2025 6:21 PM [facility] Chol/HDL Ratio 3.5 0.0 - 4.4 LAB CHEMISTRY METHOD 04/24/2025 6:21 PM EDT [facility] Blood Venous blood specimen / Unknown Venipuncture / Unknown 04/24/2025 5:27 AM EDT 04/24/2025 6:54 AM EDT us Andi Banerjee MD LAB BLOOD ORDERABLES F inal Result Performing Organization Address City/[facility]/ZIP Co de Phone Number [facility] [address] [place] [address], [place] [phone] * Phosphorus (04/24/2025 5:27 AM EDT) Pathologist [facility] Phosphorus 3.0 2.5 - 4.5 mg/dL LAB CHEMISTRY METHOD 04/24/2025 7:48 AM EDT [facility] Blood Venous blood specimen / Unknown Venipuncture / Unknown 04/24/2025 5:27 AM EDT 04/24/2025 6:54 AM EDT us Andi Banerjee MD LAB BLOOD ORDERABLES F inal Result Performing Organization Address City/[facility] de Phone Number [facility] [address] [place] [id number], [place] [phone] * ROUTINE EEG (04/23/2025 8:15 AM EDT) Ramy King MD - 04/23/2025 6:44 PM EDT Ramy Horowitz MD 04/23/2025 6:50 PM Routine EEG Date/Time: 04/23/2025 6:44 PM Performed by: Ramy Horowitz MD Authorized by: TIFFANY Upton Awais [facility] ORDERABLES Nancy l Result * Hemoglobin A1c (04/23/2025 4:55 AM EDT) Only the most recent of2 resultswithin the time period is included. Hemoglobin A1C 6.3 <6.5 % LAB CHEMISTRY METHOD 04/23/2025 10:58 AM EDT [facility] Mean Bld Glu Estim. 134 mg/dL LAB CHEMISTRY METHOD 04/23/2025 10:58 AM EDT [facility] Blood Venous blood specimen / Unknown Venipuncture / Unknown 04/23/2025 4:55 AM EDT 04/23/2025 5:59 AM EDT us Awais Arevalo MD LAB BLOOD ORDERABLES Final Result [facility] [address] [place] [address], * CT Angio Head/Neck wo and/or w Contrast (04/22/2025 8:50 PM EDT) Anatomical Region Laterality Modality Head and Neck Computed Tomogra phy 04/22/2025 9:49 PM EDT Impressions 04/22/2025 9:49 PM EDT Impression: No acute intracranial process CT angiogram head/ramona of [place] with contrast, Multiplanar reconstructions and 3D postprocessing Comparison: None provided Findings: Normal configuration of the ramona of [place] vessels. No acute filling defect or vessel truncation. Dural venous sinuses patent. No aneurysm or central vascular abnormality. No peripheral vascular malformations. Impression: No acute vascular abnormalities CT angiogram of the neck/carotid arteries with contrast, Multiplanar reconstructions and MIPS Comparison: None provided Findings: Great vessel origins patent at aortic arch. Bilateral subclavian arteries patent. Bilateral vertebral artery origins patent. No evidence for vertebral dissection. Vertebrals equal in caliber. Common carotid arteries are unremarkable. Dense calcified carotid bulb plaque. Mild bilateral internal carotid origin stenosis. Mild narrowing mid extracranial right ICA. No soft tissue abnormality. No acute bony abnormalities. Impression: Mild bilateral internal carotid artery stenosis This document has been electronically signed by: Jace Harrington MD on 04/22/2025 21:49:17 Narrative 04/22/2025 9:49 PM EDT INDICATION: concern TIA CT head without contrast Comparison: 04/06/2025 Findings: No acute intracranial fluid collection or hematoma. Mild chronic white matter disease with volume loss. No acute process in sinuses or mastoids. No acute bony abnormality. Procedure Note Jace Harrington MD - 04/22/2025 INDICATION: concern TIA CT head without contrast Comparison: 04/06/2025 Findings: No acute intracranial fluid collection or hematoma. Mild chronic white matter disease with volume loss. No acute process in sinuses or mastoids. No acute bony abnormality. IMPRESSION: Impression: No acute intracranial process CT angiogram head/ramona of [place] with contrast, Multiplanar reconstructions and 3D postprocessing Comparison: None provided Findings: Normal configuration of the ramona of [place] vessels. No acute filling defect or vessel truncation. Dural venous sinuses patent. No aneurysm or central vascular abnormality. No peripheral vascular malformations. Impression: No acute vascular abnormalities CT angiogram of the neck/carotid arteries with contrast, Multiplanar reconstructions and MIPS Comparison: None provided Findings: Great vessel origins patent at aortic arch. Bilateral subclavian arteries patent. Bilateral vertebral artery origins patent. No evidence for vertebral dissection. Vertebrals equal in caliber. Common carotid arteries are unremarkable. Dense calcified carotid bulb plaque. Mild bilateral internal carotid origin stenosis. Mild narrowing mid extracranial right ICA. No soft tissue abnormality. No acute bony abnormalities. Impression: Mild bilateral internal carotid artery stenosis This document has been electronically signed by: Jace Harrington MD on 04/22/2025 21:49:17 Devante Dumont MD IMG CT PROCEDURES Final Result * Urinalysis with reflex microscopic (04/22/2025 7:50 PM EDT) Specific [place] Urine 1.022 1.003 - 1.030 LAB URINALYSIS - AUTOMATED METHOD 04/22/2025 8:15 PM [facility] pH, Urine 6.5 5.0 - 8.0 pH LAB URINALYSIS - AUTOMATED METHOD 04/22/2025 8:15 PM [facility] Leukocytes, Urine Negative Negative LAB URINALYSIS - AUTOMATED METHOD 04/22/2025 8:15 PM [facility] Nitrite, Urine Negative Negative LAB URINALYSIS - AUTOMATED METHOD 04/22/2025 8:15 PM [facility] Protein, Urine Negative <=Trace mg/dL LAB URINALYSIS - AUTOMATED METHOD 04/22/2025 8:15 PM [facility] Glucose, Urine Negative Negative mg/dL LAB URINALYSIS - AUTOMATED METHOD 04/22/2025 8:15 PM [facility] Ketones, Urine Negative Negative mg/dL LAB URINALYSIS - AUTOMATED METHOD 04/22/2025 8:15 PM [facility] Urobilinogen, Urine 1.0 0.2 - 1.0 mg/dL LAB URINALYSIS - AUTOMATED METHOD 04/22/2025 8:15 PM [facility] Bilirubin, Urine Negative Negative LAB URINALYSIS - AUTOMATED METHOD 04/22/2025 8:15 PM [facility] Blood, Urine Negative Negative LAB URINALYSIS - AUTOMATED METHOD 04/22/2025 8:15 PM [facility] Urine Urine specimen obtained by clean catch procedure / Unknown Non-blood Collection / Unknown 04/22/2025 7:50 PM EDT 04/22/2025 8:05 PM EDT us Devante Dumont MD LAB URINE ORDERABLES Final Resul t [facility] [address] [place] [address], [place] [phone] * XR Chest 1 View (04/22/2025 7:50 PM EDT) Anatomical Region Laterality Modality Body Radiographic Gianna ging 04/23/2025 10:0 4 AM EDT Impressions 04/23/2025 10:05 AM EDT Hypoinflated lung caldwell without infiltrates or effusions. -------- FINAL REPORT -------- Dictated By: Alex Lyman Dictated Date: 04/23/2025 10:04 ET Assigned Physician: Alex Lyman Reviewed and Electronically Signed By: Alex Lyman Signed Date: 04/23/2025 10:05 ET Workstation ID: [id number] Transcribed By: Self Edit Transcribed Date: 04/23/2025 10:04 ET Narrative 04/23/2025 10:05 AM EDT INDICATION: Concern for TIA FINDINGS: Single portable AP view of the chest obtained. Compared to multiple prior studies most recent from April 06, 2025. Lung caldwell are mildly hypoinflated. No focal infiltrates or effusions. Heart normal in size and shape. Bony structures are grossly intact and normal for the patient's age. Procedure Note Alex Lyman MD - 04/23/2025 INDICATION: Concern for TIA FINDINGS: Single portable AP view of the chest obtained. Compared tomultiple prior studies most recent from April 06, 2025. Lung caldwell are mildly hypoinflated. No focal infiltrates or effusions. Heart normal in size and shape. Bony structures are grossly intact and normal for the patient's age. IMPRESSION: Hypoinflated lung caldwell without infiltrates or effusions. -------- FINAL REPORT -------- Dictated By: Alex Lyman Dictated Date: 04/23/2025 10:04 ET Assigned Physician: Aelx Lyman Reviewed and Electronically Signed By: Alex Lyman Signed Date: 04/23/2025 10:05 ET Workstation ID: [id number] Transcribed By: Self Edit Transcribed Date: 04/23/2025 10:04 ET us Awais Arevalo MD IMG XR PROCEDURES Final Res ult * Troponin I High Sensitivity (04/22/2025 6:55 PM EDT) [facility] [address] High Sensitivity Troponin I 17 <=79 ng/L LAB CHEMISTRY METHOD 04/22/2025 8:40 PM EDT [facility] Blood Venous blood specimen / Unknown Venipuncture / Unknown 04/22/2025 6:55 PM EDT 04/22/2025 8:04 PM EDT Narrative [facility] - 04/22/2025 8:40 PM EDT High levels of biotin in samples may falsely decrease hsTroponin values. Use caution when interpreting hsTroponin results in patients taking biotin who exhibit renal impairment (eGFR <60) or in patients taking more than 20 mg/day of biotin. Devante Dumont MD LAB BLOOD ORDERABLES Final Resul t Performing Organization Address City/[facility]/ZIP Co de Phone Number [facility] [address] [place] [address], [place] [phone] * APTT (04/22/2025 6:55 PM EDT) [facility] [address] aPTT 32.6 24.1 - 39.3 sec LAB COAGULATION METHOD 04/22/2025 8:24 PM EDT [facility] Blood Venous blood specimen / Unknown Venipuncture / Unknown 04/22/2025 6:55 PM EDT 04/22/2025 8:04 PM EDT us Devante Dumont MD LAB BLOOD ORDERABLES Final Resul t [facility] [address] [place] [address], [place] [phone] * Protime-INR (04/22/2025 6:55 PM EDT) [facility] [address] Protime 11.5 10.6 - 13.9 sec LAB COAGULATION METHOD 04/22/2025 8:24 PM EDT [facility] INR 0.9 LAB COAGULATION METHOD 04/22/2025 8:24 PM EDT [facility] Blood Venous blood specimen / Unknown Venipuncture / Unknown 04/22/2025 6:55 PM EDT 04/22/2025 8:04 PM EDT us Devante Dumont MD LAB BLOOD ORDERABLES Final Resul t Performing Organization Address [facility]/ZIP Co de Phone Number [facility] [address] [place] [address], [place] [phone] * B-Type Natriuretic Peptide (BNP) (04/22/2025 6:55 PM EDT) BNP 24 <=100 pcg/mL LAB CHEMISTRY METHOD 04/22/2025 8:47 PM EDT [facility] Blood Venous blood specimen / Unknown Venipuncture / Unknown 04/22/2025 6:55 PM EDT 04/22/2025 8:04 PM EDT us Devante Dumont MD LAB BLOOD ORDERABLES Final Resul t Performing Organization Address [facility]/ZIP Co de Phone Number [facility] [address] [place] [address], [place] [phone] * (ABNORMAL) Comprehensive Metabolic Panel (CMP) (04/22/2025 6:55 PM EDT) Only the most recent of2 resultswithin the time period is included. Sodium 137 133 - 145 mmol/L LAB CHEMISTRY METHOD 04/22/2025 8:36 PM EDT [facility] Potassium 4.4 3.5 - 5.5 mmol/L LAB CHEMISTRY METHOD 04/22/2025 8:36 PM EDT [facility] Chloride 104 96 - 110 mmol/L LAB CHEMISTRY METHOD 04/22/2025 8:36 PM [facility] CO2 28 21 - 32 mmol/L LAB CHEMISTRY METHOD 04/22/2025 8:36 PM [facility] Anion Gap 5 3 - 11 LAB CHEMISTRY METHOD 04/22/2025 8:36 PM [facility] Glucose 87 70 - 100 mg/dL LAB CHEMISTRY METHOD 04/22/2025 8:36 PM [facility] BUN 20 5 - 25 mg/dL LAB CHEMISTRY METHOD 04/22/2025 8:36 PM [facility] Creatinine 1.00 0.70 - 1.30 mg/dL LAB CHEMISTRY METHOD 04/22/2025 8:36 PM [facility] eGFR 78 >=60 mL/min/1. 73m2 LAB CHEMISTRY METHOD 04/22/2025 8:36 PM [facility] Comment:Calculation based on the Chronic Kidney Disease Epidemiology Collaboration (CKD-EPI) equation refit without adjustment for race. BUN/Creatinine Ratio 20.0 LAB CHEMISTRY METHOD 04/22/2025 8:36 PM [facility] Calcium 9.0 8.5 - 10.5 mg/dL LAB CHEMISTRY METHOD 04/22/2025 8:36 PM [facility] AST (SGOT) 18 10 - 42 unit/L LAB CHEMISTRY METHOD 04/22/2025 8:36 PM [facility] ALT (SGPT) 12 10 - 60 unit/L LAB CHEMISTRY METHOD 04/22/2025 8:36 PM [facility] Alkaline Phosphatase 145(H) 42 - 121 unit/L LAB CHEMISTRY METHOD 04/22/2025 8:36 PM [facility] Total Protein 6.4 6.0 - 8.0 g/dL LAB CHEMISTRY METHOD 04/22/2025 8:36 PM [facility] Albumin 3.5 3.2 - 5.0 g/dL LAB CHEMISTRY METHOD 04/22/2025 8:36 PM EDT [facility] Total Bilirubin 0.4 0.0 - 1.4 mg/dL LAB CHEMISTRY METHOD 04/22/2025 8:36 PM EDT [facility] Blood Venous blood specimen / Unknown Venipuncture / Unknown 04/22/2025 6:55 PM EDT 04/22/2025 8:04 PM EDT us Devante Dumont MD LAB BLOOD ORDERABLES Final Resul t [facility] [address] [place] [address], * CT Neck Soft Tissue w Contrast (04/07/2025 8:20 AM EDT) Anatomical Region Laterality Modality Head and Neck Computed Tomogra phy 04/13/2025 2:07 PM EDT Impressions 04/13/2025 3:15 PM EDT 2.7 cm mass in the region of the right tonsillar pillar. Necrotic bilateral level 2 lymphadenopathy, more extensive on the right. The findings are concerning for neoplastic disease most likely a primary squamous cell carcinoma arising at the level of the tonsillar pillar. The enlarged cervical nodes result in marked compression of both internal jugular veins. -------- FINAL REPORT -------- Dictated By: Wilmer Brewer Dictated Date: 04/13/2025 14:07 ET Assigned Physician: Wilmer Brewer Reviewed and Electronically Signed By: Wilmer Brewer Signed Date: 04/13/2025 15:15 ET Workstation ID: [id number] Transcribed By: Self Edit Transcribed Date: 04/13/2025 14:07 ET Narrative 04/13/2025 3:15 PM EDT PROCEDURE: Contrast enhanced CT of the neck. HISTORY: CERVICAL LYMPHADENOPATHY. TECHNIQUE: CT of the neck with coronal and sagittal reformats. IV CONTRAST DOSE: 90 mL ISOVUE-370. Dose length product: 324 mGy-cm. COMPARISON: CT of the cervical spine dated 04/06/2025. FINDINGS: The visualized portions of the brain are normal. Lens implants. Remote posttraumatic deformity of the left lamina papyracea. Orbits otherwise unremarkable. There is a small mucous retention cyst along the floor of the left maxillary antrum. The mastoids and middle ear spaces are clear. The skull base foramina are normal. The parotid and submandibular glands are normal. The thyroid gland is normal. There is a 2.5 x 2.7 cm soft tissue mass at the level of the right tonsillar pillar. Enlarged bilateral level 2 nodes, larger and more extensive on the right. The largest angel conglomerate on the right measures 2.9 x 2.1 cm. The largest node on the left measures up to 15 mm short axis. Small areas of hypoattenuation within the nodes suggesting necrosis. Scattered atherosclerotic calcifications. The above noted enlarged level 2B nodes result in marked mass effect upon the adjacent internal jugular veins; there is no visible flow within either internal jugular vein at the level of the lymph nodes, though the veins opacify with contrast both superior and superior to the nodes. The visualized portions of the mediastinum are normal. There is mild interstitial scarring at the lung apices. Multilevel degenerative changes of the cervical spine. No suspicious bony lesion. Procedure Note Wilmer Brewer MD - 04/13/2025 PROCEDURE: Contrast enhanced CT of the neck. HISTORY: CERVICAL LYMPHADENOPATHY. TECHNIQUE: CT of the neck with coronal and sagittal reformats. IV CONTRAST DOSE: 90 mL ISOVUE-370. Dose length product: 324 mGy-cm. COMPARISON: CT of the cervical spine dated 04/06/2025. FINDINGS: The visualized portions of the brain are normal. Lens implants. Remote posttraumatic deformity of the left laminapapyracea. Orbits otherwise unremarkable. There is a small mucous retention cyst along the floor of the leftmaxillary antrum. The mastoids and middle ear spaces are clear. Theskull base foramina are normal. The parotid and submandibular glands are normal. The thyroid gland isnormal. There is a 2.5 x 2.7 cm soft tissue mass at the level of the righttonsillar pillar. Enlarged bilateral level 2 nodes, larger and more extensive on the right.The largest angel conglomerate on the right measures 2.9 x 2.1 cm. Thelargest node on the left measures up to 15 mm short axis. Small areas ofhypoattenuation within the nodes suggesting necrosis. Scattered atherosclerotic calcifications. The above noted enlarged [id number] nodes result in marked mass effect upon the adjacent internal jugularveins; there is no visible flow within either internal jugular vein at thelevel of the lymph nodes, though the veins opacify with contrast bothsuperior and superior to the nodes. The visualized portions of the mediastinum are normal. There is mildinterstitial scarring at the lung apices. Multilevel degenerative changes of the cervical spine. No suspicious bonylesion. IMPRESSION: 2.7 cm mass in the region of the right tonsillar pillar. Necroticbilateral level 2 lymphadenopathy, more extensive on the right. Thefindings are concerning for neoplastic disease most likely a primarysquamous cell carcinoma arising at the level of the tonsillar pillar. The enlarged cervical nodes result in marked compression of both internaljugular veins. -------- FINAL REPORT -------- Dictated By: Wilmer Brewer Dictated Date: 04/13/2025 14:07 ET Assigned Physician: Wilmer Brewer Reviewed and Electronically Signed By: Wilmer Brewer Signed Date: 04/13/2025 15:15 ET Workstation ID: [id number] Transcribed By: Self Edit Transcribed Date: 04/13/2025 14:07 ET us Mamadou Lopez NP IMG CT PROCEDURES Final Resul t * XR Shoulder 2+ Views Right (04/06/2025 6:46 PM EDT) Anatomical Region Laterality Modality Upper Extremities, Shoulder Right Radi ographic Imaging 04/07/2025 9:11 AM EDT Impressions 04/07/2025 9:13 AM EDT Impression: 1. No acute fracture or dislocation of the right shoulder. 2. Severe glenohumeral arthritic changes. 3. Calcific tendinitis/bursitis. Telerad TIFFANY ([id number]) -------- FINAL REPORT -------- Dictated By: Elena Corbin Dictated Date: 04/07/2025 09:11 ET Assigned Physician: Elena Corbin Reviewed and Electronically Signed By: Elena Corbin Signed Date: 04/07/2025 09:13 ET Workstation ID: [id number] Transcribed By: Self Edit Transcribed Date: 04/07/2025 09:11 ET Narrative 04/07/2025 9:13 AM EDT History: Right shoulder pain after fall. Findings: 3 views of the right shoulder. No acute fracture or dislocation is seen. There is severe narrowing of the glenohumeral joint, with subchondral sclerosis and cyst formation. A large osteophyte is seen along the inferior margin of the humeral head. The acromioclavicular joint is intact. A well-corticated 6 mm ossicle is seen within the soft tissues adjacent to the AC joint, likely degenerative in nature. There are amorphous calcifications within the soft tissues adjacent to the humeral head and greater tuberosity, consistent with calcific tendinitis/bursitis. Procedure Note Elena Corbin MD - 04/07/2025 History: Right shoulder pain after fall. Findings: 3 views of the right shoulder. No acute fracture or dislocation is seen. There is severe narrowing of theglenohumeral joint, with subchondral sclerosis and cyst formation. A largeosteophyte is seen along the inferior margin of the humeral head. Theacromioclavicular joint is intact. A well-corticated 6 mm ossicle is seenwithin the soft tissues adjacent to the AC joint, likely degenerative innature. There are amorphous calcifications within the soft tissues adjacent to thehumeral head and greater tuberosity, consistent with calcifictendinitis/bursitis. IMPRESSION: Impression: 1. No acute fracture or dislocation of the right shoulder. 2. Severe glenohumeral arthritic changes. 3. Calcific tendinitis/bursitis. Latricia ALLEN ([id number]) -------- FINAL REPORT -------- Dictated By: Elena Corbin Dictated Date: 04/07/2025 09:11 ET Assigned Physician: Elena Corbin Reviewed and Electronically Signed By: Elena Corbin Signed Date: 04/07/2025 09:13 ET Workstation ID: [id number] Transcribed By: Self Edit Transcribed Date: 04/07/2025 09:11 ET Guillermo Choi MD IMG XR PROCEDURES Final Result * XR Chest 2 Views (04/06/2025 6:46 PM EDT) Anatomical Region Laterality Modality Body Radiographic Gianna ging 04/07/2025 9:05 AM EDT Impressions 04/07/2025 9:06 AM EDT No acute findings. -------- FINAL REPORT -------- Dictated By: Wilmer Brewer Dictated Date: 04/07/2025 09:05 ET Assigned Physician: Wilmer Brewer Reviewed and Electronically Signed By: Wilmer Brewer Signed Date: 04/07/2025 09:06 ET Workstation ID: [id number] Transcribed By: Self Edit Transcribed Date: 04/07/2025 09:05 ET Narrative 04/07/2025 9:06 AM EDT PROCEDURE: PA and lateral radiographs of the chest. HISTORY: AMS. COMPARISON: 01/14/2025. FINDINGS: Lungs and pleural spaces are clear. Atherosclerotic calcifications of the aorta. Mild degenerative changes of the spine and shoulders. Bones appear demineralized. Procedure Note Wilmer Brewer MD - 04/07/2025 PROCEDURE: PA and lateral radiographs of the chest. HISTORY: AMS. COMPARISON: 01/14/2025. FINDINGS: Lungs and pleural spaces are clear. Atherosclerotic calcifications of theaorta. Mild degenerative changes of the spine and shoulders. Bonesappear demineralized. IMPRESSION: No acute findings. -------- FINAL REPORT -------- Dictated By: Wilmer Brewer Dictated Date: 04/07/2025 09:05 ET Assigned Physician: Wilmer Brewer Reviewed and Electronically Signed By: Wilmer Brewer Signed Date: 04/07/2025 09:06 ET Workstation ID: [id number] Transcribed By: Self Edit Transcribed Date: 04/07/2025 09:05 ET Guillermo Choi MD IMG XR PROCEDURES Final Result * (ABNORMAL) Urinalysis with reflex microscopic and culture (04/06/2025 6:42 PM EDT) Specific [place] Urine 1.015 1.003 - 1.030 LAB URINALYSIS - AUTOMATED METHOD 04/06/2025 7:21 PM [facility] pH, Urine 6.5 5.0 - 8.0 pH LAB URINALYSIS - AUTOMATED METHOD 04/06/2025 7:21 PM [facility] Leukocytes, Urine Negative Negative LAB URINALYSIS - AUTOMATED METHOD 04/06/2025 7:21 PM [facility] Nitrite, Urine Negative Negative LAB URINALYSIS - AUTOMATED METHOD 04/06/2025 7:21 PM [facility] Protein, Urine Negative <=Trace mg/dL LAB URINALYSIS - AUTOMATED METHOD 04/06/2025 7:21 PM [facility] Glucose, Urine Negative Negative mg/dL LAB URINALYSIS - AUTOMATED METHOD 04/06/2025 7:21 PM [facility] Ketones, Urine Trace(A) Negative mg/dL LAB URINALYSIS - AUTOMATED METHOD 04/06/2025 7:21 PM [facility] Urobilinogen, Urine 1.0 0.2 - 1.0 mg/dL LAB URINALYSIS - AUTOMATED METHOD 04/06/2025 7:21 PM [facility] Bilirubin, Urine Negative Negative LAB URINALYSIS - AUTOMATED METHOD 04/06/2025 7:21 PM [facility] Blood, Urine Negative Negative LAB URINALYSIS - AUTOMATED METHOD 04/06/2025 7:21 PM [facility] Urine Urine specimen obtained by clean catch procedure / Unknown Non-blood Collection / Unknown 04/06/2025 6:42 PM EDT 04/06/2025 6:57 PM EDT Guillermo Choi MD LAB URINE ORDERABLES Final Resul t Performing Organization Address [facility]/ZIP Co de Phone Number [facility] [address] [place] [address], [place] [phone] * Fenton urine culture tube (04/06/2025 6:42 PM EDT) Extra Tube Hold for add-ons. 04/06/2025 8:01 PM EDT [facility] Comment:Auto resulted. Urine Urine specimen obtained by clean catch procedure / Unknown Non-blood Collection / Unknown 04/06/2025 6:42 PM EDT 04/06/2025 6:57 PM EDT Guillermo Choi MD LAB URINE ORDERABLES Final Resul t Performing Organization Address [facility] Co de Phone Number [facility] [address] [place] [address], [place] [phone] * CT Cervical Spine wo Contrast (04/06/2025 6:09 PM EDT) Only the most recent of2 resultswithin the time period is included. Anatomical Region Laterality Modality Spine, C-spine Computed Tomogra phy 04/06/2025 6:44 PM EDT Impressions 04/06/2025 6:44 PM EDT 1. No evidence of acute injury to the cervical spine. 2. Grade 1 anterolisthesis of C7 on T1, degenerative and stable. 3. Advanced multilevel cervical spondylosis. This document has been electronically signed by: Sung Murguia MD on 04/06/2025 18:44:48 Narrative 04/06/2025 6:44 PM EDT INDICATION: unwitnessed fall CT cervical spine without contrast. COMPARISON: CT cervical spine dated 02/23/25 at 07:52 EDT FINDINGS: Grade 1 anterolisthesis of C7 on T1, degenerative and stable. Vertebral body heights are maintained. Skull base and intracranial structures appear normal. Calcified plaque present at the carotid bulbs bilaterally and along the proximal left subclavian artery. C2-C3: Facet joint arthrosis. C3-C4: Anterior marginal osteophytes. Loss of disc space height. Posterior disc osteophyte complex. Uncovertebral joint hypertrophy. Moderate left and severe right neural foraminal narrowing. C4-C5: Anterior marginal osteophytes. Loss of disc space height. Uncovertebral joint hypertrophy. Facet joint arthrosis. Azhfukbu-rd-qujeoc bilateral neural foraminal narrowing. C5-C6: Anterior marginal osteophytes. Loss of disc space height. Posterior disc osteophyte complex. Uncovertebral joint hypertrophy. Severe bilateral neural foraminal narrowing. C6-C7: Anterior marginal osteophytes. Loss of disc space height. Uncovertebral joint hypertrophy. Posterior disc osteophyte complex. Severe bilateral neural foraminal narrowing. Procedure Note Sung Murguia MD - 04/06/2025 INDICATION: unwitnessed fall CT cervical spine without contrast. COMPARISON: CT cervical spine dated 02/23/25 at 07:52 EDT FINDINGS: Grade 1 anterolisthesis of C7 on T1, degenerative and stable. Vertebral body heights are maintained. Skull base and intracranial structures appear normal. Calcified plaque present at the carotid bulbs bilaterally and along the proximal left subclavian artery. C2-C3: Facet joint arthrosis. C3-C4: Anterior marginal osteophytes. Loss of disc space height.Posterior disc osteophyte complex. Uncovertebral joint hypertrophy. Moderate left and severe right neural foraminal narrowing. C4-C5: Anterior marginal osteophytes. Loss of disc space height. Uncovertebral joint hypertrophy. Facet joint arthrosis.Yusmxszr-ll-owafuv bilateral neural foraminal narrowing. C5-C6: Anterior marginal osteophytes. Loss of disc space height.Posterior disc osteophyte complex. Uncovertebral joint hypertrophy. Severebilateral neural foraminal narrowing. C6-C7: Anterior marginal osteophytes. Loss of disc space height. Uncovertebral joint hypertrophy. Posterior disc osteophyte complex.Severe bilateral neural foraminal narrowing. IMPRESSION: 1. No evidence of acute injury to the cervical spine. 2. Grade 1 anterolisthesis of C7 on T1, degenerative and stable. 3. Advanced multilevel cervical spondylosis. This document has been electronically signed by: Sung Murguia MD on 04/06/2025 18:44:48 Guillermo Choi MD IM CT PROCEDURES Final Result * CT Head wo Contrast (04/06/2025 6:09 PM EDT) Only the most recent of2 resultswithin the time period is included. Anatomical Region Laterality Modality Head and Neck Computed Tomogra phy 04/06/2025 6:41 PM EDT Impressions 04/06/2025 6:41 PM EDT 1. No acute intracranial findings. This document has been electronically signed by: Sung Murguia MD on 04/06/2025 18:41:18 Narrative 04/06/2025 6:41 PM EDT INDICATION: unwitnessed fall CT head without contrast. COMPARISON: CT head dated 02/23/25 at 07:52 EDT FINDINGS: The visualized paranasal sinuses are clear. The mastoid air cells are clear. No calvarial fracture. Chronic healed fracture deformity of the medial orbital wall on the left. Atherosclerotic intracranial vasculature. No evidence for mass or mass effect. No intracranial hemorrhage or abnormal extra-axial fluid collection. The ventricles are proportional with the degree of mild global cerebral volume loss without evidence of hydrocephalus. Basilar cisterns are patent. There are periventricular areas of low attenuation compatible with mild white matter small vessel disease. Posterior fossa appears unremarkable. Procedure Note Sung Murguia MD - 04/06/2025 INDICATION: unwitnessed fall CT head without contrast. COMPARISON: CT head dated 02/23/25 at 07:52 EDT FINDINGS: The visualized paranasal sinuses are clear. The mastoid air cells are clear. No calvarial fracture. Chronic healed fracture deformity of the medial orbital wall on the left. Atherosclerotic intracranial vasculature. No evidence for mass or mass effect. No intracranial hemorrhage or abnormal extra-axial fluid collection. The ventricles are proportional with the degree of mild global cerebral volume loss without evidence of hydrocephalus. Basilar cisterns arepatent. There are periventricular areas of low attenuation compatible with mild white matter small vessel disease. Posterior fossa appears unremarkable. IMPRESSION: 1. No acute intracranial findings. This document has been electronically signed by: Sung Murguia MD on 04/06/2025 18:41:18 Guillermo Choi MD [facility] CT PROCEDURES Final Result * Ammonia (04/06/2025 5:44 PM EDT) Ammonia 29 11 - 35 mcmol/L LAB CHEMISTRY METHOD 04/06/2025 6:28 PM EDT [facility] Blood Venous blood specimen / Unknown Venipuncture / Unknown 04/06/2025 5:44 PM EDT 04/06/2025 6:05 PM EDT us Guillermo Choi MD LAB BLOOD ORDERABLES Final Resul t [facility] [address] [place] [address], [place] [phone] * COLONOSCOPY Anesthesia - MAC; [facility] ENDOSCOPY (07/31/2024 11:01 AM EST) Anatomical Region [...] for surveillance. Narrative 07/31/2024 11:02 AM EST [facility] GI Patient Name: Giorgio Garcia Procedure Date: [...] retroflexion views. Procedure Code(s): --- Professional --- 64667, Colonoscopy, flexible; with removal of tumor(s), polyp(s), or other lesion(s) by snare technique Diagnosis Code(s): --- Professional --- Z86.010, Personal history of colonic polyps D12.3, Benign neoplasm of transverse colon (hepatic flexure or splenic flexure) D12.2, Benign neoplasm of ascending colon K57.30, Diverticulosis of large intestine without perforation or abscess without bleeding CPT copyright 2021 [employer]. All rights reserved. The codes documented in this report are preliminary and upon paint striping machine operator review may be revised to meet current compliance requirements. MD Lucien Davidson MD 07/31/2024 11:02:38 AM This report has been signed electronically.Lucien Villa MD Number of Addenda: 0 Note Initiated On: 07/31/2024 10:40 AM Scope In: Scope Out: Endoscopy Department at [facility] - [address] [place] [phone] Procedure Note Lucien Villa MD - 07/31/2024 [facility] GI Patient Name: Giorgio Garcia Procedure Date: [...] retroflexion views. Procedure Code(s): --- Professional --- 69228, Colonoscopy, flexible; with removal of tumor(s), polyp(s), or other lesion(s) by snare technique Diagnosis Code(s): --- Professional --- Z86.010, Personal history of colonic polyps D12.3, Benign neoplasm of transverse colon (hepatic flexure or splenic flexure) D12.2, Benign neoplasm of ascending colon K57.30, Diverticulosis of large intestine without perforation or abscess without bleeding CPT copyright 2021 [employer]. All rights reserved. The codes documented in this report are preliminary and upon paint striping machine operator reviewmay be revised to meet current compliance requirements. MD Lucien Davidson MD 07/31/2024 11:02:38 AM This report has been signed electronically.Lucien Villa MD Number of Addenda: 0 Note Initiated On: 07/31/2024 10:40 AM Scope In: Scope Out: Endoscopy Department at [facility] - [address] [place] [phone] IMPRESSION: - Five 3 to 7 mm [...] Villa MD GI~PROCEDURE ORDERABLES Final R esult from Last 3 Months or Most Recently Relevant to Health Maintenance Insurance [employer] MEDICARE Member Subscriber Plan / Payer (Ef fective 2015-Present) Name:Giorgio Ennis Relation to Subscriber:Self Name:Giorgio Garcia Payer ID:[id number] Group ID:[id number] Type:Not on file Address: [place] [address] [address] [phone] Advance Directives Documents on File Type Date Recorded 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 To update the patient's code status, place a code status order. Do not modify or discontinue any currently active code status orders. * Full Code - Default Date Activated Date Inactivated Comments 04/22/2025 9:57 PM 04/22/2025 11:23 PM This is o rder is used when code status has not been discussed with the patient, or code status is otherwise unknown/unconfirmed To update the patient's code status, place a code status order. Do not modify or discontinue any currently active code status orders. Healthcare Agents on File Name Relationship Healthcare Agent Relationship Communication Estefania Garcia Spouse Health Care Agent Neetu Pearce Relative First Alternate Health Care Agent Care Teams Media Reporter Relationship Specialty Start Date End Date Mamadou Lopez, ROAD ROLLER OPERATOR [employer] [address] [place] [address] PCP - General Nurse Practitioner 04/22/25
--- OUTSIDE RECORDS SUMMARY | 2025-05-12 12:21 | XMS_ITS | Encounter Summary ---
Author Organization [facility] Address [address] [place] [address] Care Team Providers Care Marketing Production Manager Name Role Phone Mamadou Lopez MOBILE PHLEBOTOMIST Primary Care Provider [phone] Encounter Details Date Type Department Care Team (Late st Contact Info) Description 05/08/2025 Telephone [facility] Radiation Oncology [address] [place] [address] Sasha Sun MA Social History [...] Notes * Sasha Sun MA - 05/08/2025 11:07 AM EST Left detailed voice message to schedule consult appt. Requested a call back. documented in this encounter Plan of Treatment Upcoming Encounters Date Type Department Care Team (Late st Contact Info) Description 05/26/2025 1:45 PM EST Office Visit [facility] Hematology Oncology [address] [place] [phone] Jace Martini MD [address] [place] [phone] 05/26/2025 2:00 PM EST Appointment [facility] Radiation Oncology [address] [place] [phone] 05/26/2025 2:30 PM EST Appointment [facility] Radiation Oncology [address] [place] [phone] Yvan Umana MD [address] [place] [address] documented as of this encounter Visit Diagnoses Not on filedocumented in this encounter Care Teams Marketing Production Manager Relationship Specialty Start Date End Date Mamadou Lopez NP [address] [address] PCP - General Nurse Practitioner 04/22/25 documented as of this encounter
--- OUTSIDE RECORDS SUMMARY | 2025-05-12 12:21 | XMS_ITS | Patient Health Record ---
Author Organization [facility] [address] Address [address] [place] [address] Care Team Providers Care Professor Of Kinesiology Name Role Phone ALETHA RUFFIN Unavailable [phone] Allergies No Known Allergies Results Component Value Reference Range Flag Notes PHOSPHORUS Reviewed date:04/24/2025 07:55:01 AM Interpretation: Performing Lab: Notes/Report: Phosphorus 3.0 2.5-4.5 mg/dL POCT GLUCOSE, BLOOD Reviewed date:04/24/2025 07:30:21 AM Interpretation: Performing Lab: Notes/Report: Glucose POCT 116 70-100 mg/dL H XR HIP 2-3 VIEWS LEFT Reviewed date:01/21/2025 11:23:20 AM Interpretation: Performing Lab: Notes/Report: Note See Note [facility], a member of [facility] Patient Name: LICHA MELGAR Date of : 1950 Reason for Exam: pain Exam Date: 01/21/2025 [id number] EST Report Status: Final Ordering Provider: ALETHA [...] calcific tendinitis of the hips bilaterally. Code 82753 -------- FINAL REPOR T -------- Dictated By: Presley Huggins Dictated Date: 01/21/2025 10:58 ET Assigned Physician: Presley Huggins Reviewed and Electronically Signed By: Presley Huggins Signed Date: 025 10:59 ET Workstation ID: [id number] Transcribed By: Self Edit Transcribed Date: 01/21/2025 10:58 ET US BX NDL LYMPH NODE SUPERFI CIAL RIGHT Reviewed date:04/24/2025 02:26:18 PM Interpretation: Performing Lab: Notes/Report: Note See Note [facility], a member of [facility] Patient Name: LICHA MELGAR Date of : 1950 Reason for Exam: NECK MASS, NONPULSATILE, SOLITARY, NO FEVER Exam Date: 04/24/2025 [id number] EST Report Status: Final Ordering Provider: LUCIA SPARKS PCP: ALETHA RUFFIN INDICATION: Cervical lymphadenopathy PROCEDURE: Ultrasound-guided biopsy of right-sided level 2 cervical lymphadenopathy prior relevant studi es: Neck CTA from April 22, 2025 MEDICATIONS: [...] applied over the needle entry site. Specimens: Fine-need le samples placed in CytoLyt after creation of histological slides. Core biopsy samples placed into formalin. Flow cytometry sample obtained with a heparinized needle. Preliminary findings : Malignancy IMPRESSION: Ultrasound-guided fine-needle and core biopsy of right-sided level 2 cervical lymphadenopathy. -------- FINAL REPOR T -------- Dictated By: Alex Lyman Dictated Date: 04/24/2025 14:05 ET Assigned Physician: Alex Lyman Reviewed and Electronically Signed By: Alex Lyman Signed Date: 025 14:06 ET Workstation ID: [id number] Transcribed By: Self Edit Transcribed Date: 04/24/2025 14:05 ET CBC WITH AUTO DIFFERENTIAL Reviewed date:04/24/2025 07:30:21 AM Interpretation: Performing Lab: Notes/Report: WBC 5.0 4.8-10.8 K/mcL RBC 4.40 4.50-5.50 M/mcL L Hemoglobin 13.4 13.5-17.5 g/dL L Hematocrit 39.7 42.0-54.0 % L MCV 90.2 79.0-98.0 FL MCH 30.5 27.0-32.0 pcg MCHC 33.8 32.0-37.0 g/dL RDW 13.8 11.0-15.0 % Platelets 195 130-400 K/mcL MPV 10.6 7.0-11.0 FL NRBC 0.0 <1.0 % NRBC Absolute 0.00 <0.10 K/mcL Neutrophils Relative 61.0 Lymphocytes Relative 25.0 Monocytes Relative 11.0 Eosinophils Relative 2.2 Basophils Relative 0.6 Immature Granulocytes Relative 0.2 Neutrophils Absolute 3.05 1.50-7.00 K/mcL Lymphocytes Absolute 1.25 1.00-5.00 K/mcL Monocytes Absolute 0.55 0.20-1.00 K/mcL Eosinophils Absolute 0.11 0.00-0.50 K/mcL Basophils Absolute 0.03 0.00-0.20 K/mcL Immature Granulocytes Absolute 0.01 0.00-0.03 K/mcL THYROID STIMULATING HORMONE Reviewed date:01/21/2025 02:26:54 PM Interpretation: Performing Lab: Notes/Report: TSH 1.31 0.40-4.00 mcIU/mL XR LUMBAR SPINE 4+ VIEWS Reviewed date:01/21/2025 11:23:11 AM Interpretation: Performing Lab: Notes/Report: Note See Note [facility], a member of [facility] Patient Name: LICHA MELGAR Date of : 1950 Reason for Exam: pain Exam Date: 01/21/2025 [id number] EST Report Status: Final Ordering Provider: ALETHA [...] at the T12-L1 and L4-5 levels. Code 34261 -------- FINAL REPOR T -------- Dictated By: Presley Huggins Dictated Date: 01/21/2025 10:59 ET Assigned Physician: Presley Huggins Reviewed and Electronically Signed By: Presley Huggins Signed Date: 025 11:01 ET Workstation ID: [id number] Transcribed By: Self Edit Transcribed Date: 01/21/2025 10:59 ET CBC WITH AUTO DIFFERENTIAL Reviewed date:01/21/2025 01:11:29 PM Interpretation: Performing Lab: Notes/Report: WBC 6.0 4.8-10.8 K/mcL RBC 4.60 4.50-5.50 M/mcL Hemoglobin 13.6 13.5-17.5 g/dL Hematocrit 41.4 42.0-54.0 % L MCV 91.0 79.0-98.0 FL MCH 29.9 27.0-32.0 [...] K/mcL Immature Granulocytes Absolute 0.01 0.00-0.03 K/mcL BASIC METABOLIC PANEL Reviewed date:04/24/2025 07:55:01 AM Interpretation: Performing Lab: Notes/Report: Sodium 137 133-145 mmol/L Potassium 4.6 3.5-5.5 mmol/L Chloride 101 96-110 mmol/L CO2 30 21-32 mmol/L Anion Gap 6 3-11 Glucose 110 70-100 mg/dL H BUN 14 5-25 mg/dL Creatinine 0.79 0.70-1.30 mg/dL eGFR 91 >=60 mL/min/1.73m2 Calculation based on the Chronic Kidney Disease Epidemiology Collaboration (CKD-EPI) equation refit without adjustment for race. BUN/Creatinine Ratio 17.7 Calcium 9.0 8.5-10.5 mg/dL BASIC METABOLIC PANEL Reviewed date:04/23/2025 07:50:23 AM Interpretation: Performing Lab: Notes/Report: Sodium 137 133-145 mmol/L Potassium 4.4 3.5-5.5 mmol/L Chloride 103 96-110 mmol/L CO2 27 21-32 mmol/L Anion Gap 7 3-11 Glucose 109 70-100 mg/dL H BUN 16 5-25 mg/dL Creatinine 0.83 0.70-1.30 mg/dL eGFR 90 >=60 mL/min/1.73m2 Calculation based on the Chronic Kidney Disease Epidemiology Collaboration (CKD-EPI) equation refit without adjustment for race. BUN/Creatinine Ratio 19.3 Calcium 8.6 8.5-10.5 mg/dL CBC WITH AUTO DIFFERENTIAL Reviewed date:04/23/2025 07:33:38 AM Interpretation: Performing Lab: Notes/Report: WBC 5.2 4.8-10.8 K/mcL RBC 4.10 4.50-5.50 M/mcL L Hemoglobin 12.5 13.5-17.5 g/dL L Hematocrit 37.0 42.0-54.0 % L MCV 89.4 79.0-98.0 FL MCH 30.2 27.0-32.0 pcg MCHC 33.8 32.0-37.0 g/dL RDW 14.0 11.0-15.0 % Platelets 185 130-400 K/mcL MPV 10.7 7.0-11.0 FL NRBC 0.0 <1.0 % NRBC Absolute 0.00 <0.10 K/mcL Neutrophils Relative 60.0 Lymphocytes Relative 26.0 Monocytes Relative 10.7 Eosinophils Relative 2.5 Basophils Relative 0.6 Immature Granulocytes Relative 0.2 Neutrophils Absolute 3.15 1.50-7.00 K/mcL Lymphocytes Absolute 1.36 1.00-5.00 K/mcL Monocytes Absolute 0.56 0.20-1.00 K/mcL Eosinophils Absolute 0.13 0.00-0.50 K/mcL Basophils Absolute 0.03 0.00-0.20 K/mcL Immature Granulocytes Absolute 0.01 0.00-0.03 K/mcL MR BRAIN WO AND W CONTRAST Reviewed date:04/25/2025 08:35:22 AM Interpretation: Performing Lab: Notes/Report: Note See Note [facility], a member of [place] [facility] Patient Name: LICHA MELGAR Date of : 1950 Reason for Exam: TIA Exam Date: 04/24/2025 [id number] EST Report Status: Final Ordering Provider: VIJI EDGE PCP: ALETHA RUFFIN INDICATION: TIA Exam: MRI of the bra in, including gadolinium-enhanced imaging. Comparison: CT brain 04/06/2025. Findings: There is n o cerebral edema or mass effect. White matter reveals punctate foci of T2 hyperintensity, nonspecific although likely sequela of minimal chronic microangiopathic disease. Diffusion weighted imaging reveals no restricte d diffusion or evidence of acute ischemia. Susceptibility weigh brody imaging reveals no susceptibility artifact or evidence of intracra nial hemorrhage. Ventricular size and configuration are within normal limits. Cerebral cisterns are preserved. Gadolinium enhanced imaging reveals no enhancing lesions. Paranasal sinuses an d mastoid air cells reveal no focal signal abnormality. IMPRESSION: Impression: 1. No acute intracra nial abnormalities. This document has be en electronically signed by: Sebas Bailey MD on 04/24/2025 17:24:52 FINE NEEDLE ASPIRATION Reviewed date:04/28/2025 11:08:53 AM Interpretation: Performing Lab: Notes/Report: Adequate. Malignant. Carcinoma, pending IHC to characterize. Dr. Gonzalez communicated with Dr. Lyman 04/24/25 11:23 AM EDT by Gil Final Diagnosis Lymph Node, Right cervical, fine-needle aspiration (ThinPrep, direct smears, and cell block): Positive for malignant cells. Squamous cell carcinoma. at 1031 EDT Comment ThinPrep and direct smears contain diagnostic material; cellblock is noncontributory. Please also see concurrent core biopsy, [id number]. Specimen A Adequacy Satisfactory for evaluation This is an appended report. These results have been appended to a previously preliminary verified report. Gross Description A. Lymph Node, Right cervical lymph node: Received in saline is 30 ml of clear fluid. One thinPrep, and one cell block are made. Combined with flow tube. Also received are two air dried and two alcohol fixed direct smears. Disclaimer Unless otherwise specified, all tissue is 10% NB formalin fixed and paraffin embedded. Technical cytopat hology services provided by [facility], at [address] [place] [id number] (CLIA # [id number]/Germain Rosenthal MD, Dry Plasterer Helper.) Intraoperative Consultation A. Lymph Node, Right cervical lymph node: XR CHEST 1 VIEW Reviewed date:04/23/2025 10:15:08 AM Interpretation: Performing Lab: Notes/Report: Note See Note [facility], a member of [facility] Patient Name: LICHA MELGAR Date of : 1950 Reason for Exam: concern TIA Exam Date: 04/22/2025 [id number] EST Report Status: Final Ordering Provider: VIJI EDGE PCP: ALETHA RUFFIN INDICATION: Concern for TIA FINDINGS: Single portable AP view of the chest obtained. Compared to multiple prior studies most recent from April 06, 2025. Lung caldwell are mild ly hypoinflated. No focal infiltrates or effusions. Heart normal in size and shape. Bony structures are grossly intact and normal for the patient's age. IMPRESSION: Hypoinflated lung fi elds without infiltrates or effusions. -------- FINAL REPOR T -------- Dictated By: Alex Lyman Dictated Date: 04/23/2025 10:04 ET Assigned Physician: Alex Lyman Reviewed and Electronically Signed By: Alex Lyman Signed Date: 10:05 ET Workstation ID: [id number] Transcribed By: Self Edit Transcribed Date: 04/23/2025 10:04 ET POCT GLUCOSE, BLOOD Reviewed date:04/25/2025 08:35:22 AM Interpretation: Performing Lab: Notes/Report: Glucose POCT 112 70-100 mg/dL H POCT GLUCOSE, BLOOD Reviewed date:04/24/2025 02:24:38 PM Interpretation: Performing Lab: Notes/Report: Glucose POCT 112 70-100 mg/dL H CT NECK SOFT TISSUE W CONTRA ST Reviewed date:04/14/2025 07:51:00 AM Interpretation: Performing Lab: Notes/Report: Note See Note [facility], a member of [facility] Patient Name: LICHA MELGAR Date of : 1950 Reason for Exam: CERVICAL LYMPHADENOPATHY Exam Date: 04/07/2025 [id number] EST Report Status: Final Ordering Provider: ALETHA RUFFIN PCP: REID MONROY PROCEDURE: Contrast enhanced CT of the neck. HISTORY: CERVICAL LYMPHADENOPATHY. TECHNIQUE: CT of the neck with coronal and sagittal reformats. IV CONTRAST DOSE: 90 mL [id number]. Dose length product: 324 mGy-cm. COMPARISON: CT of th e cervical spine dated 04/06/2025. FINDINGS: The visualized porti ons of the brain are normal. Lens implants. Remot e posttraumatic deformity of the left lamina papyracea. Orbits otherwise unremarkable. There is a small muc ous retention cyst along the floor of the left maxillary antrum. The mastoids and middle ear spaces are clear. The skull base foramina are normal. The parotid and submandibular glands are normal. The thyroid gland is normal. There is a 2.5 x 2.7 cm soft tissue mass at the level of the right tonsillar pillar. Enlarged bilateral l evel 2 nodes, larger and more extensive on [...] and superior to the nodes. The visualized porti ons of the mediastinum are normal. There is mild interstitial scarring at the lung apices. Multilevel degenerat yves changes of the cervical spine. No suspicious bony lesion. IMPRESSION: 2.7 cm mass in the region of the right tonsillar pillar. Necrotic bilateral level 2 lymphadenopathy, more extensive on the right. The findings are concerning for neoplastic disease most likely a primary squamous cell carcinoma arising at the level of the tonsillar pillar. The enlarged cervica l nodes result in marked compression of both internal jugular veins. -------- FINAL REPOR T -------- Dictated By: Wilmer Miles Dictated Date: 04/13/2025 14:07 ET Assigned Physician: Wilmer Brewer Reviewed and Electronically Signed By: Wilmer Brewer Signed Date: 15:15 ET Workstation ID: [id number] Transcribed By: Self Edit Transcribed Date: 04/13/2025 14:07 ET URINALYSIS WITH REFLEX MICRO SCOPIC Reviewed date:01/21/2025 01:11:41 PM Interpretation: Performing Lab: Notes/Report: Specific Bruni Urine 1.020 1.003-1.030 pH, Urine 7.0 5.0-8.0 pH Leukocytes, Urine Negative Negative Nitrite, Urine Negative Negative Protein, Urine Negative <=Trace mg/dL Glucose, Urine Negative Negative mg/dL Ketones, Urine Trace Negative mg/dL A Urobilinogen, Urine 1.0 0.2-1.0 mg/dL Bilirubin, Urine Negative Negative Blood, Urine Negative Negative VITAMIN B12 Reviewed date:01/21/2025 01:40:08 PM Interpretation: Performing Lab: Notes/Report: Vitamin B-12 534 250-900 pcg/mL HEMOGLOBIN A1C Reviewed date:04/24/2025 10:53:55 AM Interpretation: Performing Lab: Notes/Report: Hemoglobin A1C 6.4 <6.5 % Mean Bld Glu Estim. 137 HEMOGLOBIN A1C Reviewed date:01/21/2025 02:55:36 PM Interpretation: Performing Lab: Notes/Report: Hemoglobin A1C 6.9 <6.5 % H Mean Bld Glu Estim. 151 COMPREHENSIVE METABOLIC PANE L Reviewed date:01/21/2025 01:40:08 PM Interpretation: Performing Lab: Notes/Report: Sodium 138 133-145 mmol/L Potassium 4.6 3.5-5.5 mmol/L Chloride 102 96-110 mmol/L CO2 30 21-32 mmol/L Anion Gap 6 3-11 Glucose 81 70-100 mg/dL BUN 15 5-25 mg/dL Creatinine 0.89 0.70-1.30 mg/dL eGFR 89 >=60 mL/min/1.73m2 Calculation based on the Chronic Kidney Disease Epidemiology Collaboration (CKD-EPI) equation refit without adjustment for race. BUN/Creatinine Ratio 16.9 Calcium 10.1 8.5-10.5 mg/dL AST (SGOT) 15 10-42 unit/L ALT (SGPT) 9 10-60 unit/L L Alkaline Phosphatase 147 42-121 unit/L H Total Protein 7.1 6.0-8.0 g/dL Albumin 4.1 3.2-5.0 g/dL Total Bilirubin 0.7 0.0-1.4 mg/dL MAGNESIUM Reviewed date:05/05/2025 04:12:35 PM Interpretation: Performing Lab: Notes/Report: Magnesium 1.8 1.9-2.6 mg/dL L MAGNESIUM Reviewed date:04/24/2025 07:55:01 AM Interpretation: Performing Lab: Notes/Report: Magnesium 1.9 1.9-2.6 mg/dL LIPID PANEL WITH REFLEX TO D IRECT LDL Reviewed date:04/25/2025 08:35:22 AM Interpretation: Performing Lab: Notes/Report: Cholesterol 160 0-200 mg/dL Triglycerides 127 0-150 mg/dL HDL 46 >=40 mg/dL LDL Calculated 89 0-100 mg/dL Estimated LDL Calculated using equation: Total cholesterol - HDL cholesterol - (Triglycerides/5) VLDL Cholesterol Linnea 25.4 Non HDL Chol. (LDL+VLDL) 114 <145 mg/dL Chol/HDL Ratio 3.5 0.0-4.4 BASIC METABOLIC PANEL Reviewed date:05/05/2025 04:12:35 PM Interpretation: Performing Lab: Notes/Report: Sodium 139 133-145 mmol/L Potassium 4.8 3.5-5.5 mmol/L Chloride 105 96-110 mmol/L CO2 28 21-32 mmol/L Anion Gap 6 3-11 Glucose 71 70-100 mg/dL BUN 17 5-25 mg/dL Creatinine 0.93 0.70-1.30 mg/dL eGFR 85 >=60 mL/min/1.73m2 Calculation based on the Chronic Kidney Disease Epidemiology Collaboration (CKD-EPI) equation refit without adjustment for race. BUN/Creatinine Ratio 18.3 Calcium 9.6 8.5-10.5 mg/dL CBC WITH AUTO DIFFERENTIAL Reviewed date:07/16/2024 12:02:27 PM Interpretation: Performing Lab: Notes/Report: WBC 6.9 4.8-10.8 K/mcL RBC 4.20 4.50-5.50 M/mcL L Hemoglobin 12.4 13.5-17.5 g/dL L Hematocrit 38.1 42.0-54.0 % L MCV 91.4 79.0-98.0 FL MCH 29.7 27.0-32.0 [...] K/mcL Immature Granulocytes Absolute 0.02 0.00-0.03 K/mcL LIPID PANEL WITH REFLEX TO D IRECT LDL Reviewed date:07/16/2024 05:01:43 PM Interpretation: Performing Lab: Notes/Report: Cholesterol 158 0-200 mg/dL Triglycerides 123 0-150 mg/dL HDL 46 >=40 mg/dL LDL Calculated 87 0-100 mg/dL VLDL Cholesterol Linnea 24.6 Non HDL Chol. (LDL+VLDL) 112 <145 mg/dL Chol/HDL Ratio 3.4 0.0-4.4 VITAMIN D 25 HYDROXY Reviewed date:07/16/2024 05:01:43 PM Interpretation: Performing Lab: Notes/Report: Vit D, 25-Hydroxy 46.4 30.0-80.0 ng/mL THYROID STIMULATING HORMONE Reviewed date:07/16/2024 05:01:43 PM Interpretation: Performing Lab: Notes/Report: TSH 2.17 0.40-4.00 mcIU/mL POCT GLUCOSE, BLOOD Reviewed date:04/24/2025 07:30:21 AM Interpretation: Performing Lab: Notes/Report: Glucose POCT 107 70-100 mg/dL H POCT Comment RN Notified POCT GLUCOSE, BLOOD Reviewed date:04/23/2025 04:42:36 PM Interpretation: Performing Lab: Notes/Report: Glucose POCT 81 70-100 mg/dL POCT GLUCOSE, BLOOD Reviewed date:04/23/2025 01:21:29 PM Interpretation: Performing Lab: Notes/Report: Glucose POCT 176 70-100 mg/dL H POCT GLUCOSE, BLOOD Reviewed date:04/23/2025 10:15:08 AM Interpretation: Performing Lab: Notes/Report: Glucose POCT 143 70-100 mg/dL H URINALYSIS WITH REFLEX MICRO SCOPIC Reviewed date:07/16/2024 12:02:27 PM Interpretation: Performing Lab: Notes/Report: Specific Bruni Urine 1.015 1.003-1.030 pH, Urine 7.5 5.0-8.0 pH Leukocytes, Urine Negative Negative Nitrite, Urine Negative Negative Protein, Urine Negative <=Trace mg/dL Glucose, Urine Negative Negative mg/dL Ketones, Urine Negative Negative mg/dL Urobilinogen, Urine 1.0 0.2-1.0 mg/dL Bilirubin, Urine Negative Negative Blood, Urine Negative Negative HEMOGLOBIN A1C Reviewed date:04/23/2025 01:21:29 PM Interpretation: Performing Lab: Notes/Report: Hemoglobin A1C 6.3 <6.5 % Mean Bld Glu Estim. 134 COMPREHENSIVE METABOLIC PANE L Reviewed date:07/16/2024 05:01:43 PM Interpretation: Performing Lab: Notes/Report: Sodium 138 133-145 mmol/L Potassium 4.3 3.5-5.5 mmol/L Chloride 103 96-110 mmol/L CO2 31 21-32 mmol/L Anion Gap 4 3-11 Glucose 131 70-100 mg/dL H BUN 12 5-25 mg/dL Creatinine 0.83 0.70-1.30 mg/dL eGFR 91 >=60 mL/min/1.73m2 Calculation based on the?Chronic Kidney Disease Epidemiology Collaboration (CKD-EPI) equation refit?without adjustment for race. BUN/Creatinine Ratio 14.5 Calcium 9.1 8.5-10.5 mg/dL AST (SGOT) 18 10-42 unit/L ALT (SGPT) 24 10-60 unit/L Alkaline Phosphatase 180 42-121 unit/L H Total Protein 6.7 6.0-8.0 g/dL Albumin 3.3 3.2-5.0 g/dL Total Bilirubin 0.5 0.0-1.4 mg/dL TISSUE EXAM Reviewed date:04/28/2025 11:08:53 AM Interpretation: Performing Lab: Notes/Report: -P40: Strongly and diffusely positive throughout the entire tumor. Adequate. Malignant. Carcinoma, pending IHC to characterize. -INSM1, TTF-1: Negative. Dr. Gonzalez communicated with Dr. Lyman via [employer] 04/24/25 11:24 AM EDT This pattern indicates pure squamous cell carcinoma; varying from poorly differentiated to keratinized. Controls stain appropriately. Secondary review for new malignancy performed by Dr. Bearden with agreement. Lucy Gonzalez MD notified Dr. Lyman 04/28/25 at 9:56 AM EDT Final Diagnosis Lymph Node, Right cervical, core biopsy: Squamous cell carcinoma. at 0957 EDT Gross Description A. Lymph Node, Right cervical [...] tissue. A touch preparation is made. TS Disclaimer NOTE: The immunohistochemical tests and in situ hybridization tests were developed and their performance characteristics were determined by [facility]. They have not [...] 10% NB formalin fixed and paraffin embedded. Comment Routine sections rebeca w high-grade carcinoma in solid sheets in a background of fibrosis. Background lymph node tissue is not appreciated. While focal keratinization is present, much of the tumor has a higher nuclear to cytoplasm ratio with areas of molding, raising the possibility of a mixed phenotype tumor. Immunohistochemical stains are performed for characterization and are interpreted as follows: Intraoperative Consultation A. Lymph Node, Right cervical lymph node: HEMOGLOBIN A1C Reviewed date:07/17/2024 08:00:29 AM Interpretation: Performing Lab: Notes/Report: Hemoglobin A1C 7.0 <6.5 % H Mean Bld Glu Estim. 154 MR BRAIN WO CONTRAST Reviewed date:01/05/2025 09:30:12 AM Interpretation: Performing Lab: Notes/Report: Note See Note [facility], a member of [facility] Patient Name: LICHA MELGAR Date of : 1950 Reason for Exam: dz Exam Date: 01/05/2025 [id number] EST Report Status: Final Ordering Provider: ALETHA [...] Signed Date: 025 09:13 ET Workstation ID: [id number] Transcribed By: Self Edit Transcribed Date: 01/05/2025 [...] NB formalin fixed and paraffin embedded. CT HEAD WO CONTRAST Reviewed date:02/27/2025 03:09:18 PM Interpretation: Performing Lab: Notes/Report: Note See Note [facility], a member of [facility] Patient Name: LICHA MELGAR Date of : 1950 Reason for Exam: CLOSED HEAD INJURY Exam Date: 02/23/2025 [id number] EST Report Status: Final Ordering Provider: ALETHA [...] No mass demonstrated Acute infarct: No ac [place] infarct demonstrated. White matter disease : [...] Signed Date: 025 11:56 ET Workstation ID: [id number] Transcribed By: Self Edit Transcribed Date: 02/27/2025 06:56 ET POCT GLUCOSE, BLOOD Reviewed date:04/23/2025 07:34:05 AM Interpretation: Performing Lab: Notes/Report: Glucose POCT 94 70-100 mg/dL CT CERVICAL SPINE WO CONTRAS T Reviewed date:03/03/2025 03:27:17 PM Interpretation: Performing Lab: Notes/Report: Note See Note [facility], a member of [facility] Patient Name: LICHA MELGAR Date of : 1950 Reason for Exam: CERVICAL PAIN Exam Date: 02/23/2025 [id number] EST Report Status: Final Ordering Provider: ALETHA [...] No mass demonstrated Acute infarct: No ac [place] infarct demonstrated. White matter disease : [...] exam and direct inspection. Departmental staff w zaira fax the report and confirm receipt -------- FINAL REPOR T -------- Dictated By: Silverio Busby Dictated Date: 02/27/2025 06:43 ET Assigned Physician: Silverio Lezama Reviewed and Electronically Signed By: Silverio Lezama Signed Date: 025 11:56 ET Workstation ID: [id number] Transcribed By: Self Edit Transcribed Date: 02/27/2025 06:56 ET Reason For Referral Diagnosis 1 Lymphadenopathy (R59 .1) Referral Organization [facility] [address] Referring Provider First Name ALETHA Referring Provider Last Name LALY Referring Provider Speciality Internal M edicine Referred Provider Specialty Ear, nose an d throat surgeon General Notes Jarad Gudino 04/14 09:49:51 AM >faxed to [facility], [address] [place] [address],[place] [address], Fax, and also to [place], [place], [facility], [address] [place] [address], [address], [place] [address], , fax Clinical Notes Anayeli Conn 02:06:36 PM > referral faxed to [phone] to urgent referral line.Obie Redena 04/27/2025 01:03:45 PM > The office confirmed receipt of the referral. They will contact the patient this week to schedule Referral Priority Stat Reason [facility]- Dr Barrientos Diagnosis 1 Neck mass (R22.1) Referral Organization [facility] [address] Referring Provider First Name ALETHA Referring Provider Last Name LALY Referring Provider Speciality Internal M edicine Referred Provider Specialty Oncology General Notes Anayeli Conn 10:15:03 AM > Pt given phone [phone] referral faxed to [phone] Referral Priority Routine Medications Medication SIG (Take, Route, Frequency, Duration) Notes Start Date End Date Status buPROPion HCl 75 MG Tablet Oral; Duratio n: 90 Days Active Diclofenac Sodium 75 MG Tablet Delayed Release 1 tablet Orally Twice a day; Duration: 30 day(s) 12/05/2019 Active Lisinopril 5 MG Tablet Take 1 tablet by mouth once daily for 90 days; Duration: 90 Not-Taking Escitalopram Oxalate 20 MG Tablet 1 tablet Orally Once a day; Duration: 30 day(s) Active metFORMIN HCl ER 500 MG Tablet Extended Release 24 Hour TAKE 1 TABLET BY MOUTH TWICE DAILY WITH EVENING MEAL; Duration: 90 Active Carbidopa-Levodopa 25-100 MG Tablet Oral; Duration: 30 Days Active Magnesium Oxide 400 MG Tablet 1 tablet with food Orally Once a day; Duration: 30 days 05/05/2025 Active Gabapentin 300 MG Capsule 1 capsule Oral ly Once a day; Duration: 30 day(s) 12/05/2019 Active Alcohol Wipes 70 % Miscellaneous as directed Externally DAILY; Duration: 90 days 04/24/2024 Active FreeStyle Lite - Device as directed in v itro [id number] once daily; Duration: 30 days 07/28/2019 Active Cialis 20 MG Tablet 1 tablet Orally 1 hr before sex; Duration: 30 day(s) Active Atorvastatin Calcium 20 MG Tablet Take 1 tablet by mouth once daily; Duration: 90 Active Lisinopril 10 MG Tablet Take 1 tablet by mouth once daily for 90 days; Duration: 90 Active FreeStyle Lancets - Miscellaneous USE TO CHECK BLOOD SUGAR ONCE DAILY DIRECTED (BULK); Duration: 90 Active FreeStyle Lite Test Strips [...] stop date) Never Smoker NA - NA Social History Drugs/Alcohol: Social Info Question Answer Notes Drugs Have you used drugs other than those for medical reasons in the past 12 months? No Tobacco Use: Social Info Question Answer Notes Tobacco Use/Smoking Are you a nonsmoker Additional Details Category Social Info Options Details Drugs/Alcohol: Do you smoke marijuana? De nies Do you drink alcohol? 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) Type 2 diabetes mellitus with unspecified complications (E11.8) Active confirmed Problem Vitamin D deficiency (84937886) Vitamin D deficiency, unspecified (E55.9) Active confirmed Problem Mixed hyperlipidemia (752554347) Mixed hyperlipidemia (E78.2) Active confirmed Problem Hyperlipidemia (74573237) Hyperlipidemia, unspecified (E78.5) Active confirmed Problem Hypomagnesemia (972778484) Hypomagnesemia (E83.42) Active confirmed Problem Major depression, single episode (17994415) Major depressive disorder, single episode, unspecified (F32.9) Active confirmed Problem Chronic pain (66411428) Other chronic pain (G89.29) Active confirmed Problem Essential hypertension (86061128) Essential (primary) hypertension (I10) Active confirmed Problem Adult health examination (220593598) Encounter for general adult medical examination without abnormal findings (Z00.00) Active confirmed Problem Lipid screening (249116870) Encounter for screening for lipoid disorders (Z13.220) Active confirmed Problem Acute pain of left knee (M25.562) Active confirmed Problem Hypothyroidism (87271225) Hypothyroidism, unspecified type (E03.9) Active confirmed Problem Depression Screening (394364127) Encounter for screening for depression (Z13.31) Active confirmed Problem Prediabetes (808660778) Pre-diabetes (R73.03) Active confirmed Problem Annual health maintenance examination (76194272) Encounter for annual health examination (Z00.00) Active confirmed Problem Ataxia (38205113) Ataxia (R27.0) Active confirm ed Problem Parkinsons disease (26460096) Parkinsons disease (G20) Active confirmed Problem Cervical pain (07610384) Cervical pain (M54.2) Active confirmed Problem Recurrent falls (666665083) Recurrent falls (R29.6) Active confirmed Problem Vitamin B>12< deficiency anaemia (71898122) Anemia due to vitamin B12 deficiency, unspecified B12 deficiency type (D51.9) Active confirmed Problem Endocrine/metabol ic screening (828891735) Encounter for screening for endocrine disorder (Z13.29) Active confirmed Problem Abnormal metabolic state due to diabetes mellitus (064925450) Abnormal metabolic state due to diabetes mellitus (E11.9) Active confirmed Problem Calcific tendinitis (98551650) Calcific tendinitis (M65.20) Active confirmed Problem Parkinson's disease (disorder) (57356866) Parkinson disease, symptomatic (G20.A1) Active confirmed Problem Squamous cell carcinoma of skin (637055429) SCC (squamous cell carcinoma) (C44.92) Active confirmed Problem Disorder of brain (83585574) Encephalopathy, unspecified type (G93.40) Active confirmed Vital Signs Heart Rate 86 /min 05/05/2025 Oximetry 95 % 05/05/2025 Blood pressure diastolic 70 mm Hg 05/05/2025 Height 66 in 05/05/2025 Blood pressure systolic 120 mm Hg 05/05/2025 Weight 174 lbs 05/05/2025 BMI 28.08 kg/m2 05/05/2025 Encounters Encounter Location Date Provider Diagnosis [facility] [address] [place] [id number] 07/23/2024 ALETHA RUFFIN Type 2 diabetes danish itus with unspecified complications E11.8 ; Essential (primary) hypertension I10 ; Hyperlipidemia, unspecified E78.5 ; Other chronic pain G89.29 ; Parkinson disease, symptomatic G20.A1 and Acute pain of left knee M25.562 [facility] [address] [address] 10/16/2024 ALETHA RUFFIN Type 2 diabetes danish itus with unspecified complications E11.8 ; Essential (primary) hypertension I10 ; Hyperlipidemia, unspecified E78.5 ; Other chronic pain G89.29 ; Parkinson disease, symptomatic G20.A1 and Acute pain of left knee M25.[address] [facility] [address] 12/29/2024 ALETHA RUFFIN Dizziness R42 and At axia R27.[address] [facility] [address] 01/21/2025 ALETHA RUFFIN Closed head injury, initial encounter S09.90XA ; Cervical pain M54.2 ; Lumbar pain M54.50 ; Left hip pain M25.552 ; Anemia due to vitamin B12 deficiency, unspecified B12 deficiency type D51.9 and Encounter for examination of blood pressure without abnormal findings Z01.[address] [facility] [address] [address] 03/03/2025 ALETHA RUFFIN Type 2 diabetes danish itus with unspecified complications E11.8 ; Essential (primary) hypertension I10 ; Parkinson disease, symptomatic G20.A1 ; Cervical lymphadenopathy R59.0 ; Hyperlipidemia, unspecified E78.5 ; Other chronic pain G89.29 ; Dizziness R42 and Recurrent falls R29.[address] [facility] [address] [address] 04/07/2025 ALETHA RUFFIN New onset seizure R5 6.9 and Encephalopathy, unspecified type G93.[address] [facility] [address] [address] 04/27/2025 ALETHA RUFFIN Annual physical exam Z00.00 ; Encounter for screening for depression Z13.31 ; Encounter for screening for other disorder Z13.89 ; Advanced directives, counseling/discussion Z71.89 ; Type 2 diabetes mellitus with unspecified complications E11.8 ; Essential (primary) hypertension I10 ; Parkinson disease, symptomatic G20.A1 ; Cervical lymphadenopathy R59.0 ; Hyperlipidemia, unspecified E78.5 ; Other chronic pain G89.29 ; Recurrent falls R29.6 and Neck mass R22.1 [facility] [address] [address] 05/05/2025 ALETHASHON HARTT Hypomagnesemia E83.4 2 ; Generalized weakness R53.1 ; SCC (squamous cell carcinoma) C44.92 and Neck mass R22.1 [facility] [address] [address] 09/01/2024 ALETHA BORHOT [facility] [address] 10/16/2024 ALETHA CARLOSHOT [facility] [address] [place] [address] 11/28/2024 ALETHA RUFFIN Type 2 diabetes danish itus with unspecified complications E11.8 [facility] [address] 12/26/2024 ALETHA CARLOSHOT [facility] [address] [place] [address] 01/06/2025 ALETHA CARLOSHOT [facility] [address] [place] [address] 03/04/2025 ALETHA CARLOSHOT [facility] [address] [place] [address] 03/09/2025 ALETHA CARLOSHOT [facility] [address] [place] [address] 04/06/2025 ALETHA RUFFIN Cervical lymphadenop athy R59.0 [facility] [address] 04/07/2025 ALETHA BORHOT [facility] [address] 04/07/2025 A[facility]A BORHOT [facility] [address] 04/07/2025 ALETHA BORHOT [facility] [address] 04/14/2025 ALETHA BORHOT [facility] [address] 04/17/2025 ALETHA BORHOT [facility] [address] [place], [place] 04/27/2025 ALETHA BORHOT [facility] [address] [address] [place], [place] 04/27/2025 ALETHA BORHOT [facility] [address] [place], [place] 04/28/2025 ALETHA BORHOT [facility] [address] [place], [place] 05/04/2025 ALETHA BORHOT [facility] [address] [place] [address] 05/07/2025 ALETHA BORHOT [facility] [address] [facility] [address] [place], [place] 05/08/2025 ALETHA BORHOT Assessments Encounter Date Diagnosis (ICD Code) Assessment [...] software and direct typing Please excuse inadvertent marine insurance claim examiner or typing errors, or uncorrected word substitutions Although every attempt has been made by the provider to proofread this document, occasional misspellings and typographical errors may still be present Due to the previous pandemic, and the use of personal protective equipment (PPE) This may decrease voice recognition accuracy Inadvertent marine insurance claim examiner errors may occur 11/28/2024 Type 2 diabetes [...] software and direct typing Please excuse inadvertent marine insurance claim examiner or typing errors, or uncorrected word substitutions Although every attempt has been made by the provider to proofread this document, occasional misspellings and typographical errors may still be present Due to the previous pandemic, and the use of personal protective equipment (PPE) This may decrease voice recognition accuracy Inadvertent marine insurance claim examiner errors may occur 03/03/2025 Type 2 diabetes [...] software and direct typing Please excuse inadvertent marine insurance claim examiner or typing errors, or uncorrected word substitutions Although every attempt has been made by the provider to proofread this document, occasional misspellings and typographical errors may still be present Due to the previous pandemic, and the use of personal protective equipment (PPE) This may decrease voice recognition accuracy Inadvertent marine insurance claim examiner errors may occur 03/03/2025 Essential (primary) hypertension [...] software and direct typing Please excuse inadvertent marine insurance claim examiner or typing errors, or uncorrected word substitutions Although every attempt has been made by the provider to proofread this document, occasional misspellings and typographical errors may still be present Due to the previous pandemic, and the use of personal protective equipment (PPE) This may decrease voice recognition accuracy Inadvertent marine insurance claim examiner errors may occur 04/06/2025 Cervical lymphadenopathy (ICD-10 - R59.0) 04/07/2025 New onset seizure (ICD-10 - R56.9) Patient likely will need an EEG Will call his neurologist office and see if we can facilitate this and have him seen for hospital follow-up visit Of note, some information is being carried forward from prior records for informational purposes only and is being cited so that efficiency, safety and quality of the patient's care is not compromised This note was prepared using voice recognition software and direct typing Please excuse inadvertent marine insurance claim examiner or typing errors, or uncorrected word substitutions Although every attempt has been made by the provider to proofread this document, occasional misspellings and typographical errors may still be present Due to the previous pandemic, and the use of personal protective equipment (PPE) This may decrease voice recognition accuracy Inadvertent marine insurance claim examiner errors may occur 04/07/2025 Encephalopathy, unspecified type (ICD-10 - G93.40) Patient likely will need an EEG Will call his neurologist office and see if we can facilitate this and have him seen for hospital follow-up visit Of note, some information is being carried forward from prior records for informational purposes only and is being cited so that efficiency, safety and quality of the patient's care is not compromised This note was prepared using voice recognition software and direct typing Please excuse inadvertent marine insurance claim examiner or typing errors, or uncorrected word substitutions Although every attempt has been made by the provider to proofread this document, occasional misspellings and typographical errors may still be present Due to the previous pandemic, and the use of personal protective equipment (PPE) This may decrease voice recognition accuracy Inadvertent marine insurance claim examiner errors may occur 04/27/2025 Encounter for screening for depression (ICD-10 - Z13.31) Acute Concerns/Problem List: 03/03/2025 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, 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 As per [facility] for medical supplies and DME Of note, some information is being carried forward from prior records for informational purposes only and is being cited so that efficiency, safety and quality of the patient's care is not compromised This note was prepared using voice recognition software and direct typing Please excuse inadvertent marine insurance claim examiner or typing errors, or uncorrected word substitutions Although every attempt has been made by the provider to proofread this document, occasional misspellings and typographical errors may still be present Due to the previous pandemic, and the use of personal protective equipment (PPE) This may decrease voice recognition accuracy Inadvertent marine insurance claim examiner errors may occur 04/27/2025 Annual physical exam (ICD-10 - Z00.00) Acute Concerns/Problem List: 03/03/2025 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, 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 As per [facility] for medical supplies and DME Of note, some information is being carried forward from prior records for informational purposes only and is being cited so that efficiency, safety and quality of the patient's care is not compromised This note was prepared using voice recognition software and direct typing Please excuse inadvertent marine insurance claim examiner or typing errors, or uncorrected word substitutions Although every attempt has been made by the provider to proofread this document, occasional misspellings and typographical errors may still be present Due to the previous pandemic, and the use of personal protective equipment (PPE) This may decrease voice recognition accuracy Inadvertent marine insurance claim examiner errors may occur 05/05/2025 Hypomagnesemia (ICD-10 - E83.42) Will check a metabolic panel with magnesium levels Will put him on daily magnesium supplementation Of note, some information is being carried forward from prior records for informational purposes only and is being cited so that efficiency, safety and quality of the patient's care is not compromised This note was prepared using voice recognition software and direct typing Please excuse inadvertent marine insurance claim examiner or typing errors, or uncorrected word substitutions Although every attempt has been made by the provider to proofread this document, occasional misspellings and typographical errors may still be present Due to the previous pandemic, and the use of personal protective equipment (PPE) This may decrease voice recognition accuracy Inadvertent marine insurance claim examiner errors may occur 05/05/2025 Generalized weakness (ICD-10 - R53.1) Will check a metabolic panel with magnesium levels Will put him on daily magnesium supplementation Of note, some information is being carried forward from prior records for informational purposes only and is being cited so that efficiency, safety and quality of the patient's care is not compromised This note was prepared using voice recognition software and direct typing Please excuse inadvertent marine insurance claim examiner or typing errors, or uncorrected word substitutions Although every attempt has been made by the provider to proofread this document, occasional misspellings and typographical errors may still be present Due to the previous pandemic, and the use of personal protective equipment (PPE) This may decrease voice recognition accuracy Inadvertent marine insurance claim examiner errors may occur 01/21/2025 Cervical pain (ICD-10 [...] software and direct typing Please excuse inadvertent marine insurance claim examiner or typing errors, or uncorrected word substitutions Although every attempt has been made by the provider to proofread this document, occasional misspellings and typographical errors may still be present Due to the previous pandemic, and the use of personal protective equipment (PPE) This may decrease voice recognition accuracy Inadvertent marine insurance claim examiner errors may occur 01/21/2025 Closed head injury, [...] software and direct typing Please excuse inadvertent marine insurance claim examiner or typing errors, or uncorrected word substitutions Although every attempt has been made by the provider to proofread this document, occasional misspellings and typographical errors may still be present Due to the previous pandemic, and the use of personal protective equipment (PPE) This may decrease voice recognition accuracy Inadvertent marine insurance claim examiner errors may occur 10/16/2024 Type 2 diabetes [...] software and direct typing Please excuse inadvertent marine insurance claim examiner or typing errors, or uncorrected word substitutions Although every attempt has been made by the provider to proofread this document, occasional misspellings and typographical errors may still be present Due to the previous pandemic, and the use of personal protective equipment (PPE) This may decrease voice recognition accuracy Inadvertent marine insurance claim examiner errors may occur 10/16/2024 Essential (primary) hypertension [...] software and direct typing Please excuse inadvertent marine insurance claim examiner or typing errors, or uncorrected word substitutions Although every attempt has been made by the provider to proofread this document, occasional misspellings and typographical errors may still be present Due to the previous pandemic, and the use of personal protective equipment (PPE) This may decrease voice recognition accuracy Inadvertent marine insurance claim examiner errors may occur 01/21/2025 Lumbar pain (ICD-10 [...] software and direct typing Please excuse inadvertent marine insurance claim examiner or typing errors, or uncorrected word substitutions Although every attempt has been made by the provider to proofread this document, occasional misspellings and typographical errors may still be present Due to the previous pandemic, and the use of personal protective equipment (PPE) This may decrease voice recognition accuracy Inadvertent marine insurance claim examiner errors may occur 05/05/2025 SCC (squamous cell carcinoma) (ICD-10 - C44.92) Will check a metabolic panel with magnesium levels Will put him on daily magnesium supplementation Of note, some information is being carried forward from prior records for informational purposes only and is being cited so that efficiency, safety and quality of the patient's care is not compromised This note was prepared using voice recognition software and direct typing Please excuse inadvertent marine insurance claim examiner or typing errors, or uncorrected word substitutions Although every attempt has been made by the provider to proofread this document, occasional misspellings and typographical errors may still be present Due to the previous pandemic, and the use of personal protective equipment (PPE) This may decrease voice recognition accuracy Inadvertent marine insurance claim examiner errors may occur 04/27/2025 Encounter for screening for other disorder (ICD-10 - Z13.89) Acute Concerns/Problem List: 03/03/2025 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, 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 As per [facility] for medical supplies and DME Of note, some information is being carried forward from prior records for informational purposes only and is being cited so that efficiency, safety and quality of the patient's care is not compromised This note was prepared using voice recognition software and direct typing Please excuse inadvertent marine insurance claim examiner or typing errors, or uncorrected word substitutions Although every attempt has been made by the provider to proofread this document, occasional misspellings and typographical errors may still be present Due to the previous pandemic, and the use of personal protective equipment (PPE) This may decrease voice recognition accuracy Inadvertent marine insurance claim examiner errors may occur 03/03/2025 Parkinson disease, symptomatic [...] software and direct typing Please excuse inadvertent marine insurance claim examiner or typing errors, or uncorrected word substitutions Although every attempt has been made by the provider to proofread this document, occasional misspellings and typographical errors may still be present Due to the previous pandemic, and the use of personal protective equipment (PPE) This may decrease voice recognition accuracy Inadvertent marine insurance claim examiner errors may occur 12/29/2024 Ataxia (ICD-10 - [...] software and direct typing Please excuse inadvertent marine insurance claim examiner or typing errors, or uncorrected word substitutions Although every attempt has been made by the provider to proofread this document, occasional misspellings and typographical errors may still be present Due to the previous pandemic, and the use of personal protective equipment (PPE) This may decrease voice recognition accuracy Inadvertent marine insurance claim examiner errors may occur 07/23/2024 Essential (primary) hypertension [...] software and direct typing Please excuse inadvertent marine insurance claim examiner or typing errors, or uncorrected word substitutions Although every attempt has been made by the provider to proofread this document, occasional misspellings and typographical errors may still be present Due to the previous pandemic, and the use of personal protective equipment (PPE) This may decrease voice recognition accuracy Inadvertent marine insurance claim examiner errors may occur 07/23/2024 Hyperlipidemia, unspecified (ICD-10 [...] software and direct typing Please excuse inadvertent marine insurance claim examiner or typing errors, or uncorrected word substitutions Although every attempt has been made by the provider to proofread this document, occasional misspellings and typographical errors may still be present Due to the previous pandemic, and the use of personal protective equipment (PPE) This may decrease voice recognition accuracy Inadvertent marine insurance claim examiner errors may occur 03/03/2025 Cervical lymphadenopathy (ICD-10 [...] software and direct typing Please excuse inadvertent marine insurance claim examiner or typing errors, or uncorrected word substitutions Although every attempt has been made by the provider to proofread this document, occasional misspellings and typographical errors may still be present Due to the previous pandemic, and the use of personal protective equipment (PPE) This may decrease voice recognition accuracy Inadvertent marine insurance claim examiner errors may occur 04/27/2025 Advanced directives, counseling/discussi on (ICD-10 - Z71.89) Acute Concerns/Problem List: 03/03/2025 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, 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 As per [facility] for medical supplies and DME Of note, some information is being carried forward from prior records for informational purposes only and is being cited so that efficiency, safety and quality of the patient's care is not compromised This note was prepared using voice recognition software and direct typing Please excuse inadvertent marine insurance claim examiner or typing errors, or uncorrected word substitutions Although every attempt has been made by the provider to proofread this document, occasional misspellings and typographical errors may still be present Due to the previous pandemic, and the use of personal protective equipment (PPE) This may decrease voice recognition accuracy Inadvertent marine insurance claim examiner errors may occur 05/05/2025 Neck mass (ICD-10 - R22.1) Will check a metabolic panel with magnesium levels Will put him on daily magnesium supplementation Of note, some information is being carried forward from prior records for informational purposes only and is being cited so that efficiency, safety and quality of the patient's care is not compromised This note was prepared using voice recognition software and direct typing Please excuse inadvertent marine insurance claim examiner or typing errors, or uncorrected word substitutions Although every attempt has been made by the provider to proofread this document, occasional misspellings and typographical errors may still be present Due to the previous pandemic, and the use of personal protective equipment (PPE) This may decrease voice recognition accuracy Inadvertent marine insurance claim examiner errors may occur 01/21/2025 Left hip pain [...] software and direct typing Please excuse inadvertent marine insurance claim examiner or typing errors, or uncorrected word substitutions Although every attempt has been made by the provider to proofread this document, occasional misspellings and typographical errors may still be present Due to the previous pandemic, and the use of personal protective equipment (PPE) This may decrease voice recognition accuracy Inadvertent marine insurance claim examiner errors may occur 10/16/2024 Hyperlipidemia, unspecified (ICD-10 - E78.5) Acute [...] software and direct typing Please excuse inadvertent marine insurance claim examiner or typing errors, or uncorrected word substitutions Although every attempt has been made by the provider to proofread this document, occasional misspellings and typographical errors may still be present Due to the previous pandemic, and the use of personal protective equipment (PPE) This may decrease voice recognition accuracy Inadvertent marine insurance claim examiner errors may occur 10/16/2024 Other chronic pain [...] software and direct typing Please excuse inadvertent marine insurance claim examiner or typing errors, or uncorrected word substitutions Although every attempt has been made by the provider to proofread this document, occasional misspellings and typographical errors may still be present Due to the previous pandemic, and the use of personal protective equipment (PPE) This may decrease voice recognition accuracy Inadvertent marine insurance claim examiner errors may occur 01/21/2025 Anemia due to [...] software and direct typing Please excuse inadvertent marine insurance claim examiner or typing errors, or uncorrected word substitutions Although every attempt has been made by the provider to proofread this document, occasional misspellings and typographical errors may still be present Due to the previous pandemic, and the use of personal protective equipment (PPE) This may decrease voice recognition accuracy Inadvertent marine insurance claim examiner errors may occur 07/23/2024 Other chronic pain [...] software and direct typing Please excuse inadvertent marine insurance claim examiner or typing errors, or uncorrected word substitutions Although every attempt has been made by the provider to proofread this document, occasional misspellings and typographical errors may still be present Due to the previous pandemic, and the use of personal protective equipment (PPE) This may decrease voice recognition accuracy Inadvertent marine insurance claim examiner errors may occur 04/27/2025 Type 2 diabetes mellitus with unspecified complications (ICD-10 - E11.8) Acute Concerns/Problem List: 03/03/2025 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, 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 As per [facility] for medical supplies and DME Of note, some information is being carried forward from prior records for informational purposes only and is being cited so that efficiency, safety and quality of the patient's care is not compromised This note was prepared using voice recognition software and direct typing Please excuse inadvertent marine insurance claim examiner or typing errors, or uncorrected word substitutions Although every attempt has been made by the provider to proofread this document, occasional misspellings and typographical errors may still be present Due to the previous pandemic, and the use of personal protective equipment (PPE) This may decrease voice recognition accuracy Inadvertent marine insurance claim examiner errors may occur 03/03/2025 Hyperlipidemia, unspecified (ICD-10 [...] software and direct typing Please excuse inadvertent marine insurance claim examiner or typing errors, or uncorrected word substitutions Although every attempt has been made by the provider to proofread this document, occasional misspellings and typographical errors may still be present Due to the previous pandemic, and the use of personal protective equipment (PPE) This may decrease voice recognition accuracy Inadvertent marine insurance claim examiner errors may occur 03/03/2025 Other chronic pain [...] software and direct typing Please excuse inadvertent marine insurance claim examiner or typing errors, or uncorrected word substitutions Although every attempt has been made by the provider to proofread this document, occasional misspellings and typographical errors may still be present Due to the previous pandemic, and the use of personal protective equipment (PPE) This may decrease voice recognition accuracy Inadvertent marine insurance claim examiner errors may occur 01/21/2025 Encounter for examination [...] software and direct typing Please excuse inadvertent marine insurance claim examiner or typing errors, or uncorrected word substitutions Although every attempt has been made by the provider to proofread this document, occasional misspellings and typographical errors may still be present Due to the previous pandemic, and the use of personal protective equipment (PPE) This may decrease voice recognition accuracy Inadvertent marine insurance claim examiner errors may occur 07/23/2024 Parkinson disease, symptomatic [...] software and direct typing Please excuse inadvertent marine insurance claim examiner or typing errors, or uncorrected word substitutions Although every attempt has been made by the provider to proofread this document, occasional misspellings and typographical errors may still be present Due to the previous pandemic, and the use of personal protective equipment (PPE) This may decrease voice recognition accuracy Inadvertent marine insurance claim examiner errors may occur 04/27/2025 Essential (primary) hypertension (ICD-10 - I10) Acute Concerns/Problem List: 03/03/2025 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, 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 As per [facility] for medical supplies and DME Of note, some information is being carried forward from prior records for informational purposes only and is being cited so that efficiency, safety and quality of the patient's care is not compromised This note was prepared using voice recognition software and direct typing Please excuse inadvertent marine insurance claim examiner or typing errors, or uncorrected word substitutions Although every attempt has been made by the provider to proofread this document, occasional misspellings and typographical errors may still be present Due to the previous pandemic, and the use of personal protective equipment (PPE) This may decrease voice recognition accuracy Inadvertent marine insurance claim examiner errors may occur 10/16/2024 Parkinson disease, symptomatic [...] software and direct typing Please excuse inadvertent marine insurance claim examiner or typing errors, or uncorrected word substitutions Although every attempt has been made by the provider to proofread this document, occasional misspellings and typographical errors may still be present Due to the previous pandemic, and the use of personal protective equipment (PPE) This may decrease voice recognition accuracy Inadvertent marine insurance claim examiner errors may occur 10/16/2024 Acute pain of [...] software and direct typing Please excuse inadvertent marine insurance claim examiner or typing errors, or uncorrected word substitutions Although every attempt has been made by the provider to proofread this document, occasional misspellings and typographical errors may still be present Due to the previous pandemic, and the use of personal protective equipment (PPE) This may decrease voice recognition accuracy Inadvertent marine insurance claim examiner errors may occur 04/27/2025 Parkinson disease, symptomatic (ICD-10 - G20.A1) Acute Concerns/Problem List: 03/03/2025 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, 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 As per [facility] for medical supplies and DME Of note, some information is being carried forward from prior records for informational purposes only and is being cited so that efficiency, safety and quality of the patient's care is not compromised This note was prepared using voice recognition software and direct typing Please excuse inadvertent marine insurance claim examiner or typing errors, or uncorrected word substitutions Although every attempt has been made by the provider to proofread this document, occasional misspellings and typographical errors may still be present Due to the previous pandemic, and the use of personal protective equipment (PPE) This may decrease voice recognition accuracy Inadvertent marine insurance claim examiner errors may occur 03/03/2025 Dizziness (ICD-10 - [...] software and direct typing Please excuse inadvertent marine insurance claim examiner or typing errors, or uncorrected word substitutions Although every attempt has been made by the provider to proofread this document, occasional misspellings and typographical errors may still be present Due to the previous pandemic, and the use of personal protective equipment (PPE) This may decrease voice recognition accuracy Inadvertent marine insurance claim examiner errors may occur 07/23/2024 Acute pain of [...] software and direct typing Please excuse inadvertent marine insurance claim examiner or typing errors, or uncorrected word substitutions Although every attempt has been made by the provider to proofread this document, occasional misspellings and typographical errors may still be present Due to the previous pandemic, and the use of personal protective equipment (PPE) This may decrease voice recognition accuracy Inadvertent marine insurance claim examiner errors may occur 03/03/2025 Recurrent falls (ICD-10 [...] software and direct typing Please excuse inadvertent marine insurance claim examiner or typing errors, or uncorrected word substitutions Although every attempt has been made by the provider to proofread this document, occasional misspellings and typographical errors may still be present Due to the previous pandemic, and the use of personal protective equipment (PPE) This may decrease voice recognition accuracy Inadvertent marine insurance claim examiner errors may occur 04/27/2025 Cervical lymphadenopathy (ICD-10 - R59.0) Acute Concerns/Problem List: 03/03/2025 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, 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 As per [facility] for medical supplies and DME Of note, some information is being carried forward from prior records for informational purposes only and is being cited so that efficiency, safety and quality of the patient's care is not compromised This note was prepared using voice recognition software and direct typing Please excuse inadvertent marine insurance claim examiner or typing errors, or uncorrected word substitutions Although every attempt has been made by the provider to proofread this document, occasional misspellings and typographical errors may still be present Due to the previous pandemic, and the use of personal protective equipment (PPE) This may decrease voice recognition accuracy Inadvertent marine insurance claim examiner errors may occur 04/27/2025 Hyperlipidemia, unspecified (ICD-10 - E78.5) Acute Concerns/Problem List: 03/03/2025 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, 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 As per [facility] for medical supplies and DME Of note, some information is being carried forward from prior records for informational purposes only and is being cited so that efficiency, safety and quality of the patient's care is not compromised This note was prepared using voice recognition software and direct typing Please excuse inadvertent marine insurance claim examiner or typing errors, or uncorrected word substitutions Although every attempt has been made by the provider to proofread this document, occasional misspellings and typographical errors may still be present Due to the previous pandemic, and the use of personal protective equipment (PPE) This may decrease voice recognition accuracy Inadvertent marine insurance claim examiner errors may occur 04/27/2025 Other chronic pain (ICD-10 - G89.29) Acute Concerns/Problem List: 03/03/2025 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, 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 As per [facility] for medical supplies and DME Of note, some information is being carried forward from prior records for informational purposes only and is being cited so that efficiency, safety and quality of the patient's care is not compromised This note was prepared using voice recognition software and direct typing Please excuse inadvertent marine insurance claim examiner or typing errors, or uncorrected word substitutions Although every attempt has been made by the provider to proofread this document, occasional misspellings and typographical errors may still be present Due to the previous pandemic, and the use of personal protective equipment (PPE) This may decrease voice recognition accuracy Inadvertent marine insurance claim examiner errors may occur 04/27/2025 Recurrent falls (ICD-10 - R29.6) Acute Concerns/Problem List: 03/03/2025 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, 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 As per [facility] for medical supplies and DME Of note, some information is being carried forward from prior records for informational purposes only and is being cited so that efficiency, safety and quality of the patient's care is not compromised This note was prepared using voice recognition software and direct typing Please excuse inadvertent marine insurance claim examiner or typing errors, or uncorrected word substitutions Although every attempt has been made by the provider to proofread this document, occasional misspellings and typographical errors may still be present Due to the previous pandemic, and the use of personal protective equipment (PPE) This may decrease voice recognition accuracy Inadvertent marine insurance claim examiner errors may occur 04/27/2025 Neck mass (ICD-10 - R22.1) Acute Concerns/Problem List: 03/03/2025 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, 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 As per [facility] for medical supplies and DME Of note, some information is being carried forward from prior records for informational purposes only and is being cited so that efficiency, safety and quality of the patient's care is not compromised This note was prepared using voice recognition software and direct typing Please excuse inadvertent marine insurance claim examiner or typing errors, or uncorrected word substitutions Although every attempt has been made by the provider to proofread this document, occasional misspellings and typographical errors may still be present Due to the previous pandemic, and the use of personal protective equipment (PPE) This may decrease voice recognition accuracy Inadvertent marine insurance claim examiner errors may occur Plan Of Treatment Pending Test Test Name Order Date X ray : Knee, left 04/24/2024 X ray : Hip, left 01/21/2025 Electroencephalography (EEG) 04/07/2025 X ray : Spines, lumbar 2 views Hemoglobin A1c 03/12/2020 Hemoglobin A1c 05/19/2019 Hemoglobin A1c 01/15/2019 Lipid Panel 01/15/2019 Lipid Panel 05/19/2019 Lipid Panel 03/12/2020 Comp. Metabolic Panel (14) 05/19/2019 Comp. Metabolic Panel (14) 01/15/2019 Comp. Metabolic Panel (14) 03/12/2020 CBC 03/12/2020 CBC 05/19/2019 CBC 01/15/2019 Urinalysis 03/12/2020 MRI : Brain without Contrast 12/29/2024 25OH VITAMIN D 10/12/2022 CBC (COMPLETE BLOOD COUNT) 05/13/2018 CBC (COMPLETE BLOOD COUNT) 10/12/2022 COMPREHENSIVE METABOLIC PANEL 10/12/2022 COMPREHENSIVE METABOLIC PANEL 05/13/2018 HEMOGLOBIN A1C 02/13/2022 HEMOGLOBIN A1C 10/17/2021 HEMOGLOBIN A1C 05/13/2018 HEMOGLOBIN A1C 01/09/2018 HEMOGLOBIN A1C 06/14/2022 HEMOGLOBIN A1C 10/12/2022 LIPID PANEL 10/12/2022 LIPID PANEL 01/09/2018 LIPID PANEL 05/13/2018 LIPID PANEL 09/11/2018 MICROALBUMIN, URINE 10/12/2022 TB CELLULAR BLOOD TEST (TSPOT) 9 TSH 10/12/2022 URINALYSIS, COMPLETE 05/13/2018 Basic Metabolic Panel 05/05/2025 CT Neck Soft Tissue w and w/o Contrast 0 03/03/2025 UC XR L-Spine 2-3 Views 11/01/2020 XR Hip 2+ Views RT 06/18/2023 VITAMIN B12 01/21/2025 MAGNESIUM 05/05/2025 LIPID PANEL, STANDARD 04/24/2024 COMPREHENSIVE METABOLIC PANEL 04/24/2024 COMPREHENSIVE METABOLIC PANEL 01/21/2025 CBC (INCLUDES DIFF/PLT) 01/21/2025 CBC (INCLUDES DIFF/PLT) 04/24/2024 URINALYSIS, COMPLETE 01/21/2025 URINALYSIS, COMPLETE 04/24/2024 HEMOGLOBIN A1c 04/24/2024 HEMOGLOBIN A1c 01/21/2025 TSH 01/21/2025 TSH 04/24/2024 VITAMIN D,25-OH,TOTAL,IA 04/24/2024 COMPLETE URINALYSIS 10/12/2022 CT Brain WO 01/21/2025 CT Cervical Spine WO 01/21/2025 CT Neck W 04/06/2025 Future Test Test Name Order Date CBC (COMPLETE BLOOD COUNT) 10/30/2020 COMPREHENSIVE METABOLIC PANEL 10/30/2020 HEMOGLOBIN A1C 10/30/2020 LIPID PANEL 10/30/2020 COMPLETE URINALYSIS 10/30/2020 25OH VITAMIN D 10/17/2021 CBC (COMPLETE BLOOD COUNT) 10/17/2021 COMPREHENSIVE METABOLIC PANEL 10/17/2021 HEMOGLOBIN A1C 10/17/2021 LIPID PANEL 10/17/2021 PSA, SCREEN 10/17/2021 TSH 10/17/2021 COMPLETE URINALYSIS 10/17/2021 Next Appt Details Provider Name:ALETHA RUFFIN, 07/28/2025 11:00:00 AM, [address], [id number], Insurance Providers Payer Name Payer Address Payer Phone Subscriber Number Group Number Insured Name Patient Relationship to Insured Coverage Start Date Coverage End Date [employer] or Options [address] [place] [id number] LICHA MELGAR Self - patient is the insured Medical (General) History Medical History History ICD Code hyperlipidemia hypertension vitamin D deficiency diabetes mellitus Surgical History Surgery Date(Month/Year) low back
== END 2025-05-12 12:29 | disposition home or self-care (01) ==
LOC: HO.HSMS 10:41
PROVIDERS: Visit Provider Nurse Practitioner Family
DX: G20.A1 Parkinson's disease without dyskinesia, without mention of fluctuations (principal); R25.1 Tremor, unspecified; R42 Dizziness and giddiness; R20.0 Anesthesia of skin; R20.2 Paresthesia of skin; R29.6 Repeated falls
CPT/HCPCS: 99214

== ENCOUNTER → 2025-05-12 10:41 | Outpatient (BNVA) | payer OTHER, SELFPAY | PROVIDERS: Visit Provider Nurse Practitioner Family | DX: G20.A1 Parkinson's disease without dyskinesia, without mention of fluctuations (principal); R42 Dizziness and giddiness; R20.0 Anesthesia of skin; R20.2 Paresthesia of skin; R29.6 Repeated falls | CPT/HCPCS: 99212 ==